=== PATIENT | female | born 1960 | race Caucasian/White ===

== ENCOUNTER 2019-08-06 07:42 | Outpatient (RCR) | payer MEDICAID, SELFPAY | END 2019-08-09 08:00 | disposition home or self-care (01) | LOC: ONCRAD 07:42 | PROVIDERS: Family Provider Nurse Practitioner Family; Visit Provider Internal Medicine Medical Oncology | DX: C34.11 Malignant neoplasm of upper lobe, right bronchus or lung (principal); C79.51 Secondary malignant neoplasm of bone; C77.1 Secondary and unspecified malignant neoplasm of intrathoracic lymph nodes; Z23 Encounter for immunization; J44.9 Chronic obstructive pulmonary disease, unspecified; E78.5 Hyperlipidemia, unspecified; F40.240 Claustrophobia | CPT/HCPCS: 90732; 96372; 99214; G0009; J3420 ==

== ENCOUNTER 2019-08-12 10:42 | Outpatient (RCR) | payer MEDICAID, SELFPAY | END 2019-08-31 00:01 | LOC: ONCRAD 10:42 | PROVIDERS: Family Provider Nurse Practitioner Family; Visit Provider Nurse Practitioner | DX: Z51.11 Encounter for antineoplastic chemotherapy (principal); Z51.12 Encounter for antineoplastic immunotherapy; C34.11 Malignant neoplasm of upper lobe, right bronchus or lung; C79.51 Secondary malignant neoplasm of bone; C77.1 Secondary and unspecified malignant neoplasm of intrathoracic lymph nodes; J44.9 Chronic obstructive pulmonary disease, unspecified; E78.5 Hyperlipidemia, unspecified; F40.240 Claustrophobia; F17.210 Nicotine dependence, cigarettes, uncomplicated; Z79.51 Long term (current) use of inhaled steroids | CPT/HCPCS: 80053; 84443; 85025; 96367; 96413; 96417; 99214; J1100; J1453; J2469; J3490; J7050 ×2; J9045; J9271; J9305 ×2 ==

== ENCOUNTER 2019-09-22 05:41 | Outpatient (RCR) | payer MEDICAID, SELFPAY ==
[2019-09-02] MEDS: sodium chloride 0.9% 250 ML 999 ML IV (12:43)
[2019-09-02 12:57] LABS: Potassium 3.1 mmol/L (3.5-5.1)
--- NOTE | 2019-09-05 22:07 | ONC FU_ITS ---
[facility] Patient Note Patient: Georgette Calvillo Unit #: [id number]: 1960 Dictated By: Robert CohenDate of Visit: Sep 02, 2019 Onc MED Follow-Up/Prog Note Chief Complaint: Metastatic large cell carcinoma. History of Present Illness: Ms Calvillo is a 58 year-old woman with metastatic nonsmall cell lung cancer, stage ALONSO (T1b, N3, M1b), with biopsy proven involvement in the right frontal calvarium. She had presented in May 2019 with an enlarging lump on the right side of her head. She was initially evaluated with head CT and subsequently with head MRI. The MRI, from 06/11/2019, showed a right frontal extra-axial dural based lesion with transcalvarial extension. The mass measures approximately 2.1 x 3.0 x 2.9 cm, and it was noted to extend into the right frontal scalp soft tissues. There were additional intracalvarial enhancing satellite lesions just posterior superior and anterior to it. The reported differential considerations included atypical meningioma, metastatic disease, or hemangiopericytoma. She was referred to Dr. Pedraza, and on 06/21/2019 she underwent craniotomy with resection/debulking of the right frontal skull and dural mass. Pathology showed metastatic large cell carcinoma with nonspecific immunohistochemical staining pattern. The tumor cells were positive for panCK, CK 7, Jason-Ep4, NURA, and CK high molecular weight. GCDFP15 was focally positive. They were negative for CK 20, TTF-1, p63, S100, Melan A, CD45, progesterone receptor, RCC, and Napsin. Prior to the initial head CT, she had undergone screening mammograms and chest CT scan in [place]. Those studes reportedly showed no evidence of malignancy. Dr Estrada had seen her initially on 07/07/2019. Her staging PET/CT on 07/10/2019 showed an FDG avid 1.3 cm perihilar nodule in the upper lobe of the right lung, SUV 8.2, consistent with primary bronchogenic carcinoma. Several FDG positive lymph nodes were noted in the mediastinum, consistent with metastatic disease, including a right paratracheal node measuring 2.3 x 1.5 cm with SUV 10.3 as well as other nodes in the AP window, left paratracheal, and subcarinal territories. There were no other sites of distant metastatic disease. Dr Estrada had also requested additional pathologic evaluation with a next generation sequencing study. It was positive for PD-L1 expression at 10%. It also showed presence of a KRAS mutation at exon 3. EGFR and BRAF mutations were not detected. The tumor was negative for the ALK and ROS1 rearrangements. Her other medical illnesses include COPD and hyperlipidemia. She also is known to have claustrophobia. She has a history of smoking 1 pack of cigarettes daily for 35 years, but she has now cut down to less than 1/2 pack/day. INTERIM HISTORY: She had initially been referred for palliative radiation. However, after reviewing the PET/CT findings with the cranial lesion having been resected, Dr. Davies had suggested that we instead proceed with her systemic therapy and reserve radiation for consolidative treatment. Sean recommended carboplatin/Alimta/Keytruda. Mrs. Calvillo is here today for follow-up. She due for her second cycle of carboplatin/Alimta/Keytruda today. She states overall she is feeling much better. She did have some fatigue with cycle 1 but states overall she is feeling much better after she recovered from her pneumothorax. She denies any fever or chills. She states she always has trouble eating but that is not new for her. She states her appetite is about the same prior to starting this chemotherapy. She has some chronic diarrhea/constipation but states that is no worse than normal. She denies any new shortness of breath orthopnea. She has had no fever or chills. She denies any concerns today. She denies any palpitations or leg cramps. She states she has not been drinking any more water than her normal and has not been urinating any more frequent than what she considers her normal either. Her ECOG is 2. Past Medical History: Chronic obstructive pulmonary disease Claustrophobia Hyperlipidemia Past Surgical History: Colonoscopy Left knee surgery x1 Right knee surgery x2 Pneumonia vaccine 23 in 2019 Tumor removal from head in 2019 Hysterectomy/bilateral salpingectomy-oophorectomy in 1992 Allergies: Paxil, Penicillins, and PROzac. Medications: Albuterol Sulfate 1 ((2.5 mg/3ml) 0.083%) Nebulization solution Inhalation b.i.d. Folic Acid 1 Tablet Oral daily ProAir HFA 1 Puff(s) (of 108 (90 base) mcg/act) Aerosol, solution Inhalation daily PRN Simvastatin 1 Tablet (of 20 mg) Oral daily Trelegy Ellipta 1 Puff(s) (of 100-62.5-25 mcg/inh) Aerosol Powder, Breath Activated Inhalation daily Family History: Ms. Calvillo's mother at age 84. Ms. Calvillo's father at age 90. Ms. Calvillo has 1 brother who is . Father at age 90 after several episodes of pneumonia. Mother age 84, cause unknown to the patient. A brother of the brain tumor at age 68. She has 5 other siblings, all in good health. A nephew had lung cancer. Social History: Ms. Calvillo is and she is a retired home health aide. She is a daily smoker who has smoked 0.5 packs/day for 0 years. She has no history of drinking. She has indicated exposure to the following products: cigarettes. Ms. Calvillo reports the following support systems: lives with spouse, significant other, family, or friends, lives in own house, supportive family/friends willing to assist with needs, and adequate transportation available for expected visits. Her diet consists of regular meals. She indicates her activity level as: light exercise. She has a history of smoking 1 pack of cigarettes daily for 35 years. Within the past 6 months she has cut down to 1/2 pack per day. She does not drink alcohol. She had alcohol use in the remote past, but never heavy. Review Of Symptoms: Constitutional Denies fevers, chills, night sweats, excessive fatigue or weight loss. Allergic/Immunologic No reactions. Eyes Denies significant visual changes. No diplopia. No amaurosis. ENMT Denies changes in hearing, sore throat, mouth sores, difficulty or changes in swallowing ability, and/or sinus drainage. Endocrine No diabetes, thyroid disease or hormone replacement. Denies hot flashes or night sweats. Hematologic/Lymphatic Denies easy bruising or bleeding. The patient denies any tender or palpable lymph nodes. Respiratory Denies dyspnea on exertion, chest pain, cough or hemoptysis. Denies orthopnea. Cardiovascular Denies anginal chest pain, palpitations or orthopnea. Gastrointestinal Denies nausea, vomiting, diarrhea, GI bleeding, or constipation. Denies change in bowel habits and/or stool color, no heartburn or early satiety. Genitourinary (F) No hematuria, hesitancy, incontinence, vaginal bleeding, discharge or other problems with urination. Musculoskeletal Denies joint pain, swelling or redness. No decreased range of motion. Integumentary Denies chronic rashes, inflammation, ulcerations or skin changes. Neurologic Denies headache, blurred vision, and no areas of focal weakness or numbness. Normal gait. No sensory problems. Psychiatric Denies insomnia, depression, aroldo or mood swings. Vital Signs: Performed on Sep 02, 2019 11:42 Height - 62.00 in Weight - 79.8 lbs (LOW) BSA - 1.29 sq.m BMI - 14.60 (LOW) Temperature - 98.1 F (LOW) Pulse - 115 /min (HIGH) Respiration - 22 /min BP - 87/46 mm(hg) (LOW) O2 Sat - 95 % (LOW) Pain - 3,1 - No physically strenuous activity, but ambulatory and able to carry out light or sedentary work (e.g. office work, light house work). (ECOG) Physical Examination: Constitutional Alert, oriented, no acute distress. Skin pink, warm and dry. Head Normocephalic; atraumatic. Eyes Conjunctivae and sclerae are clear and without icterus. Pupils are reactive and equal. ENMT No oral exudates, ulcers, masses, thrush or mucositis. Oropharynx clear. Tongue normal. Poor dentation noted. Neck Supple without masses or thyromegaly. No jugular venous distension. Hematologic/Lymphatic No petechiae or purpura. No tender or palpable lymph nodes in the cervical or supraclavicular areas. Respiratory Lungs are clear to auscultation without rhonchi or wheezing. Cardiovascular Regular rate and rhythm of heart without murmurs,clicks, gallops or rubs. Back/Spine Non-tender to palpation. Extremities No visible deformities, no cyanosis, clubbing or edema. Musculoskeletal No tenderness or swelling, normal range of motion without obvious weakness. Integumentary No rashes or lesions. Neurologic No sensory or motor deficits, normal cerebellar function, normal gait. Psychiatric Alert and oriented times three. Coherent speech. Verbalizes understanding of our discussions today. Laboratory:Test performed on Aug 31, 2019 13:57 Glucose 119 mg/dL BUN 10 mg/dL Creatinine 0.81 mg/dL Cr Clearance (Est) 45.10 mL/min Sodium 141 mmol/L Potassium 3.2 mmol/L Chloride 102 mmol/L CO2 22 mmol/L Calcium 9.1 mg/dL Protein, Total 7.4 g/dL Albumin 3.4 g/dL Bilirubin, Total 0.2 mg/dL Alkaline Phosphatase 151 IU/L AST (SGOT) 13 IU/L ALT (SGPT) 11 IU/L WBC 7.1 10^9/L RBC 3.60 10^12/L HGB 10.9 g/dL HCT 33.7 % MCV 93.6 fl MCH 30.3 pg MCHC 32.3 g/dL RDW 14.4 % Platelet Count 544 10^9/L MPV 8.7 fL Neutrophils (Gran) 3.67 10^9/L Lymphocytes 2.21 10^9/L Monocytes 1.09 10^9/L Eosinophils 0.05 10^9/L Basophils 0.03 10^9/L Manual Lymphocytes 31 % Manual Monocytes 15 % Manual Eosinophils 1 % Manual Basophils 0 % Test performed on Aug 12, 2019 10:50 TSH 2.18 uIU/mL Anion Gap 15.7 eGFR 73.9 mL/min Globulin 2.7 gm/dL Neutrophil % 68.0 % Lymphocyte % 22.4 % Monocyte % 8.2 % Eosinophil % 0.7 % Basophils % 0.4 % Impression: 1. Patient with metastatic large cell carcinoma in the form of a right frontoparietal extra-axial, dural based mass with transcalvarial extension. By PET/CT, she appears to have primary malignancy involving the upper lobe of the right lung with associated mediastinal lymph node involvement. As such, her disease is stage ALONSO (T1b, N3, M1b). 2. She underwent craniotomy with resecting/debulking of the mass on 06/21/2019. Her other medical illnesses include: 3. COPD. 4. Hyperlipidemia. 5. Claustrophobia. The PET/CT findings and pathology results were reviewed with the patient. We discussed the clinical implications. She has non-small cell lung cancer with mediastinal lymph node involvement and with a single site of metastatic involvement in the right frontal cranium. She has undergone surgical resection for the latter. As such, she is advised now to proceed with systemic therapy. With her PD-L1 expression at less than 50%, the recommended treatment will be chemotherapy with carboplatin/pemetrexed in combination with immunotherapy. She was given Pneumovax on 08/02/19 as she had previously been given a Prevnar 13 vaccination. She declines a flu shot. Plan: 1. Proceed with cycle 2 carbo/Alimta/Keytruda. 2. Labs from 08/31/2019 were reviewed in detail and discussed with Ms. calvillo and a copy was given to her. WBC 7.1, hemoglobin 11.9, platelets 544,000 ANC is 3600. Potassium was reported at 3.2 sodium was 141 BUN was 0.8 LFTs are normal. Follow-up potassium today revealed a potassium of 3.1 and magnesium was normal at 2.0. 3. Continue current antiemetics as they are working well for her. 4. Continue weekly interim counts via her PICC line at [facility] outpatient clinic. We will request that she have her labs drawn the day before her appointment as she lives almost 2 [place] away this would save unnecessary trip if she does not get treated. 5. We will plan to see her back in 3 weeks with CBC, CMP she will be due for cycle 3 carboplatin/Alimta/Keytruda at that time. She will be due for B12 at that visit as well. 6. Specific side effects of immunotherapy discussed included but not limited to: ??? pneumonitis: new or worsening cough; chest pain; and shortness of breath. ??? Colitis: diarrhea or more bowel movements than usual; blood in stools or dark, tarry, sticky stools; and severe stomach area (abdomen) pain or tenderness. ??? hepatitis: jaundice; severe nausea or vomiting; pain on the right side of the abdomen; drowsiness; dark urine; bleeding or bruise more easily than normal. ??? nephritis and kidney failure: including decrease in the amount of urine; hematuria; lower extremity edema; and loss of appetite. ??? thyroid and pituitary changes that may include: headaches that will not go away or unusual headaches; extreme tiredness, weight gain or weight loss; changes in mood or behavior, such as decreased sex drive, irritability, or forgetfulness; dizziness or fainting; hair loss; feeling cold; constipation; and voice gets deeper. ???rash; changes in eyesight; severe or persistent muscle or joint pains; and severe muscle weakness. 7. We will start her on potassium 20 mEq daily and recheck her potassium in 1 week. 8. Ms. Calvillo was instructed to contact us in interim should questions or problems arise. I am hesitant to go any higher dosing as she does already have significant issues with eating and occasional to frequent GI upset. Signed By: Robert Cohen-, AOCNP Levi Estrada MD <<Signature on File>>
[2019-09-22] MEDS: sodium chloride 0.9% 250 ML 999 ML IV (12:04)
--- NOTE | 2019-09-25 08:43 | ONC FU_ITS ---
Dr. Estrada Patient Follow-Up Note Patient: Georgette Calvillo Unit #: [id number]: 1960 Dicatated By: Levi Estrada M.D.Date of Visit:Sep 22, 2019 Onc Med Follow-up/Prog Note Chief Complaint: Metastatic large cell carcinoma. History of Present Illness: This is a 58 year-old woman with metastatic nonsmall cell lung cancer, stage ALONSO (T1b, N3, M1b), with biopsy proven metastatic involvement in the right frontal calvarium. She had presented in May 2019 with an enlarging lump on the right side of her head. She was initially evaluated with head CT and subsequently with head MRI. The MRI, from 06/11/2019, showed a right frontal extra-axial dural based lesion with transcalvarial extension. The mass measures approximately 2.1 x 3.0 x 2.9 cm, and it was noted to extend into the right frontal scalp soft tissues. There were additional intracalvarial enhancing satellite lesions just posterior superior and anterior to it. The reported differential considerations included atypical meningioma, metastatic disease, or hemangiopericytoma. She was referred to Dr. Pedraza, and on 06/21/2019 she underwent craniotomy with resection/debulking of the right frontal skull and dural mass. Pathology showed metastatic large cell carcinoma with nonspecific immunohistochemical staining pattern. The tumor cells were positive for panCK, CK 7, Jason-Ep4, NURA, and CK high molecular weight. GCDFP15 was focally positive. They were negative for CK 20, TTF-1, p63, S100, Melan A, CD45, progesterone receptor, RCC, and Napsin. Prior to the initial head CT, she had undergone screening mammograms and chest CT scan in [place]. Those studes reportedly showed no evidence of malignancy. I had seen her initially on 07/07/2019. Her staging PET/CT on 07/10/2019 showed an FDG avid 1.3 cm perihilar nodule in the upper lobe of the right lung, SUV 8.2, consistent with primary bronchogenic carcinoma. Several FDG positive lymph nodes were noted in the mediastinum, consistent with metastatic disease, including a right paratracheal node measuring 2.3 x 1.5 cm with SUV 10.3 as well as other nodes in the AP window, left paratracheal, and subcarinal territories. There were no other sites of distant metastatic disease. I had also requested additional pathologic evaluation with a next generation sequencing study. It was positive for PD-L1 expression at 10%. It also showed presence of a KRAS mutation at exon 3. EGFR and BRAF mutations were not detected. The tumor was negative for the ALK and ROS1 rearrangements. She had initially been referred for palliative radiation. However, after reviewing the PET/CT findings with the cranial lesion having been resected, Dr. Davies had suggested that we instead proceed with her systemic therapy and reserve radiation for consolidative treatment. As such, she then began a course of combination chemotherapy/immunotherapy with carboplatin/pemetrexed together with pembrolizumab. Her other medical illnesses include COPD and hyperlipidemia. She also is known to have claustrophobia. She has a history of smoking 1 pack of cigarettes daily for 35 years, but she has cut down to less than 1/2 pack/day. INTERIM HISTORY: She began cycle 1 of carboplatin/pemetrexed in combination with pembrolizumab on 08/12/2019. She was able to tolerate it with acceptable toxicity, and she continued with cycle 2 on 09/02/2019. She has seen for a follow-up visit. She continues to tolerate the chemotherapy reasonably well, though she does complain that she is very tired. She is still doing light work. ECOG score is 1. Her appetite has not been very good, she complains that smells make her sick. She is eating a little food and supplementing with Ensure. She has not had fever or night sweats. She has occasional hot flashes. She has had no mouth sores. She does not complain of shortness of breath. She has been coughing stuff up, mostly clear. She has had no chest pain or hemoptysis. She has nausea, no vomiting. Bowel and bladder function have been okay. She has no significant joint or bone pain. She has no focal neurologic symptoms. Medications: Albuterol Sulfate 1 ((2.5 mg/3ml) 0.083%) Nebulization solution Inhalation b.i.d., Folic Acid 1 Tablet Oral daily, ProAir HFA 1 Puff(s) (of 108 (90 base) mcg/act) Aerosol, solution Inhalation daily PRN, Simvastatin 1 Tablet (of 20 mg) Oral daily, Trelegy Ellipta 1 Puff(s) (of 100-62.5-25 mcg/inh) Aerosol Powder, Breath Activated Inhalation daily Allergies: Marinol, Paxil, Penicillins, and PROzac. Review of Systems: Constitutional - She is very tired, but she is still doing light work. Appetite is down. She complains that smells make her sick. Her weight is stable now. She has no fever or night sweats. ECOG score is 1, ENMT - She has some sinus pressure. No mouth sores. No sore throat or difficulty swallowing, Hematologic/Lymphatic - No abnormal bruising or bleeding, Respiratory - No shortness of breath. She has cough which is mostly productive of clear sputum. No pleuritic pain or hemoptysis, Cardiovascular - No angina pain. No palpitations, Gastrointestinal - She has some nausea, but no vomiting. No heartburn or acid reflux. No diarrhea or constipation. No blood in the stool or black stools, Genitourinary (F) - No dysuria or hematuria. No urinary frequency. No urgency or incontinence, Musculoskeletal - No significant joint or bone pain, Integumentary - No skin complications, Neurologic - No headache. She has occasional orthostatic lightheadedness. No numbness/paresthesias or other focal neurologic symptoms, Psychiatric - She has some anxiety/depression. No insomnia. Vital Signs: Performed on Sep 22, 2019 09:58 Height - 62.00 in Weight - 79.6 lbs (LOW) BSA - 1.29 sq.m BMI - 14.56 (LOW) Temperature - 97.0 F (LOW) Pulse - 119 /min (HIGH) Respiration - 18 /min BP - 113/52 mm(hg) O2 Sat - 97 % Pain - 0 Physical Examination: Constitutional - She appears somewhat weak generally and chronically ill, Eyes - Sclerae nonicteric. Conjunctivae clear, ENMT - There is a slight coating on the tongue. There are no other lesions noted in the oral cavity, Hematologic/Lymphatic - No cervical, clavicular, or axillary adenopathy, Respiratory - Lungs are clear with diminished air movement bilaterally, Cardiovascular - Heart rhythm is regular. There is no murmur, gallop, or rub noted, Abdomen - Soft. Liver and spleen are not enlarged. There is no abdominal mass or ascites noted and there is no inguinal adenopathy, Extremities - No edema, Neurologic - No focal neurologic deficits noted. Lab/Imaging: Test performed on Sep 22, 2019 10:17 Creatinine 0.71 mg/dL Cr Clearance (Est) 50.84 mL/min Test performed on Sep 20, 2019 11:45 Glucose 104 mg/dL BUN 14 mg/dL Sodium 140 mmol/L Potassium 4.1 mmol/L Chloride 102 mmol/L CO2 22 mmol/L Calcium 9.4 mg/dL Protein, Total 7.3 g/dL Albumin 3.8 g/dL Bilirubin, Total 0.2 mg/dL Alkaline Phosphatase 136 IU/L AST (SGOT) 23 IU/L ALT (SGPT) 15 IU/L WBC 3.4 10^9/L RBC 3.65 10^12/L HGB 11.2 g/dL HCT 34.7 % MCV 95.1 fl MCH 30.7 pg MCHC 32.3 g/dL RDW 16.7 % Platelet Count 290 10^9/L MPV 9.2 fL Neutrophils (Gran) 1.02 10^9/L Lymphocytes 1.59 10^9/L Monocytes 0.64 10^9/L Eosinophils 0.10 10^9/L Basophils 0.02 10^9/L Manual Lymphocytes 47 % Manual Monocytes 19 % Manual Eosinophils 3 % Manual Basophils 1 % Impression: 1. Patient with metastatic large cell carcinoma in the form of a right frontoparietal extra-axial, dural based mass with transcalvarial extension. By PET/CT, she appears to have primary malignancy involving the upper lobe of the right lung with associated mediastinal lymph node involvement. As such, her disease is stage ALONSO (T1b, N3, M1b). 2. She underwent craniotomy with resecting/debulking of the mass on 06/21/2019. Her tumor was noted to harbor a KRAS mutation at exon 3. EGFR and BRAF mutations were not detected, and the tumor was negative for ROS1 and ALK gene rearrangements. PD-L1 expression was positive at 10%. Her other medical illnesses include: 3. COPD. 4. Hyperlipidemia. 5. Claustrophobia. She began cycle 1 of carboplatin/pemetrexed chemotherapy in combination with pembrolizumab on 08/12/2019. She tolerated it with acceptable toxicity, and she continue with cycle 2 on 09/02/2019. At this point she is having some nausea/dysguesia with the chemotherapy, and she still has somewhat marginal performance status. However, thus far she has been able to tolerate treatment with acceptable toxicity. Plan: She will proceed with cycle 3 of carboplatin/pemetrexed and pembrolizumab. The dosages remain the same. I will try adding Marinol 5 mg together with Compazine 10 mg twice daily for the nausea/anorexia. I will plan to schedule a restaging PET/CT after 4 cycles of chemotherapy. She returns in 3 weeks. Signed By: Levi Estrada M.D. <<Signature on File>>
== END 2019-10-01 23:59 | disposition home or self-care (01) ==
LOC: ONCMED 05:41
PROVIDERS: Nurse Practitioner; Family Provider Nurse Practitioner Family; PCP Nurse Practitioner Family; Visit Provider Internal Medicine Medical Oncology
DX: Z51.12 Encounter for antineoplastic immunotherapy (principal); Z51.11 Encounter for antineoplastic chemotherapy; C34.11 Malignant neoplasm of upper lobe, right bronchus or lung; C79.51 Secondary malignant neoplasm of bone; R11.0 Nausea; R63.0 Anorexia; J44.9 Chronic obstructive pulmonary disease, unspecified; E78.5 Hyperlipidemia, unspecified; F40.240 Claustrophobia; F17.210 Nicotine dependence, cigarettes, uncomplicated; F41.8 Other specified anxiety disorders; Z79.899 Other long term (current) drug therapy
CPT/HCPCS: 83735; 84132; 96367; 96413; 96417; 99214; A4222; J1100; J1200; J1453; J2469; J3490; J7050; J9045; J9271; J9305

== ENCOUNTER 2019-09-22 19:11 | Emergency (ER) | payer MEDICAID, SELFPAY ==
[2019-09-22 19:23] VITALS: BP 108/58; PULSE 114; RESP 16; TEMP 36.8; O2SAT 94; BMI 14.6
--- NOTE | 2019-09-22 19:26 | ED_ITS ---
Entered by Georgia Hidalgo, acting as scribe for Eileen Marte MD, [facility] [place] Arrhythmia/Palpitations General: Chief Complaint: Weakness Stated Complaint: Racing Heart, Weakness Time Seen by Provider: 09/22/19 19:25 Source: patient Mode of arrival: EMS Limitations: no limitations History of Present Illness: HPI narrative: 59 yo Female presents to ED with complaint of weakness and racing heart. Pt states that she had chemotherapy treatment today. Pt states they prescribed her a new medication to help with nausea and appetite. Pt states about 45 minutes after taking the medication she started feeling like her heart was racing, dizziness, and weakness. Pt states that she has stage 2 lung cancer. The new medication that the patient took was marinol which she was told will help with nausea and appetite. complaint: heart racing Onset (ago): hour(s) Duration: constant Context: occurred during rest and change in medication Associated symptoms: Reports other (weakness); Deny nausea or vomiting Review of Systems General: Reports: 10 or more systems reviewed and unremarkable except in HPI and below Const: Denies: fever, chills or body aches Eyes: Denies: change in vision, blurry vision or blind spots ENMT: Denies: throat pain, enlarged tonsils, painful swallowing, hoarseness, mouth pain or swelling of lips/tongue Card: Reports: palpitations (heart racing); Denies: chest pain, irregular heart rhythm, edema or swelling of feet/ankles Resp: Denies: shortness of breath, productive cough or non-productive cough GI: Denies: abdominal pain, nausea or vomiting : Denies: flank pain, difficulty urinating, painful urination, urinary frequency, urinary urgency or urinary hesitancy Musc: Denies: neck pain, back pain, extremity pain, extremity swelling or joint pain Skin/Breast: Denies: rash, itching or redness Neuro: Reports: dizziness; Denies: headache, numbness in extremities or weakness in extremities Endo: Denies: excessive urination, excessive thirst or tired all the time PFSH ED PFSH: Statuses (acute, chronic, etc) shown below reflect problem list status as previously entered and may not be historically accurate Medical History (Updated 09/22/19 @ 22:38 by Eileen Marte MD, MSM) Lung cancer (Acute) Social History Smoking and tobacco status: current every day smoker Physical Exam Const: COMMON NORMALS: no apparent distress, average body habitus, oriented x3, no limitations, healthy appearing, alert and well nourished HENMT: COMMON NORMALS: normocephalic, head/scalp atraumatic and moist oral mucous membranes HEAD & SCALP: normocephalic and atraumatic Eye: COMMON NORMALS: PERRL, EOMs intact bilaterally, conjunctivae normal and no scleral icterus CONJUNCTIVA: Yes conjunctivae normal PUPIL: Yes PERRL Neck/C-Spine: COMMON NORMALS: full ROM, supple, no meningeal signs, no JVD and no carotid bruits Chest: COMMONS NORMALS: inspection of chest normal and palpation of chest normal Resp: COMMON NORMALS: normal respiratory effort, no retractions, no use of accessory muscles, clear to auscultation bilaterally and percussion normal AUSCULTATION: clear to auscultation bilaterally PERCUSSION: percussion normal Cardio: COMMON NORMALS: no JVD, regular rate, regular rhythm, S1 normal heart sound, S2 normal heart sound, no gallops, no clicks, no murmurs, no rub and peripheral pulses 2+ throughout RATE: regular rate RHYTHM: regular rhythm HEART SOUNDS: S1 normal and S2 normal PERIPHERAL PULSES: pulses 2+ throughout GI: COMMON NORMALS: normal to inspection, nondistended, normoactive bowel sounds, soft to palpation, non-tender, no hepatosplenomegaly, no masses and no bruits PALPATION: Yes soft and Yes no hepatosplenomegaly : COMMON NORMALS: Yes no CVA tenderness BLADDER/KIDNEY EXAM: Yes no CVA tenderness Back/Pelvis: COMMON NORMALS: no CVA tenderness Extremity: COMMON NORMALS: normal to inspection, full ROM, normal capillary refill, no calf tenderness and no pedal edema Neuro: COMMON NORMALS: oriented x3 SENSORIUM/ORIENTATION: Yes alert MENINGEAL SIGNS: Yes no meningeal signs Skin: COMMON NORMALS: no rashes or lesions noted, no wounds, skin turgor normal, no jaundice, no petechiae and no mottling GENERAL SKIN EXAM: no rashes or lesions noted and turgor normal Course ED course: 59-year-old female patient with lung cancer who received chemotherapy and immunotherapy today. She also started Marinol today for nausea and appetite stimulation. Shortly after taking the Marinol she had what I believe a side effect from the medication and she felt all tingly and weak. During her stay in the emergency department her symptoms resolved. On evaluation in the ED she was noted to be mildly neutropenic. An attempt was made to contact her oncologist several times and a voice message was left but we did not get a return call. I think it is safe to discharge this patient home. Vital Signs: Vital signs: Vital Signs Temperature 98.3 F 09/22/19 19:23 Pulse Rate 114 H 09/22/19 19:23 Respiratory Rate 16 09/22/19 19:23 Blood Pressure 108/58 09/22/19 19:23 Pulse Oximetry 94 09/22/19 19:23 MDM - Arrhythmia/Palpitations Medical Records: Attestation: I reviewed the patient's medical records. Lab Data: Attestation: I reviewed the patient's lab results. Labs: Lab Results 09/22/19 09/22/19 09/22/19 Range/Units 20:25 20:25 20:25 WBC 1.8 L (4.0-10.0) 10^3/ uL RBC 3.38 L (4.1-5.3) 10^6/u L Hgb 10.3 L (11.5-15.3) g/dL Hct 31.7 L (37.0-47.0) % MCV 93.8 (81-99) fL MCH 30.5 (28.0-34.0) pg MCHC 32.5 (30.0-36.0) g/dL RDW 16.7 H (12.1-15.1) % Plt Count 322 (130-400) 10^3/c mm MPV 8.9 (7.4-10.4) fL Neut % (Auto) 82.2 % Lymph % (Auto) 15.6 % Henderson % (Auto) 1.1 % Eos % (Auto) 0.0 % Baso % (Auto) 0.0 % Neut # (Auto) 1.5 L (1.8-7.7) 10^3/u L Lymph # (Auto) 0.3 L (0.8-4.8) 10^3/u L Henderson # (Auto) 0.0 L (0.2-0.9) 10^3/u L Eos # (Auto) 0.0 (0.0-0.8) 10^3/u L Baso # (Auto) 0.0 (0.0-0.1) 10^3/u L Nucleated RBC % (a uto) 0 % Nucleated RBCs # 0.0 /100WBC Sodium 135 L (136-145) mmol/L Potassium 4.3 (3.5-5.1) mmol/L Chloride 102 (98-107) mmol/L Carbon Dioxide 23 (22-29) mmol/L Anion Gap 14.3 (5-19) BUN 15 (6-20) mg/dL Creatinine 0.9 (0.5-0.9) mg/dL GFR Calculation 64.3 L (90-130) mL/min Glucose 195 H (74-109) mg/dL Lactate 1.0 (0.5-2.2) mmol/L Calcium 9.7 (8.6-10.0) mg/Dl Total Bilirubin 0.2 (0.15-1.2) mg/dL AST 21 (0-32) U/L ALT 17 (0-33) U/L Alkaline Phosphata se 135 H (35-105) IU/L Troponin T Baselin e (0-10) ng/mL Troponin T 120 Min enterprise (0-10) ng/mL Delta Troponin T (0-10) ABS# Total Protein 7.1 (6.6-8.7) g/dL Albumin 3.7 (3.5-5.2) g/dL Globulin 3.4 (1.3-4.6) g/dL 09/22/19 09/22/19 Range/Units 20:25 21:26 WBC (4.0-10.0) 10^3/ uL RBC (4.1-5.3) 10^6/u L Hgb (11.5-15.3) g/dL Hct (37.0-47.0) % MCV (81-99) fL MCH (28.0-34.0) pg MCHC (30.0-36.0) g/dL RDW (12.1-15.1) % Plt Count (130-400) 10^3/c mm MPV (7.4-10.4) fL Neut % (Auto) % Lymph % (Auto) % Henderson % (Auto) % Eos % (Auto) % Baso % (Auto) % Neut # (Auto) (1.8-7.7) 10^3/u L Lymph # (Auto) (0.8-4.8) 10^3/u L Henderson # (Auto) (0.2-0.9) 10^3/u L Eos # (Auto) (0.0-0.8) 10^3/u L Baso # (Auto) (0.0-0.1) 10^3/u L Nucleated RBC % (a uto) % Nucleated RBCs # /100WBC Sodium (136-145) mmol/L Potassium (3.5-5.1) mmol/L Chloride (98-107) mmol/L Carbon Dioxide (22-29) mmol/L Anion Gap (5-19) BUN (6-20) mg/dL Creatinine (0.5-0.9) mg/dL GFR Calculation (90-130) mL/min Glucose (74-109) mg/dL Lactate (0.5-2.2) mmol/L Calcium (8.6-10.0) mg/Dl Total Bilirubin (0.15-1.2) mg/dL AST (0-32) U/L ALT (0-33) U/L Alkaline Phosphata se (35-105) IU/L Troponin T Baselin e 10 (0-10) ng/mL Troponin T 120 Min enterprise 9.37 (0-10) ng/mL Delta Troponin T -0.63 L (0-10) ABS# Total Protein (6.6-8.7) g/dL Albumin (3.5-5.2) g/dL Globulin (1.3-4.6) g/dL Discharge Plan Discharge Patient Disposition: Home, Self-Care Clinical Impression: Medication side effect Lung cancer Qualifiers: Laterality: unspecified laterality Lung location: unspecified part of lung Qualified Code(s): C34.90 - Malignant neoplasm of unspecified part of unspecified bronchus or lung Condition: Stable Prescriptions: Continued albuterol sulfate 2.5 mg /3 mL (0.083 %) Solution For Nebulization 2.5 mg INHALATION QID PRN (Reason: Shortness Of Breath) RF: 0 folic acid 20 mg Capsule 20 mg PO DAILY RF: 0 simvastatin 20 mg Tablet 20 mg PO DAILY RF: 0 Discontinued dronabinol [Marinol] 5 mg Capsule 5 mg PO BID RF: 0 Discharge Orders: Discharge Order (Routine); Ordered 09/22/19 Ordered By: Eileen Marte Referrals: Ann Meyers, [facility] [Primary Care Provider] - 1-3 days Activity Restrictions/Additional Instructions: Return for any new or worsening symptoms. Follow-up with Dr. Estrada as scheduled. Follow-up with your primary care provider within 3 days. Coding Level of Care Code ED Special Education Professional for Chg Fwd Exam Problem Focused The documentation recorded by the Gwen mckeon Carmen, accurately reflects the service I personally performed and the decisions made by , Eileen Marte MD, [facility] [place] Sep 22, 2019 19:11
--- NOTE | 2019-09-22 19:39 | XR_ITS ---
WS: [id number] PROCEDURE: XR chest 2V* [id number] CLINICAL INFORMATION: chest pain COMPARISON: FINDINGS: Right PICC line with tip in the mid SVC. Heart: Normal cardiac silhouette. Aortic calcification. Lungs: Chronic emphysematous changes. No acute pulmonary infiltrates. Chronic granulomatous disease . Tiny left pleural effusion unchanged. Bones: Normal visualized bony structures. XR/XR chest 2V* [id number] IMPRESSION: 1. Right PICC line with tip in the mid SVC. 2. Stable small left pleural effusion. 3. No acute pulmonary infiltrates.
[2019-09-22 20:31] LABS: Hematocrit 31.7 % (37.0-47.0); Hemoglobin 10.3 g/dL (11.5-15.3); Lymphocytes # 0.3 10^3/uL (0.8-4.8); Lymphocytes % 15.6 %; Mean Corpuscular HGB Conc 32.5 g/dL (30.0-36.0); Mean Corpuscular Hemoglobin 30.5 pg (28.0-34.0); Mean Corpuscular Volume 93.8 fL (81-99); Mean Platelet Volume 8.9 fL (7.4-10.4); Monocytes % 1.1 %; Neutrophils # 1.5 10^3/uL (1.8-7.7); Neutrophils % 82.2 %; Nucleated Red Blood Cells % 0 %; Platelet Count 322 10^3/cmm (130-400); Red Blood Count 3.38 10^6/uL (4.1-5.3); Red Cell Distribution Width 16.7 % (12.1-15.1); White Blood Count 1.8 10^3/uL (4.0-10.0)
[2019-09-22 20:45] LABS: Alanine Aminotransferase 17 U/L (0-33); Albumin Level 3.7 g/dL (3.5-5.2); Alkaline Phosphatase 135 IU/L (35-105); Anion Gap 14.3 (5-19); Aspartate Amino Transferase 21 U/L (0-32); Blood Urea Nitrogen 15 mg/dL (6-20); Calcium 9.7 mg/Dl (8.6-10.0); Carbon Dioxide 23 mmol/L (22-29); Chloride 102 mmol/L (98-107); Globulin 3.4 g/dL (1.3-4.6); Glomerular Filtration Rate 64.3 mL/min (90-130); Glucose 195 mg/dL (74-109); Potassium 4.3 mmol/L (3.5-5.1); Sodium 135 mmol/L (136-145); Total Bilirubin 0.2 mg/dL (0.15-1.2); Total Protein 7.1 g/dL (6.6-8.7)
[2019-09-22 20:47] LABS: Troponin(5th) Baseline 10 ng/mL (0-10)
[2019-09-22 22:01] LABS: Troponin 5 2HR 9.37 ng/mL (0-10)
[2019-09-22 22:12] LABS: Troponin 5 2HR Delta -0.63 ABS# (0-10)
[2019-09-22 23:22] VITALS: BP 92/54; PULSE 74; RESP 12; TEMP 36.7; O2SAT 97
--- NOTE | 2019-09-23 | PC.NURSE ---
Patient reports racing heart, and weakness shortly after taking Marinol for the first time. Patient states all symptoms have resolved at this point.
[2019-09-23 01:00] VITALS: BP 89/57; PULSE 68; RESP 12; TEMP 36.7; O2SAT 100
[2019-09-23 02:39] LABS: Troponin 5 6HR 10.65 ng/L (0-10); Troponin 5 6HR Delta 0.65 ng/L (0-12)
[2019-09-23 07:35] VITALS: BP 73/41; PULSE 78; RESP 16; O2SAT 95
--- NOTE | 2019-09-23 08:30 | PC.NURSE ---
PT CALLED HER AND HE IS ON HIS WAY TO PICK HER UP.
[2019-09-23 08:43] VITALS: BP 80/52; PULSE 84; RESP 14; O2SAT 90
[2019-09-23 09:38] VITALS: BP 93/55; PULSE 91; RESP 18; O2SAT 98
== END 2019-09-23 10:50 | disposition home or self-care (01) ==
PROVIDERS: Emergency Provider Family Medicine; Family Provider Nurse Practitioner Family; PCP Nurse Practitioner Family
DX: T88.7XXA Unspecified adverse effect of drug or medicament, initial encounter (principal); T50.905A Adverse effect of unspecified drugs, medicaments and biological substances, initial encounter; C34.90 Malignant neoplasm of unspecified part of unspecified bronchus or lung; F17.210 Nicotine dependence, cigarettes, uncomplicated
CPT/HCPCS: 36415; 71046; 80053; 83605; 84484; 85025; 99282

== ENCOUNTER 2019-10-20 05:51 | Outpatient (RCR) | payer MEDICAID, SELFPAY ==
[2019-10-20] MEDS: sodium chloride 0.9% 250 ML 999 ML IV (11:55)
[2019-10-20] MEDS: cyanocobalamin 1,000 mcg/mL SDV 1000 MCG IM (12:45)
--- NOTE | 2019-10-20 16:38 | ONC FU_ITS ---
[facility] Patient Note Patient: Georgette Calvillo Unit #: [id number]: 1960 Dictated By: Robert CohenDate of Visit: Oct 20, 2019 Onc MED Follow-Up/Prog Note Chief Complaint: Metastatic large cell carcinoma. History of Present Illness: Ms aClvillo is a 58 year-old woman with metastatic nonsmall cell lung cancer, stage ALONSO (T1b, N3, M1b), with biopsy proven involvement in the right frontal calvarium. She had presented in May 2019 with an enlarging lump on the right side of her head. She was initially evaluated with head CT and subsequently with head MRI. The MRI, from 06/11/2019, showed a right frontal extra-axial dural based lesion with transcalvarial extension. The mass measures approximately 2.1 x 3.0 x 2.9 cm, and it was noted to extend into the right frontal scalp soft tissues. There were additional intracalvarial enhancing satellite lesions just posterior superior and anterior to it. The reported differential considerations included atypical meningioma, metastatic disease, or hemangiopericytoma. She was referred to Dr. Pedraza, and on 06/21/2019 she underwent craniotomy with resection/debulking of the right frontal skull and dural mass. Pathology showed metastatic large cell carcinoma with nonspecific immunohistochemical staining pattern. The tumor cells were positive for panCK, CK 7, Jason-Ep4, NURA, and CK high molecular weight. GCDFP15 was focally positive. They were negative for CK 20, TTF-1, p63, S100, Melan A, CD45, progesterone receptor, RCC, and Napsin. Prior to the initial head CT, she had undergone screening mammograms and chest CT scan in [place]. Those studes reportedly showed no evidence of malignancy. Dr Estrada had seen her initially on 07/07/2019. Her staging PET/CT on 07/10/2019 showed an FDG avid 1.3 cm perihilar nodule in the upper lobe of the right lung, SUV 8.2, consistent with primary bronchogenic carcinoma. Several FDG positive lymph nodes were noted in the mediastinum, consistent with metastatic disease, including a right paratracheal node measuring 2.3 x 1.5 cm with SUV 10.3 as well as other nodes in the AP window, left paratracheal, and subcarinal territories. There were no other sites of distant metastatic disease. Dr Estrada had also requested additional pathologic evaluation with a next generation sequencing study. It was positive for PD-L1 expression at 10%. It also showed presence of a KRAS mutation at exon 3. EGFR and BRAF mutations were not detected. The tumor was negative for the ALK and ROS1 rearrangements. Her other medical illnesses include COPD and hyperlipidemia. She also is known to have claustrophobia. She has a history of smoking 1 pack of cigarettes daily for 35 years, but she has now cut down to less than 1/2 pack/day. INTERIM HISTORY: She had initially been referred for palliative radiation. However, after reviewing the PET/CT findings with the cranial lesion having been resected, Dr. Davies had suggested that we instead proceed with her systemic therapy and reserve radiation for consolidative treatment. Sean recommended carboplatin/Alimta/Keytruda. She began her first treatment on 09/12/2018. Mrs. Calvillo is here today for follow-up. She due for her fourth cycle of carboplatin/Alimta/Keytruda today. She states she is feeling good overall. She denies any fever or chills. She denies any mouth sores. She states she is eating 2 meals a day and supplementing with Ensure/Boost products. Her weight is stable. She denies any neuropathy. She states her bowels and bladder functions are normal for her. She denies any concerns with her PICC line (other than frustration over lab draws and dressing changes). She states the Protonix is working well. She can lay down at night now without heartburn. She has some mild nausea after treatment but states her antiemetics at home work well for this. Her ECOG is 2. Past Medical History: Chronic obstructive pulmonary disease Claustrophobia Hyperlipidemia Past Surgical History: Colonoscopy Left knee surgery x1 Right knee surgery x2 Pneumonia vaccine 23 in 2019 Tumor removal from head in 2019 Hysterectomy/bilateral salpingectomy-oophorectomy in 1992 Allergies: Marinol, Paxil, Penicillins, and PROzac. Medications: Albuterol Sulfate 1 ((2.5 mg/3ml) 0.083%) Nebulization solution Inhalation b.i.d. Folic Acid 1 Tablet Oral daily ProAir HFA 1 Puff(s) (of 108 (90 base) mcg/act) Aerosol, solution Inhalation daily PRN Simvastatin 1 Tablet (of 20 mg) Oral daily Trelegy Ellipta 1 Puff(s) (of 100-62.5-25 mcg/inh) Aerosol Powder, Breath Activated Inhalation daily Family History: Ms. Calvillo's mother at age 84. Ms. Calvillo's father at age 90. Ms. Calvillo has 1 brother who is . Father at age 90 after several episodes of pneumonia. Mother age 84, cause unknown to the patient. A brother of the brain tumor at age 68. She has 5 other siblings, all in good health. A nephew had lung cancer. Social History: Ms. Calvillo is and she is a retired home health aide. She is a daily smoker who has smoked 0.5 packs/day for 0 years. She has no history of drinking. She has indicated exposure to the following products: cigarettes. Ms. Calvillo reports the following support systems: lives with spouse, significant other, family, or friends, lives in own house, supportive family/friends willing to assist with needs, and adequate transportation available for expected visits. Her diet consists of regular meals. She indicates her activity level as: light exercise. She has a history of smoking 1 pack of cigarettes daily for 35 years. Within the past 6 months she has cut down to 1/2 pack per day. She does not drink alcohol. She had alcohol use in the remote past, but never heavy. Review Of Symptoms: Constitutional Denies fevers, chills, night sweats, excessive fatigue or weight loss. Allergic/Immunologic No reactions. Eyes Denies significant visual changes. No diplopia. No amaurosis. ENMT Denies changes in hearing, sore throat, mouth sores, difficulty or changes in swallowing ability, and/or sinus drainage. Endocrine No diabetes, thyroid disease or hormone replacement. Denies hot flashes or night sweats. Hematologic/Lymphatic Denies easy bruising or bleeding. The patient denies any tender or palpable lymph nodes. Respiratory Denies dyspnea on exertion, chest pain, cough or hemoptysis. Denies orthopnea. Cardiovascular Denies anginal chest pain, palpitations or orthopnea. Gastrointestinal Denies nausea, vomiting, diarrhea, GI bleeding, or constipation. Denies change in bowel habits and/or stool color, no heartburn or early satiety. Genitourinary (F) No hematuria, hesitancy, incontinence, vaginal bleeding, discharge or other problems with urination. Musculoskeletal Denies joint pain, swelling or redness. No decreased range of motion. Integumentary Denies chronic rashes, inflammation, ulcerations or skin changes. Neurologic Denies headache, blurred vision, and no areas of focal weakness or numbness. Normal gait. No sensory problems. Psychiatric Denies insomnia, depression, aroldo or mood swings. Vital Signs: Performed on Oct 20, 2019 10:56 Height - 62.00 in Weight - 79.4 lbs (LOW) BSA - 1.29 sq.m BMI - 14.52 (LOW) Temperature - 97.3 F (LOW) Pulse - 113 /min (HIGH) Respiration - 16 /min BP - 108/55 mm(hg) O2 Sat - 96 % Pain - 0,1 - No physically strenuous activity, but ambulatory and able to carry out light or sedentary work (e.g. office work, light house work). (ECOG) Physical Examination: Constitutional Alert, oriented, no acute distress. Skin pink, warm and dry. Head Normocephalic; atraumatic. Eyes Conjunctivae and sclerae are clear and without icterus. Pupils are reactive and equal. ENMT No oral exudates, ulcers, masses, thrush or mucositis. Oropharynx clear. Tongue normal. Poor dentation noted. Neck Supple without masses or thyromegaly. No jugular venous distension. Hematologic/Lymphatic No petechiae or purpura. No tender or palpable lymph nodes in the cervical or supraclavicular areas. Respiratory Lungs are clear to auscultation without rhonchi or wheezing. Cardiovascular Regular rate and rhythm of heart without murmurs,clicks, gallops or rubs. Abdomen Non-tender, non-distended, no masses or ascites. Good bowel sounds noted in all quads. No guarding or rebound tenderness. No pulsatile masses. Back/Spine Non-tender to palpation. Extremities No visible deformities, no cyanosis, clubbing or edema. Right upper arm PICC site unremarkable. Musculoskeletal No tenderness or swelling, normal range of motion without obvious weakness. Integumentary No rashes or lesions. Neurologic No sensory or motor deficits, normal cerebellar function, normal gait. Psychiatric Alert and oriented times three. Coherent speech. Verbalizes understanding of our discussions today. Laboratory:Test performed on Oct 18, 2019 13:30 Glucose 91 mg/dL BUN 21 mg/dL Creatinine 0.77 mg/dL Cr Clearance (Est) 46.88 mL/min Sodium 141 mmol/L Potassium 3.8 mmol/L Chloride 106 mmol/L CO2 22 mmol/L Calcium 9.3 mg/dL Protein, Total 6.8 g/dL Albumin 3.9 g/dL Bilirubin, Total 0.2 mg/dL Alkaline Phosphatase 112 IU/L AST (SGOT) 19 IU/L ALT (SGPT) 11 IU/L WBC 5.1 10^9/L RBC 3.42 10^12/L HGB 11 g/dL HCT 34.4 % MCV 100.6 fl MCH 32.2 pg MCHC 32 g/dL RDW 20 % Platelet Count 428 10^9/L Neutrophils (Gran) 2.601 10^9/L Lymphocytes 1.632 10^9/L Monocytes 0.765 10^9/L Eosinophils 0 10^9/L Basophils 0.051 10^9/L Impression: 1. Patient with metastatic large cell carcinoma in the form of a right frontoparietal extra-axial, dural based mass with transcalvarial extension. By PET/CT, she appears to have primary malignancy involving the upper lobe of the right lung with associated mediastinal lymph node involvement. As such, her disease is stage ALONSO (T1b, N3, M1b). 2. She underwent craniotomy with resecting/debulking of the mass on 06/21/2019. Her other medical illnesses include: 3. COPD. 4. Hyperlipidemia. 5. Claustrophobia. The PET/CT findings and pathology results were reviewed with the patient. We discussed the clinical implications. She has non-small cell lung cancer with mediastinal lymph node involvement and with a single site of metastatic involvement in the right frontal cranium. She has undergone surgical resection for the latter. As such, she is advised now to proceed with systemic therapy. With her PD-L1 expression at less than 50%, the recommended treatment will be chemotherapy with carboplatin/pemetrexed in combination with immunotherapy. She was given Pneumovax on 08/02/19 as she had previously been given a Prevnar 13 vaccination. She declined a flu shot. Ms Calvillo began Carbo/Alimta and Keytruda on 08/12/2019. She has tolerated it well overall and has increase in her performance status. She has had chemoinduced neutropenia with her last 2 cycles. Plan: 1. Proceed with cycle 4 carbo/Alimta/Keytruda. Will request to add Neulasta Oncpro to treatment plan for chemo induced neutropenia. Her ANC on day 14 cycle 3 was 1000 and it is 2600 today. 2. Labs from 10/18/2019 were reviewed in detail and discussed with Ms. calvillo and a copy was given to her. WBC 5.1, hemoglobin 11.0, platelets 428,000 ANC was 2600. Potassium was reported at 3.8 sodium was 141 BUN was21 and creatinine was 0.8 LFTs are normal. 3. Continue current antiemetics as they are working well for her. 4. Continue weekly interim counts via her PICC line at [facility] outpatient clinic or her PCP's clinic. We will request that she have her labs drawn the day before her appointment as she lives almost 2 [place] away this would save unnecessary trip if she does not get treated. 5. We will plan to see her back in 3 weeks with CBC, CMP she will be due for cycle 5 carboplatin/Alimta/Keytruda at that time. She will have PET/CT restaging prior to that followup. 6. Specific side effects of immunotherapy discussed included but not limited to: ??? pneumonitis: new or worsening cough; chest pain; and shortness of breath. ??? Colitis: diarrhea or more bowel movements than usual; blood in stools or dark, tarry, sticky stools; and severe stomach area (abdomen) pain or tenderness. ??? hepatitis: jaundice; severe nausea or vomiting; pain on the right side of the abdomen; drowsiness; dark urine; bleeding or bruise more easily than normal. ??? nephritis and kidney failure: including decrease in the amount of urine; hematuria; lower extremity edema; and loss of appetite. ??? thyroid and pituitary changes that may include: headaches that will not go away or unusual headaches; extreme tiredness, weight gain or weight loss; changes in mood or behavior, such as decreased sex drive, irritability, or forgetfulness; dizziness or fainting; hair loss; feeling cold; constipation; and voice gets deeper. ???rash; changes in eyesight; severe or persistent muscle or joint pains; and severe muscle weakness. 7. Ms. Calvillo was instructed to contact us in interim should questions or problems arise. 8. B12 for Alimta: last given per our records on 08/06/2019. She will receive a dose today. She is due again in 9 weeks if she remains on the Alimta. 9. Side effects of Neulasta OncPro were discussed included but not limited to muscle skeletal pain, low-grade fever, injection site reaction. We discussed using Claritin 10 mg daily with the Neulasta if she develops bone pain. 10. Ms Calvillo was instructed to call us in the interim if questions or problems arise. Signed By: Robert Cohen-, [facility] Levi Estrada MD <<Signature on File>>
== END 2019-10-30 23:59 | disposition home or self-care (01) ==
LOC: ONCMED 05:51
PROVIDERS: Absent Provider Internal Medicine Medical Oncology; Family Provider Nurse Practitioner Family; PCP Nurse Practitioner Family; Visit Provider Nurse Practitioner
DX: Z51.12 Encounter for antineoplastic immunotherapy (principal); Z51.11 Encounter for antineoplastic chemotherapy; C34.11 Malignant neoplasm of upper lobe, right bronchus or lung; C79.51 Secondary malignant neoplasm of bone; C77.1 Secondary and unspecified malignant neoplasm of intrathoracic lymph nodes; D70.1 Agranulocytosis secondary to cancer chemotherapy; T45.1X5A Adverse effect of antineoplastic and immunosuppressive drugs, initial encounter; J44.9 Chronic obstructive pulmonary disease, unspecified; E78.5 Hyperlipidemia, unspecified; F40.240 Claustrophobia; F17.210 Nicotine dependence, cigarettes, uncomplicated; Z79.51 Long term (current) use of inhaled steroids; Z98.890 Other specified postprocedural states
CPT/HCPCS: 96367; 96372; 96413; 96417; 99214; J1100; J1200; J1453; J2469; J3420; J3490; J7050; J9045; J9271; J9305

== ENCOUNTER 2019-11-24 07:30 | Outpatient (RCR) | payer MEDICAID, SELFPAY ==
--- NOTE | 2019-11-14 09:35 | ONC FU_ITS ---
Dr. Estrada Patient Follow-Up Note Patient: Georgette Calvillo Unit #: [id number]: 1960 Dicatated By: Levi Estrada M.D.Date of Visit:Nov 10, 2019 Onc Med Follow-up/Prog Note Chief Complaint: Metastatic large cell carcinoma. History of Present Illness: This is a 59 year-old woman with metastatic nonsmall cell lung cancer, stage ALONSO (T1b, N3, M1b), with biopsy proven metastatic involvement in the right frontal calvarium. She had presented in May 2019 with an enlarging lump on the right side of her head. She was initially evaluated with head CT and subsequently with head MRI. The MRI, from 06/11/2019, showed a right frontal extra-axial dural based lesion with transcalvarial extension. The mass measures approximately 2.1 x 3.0 x 2.9 cm, and it was noted to extend into the right frontal scalp soft tissues. There were additional intracalvarial enhancing satellite lesions just posterior superior and anterior to it. The reported differential considerations included atypical meningioma, metastatic disease, or hemangiopericytoma. She was referred to Dr. Pedraza, and on 06/21/2019 she underwent craniotomy with resection/debulking of the right frontal skull and dural mass. Pathology showed metastatic large cell carcinoma with nonspecific immunohistochemical staining pattern. The tumor cells were positive for panCK, CK 7, Jason-Ep4, NURA, and CK high molecular weight. GCDFP15 was focally positive. They were negative for CK 20, TTF-1, p63, S100, Melan A, CD45, progesterone receptor, RCC, and Napsin. Prior to the initial head CT, she had undergone screening mammograms and chest CT scan in [place]. Those studes reportedly showed no evidence of malignancy. I had seen her initially on 07/07/2019. Her staging PET/CT on 07/10/2019 showed an FDG avid 1.3 cm perihilar nodule in the upper lobe of the right lung, SUV 8.2, consistent with primary bronchogenic carcinoma. Several FDG positive lymph nodes were noted in the mediastinum, consistent with metastatic disease, including a right paratracheal node measuring 2.3 x 1.5 cm with SUV 10.3 as well as other nodes in the AP window, left paratracheal, and subcarinal territories. There were no other sites of distant metastatic disease. I had also requested additional pathologic evaluation with a next generation sequencing study. It was positive for PD-L1 expression at 10%. It also showed presence of a KRAS mutation at exon 3. EGFR and BRAF mutations were not detected. The tumor was negative for the ALK and ROS1 rearrangements. She had initially been referred for palliative radiation. However, after reviewing the PET/CT findings with the cranial lesion having been resected, Dr. Davies had suggested that we instead proceed with her systemic therapy and reserve radiation for consolidative treatment. As such, she then began a course of combination chemotherapy/immunotherapy with carboplatin/pemetrexed together with pembrolizumab. Her other medical illnesses include COPD and hyperlipidemia. She also is known to have claustrophobia. She has a history of smoking 1 pack of cigarettes daily for 35 years, but she had cut down to less than 1/2 pack/day. INTERIM HISTORY: She began cycle 1 of carboplatin/pemetrexed in combination with pembrolizumab on 08/12/2019. She was able to tolerate it with acceptable toxicity, and she continued with cycle 2 on 09/02/2019, with cycle 3 on 09/22/2019 and with cycle 4 on 10/20/2019. Restaging PET/CT on 11/06/2019 showed development of a new right upper lobe pulmonary nodule measuring 1.2 cm, SUV 2.7, concerning for recurrence. There was otherwise evidence of significant treatment response with resolution of the right perihilar lesion and with mediastinal lymph nodes decreased to subcentimeter in size and FDG negative. She is seen for a follow-up visit. She has been feeling pretty good generally. She reports having nausea for 4 to 5 days after chemotherapy and decreased appetite for a week or so. Her energy is otherwise pretty good and her appetite is otherwise half decent. Her weight is stable. Her ECOG score is 1. She has not had fever. She does report having some hot flashes. She has significant musculoskeletal pain with the Neulasta injection, lasting a week to a week and a half. She otherwise is not having joint or bone pain. She has some shortness of breath. She does not complain of cough and she has not been having chest pain. Bowel and bladder function remain adequate. She does not complain of headache or dizziness, and she has no focal neurologic symptoms. Medications: Albuterol Sulfate 1 ((2.5 mg/3ml) 0.083%) Nebulization solution Inhalation b.i.d., Folic Acid 1 Tablet Oral daily, ProAir HFA 1 Puff(s) (of 108 (90 base) mcg/act) Aerosol, solution Inhalation daily PRN, Protonix 1 Tablet (of 40 mg) Tablet, enteric coated Oral daily, Simvastatin 1 Tablet (of 20 mg) Oral daily, Trelegy Ellipta 1 Puff(s) (of 100-62.5-25 mcg/inh) Aerosol Powder, Breath Activated Inhalation daily Allergies: Marinol, Paxil, Penicillins, and PROzac. Review of Systems: Constitutional - Her energy level is okay. She is able to do light work. Her appetite is down for a week after her chemotherapy, but otherwise half decent . Her weight is stable. No fever or chills. She has been having hot flashes. No night sweats. ECOG score is 1, ENMT - No sinus congestion/drainage. No mouth sores. No sore throat or difficulty swallowing, Hematologic/Lymphatic - No abnormal bruising or bleeding, Respiratory - She has some shortness of breath. No cough. No pleuritic pain or hemoptysis, Cardiovascular - No angina pain. No palpitations, Gastrointestinal - She nausea 4-5 days after treatment. No vomiting. No heartburn or acid reflux. No diarrhea or constipation. No blood in the stool or black stools, Genitourinary (F) - No dysuria or hematuria. No urinary frequency. No urgency or incontinence, Musculoskeletal - She reports having significant pain after last Neulasta injection lasting for a week to a week and a half, Integumentary - No skin complications, Neurologic - No headache or dizziness. No numbness/paresthesias or other focal neurologic symptoms, Psychiatric - No anxiety or depression. No insomnia. Vital Signs: Performed on Nov 10, 2019 09:53 Height - 62.00 in Weight - 80 lbs (HIGH) BSA - 1.29 sq.m BMI - 14.63 (LOW) Temperature - 97.6 F (LOW) Pulse - 125 /min (HIGH) Respiration - 17 /min BP - 94/50 mm(hg) O2 Sat - 95 % (LOW) Pain - 0 Physical Examination: Constitutional - She appears chronically ill, Eyes - Sclerae nonicteric. Conjunctivae clear, ENMT - Her lower teeth are in poor repair. There are no other lesions noted in the oral cavity, Hematologic/Lymphatic - No cervical, clavicular, or axillary adenopathy, Respiratory - Lungs are clear with diminished air movement bilaterally, Cardiovascular - Heart rhythm is regular. There is no murmur, gallop, or rub noted, Abdomen - Soft. Liver and spleen are not enlarged. There is no abdominal mass or ascites noted and there is no inguinal adenopathy, Extremities - No edema, Neurologic - No focal neurologic deficits noted. Lab/Imaging: Test performed on Nov 09, 2019 13:08 Magnesium 1.8 mg/dL TSH 2.02 uU/mL Glucose 83 mg/dL BUN 16 mg/dL Creatinine 0.81 mg/dL Cr Clearance (Est) 43.37 mL/min Sodium 141 mmol/L Potassium 3.8 mmol/L Chloride 105 mmol/L CO2 24 mmol/L Calcium 9.6 mg/dL Protein, Total 7.3 g/dL Albumin 4.0 g/dL Bilirubin, Total 0.2 mg/dL Alkaline Phosphatase 134 IU/L AST (SGOT) 16 IU/L ALT (SGPT) 11 IU/L WBC 8.4 10^9/L RBC 3.49 10^12/L HGB 12.0 g/dL HCT 35.5 % MCV 101.7 fl MCH 34.4 pg MCHC 33.8 g/dL RDW 18.8 % Platelet Count 306 10^9/L MPV 9.4 fL Neutrophils (Gran) 5.54 10^9/L Lymphocytes 1.91 10^9/L Monocytes 0.90 10^9/L Eosinophils 0.03 10^9/L Basophils 0.02 10^9/L Manual Lymphocytes 23 % Manual Monocytes 11 % Manual Eosinophils 0 % Manual Basophils 0 % Impression: 1. Patient with metastatic large cell carcinoma in the form of a right frontoparietal extra-axial, dural based mass with transcalvarial extension. By PET/CT, she appeared to have primary malignancy involving the upper lobe of the right lung with associated mediastinal lymph node involvement. As such, her disease was stage ALONSO (T1b, N3, M1b). 2. She underwent craniotomy with resecting/debulking of the mass on 06/21/2019. Her tumor was noted to harbor a KRAS mutation at exon 3. EGFR and BRAF mutations were not detected, and the tumor was negative for ROS1 and ALK gene rearrangements. PD-L1 expression was positive at 10%. Her other medical illnesses include: 3. COPD. 4. Hyperlipidemia. 5. Claustrophobia. She began cycle 1 of carboplatin/pemetrexed chemotherapy in combination with pembrolizumab on 08/12/2019. She tolerated it with acceptable toxicity, and she continue with cycle 2 on 09/02/2019, with cycle 3 on 09/22/2019, and with cycle 4 on 10/20/2019. She has been able to tolerate treatment with acceptable toxicity. She appears to have a significant response by restaging PET/CT on 11/06/2019. That study, though, did show a new 1.2 cm nodule in the right lung apex with a mild FDG uptake. The significance of that finding is uncertain in the setting of what otherwise appears to be an excellent response to the treatment. Plan: She has had a good response after 4 cycles of combined chemotherapy/immunotherapy. She will now continue systemic therapy with pembrolizumab 200 mg by IV infusion every 3 weeks. I will review the PET/CT findings with the radiation oncologist for consideration of consolidation radiation. She will tentatively be scheduled to return for treatment in 3 weeks and for a follow-up visit in 6 weeks. Signed By: Levi Estrada M.D. <<Signature on File>>
--- NOTE | 2019-11-24 17:39 | ONCRAD EPV_ITS ---
Radiation Oncology Established Patient Visit Patient: Sumeet MR#: [id number] : 1960> Age: 59> Sex: Female> Dictated by: Dr. Frank Gusman Date of Service: 11/24/2019 Referring Physician(s) : Susanna Brown M.D. Diagnosis: C34.11 - Malignant neoplasm of upper lobe, right bronchus or lung, Diagnosed 08/02/2019 (Active) Stage CYRUS, T1b, N3, M1b C79.51 - Secondary malignant neoplasm of bone, Diagnosed 07/07/2019 (Active) Radiotherapy to Date: Chief Complaint / History of Present Illness: Mrs. Calvillo is a 59-year-old lady who presented in the early fall 2018 with a lump on the right side of her head. An MRI showed a complex mass that appeared dural based with extension through the calvarium. There were also small satellite lesions described posterior, superior and anterior to it. Surgery was performed 06/21/2019 and metastatic large cell carcinoma was the diagnosis given. Further work-up with PET revealed a probable right upper lobe lung cancer, though it only measured 1.3 cm, and associated mediastinal lymphadenopathy. The postop bed of the scalp and skull was simulated for radiation. However after reviewing the PET findings, Dr. Davies recommended that Dr. Estrada proceed with systemic therapy, reserving radiation for salvage or consolidation. Systemic therapy was performed. A recent PET on 11/06/2019 shows an excellent response of the right upper lobe mass as well as the mediastinal lymphadenopathy. They are basically PET negative. However, an approximately 1 cm new right upper lobe pulmonary nodule has developed with an SUV of 2.7, concerning for malignancy. The scalp and skull remain free of gross recurrence. Dr. Estrada and I discussed Mrs. Calvillo's case. He asked that we evaluate her for palliative radiation to the scalp and skull as well as for consolidation radiation to the mediastinum and right hilum where the original pulmonary nodule was located. I reviewed the patient's PET and located the new nodule. I discussed her case with Dr. Estrada once again after that review. It appears that nodule can be included in standard treatment volume but that it may need a boost. Mrs. Son comes in for evaluation Current Medications: Albuterol Sulfate, folic Acid, folic Acid, keytruda, lORazepam, ondansetron HCl, potassium Chloride ER, proAir HFA, prochlorperazine Maleate, protonix, protonix, simvastatin, trelegy Ellipta. Allergies: Paxil, PROzac, Penicillins and Marinol. Current Complaints / Review of Systems: . Vital Signs: Physical Exam: Alert, oriented, no acute distress. She is very slender and appears chronically ill. No cervical or supraclavicular lymphadenopathy in the neck. Lungs clear to percussion. On auscultation breath sounds are diminished bilaterally. No rales, rhonchi, or wheezes. Heart rhythm regular. No murmur or gallop or rub. Abdomen no distention. No organomegaly, mass, or tenderness. Musculoskeletal normal gait. No bone tenderness Performance Status: KPS 80/100 Lab: None pending. Test performed on 08/12/2019 10:50 AM eGFR - 73.9 ml/min (low), Test performed on 11/09/2019 1:08 PM RBC - 3.49 10^12/l (low), MCV - 101.7 fl (high), MCH - 34.4 pg (high), RDW - 18.8 % (high) and Cr Clearance (Est) - 43.37 ml/min (low). Pathology: Primary, c34.11 - malignant neoplasm of upper lobe, right bronchus or lung, Diagnosed 08/02/2019 (active) stage cyrus, t1b, n3, m1b and Primary, c79.51 - secondary malignant neoplasm of bone, Diagnosed 07/07/2019 (active). Imaging: See HPI Impression: Complex case of non-small cell lung cancer. Case presented with what appeared to be an isolated metastasis to the calvarium and dura. Metastasis was resected and has not recurred grossly during systemic therapy. The only new lesion, metastasis versus new primary, is in the medial right upper lobe. This is an area for which consolidation radiation has been planned. This mass can easily be included in the treatment volume. Therefore, it does appear appropriate to proceed with consolidation radiation to the thorax, including this quite small new lesion. A boost may be appropriate to this new mass. I discussed the situation with Mrs. Calvillo. I discussed the rationale for treating both areas. I recommended a course of approximately 12 treatments to the scalp/skull. I recommended approximately 6 weeks of radiation to the thorax with a possible boost to the new mass in the medial right upper lobe. I reviewed hair loss and skin reaction as problems that will occur with treating the skull. I discussed that hair usually grows back but that we never promise that. In treating the thorax I discussed fatigue, loss of appetite, esophagitis, and pulmonary symptoms such as cough, hemoptysis, or shortness of breath. I discussed that it is very uncommon but there is the possibility of permanent damage to the heart, lung, or esophagus. I told her that sometimes the esophagus develops a stricture that requires multiple procedures to dilate it. Mrs. Guerra wishes to proceed with treatment. She is continuing immunotherapy. She is somewhat concerned about the cost of transportation because [place]. I discussed the overall plan with Dr. Estrada once again and he said that gas cards will be available for her. Disposition: Simulation will be scheduled in the next week or so. Signed by: 11/24/2019 5:38:01 PM <<Signature on File>> Time spent with patient: CPT Code: CPT Code:
== END 2019-11-30 23:59 | disposition home or self-care (01) ==
LOC: ONCMED 07:30
PROVIDERS: Absent Provider Internal Medicine Medical Oncology; Family Provider Nurse Practitioner Family; PCP Nurse Practitioner Family; Visit Provider Specialist
DX: Z51.12 Encounter for antineoplastic immunotherapy (principal); C34.11 Malignant neoplasm of upper lobe, right bronchus or lung; C79.51 Secondary malignant neoplasm of bone; C77.1 Secondary and unspecified malignant neoplasm of intrathoracic lymph nodes; Z45.2 Encounter for adjustment and management of vascular access device; J44.9 Chronic obstructive pulmonary disease, unspecified; E78.5 Hyperlipidemia, unspecified; F40.240 Claustrophobia; F17.210 Nicotine dependence, cigarettes, uncomplicated; Z79.51 Long term (current) use of inhaled steroids; Z79.899 Other long term (current) drug therapy
CPT/HCPCS: 96413; 99211; 99214; J7050; J9271

== ENCOUNTER 2019-12-22 06:43 | Outpatient (RCR) | payer MEDICAID, SELFPAY ==
--- NOTE | 2019-12-25 14:43 | ONC FU_ITS ---
Dr. Estrada Patient Follow-Up Note Patient: Georgette Calvillo Unit #: [id number]: 1960 Dicatated By: Levi Estrada M.D.Date of Visit:Dec 22, 2019 Onc Med Follow-up/Prog Note Chief Complaint: Metastatic large cell carcinoma. History of Present Illness: This is a 59 year-old woman with metastatic nonsmall cell lung cancer, stage ALONSO (T1b, N3, M1b), with biopsy proven metastatic involvement in the right frontal calvarium. She had presented in May 2019 with an enlarging lump on the right side of her head. She was initially evaluated with head CT and subsequently with head MRI. The MRI, from 06/11/2019, showed a right frontal extra-axial dural based lesion with transcalvarial extension. The mass measures approximately 2.1 x 3.0 x 2.9 cm, and it was noted to extend into the right frontal scalp soft tissues. There were additional intracalvarial enhancing satellite lesions just posterior superior and anterior to it. The reported differential considerations included atypical meningioma, metastatic disease, or hemangiopericytoma. She was referred to Dr. Pedraza, and on 06/21/2019 she underwent craniotomy with resection/debulking of the right frontal skull and dural mass. Pathology showed metastatic large cell carcinoma with nonspecific immunohistochemical staining pattern. The tumor cells were positive for panCK, CK 7, Jason-Ep4, NURA, and CK high molecular weight. GCDFP15 was focally positive. They were negative for CK 20, TTF-1, p63, S100, Melan A, CD45, progesterone receptor, RCC, and Napsin. Prior to the initial head CT, she had undergone screening mammograms and chest CT scan in [place]. Those studes reportedly showed no evidence of malignancy. I had seen her initially on 07/07/2019. Her staging PET/CT on 07/10/2019 showed an FDG avid 1.3 cm perihilar nodule in the upper lobe of the right lung, SUV 8.2, consistent with primary bronchogenic carcinoma. Several FDG positive lymph nodes were noted in the mediastinum, consistent with metastatic disease, including a right paratracheal node measuring 2.3 x 1.5 cm with SUV 10.3 as well as other nodes in the AP window, left paratracheal, and subcarinal territories. There were no other sites of distant metastatic disease. I had also requested additional pathologic evaluation with a next generation sequencing study. It was positive for PD-L1 expression at 10%. It also showed presence of a KRAS mutation at exon 3. EGFR and BRAF mutations were not detected. The tumor was negative for the ALK and ROS1 rearrangements. She had initially been referred for palliative radiation. However, after reviewing the PET/CT findings with the cranial lesion having been resected, Dr. Davies had suggested that we instead proceed with her systemic therapy and reserve radiation for consolidative treatment. As such, she then began a course of combination chemotherapy/immunotherapy with carboplatin/pemetrexed together with pembrolizumab. Her other medical illnesses include COPD and hyperlipidemia. She also is known to have claustrophobia. She has a history of smoking 1 pack of cigarettes daily for 35 years, but she had cut down to less than 1/2 pack/day. INTERIM HISTORY: She began cycle 1 of carboplatin/pemetrexed in combination with pembrolizumab on 08/12/2019. She was able to tolerate it with acceptable toxicity, and she continued with cycle 2 on 09/02/2019, with cycle 3 on 09/22/2019 and with cycle 4 on 10/20/2019. Restaging PET/CT on 11/06/2019 showed development of a new right upper lobe pulmonary nodule measuring 1.2 cm, SUV 2.7, concerning for recurrence. There was otherwise evidence of significant treatment response with resolution of the right perihilar lesion and with mediastinal lymph nodes decreased to subcentimeter in size and FDG negative. With evidence of response, she had then continued treatment with maintenance pembrolizumab beginning on 11/10/2019. With limited sites of involvement she also was offered to option to have consolidation radiation. She initially decilned due to concerns related to the coronavirus pandemic. She is seen for a follow-up visit. She has been feeling good generally. She still has limited activity tolerance, but she is trying to do a little more every day. Her ECOG score is 1. Appetite is variable. She has not been able to gain weight. She is supplementing, though, with 3 cans of Ensure daily. She does not have fever or night sweats. Her breathing has been pretty good, though she did have somewhat of a setback when her insurance denied coverage for Virax. She is now using 2 different inhalers instead. She has some cough, but no more than usual. She does not complain of chest pain. She currently has no GI/ complaints. She says her acid reflux is a lot better since she started Protonix. She has no significant joint or bone pain. She has no focal neurologic symptoms. Medications: Albuterol Sulfate 1 ((2.5 mg/3ml) 0.083%) Nebulization solution Inhalation b.i.d., Folic Acid 1 Tablet Oral daily, Loratadine 1 (10 mg) Tablet Oral daily, ProAir HFA 1 Puff(s) (of 108 (90 base) mcg/act) Aerosol, solution Inhalation daily PRN, Protonix 1 Tablet (of 40 mg) Tablet, enteric coated Oral daily, Simvastatin 1 Tablet (of 20 mg) Oral daily, Stiolto Respimat 1 Puff(s) (of 2.5-2.5 mcg/act) Aerosol, solution Inhalation b.i.d., Symbicort 2 Puff(s) (of 160-4.5 mcg/act) Aerosol Inhalation b.i.d. Allergies: Marinol, Paxil, Penicillins, and PROzac. Review of Systems: Constitutional - Her energy level is better. She has been able to do light housework. Her appetite is good and weight is stable. No fever, chills, hot flashes, or night sweats. ECOG score is 1, ENMT - She has sinus congestion/drainage. No mouth sores. No sore throat or difficulty swallowing, Hematologic/Lymphatic - No abnormal bruising or bleeding, Respiratory - No shortness of breath. She has a cough that produces thick clear sputum. No pleuritic pain or hemoptysis, Cardiovascular - No angina pain. No palpitations, Gastrointestinal - No nausea or vomiting. Her heartburn has improved with Protonix. No diarrhea or constipation. No blood in the stool or black stools, Genitourinary (F) - No dysuria or hematuria. No urinary frequency. No urgency or incontinence, Musculoskeletal - No joint or bone pain, Integumentary - No skin complications, Neurologic - No headache or dizziness. She occasionally has orthostatic lightheadedness. No numbness/paresthesias or other focal neurologic symptoms, Psychiatric - No anxiety or depression. No insomnia. Vital Signs: Performed on Dec 22, 2019 13:06 Height - 62.00 in Weight - 78.6 lbs (HIGH) BSA - 1.29 sq.m BMI - 14.38 (LOW) Temperature - 97.8 F (LOW) Pulse - 111 /min (HIGH) Respiration - 18 /min BP - 92/58 mm(hg) O2 Sat - 98 % Pain - 0 Physical Examination: Constitutional - She appears chronically ill, Eyes - Sclerae nonicteric. Conjunctivae clear, ENMT - No lesions noted in the oral cavity, Hematologic/Lymphatic - No cervical, clavicular, or axillary adenopathy, Respiratory - Lungs are clear with diminished air movement bilaterally, Cardiovascular - Heart rhythm is regular with a mild tachycardia. There is no murmur, gallop, or rub noted, Abdomen - Soft. Liver and spleen are not enlarged. There is no abdominal mass or ascites noted and there is no inguinal adenopathy, Extremities - No edema, Neurologic - No focal neurologic deficits noted. Lab/Imaging: Test performed on Dec 20, 2019 10:53 Magnesium 1.8 mg/dL T4, Free 1.65 ng/dL TSH 2.830 uU/mL Glucose 85 mg/dL BUN 13 mg/dL Creatinine 0.86 mg/dL Cr Clearance (Est) 40.13 mL/min Sodium 143.6 mmol/L Potassium 3.6 mmol/L Chloride 108 mmol/L CO2 22 mmol/L Calcium 9.8 mg/dL Protein, Total 7 g/dL Albumin 4 g/dL Globulin 3 g/dL A/G Ratio 1.3 Absolute Value Bilirubin, Total 0.45 mg/dL Alkaline Phosphatase 106 IU/L AST (SGOT) 29 IU/L ALT (SGPT) 20 IU/L WBC 5.3 10^9/L RBC 4.32 10^12/L HGB 14.8 g/dL HCT 43.2 % MCV 100 fl MCH 34.3 pg MCHC 34.3 g/dL RDW 13.1 % Platelet Count 223 10^9/L MPV 9.1 fL Neutrophils (Gran) 2.7 10^9/L Lymphocytes 2.1942 10^9/L Monocytes 0.4 10^9/L Manual Lymphocytes 41.4 % Manual Monocytes 8.4 % Impression: 1. Patient with metastatic large cell carcinoma in the form of a right frontoparietal extra-axial, dural based mass with transcalvarial extension. By PET/CT, she appeared to have primary malignancy involving the upper lobe of the right lung with associated mediastinal lymph node involvement. As such, her disease was stage ALONSO (T1b, N3, M1b). 2. She underwent craniotomy with resecting/debulking of the mass on 06/21/2019. Her tumor was noted to harbor a KRAS mutation at exon 3. EGFR and BRAF mutations were not detected, and the tumor was negative for ROS1 and ALK gene rearrangements. PD-L1 expression was positive at 10%. Her other medical illnesses include: 3. COPD. 4. Hyperlipidemia. 5. Claustrophobia. She began cycle 1 of carboplatin/pemetrexed chemotherapy in combination with pembrolizumab on 08/12/2019. She tolerated it with acceptable toxicity, and she continue with cycle 2 on 09/02/2019, with cycle 3 on 09/22/2019, and with cycle 4 on 10/20/2019. She was able to tolerate treatment with acceptable toxicity, and she appeared to have a significant response by restaging PET/CT on 11/06/2019. That study, though, did show a new 1.2 cm nodule in the right lung apex with a mild FDG uptake. The significance of that finding was uncertain in the setting of what otherwise appears to be an excellent response to the treatment. With those findings, her treatment was then transition to maintenance pembrolizumab, beginning on 11/10/2019. In addition, with limited sites of involvement, she was offered the option to have consolidation radiation. She initially declined due to concerns related to the coronavirus pandemic. She has now completed 2 cycles of maintenance pembrolizumab. She continues to tolerate treatment well. Her overall clinical status appears stable. Plan: She will proceed with cycle 3 of maintenance pembrolizumab 200 mg by IV infusion. She returns for treatment in 3 weeks and for a follow-up visit in 6 weeks. Signed By: Levi Estrada M.D. <<Signature on File>>
== END 2019-12-30 23:59 | disposition home or self-care (01) ==
LOC: ONCMED 06:43
PROVIDERS: Absent Provider Internal Medicine Medical Oncology; Family Provider Nurse Practitioner Family; PCP Nurse Practitioner Family; Visit Provider Internal Medicine Medical Oncology
DX: Z51.12 Encounter for antineoplastic immunotherapy (principal); C34.11 Malignant neoplasm of upper lobe, right bronchus or lung; C79.51 Secondary malignant neoplasm of bone; J44.9 Chronic obstructive pulmonary disease, unspecified; E78.5 Hyperlipidemia, unspecified; F40.240 Claustrophobia; E53.8 Deficiency of other specified B group vitamins; Z79.899 Other long term (current) drug therapy
CPT/HCPCS: 96413; 99214; J7050; J9271

== ENCOUNTER 2020-01-12 07:11 | Outpatient (RCR) | payer MEDICAID, SELFPAY ==
[2020-01-12] MEDS: sodium chloride 0.9% 250 ML 600 ML IV (15:20)
== END 2020-01-30 23:59 | disposition home or self-care (01) ==
LOC: ONCMED 07:11
PROVIDERS: PCP Nurse Practitioner Family; Visit Provider Internal Medicine Medical Oncology
DX: Z51.12 Encounter for antineoplastic immunotherapy (principal); C34.11 Malignant neoplasm of upper lobe, right bronchus or lung; C79.51 Secondary malignant neoplasm of bone; J44.9 Chronic obstructive pulmonary disease, unspecified; F40.240 Claustrophobia; E78.5 Hyperlipidemia, unspecified; Z79.899 Other long term (current) drug therapy
CPT/HCPCS: 96413; J7050; J9271

== ENCOUNTER 2020-02-23 06:51 | Outpatient (RCR) | payer MEDICARE, MEDICAID, SELFPAY ==
[2020-02-02] MEDS: cyanocobalamin 1,000 mcg/mL SDV 1000 MCG IM (15:30)
--- NOTE | 2020-02-03 09:27 | ONC FU_ITS ---
[facility] Patient Note Patient: Georgette Calvillo Unit #: [id number]: 1960 Dictated By: Robert CohenDate of Visit: Feb 02, 2020 Onc MED Follow-Up/Prog Note Chief Complaint: Metastatic large cell carcinoma. History of Present Illness: Ms Calvillo is a 59 year-old woman with metastatic nonsmall cell lung cancer, stage ALONSO (T1b, N3, M1b), with biopsy proven metastatic involvement in the right frontal calvarium. She had presented in May 2019 with an enlarging lump on the right side of her head. She was initially evaluated with head CT and subsequently with head MRI. The MRI, from 06/11/2019, showed a right frontal extra-axial dural based lesion with transcalvarial extension. The mass measures approximately 2.1 x 3.0 x 2.9 cm, and it was noted to extend into the right frontal scalp soft tissues. There were additional intracalvarial enhancing satellite lesions just posterior superior and anterior to it. The reported differential considerations included atypical meningioma, metastatic disease, or hemangiopericytoma. She was referred to Dr. Pedraza, and on 06/21/2019 she underwent craniotomy with resection/debulking of the right frontal skull and dural mass. Pathology showed metastatic large cell carcinoma with nonspecific immunohistochemical staining pattern. The tumor cells were positive for panCK, CK 7, Jason-Ep4, NURA, and CK high molecular weight. GCDFP15 was focally positive. They were negative for CK 20, TTF-1, p63, S100, Melan A, CD45, progesterone receptor, RCC, and Napsin. Prior to the initial head CT, she had undergone screening mammograms and chest CT scan in [place]. Those studes reportedly showed no evidence of malignancy. Dr Estrada had seen her initially on 07/07/2019. Her staging PET/CT on 07/10/2019 showed an FDG avid 1.3 cm perihilar nodule in the upper lobe of the right lung, SUV 8.2, consistent with primary bronchogenic carcinoma. Several FDG positive lymph nodes were noted in the mediastinum, consistent with metastatic disease, including a right paratracheal node measuring 2.3 x 1.5 cm with SUV 10.3 as well as other nodes in the AP window, left paratracheal, and subcarinal territories. There were no other sites of distant metastatic disease. I had also requested additional pathologic evaluation with a next generation sequencing study. It was positive for PD-L1 expression at 10%. It also showed presence of a KRAS mutation at exon 3. EGFR and BRAF mutations were not detected. The tumor was negative for the ALK and ROS1 rearrangements. She had initially been referred for palliative radiation. However, after reviewing the PET/CT findings with the cranial lesion having been resected, Dr. Davies had suggested that we instead proceed with her systemic therapy and reserve radiation for consolidative treatment. As such, she then began a course of combination chemotherapy/immunotherapy with carboplatin/pemetrexed together with pembrolizumab. Her other medical illnesses include COPD and hyperlipidemia. She also is known to have claustrophobia. She has a history of smoking 1 pack of cigarettes daily for 35 years, but she had cut down to less than 1/2 pack/day. INTERIM HISTORY: She began cycle 1 of carboplatin/pemetrexed in combination with pembrolizumab on 08/12/2019. She was able to tolerate it with acceptable toxicity, and she continued with cycle 2 on 09/02/2019, with cycle 3 on 09/22/2019 and with cycle 4 on 10/20/2019. Restaging PET/CT on 11/06/2019 showed development of a new right upper lobe pulmonary nodule measuring 1.2 cm, SUV 2.7, concerning for recurrence. There was otherwise evidence of significant treatment response with resolution of the right perihilar lesion and with mediastinal lymph nodes decreased to subcentimeter in size and FDG negative. With evidence of response, she had then continued treatment with maintenance pembrolizumab beginning on 11/10/2019. With limited sites of involvement she also was offered to option to have consolidation radiation. She initially decilned due to concerns related to the coronavirus pandemic. She is seen for a follow-up visit. She has been feeling good generally. However she states she has been more short of breath. She states that the recent change in her inhalers by her insurance company is making her breathing more difficult. She feels more short of breath. She states that she is wearing her CPAP at night and has been told to wear oxygen at night but is uncertain to how to coordinate the CPAP mask and oxygen. She states she is more short of breath today but does not have a order for continuous oxygen. She denies any fever or chills. She is had no nausea or vomiting. She states she is eating good. She states she is eating 3 meals a day and doing up to 3 cans of nutritional supplement drink. She however continues to lose weight. She denies any pain. She states her bowels are normal for her. She is had no nausea or vomiting. She states she is had no diarrhea her bowels are normal move every day or every other day. Her ECOG is 2. Past Medical History: Chronic obstructive pulmonary disease Claustrophobia Hyperlipidemia Past Surgical History: Colonoscopy Left knee surgery x1 Right knee surgery x2 Pneumonia vaccine 23 in 2019 Tumor removal from head in 2019 Hysterectomy/bilateral salpingectomy-oophorectomy in 1992 Allergies: Marinol, Paxil, Penicillins, and PROzac. Medications: Albuterol Sulfate 1 ((2.5 mg/3ml) 0.083%) Nebulization solution Inhalation b.i.d. Budesonide 1 Inhalation (of 0.5 mg/2mL) Suspension Inhalation b.i.d. Cyanocobalamin 1 Each (of 1000 mcg/mL) Injection q 4 weeks Folic Acid 1 Tablet Oral daily Loratadine 1 (10 mg) Tablet Oral daily ProAir HFA 1 Puff(s) (of 108 (90 base) mcg/act) Aerosol, solution Inhalation daily PRN Protonix 1 Tablet (of 40 mg) Tablet, enteric coated Oral daily Simvastatin 1 Tablet (of 20 mg) Oral daily Yupelri 1 Inhalation (of 175 mcg/3mL) Solution Inhalation daily Family History: Ms. Calvillo's mother at age 84. Ms. Calvillo's father at age 90. Ms. Calvillo has 1 brother who is . Father at age 90 after several episodes of pneumonia. Mother age 84, cause unknown to the patient. A brother of the brain tumor at age 68. She has 5 other siblings, all in good health. A nephew had lung cancer. Social History: Ms. Calvillo is and she is a retired home health aide. She is a daily smoker who has smoked 0.5 packs/day for 0 years. She has no history of drinking. She has indicated exposure to the following products: cigarettes. Ms. Calvillo reports the following support systems: lives with spouse, significant other, family, or friends, lives in own house, supportive family/friends willing to assist with needs, and adequate transportation available for expected visits. Her diet consists of regular meals. She indicates her activity level as: light exercise. She has a history of smoking 1 pack of cigarettes daily for 35 years. Within the past 6 months she has cut down to 1/2 pack per day. She does not drink alcohol. She had alcohol use in the remote past, but never heavy. Review Of Symptoms: Constitutional Denies fevers, chills, night sweats, excessive fatigue. Good appetite but continued weight loss. Allergic/Immunologic No reactions. Eyes Denies significant visual changes. No diplopia. No amaurosis. ENMT Denies changes in hearing, sore throat, mouth sores, difficulty or changes in swallowing ability, and/or sinus drainage. Endocrine No diabetes, thyroid disease or hormone replacement. Denies hot flashes or night sweats. Hematologic/Lymphatic Denies easy bruising or bleeding. The patient denies any tender or palpable lymph nodes. Respiratory Increased dyspnea on exertion, but denies chest pain, cough or hemoptysis. Denies orthopnea. Cardiovascular Denies anginal chest pain, palpitations or orthopnea. Gastrointestinal Denies nausea, vomiting, diarrhea, GI bleeding, or constipation. Denies change in bowel habits and/or stool color, no heartburn or early satiety. Genitourinary (F) No hematuria, hesitancy, incontinence, vaginal bleeding, discharge or other problems with urination. Musculoskeletal Denies joint pain, swelling or redness. No decreased range of motion. Integumentary Denies chronic rashes, inflammation, ulcerations or skin changes. Neurologic Denies headache, blurred vision, and no areas of focal weakness or numbness. No sensory problems. Psychiatric Denies insomnia, depression, aroldo or mood swings. Vital Signs: Performed on Feb 02, 2020 14:16 Height - 62.00 in Weight - 70.8 lbs (LOW) BSA - 1.23 sq.m BMI - 12.95 (LOW) Temperature - 98.1 F (LOW) Pulse - 89 /min Respiration - 17 /min BP - 84/50 mm(hg) (LOW) O2 Sat - 98 % Pain - 0,2 - Ambulatory/capable of all self-care, unable to perform any work activities. Up and about more than 50% of waking hours. (ECOG) Physical Examination: Constitutional Alert, oriented, no acute distress. Skin pink, warm and dry. Head Normocephalic; atraumatic. Eyes Conjunctivae and sclerae are clear and without icterus. Pupils are reactive and equal. ENMT No oral exudates, ulcers, masses, thrush or mucositis. Oropharynx clear. Tongue normal. Poor dentation noted. Neck Supple without masses or thyromegaly. No jugular venous distension. Hematologic/Lymphatic No petechiae or purpura. No tender or palpable lymph nodes in the cervical or supraclavicular areas. Respiratory Lungs are clear to auscultation without rhonchi or wheezing. Cardiovascular Regular rate and rhythm of heart without murmurs,clicks, gallops or rubs. Abdomen Non-tender, non-distended, no masses or ascites. Good bowel sounds noted in all quads. No guarding or rebound tenderness. No pulsatile masses. Back/Spine Non-tender to palpation. Extremities No visible deformities, no cyanosis, clubbing or edema. Musculoskeletal No tenderness or swelling, normal range of motion without obvious weakness. Integumentary No rashes or lesions. Neurologic No sensory or motor deficits, normal cerebellar function, normal gait. Psychiatric Alert and oriented times three. Coherent speech. Verbalizes understanding of our discussions today. Laboratory:Test performed on Feb 01, 2020 11:12 Magnesium 1.8 mg/dL T4, Free 1.43 ng/dL TSH 3.520 uU/mL Glucose 107 mg/dL BUN 18 mg/dL Creatinine 0.78 mg/dL Cr Clearance (Est) 39.8600 mL/min Sodium 140.6 mmol/L Potassium 3.67 mmol/L Chloride 106 mmol/L CO2 24 mmol/L Calcium 9.4 mg/dL Protein, Total 6.8 g/dL Albumin 3.6 g/dL Globulin 3.2 g/dL Bilirubin, Total 0.45 mg/dL Alkaline Phosphatase 217 IU/L AST (SGOT) 28 IU/L ALT (SGPT) 17 IU/L WBC 6.7 10^9/L RBC 4.56 10^12/L HGB 14.4 g/dL HCT 42.9 % MCV 94.1 fl MCH 31.6 pg MCHC 33.6 g/dL Platelet Count 438 10^9/L MPV 8.9 fL Neutrophils (Gran) 3.7 10^9/L Lymphocytes 2.6 10^9/L Monocytes 0.4 10^9/L Manual Lymphocytes 39.2 % Manual Monocytes 6.3 % Impression: 1. Patient with metastatic large cell carcinoma in the form of a right frontoparietal extra-axial, dural based mass with transcalvarial extension. By PET/CT, she appeared to have primary malignancy involving the upper lobe of the right lung with associated mediastinal lymph node involvement. As such, her disease was stage ALONSO (T1b, N3, M1b). 2. She underwent craniotomy with resecting/debulking of the mass on 06/21/2019. Her tumor was noted to harbor a KRAS mutation at exon 3. EGFR and BRAF mutations were not detected, and the tumor was negative for ROS1 and ALK gene rearrangements. PD-L1 expression was positive at 10%. Her other medical illnesses include: 3. COPD. 4. Hyperlipidemia. 5. Claustrophobia. She began cycle 1 of carboplatin/pemetrexed chemotherapy in combination with pembrolizumab on 08/12/2019. She tolerated it with acceptable toxicity, and she continue with cycle 2 on 09/02/2019, with cycle 3 on 09/22/2019, and with cycle 4 on 10/20/2019. She was able to tolerate treatment with acceptable toxicity, and she appeared to have a significant response by restaging PET/CT on 11/06/2019. That study, though, did show a new 1.2 cm nodule in the right lung apex with a mild FDG uptake. The significance of that finding was uncertain in the setting of what otherwise appears to be an excellent response to the treatment. With those findings, her treatment was then transition to maintenance pembrolizumab, beginning on 11/10/2019. In addition, with limited sites of involvement, she was offered the option to have consolidation radiation. She initially declined due to concerns related to the coronavirus pandemic. She has now completed 2 cycles of maintenance pembrolizumab. She continues to tolerate treatment well. Her overall clinical status appears stable. However, she is having continued weight loss and her current weight is 70.8 pounds. She is having increased shortness of breath. She will have restaging imaging as her last scan was October 2019. Plan: 1. Proceed with cycle 5 of maintenance pembrolizumab 200 mg by IV infusion. 2. We have sent an order to [facility] for continuous home oxygen between 1.5 and 2 L may titrate up to 4 L as needed. She had a exercise O2 sat of 75% on room air. Her resting O2 sat on room air was 92%. The exercise O2 sat was obtained after she walked a minimum of 3 feet. The length of need for the oxygen supplementation at home will be 99 months. She need a concentrator and portable tank. 3. We have asked for follow-up PET CT due to her continued weight loss. She is lost 8 pounds since her last visit- her weight currently is 70.8 pounds. 4. We will have her try dexamethasone 4 mg twice daily to see if this will help her gain weight . She states she is eating pretty good and from what she describes she is eating it sounds like her appetite is good but will try the dexamethasone with her to see if we can help her gain any weight. She has had adverse problems with prednisone in the past and did not want try it. 5. Labbs from 02/01/2020 were reviewed in detail and discussed with Ms Calvillo and a copy was given to her. WBC 6.7, hemoglobin 14.4, platelets 4 38,000 ANC is 3700. Creatinine 0.7 glucose 107 LFTs are normal her alk phos is 217 compared to 106 in December 2019. 6. We will plan to see Ms. Calvillo back after she has her PET/CT. She was instructed to contact us in interim should questions or problems arise. Signed By: Robert Cohen-LESLIE, AOCNGiovanny Estrada MD <<Signature on File>>
--- NOTE | 2020-02-23 19:24 | ONC FU_ITS ---
Dr. Estrada Patient Follow-Up Note Patient: Georgette Calvillo Unit #: [id number]: 1960 Dicatated By: Levi Estrada M.D.Date of Visit:Feb 23, 2020 Onc Med Follow-up/Prog Note Chief Complaint: Metastatic large cell carcinoma. History of Present Illness: This is a 59 year-old woman with metastatic nonsmall cell lung cancer, stage ALONSO (T1b, N3, M1b), with biopsy proven metastatic involvement in the right frontal calvarium. She had presented in May 2019 with an enlarging lump on the right side of her head. She was initially evaluated with head CT and subsequently with head MRI. The MRI, from 06/11/2019, showed a right frontal extra-axial dural based lesion with transcalvarial extension. The mass measures approximately 2.1 x 3.0 x 2.9 cm, and it was noted to extend into the right frontal scalp soft tissues. There were additional intracalvarial enhancing satellite lesions just posterior superior and anterior to it. The reported differential considerations included atypical meningioma, metastatic disease, or hemangiopericytoma. She was referred to Dr. Pedraza, and on 06/21/2019 she underwent craniotomy with resection/debulking of the right frontal skull and dural mass. Pathology showed metastatic large cell carcinoma with nonspecific immunohistochemical staining pattern. The tumor cells were positive for panCK, CK 7, Jason-Ep4, NURA, and CK high molecular weight. GCDFP15 was focally positive. They were negative for CK 20, TTF-1, p63, S100, Melan A, CD45, progesterone receptor, RCC, and Napsin. Prior to the initial head CT, she had undergone screening mammograms and chest CT scan in [place]. Those studes reportedly showed no evidence of malignancy. I had seen her initially on 07/07/2019. Her staging PET/CT on 07/10/2019 showed an FDG avid 1.3 cm perihilar nodule in the upper lobe of the right lung, SUV 8.2, consistent with primary bronchogenic carcinoma. Several FDG positive lymph nodes were noted in the mediastinum, consistent with metastatic disease, including a right paratracheal node measuring 2.3 x 1.5 cm with SUV 10.3 as well as other nodes in the AP window, left paratracheal, and subcarinal territories. There were no other sites of distant metastatic disease. I had also requested additional pathologic evaluation with a next generation sequencing study. It was positive for PD-L1 expression at 10%. It also showed presence of a KRAS mutation at exon 3. EGFR and BRAF mutations were not detected. The tumor was negative for the ALK and ROS1 rearrangements. She had initially been referred for palliative radiation. However, after reviewing the PET/CT findings with the cranial lesion having been resected, Dr. Davies had suggested that we instead proceed with her systemic therapy and reserve radiation for consolidative treatment. As such, she then began a course of combination chemotherapy/immunotherapy with carboplatin/pemetrexed together with pembrolizumab. Her other medical illnesses include COPD and hyperlipidemia. She also is known to have claustrophobia. She has a history of smoking 1 pack of cigarettes daily for 35 years, but she had cut down to less than 1/2 pack/day. INTERIM HISTORY: She began cycle 1 of carboplatin/pemetrexed in combination with pembrolizumab on 08/12/2019. She was able to tolerate it with acceptable toxicity, and she continued with cycle 2 on 09/02/2019, with cycle 3 on 09/22/2019 and with cycle 4 on 10/20/2019. Restaging PET/CT on 11/06/2019 showed development of a new right upper lobe pulmonary nodule measuring 1.2 cm, SUV 2.7, concerning for recurrence. There was otherwise evidence of significant treatment response with resolution of the right perihilar lesion and with mediastinal lymph nodes decreased to subcentimeter in size and FDG negative. With evidence of response, she had then continued treatment with maintenance pembrolizumab beginning on 11/10/2019. With limited sites of involvement she also was offered to option to have consolidation radiation. She initially decilned due to concerns related to the coronavirus pandemic. She then continued maintenance pembrolizumab at 3-week intervals. She seemed to tolerate it well, though she continued to lose weight, and she continued to have fairly marginal performance status. At her follow-up visit on 02/02/2020 her treatment was put on hold due to increased shortness of breath. She began empiric steroid therapy with dexamethasone. Her repeat PET/CT on 02/12/2020 showed FDG negative right apical pulmonary nodule measuring 0.8 x 0.4 cm. There was no evidence of active malignancy. It appeared to represent a complete metabolic response to treatment. She is seen for a follow-up visit. She has been feeling much better since she has been on the dexamethasone. She noted significant improvement in her breathing. She also had improvement in her appetite, and her weight increased by 6 pounds. She did have some trouble sleeping, and she opted to decrease the dosage to 4 mg once daily. Her energy now is getting better. Her ECOG score is 1. She does not have fever or night sweats. She was having significant sinus symptoms, but that improved on antibiotic. She has not had sore throat or difficulty swallowing. She still sometimes has cough. She does not complain of chest pain. She has been having acid reflux, that has improved with pantoprazole. She has no other GI or complaints. She has no significant joint or bone pain. She has no focal neurologic symptoms. Medications: Albuterol Sulfate 1 ((2.5 mg/3ml) 0.083%) Nebulization solution Inhalation b.i.d., Budesonide 1 Inhalation (of 0.5 mg/2mL) Suspension Inhalation b.i.d., Cyanocobalamin 1 Each (of 1000 mcg/mL) Injection q 4 weeks, Dexamethasone 1 Tablet (of 4 mg) Oral b.i.d., Folic Acid 1 Tablet Oral daily, Loratadine 1 (10 mg) Tablet Oral daily, ProAir HFA 1 Puff(s) (of 108 (90 base) mcg/act) Aerosol, solution Inhalation daily PRN, Protonix 1 Tablet (of 40 mg) Tablet, enteric coated Oral daily, Simvastatin 1 Tablet (of 20 mg) Oral daily, Yupelri 1 Inhalation (of 175 mcg/3mL) Solution Inhalation daily Allergies: Marinol, Paxil, Penicillins, and PROzac. Review of Systems: Constitutional - Her energy is improving and she is generally feeling good. She is able to do light house work. Her appetite is much improved and her weight is up about 6 pounds from last visit with taking the dexamethasone. No fever, night sweats, or hot flashes. ECOG score is 1, ENMT - She has some sinus congestion/drainage, but it has much improved after taking ciprofloxacin. No mouth sores. No sore throat or difficulty swallowing, Hematologic/Lymphatic - She bruises easily, Respiratory - She continues to have shortness of breath, but it has also improved with the dexamethasone. She is now wearing oxygen only as needed. No cough. No pleuritic pain or hemoptysis, Cardiovascular - No angina pain. No palpitations, Gastrointestinal - No nausea or vomiting. Her heartburn is improved with the pantoprazole. No diarrhea or constipation. No blood in the stool or black stools, Genitourinary (F) - No dysuria or hematuria. No urinary frequency. No urgency or incontinence, Musculoskeletal - No joint or bone pain, Integumentary - No skin complications, Neurologic - No headache or dizziness. No numbness or tingling. No other focal neurologic symptoms, Psychiatric - No anxiety or depression. No insomnia. Vital Signs: Performed on Feb 23, 2020 12:38 Height - 62.00 in Weight - 76.2 lbs (HIGH) BSA - 1.27 sq.m BMI - 13.94 (LOW) Temperature - 98.5 F Pulse - 104 /min (HIGH) Respiration - 16 /min BP - 119/70 mm(hg) O2 Sat - 98 % Pain - 0 Physical Examination: Constitutional - She appears somewhat frail, but not acutely ill, Eyes - Sclerae nonicteric. Conjunctivae clear, ENMT - No lesions noted in the oral cavity, Hematologic/Lymphatic - No cervical, clavicular, or axillary adenopathy, Respiratory - Lungs are clear with diminished air movement bilaterally, Cardiovascular - Heart rhythm is regular with a mild tachycardia. There is no murmur, gallop, or rub noted, Abdomen - Soft. Liver and spleen are not enlarged. There is no abdominal mass or ascites noted and there is no inguinal adenopathy, Extremities - No edema, Neurologic - No focal neurologic deficits noted. Lab/Imaging: Test performed on Feb 22, 2020 11:32 Glucose 74 mg/dL BUN 29 mg/dL Creatinine 0.63 mg/dL Cr Clearance (Est) 49.35 mL/min Sodium 139.6 mmol/L Potassium 4.51 mmol/L Chloride 105 mmol/L CO2 29 mmol/L Calcium 9.4 mg/dL Protein, Total 6.4 g/dL Albumin 3.5 g/dL Bilirubin, Total 0.7 mg/dL Alkaline Phosphatase 88 IU/L AST (SGOT) 22 IU/L ALT (SGPT) 17 IU/L WBC 9.2 10^9/L RBC 4.49 10^12/L HGB 14.3 g/dL HCT 43.3 % MCV 96.4 fl MCH 31.8 pg MCHC 33.0 g/dL Platelet Count 246 10^9/L MPV 8.7 fL Neutrophils (Gran) 5.8 10^9/L Lymphocytes 2.7 10^9/L Monocytes 0.7 10^9/L Manual Lymphocytes 29.8 % Manual Monocytes 7.4 % Impression: 1. Patient with metastatic large cell carcinoma in the form of a right frontoparietal extra-axial, dural based mass with transcalvarial extension. By PET/CT, she appeared to have primary malignancy involving the upper lobe of the right lung with associated mediastinal lymph node involvement. As such, her disease was stage ALONSO (T1b, N3, M1b). 2. She underwent craniotomy with resecting/debulking of the mass on 06/21/2019. Her tumor was noted to harbor a KRAS mutation at exon 3. EGFR and BRAF mutations were not detected, and the tumor was negative for ROS1 and ALK gene rearrangements. PD-L1 expression was positive at 10%. Her other medical illnesses include: 3. COPD. 4. Hyperlipidemia. 5. Claustrophobia. She began cycle 1 of carboplatin/pemetrexed chemotherapy in combination with pembrolizumab on 08/12/2019. She tolerated it with acceptable toxicity, and she continue with cycle 2 on 09/02/2019, with cycle 3 on 09/22/2019, and with cycle 4 on 10/20/2019. She was able to tolerate treatment with acceptable toxicity, and she appeared to have a significant response by restaging PET/CT on 11/06/2019. That study, though, did show a new 1.2 cm nodule in the right lung apex with a mild FDG uptake. The significance of that finding was uncertain in the setting of what otherwise appears to be an excellent response to the treatment. With those findings, her treatment was then transition to maintenance pembrolizumab, beginning on 11/10/2019. In addition, with limited sites of involvement, she was offered the option to have consolidation radiation. She initially declined due to concerns related to the coronavirus pandemic. She continued the maintenance pembrolizumab at 3-week intervals. As of her follow-up visit on 02/02/2020 her treatment was put on hold due to increased shortness of breath. She was started on empiric steroid therapy with dexamethasone. Her restaging PET/CT on 02/12/2020 showed residual right apical pulmonary nodule, FDG negative. There was no evidence of active malignancy on that study. She has been showing significant symptomatic improvement on the dexamethasone. Plan: With the possibility that she may have been having some treatment related pneumonitis, I am going to keep her pembrolizumab on hold. She will reduce dexamethasone to 2 mg daily. She will be scheduled for a follow-up visit in 1 month and I will likely restart her treatment at that time. Signed By: Levi Estrada M.D. <<Signature on File>>
== END 2020-02-29 23:59 | disposition home or self-care (01) ==
LOC: ONCMED 06:51
PROVIDERS: PCP Nurse Practitioner Family; Visit Provider Internal Medicine Medical Oncology
DX: Z51.12 Encounter for antineoplastic immunotherapy (principal); C34.11 Malignant neoplasm of upper lobe, right bronchus or lung; C79.51 Secondary malignant neoplasm of bone; J44.9 Chronic obstructive pulmonary disease, unspecified; E78.5 Hyperlipidemia, unspecified; F40.240 Claustrophobia; Z79.899 Other long term (current) drug therapy
CPT/HCPCS: 96372; 96413; 99214; J3420; J7050; J9271

== ENCOUNTER 2020-03-22 07:01 | Outpatient (RCR) | payer MEDICARE, MEDICAID, SELFPAY ==
--- NOTE | 2020-03-24 14:25 | ONC FU_ITS ---
[facility] Patient Note Patient: Georgette Calvillo Unit #: [id number]: 1960 Dictated By: Robert CohenDate of Visit: Mar 22, 2020 Onc MED Follow-Up/Prog Note Chief Complaint: Metastatic large cell carcinoma. History of Present Illness: Ms Calvillo is a 59 year-old woman with metastatic nonsmall cell lung cancer, stage ALONSO (T1b, N3, M1b), with biopsy proven metastatic involvement in the right frontal calvarium. She had presented in May 2019 with an enlarging lump on the right side of her head. She was initially evaluated with head CT and subsequently with head MRI. The MRI, from 06/11/2019, showed a right frontal extra-axial dural based lesion with transcalvarial extension. The mass measures approximately 2.1 x 3.0 x 2.9 cm, and it was noted to extend into the right frontal scalp soft tissues. There were additional intracalvarial enhancing satellite lesions just posterior superior and anterior to it. The reported differential considerations included atypical meningioma, metastatic disease, or hemangiopericytoma. She was referred to Dr. Pedraza, and on 06/21/2019 she underwent craniotomy with resection/debulking of the right frontal skull and dural mass. Pathology showed metastatic large cell carcinoma with nonspecific immunohistochemical staining pattern. The tumor cells were positive for panCK, CK 7, Jason-Ep4, NURA, and CK high molecular weight. GCDFP15 was focally positive. They were negative for CK 20, TTF-1, p63, S100, Melan A, CD45, progesterone receptor, RCC, and Napsin. Prior to the initial head CT, she had undergone screening mammograms and chest CT scan in [place]. Those studes reportedly showed no evidence of malignancy. Dr Estrada had seen her initially on 07/07/2019. Her staging PET/CT on 07/10/2019 showed an FDG avid 1.3 cm perihilar nodule in the upper lobe of the right lung, SUV 8.2, consistent with primary bronchogenic carcinoma. Several FDG positive lymph nodes were noted in the mediastinum, consistent with metastatic disease, including a right paratracheal node measuring 2.3 x 1.5 cm with SUV 10.3 as well as other nodes in the AP window, left paratracheal, and subcarinal territories. There were no other sites of distant metastatic disease. Dr Estrada had also requested additional pathologic evaluation with a next generation sequencing study. It was positive for PD-L1 expression at 10%. It also showed presence of a KRAS mutation at exon 3. EGFR and BRAF mutations were not detected. The tumor was negative for the ALK and ROS1 rearrangements. She had initially been referred for palliative radiation. However, after reviewing the PET/CT findings with the cranial lesion having been resected, Dr. Davies had suggested that we instead proceed with her systemic therapy and reserve radiation for consolidative treatment. As such, she then began a course of combination chemotherapy/immunotherapy with carboplatin/pemetrexed together with pembrolizumab. Her other medical illnesses include COPD and hyperlipidemia. She also is known to have claustrophobia. She has a history of smoking 1 pack of cigarettes daily for 35 years, but she had cut down to less than 1/2 pack/day. INTERIM HISTORY: She began cycle 1 of carboplatin/pemetrexed in combination with pembrolizumab on 08/12/2019. She was able to tolerate it with acceptable toxicity, and she continued with cycle 2 on 09/02/2019, with cycle 3 on 09/22/2019 and with cycle 4 on 10/20/2019. Restaging PET/CT on 11/06/2019 showed development of a new right upper lobe pulmonary nodule measuring 1.2 cm, SUV 2.7, concerning for recurrence. There was otherwise evidence of significant treatment response with resolution of the right perihilar lesion and with mediastinal lymph nodes decreased to subcentimeter in size and FDG negative. With evidence of response, she had then continued treatment with maintenance pembrolizumab beginning on 11/10/2019. With limited sites of involvement she also was offered to option to have consolidation radiation. She initially decilned due to concerns related to the coronavirus pandemic. She then continued maintenance pembrolizumab at 3-week intervals. She seemed to tolerate it well, though she continued to lose weight, and she continued to have fairly marginal performance status. At her follow-up visit on 02/02/2020 her treatment was put on hold due to increased shortness of breath. She began empiric steroid therapy with dexamethasone. Her repeat PET/CT on 02/12/2020 showed FDG negative right apical pulmonary nodule measuring 0.8 x 0.4 cm. There was no evidence of active malignancy. It appeared to represent a complete metabolic response to treatment. Ms. calvillo is here today for follow-up consideration of resuming the Keytruda. She states overall she is feeling much better. She has had bone pain/joint pain in her shoulders hips and back. She states that Tylenol has eased it in the past but is not working now. She thinks tramadol has helped her pain in the past and is willing to try this. I did give her a prescription for this #30 hydrocodone 5 325 mg tablets to try if that tramadol is not effective. She lives over an hour hour and a half away from our facility and that is just one way. She will let us know if she the hydrocodone is required for the pain and we can get her more appropriate prescription if needed. She is concerned that it may make her drowsy so initial instructions were 1/2 tablet and may titrate up to 2 tablets if needed for pain. The tramadol 50 mg every 8 hours as needed for pain. This will be called to [facility] in [place]. She states otherwise she is doing good. She is short of breath but states that is not unusual for her. She states it is worse with the heat and humidity that we have currently having. She states her breathing overall in the air conditioning is good. She denies any fever or chills. She is had no mouth sores or sore throat or diarrhea. She denies any diarrhea or abdominal pain. She states she is eating good and is actually gained weight. She denies any lower extremity edema. She denies any other concerns. Her ECOG is 1. Past Medical History: Chronic obstructive pulmonary disease Claustrophobia Hyperlipidemia Past Surgical History: Colonoscopy Left knee surgery x1 Right knee surgery x2 Pneumonia vaccine 23 in 2019 Tumor removal from head in 2018 Hysterectomy/bilateral salpingectomy-oophorectomy in 1992 Allergies: Marinol, Paxil, Penicillins, and PROzac. Medications: Albuterol Sulfate 1 ((2.5 mg/3ml) 0.083%) Nebulization solution Inhalation b.i.d. Budesonide 1 Inhalation (of 0.5 mg/2mL) Suspension Inhalation b.i.d. Cyanocobalamin 1 Each (of 1000 mcg/mL) Injection q 4 weeks Dexamethasone 1 Tablet (of 4 mg) Oral b.i.d. Folic Acid 1 Tablet Oral daily Loratadine 1 (10 mg) Tablet Oral daily ProAir HFA 1 Puff(s) (of 108 (90 base) mcg/act) Aerosol, solution Inhalation daily PRN Protonix 1 Tablet (of 40 mg) Tablet, enteric coated Oral daily Simvastatin 1 Tablet (of 20 mg) Oral daily Family History: Ms. Calvillo's mother at age 84. Ms. Calvillo's father at age 90. Ms. Calvillo has 1 brother who is . Father at age 90 after several episodes of pneumonia. Mother age 84, cause unknown to the patient. A brother of the brain tumor at age 68. She has 5 other siblings, all in good health. A nephew had lung cancer. Social History: Ms. Calvillo is and she is a retired home health aide. She is a daily smoker who has smoked 0.5 packs/day for 0 years. She has no history of drinking. She has indicated exposure to the following products: cigarettes. Ms. Calvillo reports the following support systems: lives with spouse, significant other, family, or friends, lives in own house, supportive family/friends willing to assist with needs, and adequate transportation available for expected visits. Her diet consists of regular meals. She indicates her activity level as: light exercise. She has a history of smoking 1 pack of cigarettes daily for 35 years. Within the past 6 months she has cut down to 1/2 pack per day. She does not drink alcohol. She had alcohol use in the remote past, but never heavy. Review Of Symptoms: Constitutional Denies fevers, chills, night sweats, excessive fatigue. Good appetite and has gained weight. Allergic/Immunologic No reactions. Eyes Denies significant visual changes. No diplopia. No amaurosis. ENMT Denies changes in hearing, sore throat, mouth sores, difficulty or changes in swallowing ability, and/or sinus drainage. Hematologic/Lymphatic Denies easy bruising or bleeding. The patient denies any tender or palpable lymph nodes. Respiratory Increased dyspnea on exertion-worse with humidity and heat, but denies chest pain, cough or hemoptysis. Denies orthopnea. Cardiovascular Denies anginal chest pain, palpitations or orthopnea. Gastrointestinal Denies nausea, vomiting, diarrhea, GI bleeding, or constipation. Denies change in bowel habits and/or stool color, no heartburn or early satiety. Genitourinary (F) No hematuria, hesitancy, incontinence, vaginal bleeding, discharge or other problems with urination. Musculoskeletal States she is having joint pain in her shoulders, hips and back. Tylenol not relieving pain. She thinks Tramadol has helped in the past. There is no swelling or redness. No decreased range of motion. Integumentary Denies chronic rashes, inflammation, ulcerations or skin changes. Neurologic Denies headache, blurred vision, and no areas of focal weakness or numbness. No sensory problems. Psychiatric Denies insomnia, depression, aroldo or mood swings. Vital Signs: Performed on Mar 22, 2020 13:17 Height - 62.00 in Weight - 82.8 lbs (HIGH) BSA - 1.31 sq.m BMI - 15.14 (LOW) Temperature - 98.0 F (LOW) Pulse - 114 /min (HIGH) Respiration - 19 /min BP - 101/56 mm(hg) O2 Sat - 96 % Pain - 7,2 - Ambulatory/capable of all self-care, unable to perform any work activities. Up and about more than 50% of waking hours. (ECOG) Physical Examination: Constitutional Alert, oriented, no acute distress. Skin pink, warm and dry. Head Normocephalic; atraumatic. Eyes Conjunctivae and sclerae are clear and without icterus. Pupils are reactive and equal. Neck Supple without masses or thyromegaly. No jugular venous distension. Hematologic/Lymphatic No petechiae or purpura. No tender or palpable lymph nodes in the cervical or supraclavicular areas. Respiratory Lungs are clear to auscultation without rhonchi or wheezing. Cardiovascular Regular rate and rhythm of heart without murmurs,clicks, gallops or rubs. Breasts Back/Spine Non-tender to palpation. Extremities No visible deformities, no cyanosis, clubbing or edema. Musculoskeletal No tenderness or swelling, normal range of motion without obvious weakness. Integumentary No rashes or lesions. Neurologic No sensory or motor deficits, normal cerebellar function, normal gait. Psychiatric Alert and oriented times three. Coherent speech. Verbalizes understanding of our discussions today. Laboratory:Test performed on Mar 21, 2020 08:38 Folate 16.90 ng/mL TSH 4.500 uU/mL Vitamin B12 291 pg/mL Cholesterol, Total 244 mg/dL Glucose 80 mg/dL Vitamin D (25-Hydroxy) 17.5 ng/mL BUN 21 mg/dL HDL Cholesterol 75 mg/dL Creatinine 0.91 mg/dL LDL Cholesterol 139 mg/dL Cr Clearance (Est) 39.95 mL/min VLDL Cholesterol 30 mg/dL Triglycerides 151.7 mg/dL Sodium 135.7 mmol/L Potassium 3.73 mmol/L Chloride 103 mmol/L CO2 28 mmol/L Calcium 10.2 mg/dL Protein, Total 6.5 g/dL Albumin 3.6 g/dL Bilirubin, Total 0.5 mg/dL Alkaline Phosphatase 100 IU/L AST (SGOT) 20 IU/L ALT (SGPT) 21 IU/L WBC 14.1 10^9/L RBC 4.54 10^12/L HGB 15.1 g/dL HCT 43.4 % MCV 95.6 fl MCH 33.3 pg MCHC 34.8 g/dL RDW 15.7 % Platelet Count 284 10^9/L MPV 9.0 fL Neutrophils (Gran) 9.2 10^9/L Lymphocytes 3.8 10^9/L Manual Lymphocytes 27.3 % Manual Monocytes 7.6 % Test performed on Feb 22, 2020 11:32 Monocytes 0.7 10^9/L Test performed on Feb 01, 2020 11:12 Magnesium 1.8 mg/dL T4, Free 1.43 ng/dL Globulin 3.2 g/dL Test performed on Dec 20, 2019 10:53 A/G Ratio 1.3 Absolute Value Test performed on Nov 09, 2019 13:08 Eosinophils 0.03 10^9/L Basophils 0.02 10^9/L Manual Eosinophils 0 % Manual Basophils 0 % Impression: 1. Patient with metastatic large cell carcinoma in the form of a right frontoparietal extra-axial, dural based mass with transcalvarial extension. By PET/CT, she appeared to have primary malignancy involving the upper lobe of the right lung with associated mediastinal lymph node involvement. As such, her disease was stage ALONSO (T1b, N3, M1b). 2. She underwent craniotomy with resecting/debulking of the mass on 06/21/2019. Her tumor was noted to harbor a KRAS mutation at exon 3. EGFR and BRAF mutations were not detected, and the tumor was negative for ROS1 and ALK gene rearrangements. PD-L1 expression was positive at 10%. Her other medical illnesses include: 3. COPD. 4. Hyperlipidemia. 5. Claustrophobia. She began cycle 1 of carboplatin/pemetrexed chemotherapy in combination with pembrolizumab on 08/12/2019. She tolerated it with acceptable toxicity, and she continue with cycle 2 on 09/02/2019, with cycle 3 on 09/22/2019, and with cycle 4 on 10/20/2019. She was able to tolerate treatment with acceptable toxicity, and she appeared to have a significant response by restaging PET/CT on 11/06/2019. That study, though, did show a new 1.2 cm nodule in the right lung apex with a mild FDG uptake. The significance of that finding was uncertain in the setting of what otherwise appears to be an excellent response to the treatment. With those findings, her treatment was then transition to maintenance pembrolizumab, beginning on 11/10/2019. In addition, with limited sites of involvement, she was offered the option to have consolidation radiation. She initially declined due to concerns related to the coronavirus pandemic. She continued the maintenance pembrolizumab at 3-week intervals. As of her follow-up visit on 02/02/2020 her treatment was put on hold due to increased shortness of breath. She was started on empiric steroid therapy with dexamethasone. Her restaging PET/CT on 02/12/2020 showed residual right apical pulmonary nodule, FDG negative. There was no evidence of active malignancy on that study. She has been showing significant symptomatic improvement on the dexamethasone. Ms Calvillo is feeling much better and will resume Keytruda today. Plan: 1. Resume pembrolizumab 200 mg every 2 weeks 2. Continue dexamethasone to 2 mg daily, but she can try to wean to 1 mg daily if her breathing allows 3. Tramadol 50mg every 8 hours prn pain. I did give her a prescription for #30 Hydrocodone 5/325 mg tablets in the event that the Tramadol does not help. She lives over an hour to [place] [address] 4. Labs from March 23, 2020 were reviewed in detail and discussed with Ms. Calvillo and a copy was given to her. WBC 9.2 hemoglobin 14.3 platelet count 46,000 creatinine 0.6 LFTs were normal. 5. We will plan to see her back in 3 weeks at which time she had a CBC CMP and TSH and Keytruda. 6. She was instructed to contact us in interim should questions or problems arise. 7. Her follow-up plans will include assessment of a CT of the head for follow-up of the initial calvarium lesion. There was no evidence of rrecurrent lesion shown on PET CT in January 2020. The original diagnosing scan was a CT scan. She then had craniectomy with replacement with mesh prosthesis device. With follow-up MRI and CT of the head did not report recurrent disease. She did not have a PET/CT prior to the craniectomy, vbut has had PET/CT scans after-none of which reported recurrent disease and did report visualization of the craniectomy site. We will discuss this with her at her next followup to see if she is comfortable with MRI imaging and possibly plan to repeat an MRI of the head. Signed By: Robert Cohen-, AOCNP Levi Estrada MD <<Signature on File>>
== END 2020-03-31 23:59 | disposition home or self-care (01) ==
LOC: ONCMED 07:01
PROVIDERS: PCP Nurse Practitioner Family; Visit Provider Nurse Practitioner
DX: Z51.12 Encounter for antineoplastic immunotherapy (principal); C34.11 Malignant neoplasm of upper lobe, right bronchus or lung; C79.51 Secondary malignant neoplasm of bone; C77.1 Secondary and unspecified malignant neoplasm of intrathoracic lymph nodes; J44.9 Chronic obstructive pulmonary disease, unspecified; E78.5 Hyperlipidemia, unspecified; F40.240 Claustrophobia; F17.210 Nicotine dependence, cigarettes, uncomplicated
CPT/HCPCS: 96413; 99214; J7050; J9271

== ENCOUNTER 2020-04-12 06:19 | Outpatient (RCR) | payer MEDICARE, MEDICAID, SELFPAY ==
--- NOTE | 2020-04-15 17:20 | ONC FU_ITS ---
[facility] Patient Note Patient: Georgette Calvillo Unit #: [id number]: 1960 Dictated By: Robert CohenDate of Visit: Apr 12, 2020 Onc MED Follow-Up/Prog Note Chief Complaint: Metastatic large cell carcinoma. History of Present Illness: Ms Calvillo is a 59 year-old woman with metastatic nonsmall cell lung cancer, stage ALONSO (T1b, N3, M1b), with biopsy proven metastatic involvement in the right frontal calvarium. She had presented in May 2019 with an enlarging lump on the right side of her head. She was initially evaluated with head CT and subsequently with head MRI. The MRI, from 06/11/2019, showed a right frontal extra-axial dural based lesion with transcalvarial extension. The mass measures approximately 2.1 x 3.0 x 2.9 cm, and it was noted to extend into the right frontal scalp soft tissues. There were additional intracalvarial enhancing satellite lesions just posterior superior and anterior to it. The reported differential considerations included atypical meningioma, metastatic disease, or hemangiopericytoma. She was referred to Dr. Pedraza, and on 06/21/2019 she underwent craniotomy with resection/debulking of the right frontal skull and dural mass. Pathology showed metastatic large cell carcinoma with nonspecific immunohistochemical staining pattern. The tumor cells were positive for panCK, CK 7, Jason-Ep4, NURA, and CK high molecular weight. GCDFP15 was focally positive. They were negative for CK 20, TTF-1, p63, S100, Melan A, CD45, progesterone receptor, RCC, and Napsin. Prior to the initial head CT, she had undergone screening mammograms and chest CT scan in [place]. Those studes reportedly showed no evidence of malignancy. Dr Estrada had seen her initially on 07/07/2019. Her staging PET/CT on 07/10/2019 showed an FDG avid 1.3 cm perihilar nodule in the upper lobe of the right lung, SUV 8.2, consistent with primary bronchogenic carcinoma. Several FDG positive lymph nodes were noted in the mediastinum, consistent with metastatic disease, including a right paratracheal node measuring 2.3 x 1.5 cm with SUV 10.3 as well as other nodes in the AP window, left paratracheal, and subcarinal territories. There were no other sites of distant metastatic disease. Dr Estrada had also requested additional pathologic evaluation with a next generation sequencing study. It was positive for PD-L1 expression at 10%. It also showed presence of a KRAS mutation at exon 3. EGFR and BRAF mutations were not detected. The tumor was negative for the ALK and ROS1 rearrangements. She had initially been referred for palliative radiation. However, after reviewing the PET/CT findings with the cranial lesion having been resected, Dr. Davies had suggested that we instead proceed with her systemic therapy and reserve radiation for consolidative treatment. As such, she then began a course of combination chemotherapy/immunotherapy with carboplatin/pemetrexed together with pembrolizumab. Her other medical illnesses include COPD and hyperlipidemia. She also is known to have claustrophobia. She has a history of smoking 1 pack of cigarettes daily for 35 years, but she had cut down to less than 1/2 pack/day. INTERIM HISTORY: She began cycle 1 of carboplatin/pemetrexed in combination with pembrolizumab on 08/12/2019. She was able to tolerate it with acceptable toxicity, and she continued with cycle 2 on 09/02/2019, with cycle 3 on 09/22/2019 and with cycle 4 on 10/20/2019. Restaging PET/CT on 11/06/2019 showed development of a new right upper lobe pulmonary nodule measuring 1.2 cm, SUV 2.7, concerning for recurrence. There was otherwise evidence of significant treatment response with resolution of the right perihilar lesion and with mediastinal lymph nodes decreased to subcentimeter in size and FDG negative. With evidence of response, she had then continued treatment with maintenance pembrolizumab beginning on 11/10/2019. With limited sites of involvement she also was offered to option to have consolidation radiation. She initially decilned due to concerns related to the coronavirus pandemic. She then continued maintenance pembrolizumab at 3-week intervals. She seemed to tolerate it well, though she continued to lose weight, and she continued to have fairly marginal performance status. At her follow-up visit on 02/02/2020 her treatment was put on hold due to increased shortness of breath. She began empiric steroid therapy with dexamethasone. Her repeat PET/CT on 02/12/2020 showed FDG negative right apical pulmonary nodule measuring 0.8 x 0.4 cm. There was no evidence of active malignancy. It appeared to represent a complete metabolic response to treatment. Ms. Calvillo is here today for follow-up consideration of the Keytruda. She resumed Keytruda on 03/22/2020 after a 6 week delay due to increased shortness of breath. She responded well to steroid therapy. She states over the last 2 weeks she has had new spells of her throat feeling tight and then it just travels down her chest wall. States that her heart jumps . And she feels like she cannot catch her breath. She states that she feels like her inside is shaking when this happens. She did have a heart rate of 150 on her Fitbit. She denies cough. She denies any fever. She states that these spells just come and go and she cannot find any particular trigger. She states they are happening 2-3 times a day now. She denies nausea or vomiting. She denies diarrhea or constipation. She states the tramadol tends to help her pain some but the hydrocodone works better and that it does relieve the pain and helps her sleep at night. She states that she is eating better for the most part. She denies any gastric reflux. Her ECOG is 1. Past Medical History: Chronic obstructive pulmonary disease Claustrophobia Hyperlipidemia Past Surgical History: Colonoscopy Left knee surgery x1 Right knee surgery x2 Pneumonia vaccine 23 in 2019 Tumor removal from head in 2019 Hysterectomy/bilateral salpingectomy-oophorectomy in 1992 Allergies: Marinol, Paxil, Penicillins, and PROzac. Medications: Albuterol Sulfate 1 ((2.5 mg/3ml) 0.083%) Nebulization solution Inhalation b.i.d. Budesonide 1 Inhalation (of 0.5 mg/2mL) Suspension Inhalation b.i.d. Cyanocobalamin 1 Each (of 1000 mcg/mL) Injection q 4 weeks Dexamethasone 1 Tablet (of 4 mg) Oral b.i.d. Folic Acid 1 Tablet Oral daily Loratadine 1 (10 mg) Tablet Oral daily ProAir HFA 1 Puff(s) (of 108 (90 base) mcg/act) Aerosol, solution Inhalation daily PRN Protonix 1 Tablet (of 40 mg) Tablet, enteric coated Oral daily Simvastatin 1 Tablet (of 20 mg) Oral daily Family History: Ms. Calvillo's mother at age 84. Ms. Calvillo's father at age 90. Ms. Calvillo has 1 brother who is . Father at age 90 after several episodes of pneumonia. Mother age 84, cause unknown to the patient. A brother of the brain tumor at age 68. She has 5 other siblings, all in good health. A nephew had lung cancer. Social History: Ms. Calvillo is and she is a retired home health aide. She is a daily smoker who has smoked 0.5 packs/day for 0 years. She has no history of drinking. She has indicated exposure to the following products: cigarettes. Ms. Calvillo reports the following support systems: lives with spouse, significant other, family, or friends, lives in own house, supportive family/friends willing to assist with needs, and adequate transportation available for expected visits. Her diet consists of regular meals. She indicates her activity level as: light exercise. She has a history of smoking 1 pack of cigarettes daily for 35 years. Within the past 6 months she has cut down to 1/2 pack per day. She does not drink alcohol. She had alcohol use in the remote past, but never heavy. Review Of Symptoms: Constitutional Denies fevers, chills, night sweats, excessive fatigue. Good appetite and has gained weight. Allergic/Immunologic No reactions. Eyes Denies significant visual changes. No diplopia. No amaurosis. ENMT Denies changes in hearing, sore throat, mouth sores, difficulty or changes in swallowing ability, and/or sinus drainage. Endocrine No diabetes, thyroid disease or hormone replacement. Denies hot flashes or night sweats. Hematologic/Lymphatic Denies easy bruising or bleeding. The patient denies any tender or palpable lymph nodes. Respiratory Increased dyspnea on exertion-worse with humidity and heat, but denies chest pain, cough or hemoptysis. Denies orthopnea. Shortness of breath with spell -see above. Cardiovascular denies angina but has chest tightness starting in her throat and travels down midline and has had jumping heartbeats . Gastrointestinal Denies nausea, vomiting, diarrhea, GI bleeding, or constipation. Denies change in bowel habits and/or stool color, no heartburn or early satiety. Genitourinary (F) No hematuria, hesitancy, incontinence, vaginal bleeding, discharge or other problems with urination. Musculoskeletal States she is still having joint pain in her shoulders, hips and back. Tramadol has helped but not relieving pain. Hydrocodone works well for pain relief. There is no swelling or redness. No decreased range of motion. Integumentary Denies chronic rashes, inflammation, ulcerations or skin changes. Neurologic Denies headache, blurred vision, and no areas of focal weakness or numbness. No sensory problems. Psychiatric Denies insomnia, depression, aroldo or mood swings. Vital Signs: Performed on Apr 12, 2020 13:56 Height - 62.00 in Weight - 85.4 lbs (HIGH) BSA - 1.33 sq.m BMI - 15.62 (LOW) Temperature - 97.7 F (LOW) Pulse - 111 /min (HIGH) Respiration - 18 /min BP - 131/67 mm(hg) O2 Sat - 96 % Pain - 0,1 - No physically strenuous activity, but ambulatory and able to carry out light or sedentary work (e.g. office work, light house work). (ECOG) Physical Examination: Constitutional Alert, oriented, no acute distress. Skin pink, warm and dry. Head Normocephalic; atraumatic. Eyes Conjunctivae and sclerae are clear and without icterus. Pupils are reactive and equal. Neck Supple without masses or thyromegaly. No jugular venous distension. Hematologic/Lymphatic No petechiae or purpura. No tender or palpable lymph nodes in the cervical or supraclavicular areas. Respiratory Lungs are clear to auscultation without rhonchi or wheezing. Cardiovascular Regular rate and rhythm of heart without murmurs,clicks, gallops or rubs. Breasts Back/Spine Non-tender to palpation. Extremities No visible deformities, no cyanosis, clubbing or edema. Musculoskeletal No tenderness or swelling, normal range of motion without obvious weakness. Integumentary No rashes or lesions. Neurologic No sensory or motor deficits, normal cerebellar function, normal gait. Psychiatric Alert and oriented times three. Coherent speech. Verbalizes understanding of our discussions today. Laboratory:Test performed on Apr 11, 2020 10:59 TSH 5.360 uU/mL Glucose 88 mg/dL BUN 22 mg/dL Creatinine 0.89 mg/dL Cr Clearance (Est) 42.1300 mL/min Sodium 139.8 mmol/L Potassium 3.79 mmol/L Chloride 106 mmol/L CO2 25 mmol/L Calcium 9.6 mg/dL Protein, Total 6.3 g/dL Albumin 3.8 g/dL Globulin 2.4 g/dL Bilirubin, Total 0.45 mg/dL Alkaline Phosphatase 90 IU/L AST (SGOT) 19 IU/L ALT (SGPT) 19 IU/L WBC 10.0 10^9/L RBC 4.56 10^12/L HGB 15.3 g/dL HCT 44.5 % MCV 97.6 fl MCH 33.6 pg MCHC 34.4 g/dL RDW 16.1 % Platelet Count 259 10^9/L MPV 8.5 fL Neutrophils (Gran) 5.5 10^9/L Lymphocytes 3.9 10^9/L Manual Lymphocytes 39.0 % Manual Monocytes 6.0 % Test performed on Mar 21, 2020 08:38 Folate 16.90 ng/mL Vitamin B12 291 pg/mL Cholesterol, Total 244 mg/dL Vitamin D (25-Hydroxy) 17.5 ng/mL HDL Cholesterol 75 mg/dL LDL Cholesterol 139 mg/dL VLDL Cholesterol 30 mg/dL Triglycerides 151.7 mg/dL Impression: 1. Patient with metastatic large cell carcinoma in the form of a right frontoparietal extra-axial, dural based mass with transcalvarial extension. By PET/CT, she appeared to have primary malignancy involving the upper lobe of the right lung with associated mediastinal lymph node involvement. As such, her disease was stage ALONSO (T1b, N3, M1b). 2. She underwent craniotomy with resecting/debulking of the mass on 06/21/2019. Her tumor was noted to harbor a KRAS mutation at exon 3. EGFR and BRAF mutations were not detected, and the tumor was negative for ROS1 and ALK gene rearrangements. PD-L1 expression was positive at 10%. Her other medical illnesses include: 3. COPD. 4. Hyperlipidemia. 5. Claustrophobia. She began cycle 1 of carboplatin/pemetrexed chemotherapy in combination with pembrolizumab on 08/12/2019. She tolerated it with acceptable toxicity, and she continue with cycle 2 on 09/02/2019, with cycle 3 on 09/22/2019, and with cycle 4 on 10/20/2019. She was able to tolerate treatment with acceptable toxicity, and she appeared to have a significant response by restaging PET/CT on 11/06/2019. That study, though, did show a new 1.2 cm nodule in the right lung apex with a mild FDG uptake. The significance of that finding was uncertain in the setting of what otherwise appears to be an excellent response to the treatment. With those findings, her treatment was then transition to maintenance pembrolizumab, beginning on 11/10/2019. In addition, with limited sites of involvement, she was offered the option to have consolidation radiation. She initially declined due to concerns related to the coronavirus pandemic. She continued the maintenance pembrolizumab at 3-week intervals. As of her follow-up visit on 02/02/2020 her treatment was put on hold due to increased shortness of breath. She was started on empiric steroid therapy with dexamethasone. Her restaging PET/CT on 02/12/2020 showed residual right apical pulmonary nodule, FDG negative. There was no evidence of active malignancy on that study. She has been showing significant symptomatic improvement on the dexamethasone. Ms Carrillo resumed Keytruda on 03/22/2020 and is here for consideration of her next treatment. Plan: 1. Stop pembrolizumab until further notice. 2. Continue dexamethasone to 2 mg daily, but she can try to wean to 1 mg daily if her breathing allows 3. Refill Hydrocodone 5/325 mg tablets 1 or 2 every 4-6 hours prn pain per Dr Estrada written script. 4. Labs from today were reviewed in detail and discussed with Ms. Calvillo and a copy was given to her. WBC 10.0 hemoglobin 15.3 platelet count 259,000 creatinine 0.9 LFTs were normal. 5. Referral for echocardiogram with shortness of breath and palpitations as diagnosis and referral to cardiology for chest tightness and palpitations/suspected tacycardia. She will need heart rate monitoring most likely. 6. We will plan to see her back in 4-6 weeks at which time she had a CBC CMP and TSH and followup CT of the chest and head for post immunotherapy monitoring. 7. She was instructed to contact us in interim should questions or problems arise. 8. Her follow-up plans will include assessment of a CT of the head for follow-up of the initial calvarium lesion. There was no evidence of rrecurrent lesion shown on PET CT in January 2020. The original diagnosing scan was a CT scan. She then had craniectomy with replacement with mesh prosthesis device. With follow-up MRI and CT of the head did not report recurrent disease. She did not have a PET/CT prior to the craniectomy, but has had PET/CT scans after-none of which reported recurrent disease and did report visualization of the craniectomy site. 9. Stop folic acid. Signed By: Orlando CohenNObdulia-LESLIE, AOCNP Levi Estrada MD <<Signature on File>>
== END 2020-05-01 23:59 | disposition home or self-care (01) ==
LOC: ONCMED 06:19
PROVIDERS: PCP Nurse Practitioner Family; Visit Provider Nurse Practitioner
DX: C71.8 Malignant neoplasm of overlapping sites of brain (principal); J44.9 Chronic obstructive pulmonary disease, unspecified; E78.5 Hyperlipidemia, unspecified; F40.240 Claustrophobia; Z92.21 Personal history of antineoplastic chemotherapy
CPT/HCPCS: 99214

== ENCOUNTER 2020-05-23 15:33 | Outpatient (CLI) | payer MEDICARE, MEDICAID, SELFPAY ==
--- NOTE | 2020-05-26 18:03 | ONC FU_ITS ---
Dr. Estrada Patient Follow-Up Note Patient: Georgette Calvillo Unit #: [id number]: 1960 Dicatated By: Levi Estrada M.D.Date of Visit:May 23, 2020 Onc Med Follow-up/Prog Note Chief Complaint: Metastatic large cell carcinoma. History of Present Illness: This is a 59 year-old woman with metastatic nonsmall cell lung cancer, stage ALONSO (T1b, N3, M1b), with biopsy proven metastatic involvement in the right frontal calvarium. She had presented in May 2019 with an enlarging lump on the right side of her head. She was initially evaluated with head CT and subsequently with head MRI. The MRI, from 06/11/2019, showed a right frontal extra-axial dural based lesion with transcalvarial extension. The mass measures approximately 2.1 x 3.0 x 2.9 cm, and it was noted to extend into the right frontal scalp soft tissues. There were additional intracalvarial enhancing satellite lesions just posterior superior and anterior to it. The reported differential considerations included atypical meningioma, metastatic disease, or hemangiopericytoma. She was referred to Dr. Pedraza, and on 06/21/2019 she underwent craniotomy with resection/debulking of the right frontal skull and dural mass. Pathology showed metastatic large cell carcinoma with nonspecific immunohistochemical staining pattern. The tumor cells were positive for panCK, CK 7, Jason-Ep4, NURA, and CK high molecular weight. GCDFP15 was focally positive. They were negative for CK 20, TTF-1, p63, S100, Melan A, CD45, progesterone receptor, RCC, and Napsin. Prior to the initial head CT, she had undergone screening mammograms and chest CT scan in [place]. Those studes reportedly showed no evidence of malignancy. I had seen her initially on 07/07/2019. Her staging PET/CT on 07/10/2019 showed an FDG avid 1.3 cm perihilar nodule in the upper lobe of the right lung, SUV 8.2, consistent with primary bronchogenic carcinoma. Several FDG positive lymph nodes were noted in the mediastinum, consistent with metastatic disease, including a right paratracheal node measuring 2.3 x 1.5 cm with SUV 10.3 as well as other nodes in the AP window, left paratracheal, and subcarinal territories. There were no other sites of distant metastatic disease. I had also requested additional pathologic evaluation with a next generation sequencing study. It was positive for PD-L1 expression at 10%. It also showed presence of a KRAS mutation at exon 3. EGFR and BRAF mutations were not detected. The tumor was negative for the ALK and ROS1 rearrangements. She had initially been referred for palliative radiation. However, after reviewing the PET/CT findings with the cranial lesion having been resected, Dr. Davies had suggested that we instead proceed with her systemic therapy and reserve radiation for consolidative treatment. As such, she then began a course of combination chemotherapy/immunotherapy with carboplatin/pemetrexed together with pembrolizumab. Her other medical illnesses include COPD and hyperlipidemia. She also is known to have claustrophobia. She has a history of smoking 1 pack of cigarettes daily for 35 years, but she had cut down to less than 1/2 pack/day. INTERIM HISTORY: She began cycle 1 of carboplatin/pemetrexed in combination with pembrolizumab on 08/12/2019. She was able to tolerate it with acceptable toxicity, and she continued with cycle 2 on 09/02/2019, with cycle 3 on 09/22/2019 and with cycle 4 on 10/20/2019. Restaging PET/CT on 11/06/2019 showed development of a new right upper lobe pulmonary nodule measuring 1.2 cm, SUV 2.7, concerning for recurrence. There was otherwise evidence of significant treatment response with resolution of the right perihilar lesion and with mediastinal lymph nodes decreased to subcentimeter in size and FDG negative. With evidence of response, she had then continued treatment with maintenance pembrolizumab beginning on 11/10/2019. With limited sites of involvement she also was offered to option to have consolidation radiation. She initially decilned due to concerns related to the coronavirus pandemic. She then continued maintenance pembrolizumab at 3-week intervals. She seemed to tolerate it well, though she continued to lose weight, and she continued to have fairly marginal performance status. At her follow-up visit on 02/02/2020 her treatment was put on hold due to increased shortness of breath. She began empiric steroid therapy with dexamethasone. Her repeat PET/CT on 02/12/2020 showed FDG negative right apical pulmonary nodule measuring 0.8 x 0.4 cm. There was no evidence of active malignancy. It appeared to represent a complete metabolic response to treatment. Her symptoms improved and she restarted pembrolizumab on 03/22/2020 but at her follow-up visit on 04/12/2020 it was again put on hold due to multiple complaints including shortness of breath, chest tightness, and palpitations. She continue dexamethasone at 2 mg daily. A repeat chest CT on 04/26/2020 showed spiculated lesion in the right lower lobe just inferior to the interlobar fissure measuring 1.3 x 0.7 cm. There was pulmonary emphysema with interstitial reticulation noted. As the CT was done at [place], and there were no prior studies available for comparison. Her head CT showed evidence of previous right frontal cranioplasty with no active lesion seen. She is seen for a follow-up visit. She has not been feeling good. Overall she has had a very bad month. Among other things, she has had a lot of emotional crap going on. She reports being irritable and love. She has been having panic attacks and she also has been having crying meltdowns. She is concerned about hair loss on her legs and under her arms. She is very nervous and she complains that her hands are shaking that she is having muscle cramping. She has developed ridges in her fingernails and she has dry skin. She complains that she has no energy. She makes herself get up and do anything. Her ECOG score, though, is 1. Her appetite has been okay. She has gained some weight. She does not have fever or night sweats. She does have some hot flashes, but not bad. She has shortness of breath, and she does require oxygen. She does not complain of cough. She has chest pain with her panic attacks. She has pressure which starts in her throat and moves down into her chest. She cannot breathe with those episodes, and she says her heart rate goes crazy. She has no GI or complaints. She has pain in her shoulders and hips, and she continues to have muscle cramps. She does not complain of headache or dizziness. She has no numbness or paresthesia, but she says her hands and feet are always cold. She is able to sleep better when she takes pain medication. Medications: Albuterol Sulfate 1 ((2.5 mg/3ml) 0.083%) Nebulization solution Inhalation b.i.d., Budesonide 1 Inhalation (of 0.5 mg/2mL) Suspension Inhalation b.i.d., Cyanocobalamin 1 Each (of 1000 mcg/mL) Injection q 4 weeks, Dexamethasone 1 Tablet (of 4 mg) Oral daily, Folic Acid 1 Tablet Oral daily, Loratadine 1 (10 mg) Tablet Oral daily, ProAir HFA 1 Puff(s) (of 108 (90 base) mcg/act) Aerosol, solution Inhalation daily PRN, Protonix 1 Tablet (of 40 mg) Tablet, enteric coated Oral daily, Simvastatin 1 Tablet (of 20 mg) Oral daily Allergies: Marinol, Paxil, Penicillins, and PROzac. Review of Systems: Constitutional - She has no energy. She is having to make herself get up and do anything, but she is able to do light work. She has pretty good appetite, and her weight is up a little. She has not had fever or night sweats. She has some hot flashes, but not bad. ECOG score is 1, ENMT - She has allergy related sinus symptoms. No mouth sores. No sore throat or difficulty swallowing, Hematologic/Lymphatic - No abnormal bruising or bleeding, Respiratory - She sometimes has shortness of breath. No cough. No pleuritic pain or hemoptysis, Cardiovascular - With her panic attacks she has pressure which starts in her throat and moves down into her chest, and with those episodes her heart rate gets fast and she cannot breathe. The frequency of the episodes varies from day-to-day, Gastrointestinal - No nausea or vomiting. No heartburn or acid reflux. No diarrhea or constipation. No blood in the stool or black stools, Genitourinary (F) - No dysuria or hematuria. No urinary frequency. No urgency or incontinence, Musculoskeletal - She has pain in her shoulders and hips. She is also having muscle cramps in her hands, mainly in the evening, Integumentary - She has significant changes in the finger and toenails, Neurologic - No headache or dizziness. No numbness or tingling, but her hands and feet feel cold, Psychiatric - She is having anxiety and depression. She has able to sleep better with her pain medication. Vital Signs: Blood pressure 96/58, pulse 116, respirations 24, temp 98.4 degrees, and oxygen saturation 98% on nasal cannula 2.5 L/min. Her weight is 94 pounds. Physical Examination: Constitutional - She does not appear acutely ill, Eyes - Sclerae nonicteric. Conjunctivae clear, ENMT - No lesions noted in the oral cavity, Hematologic/Lymphatic - No cervical, clavicular, or axillary adenopathy, Respiratory - Lungs are clear with diminished air movement bilaterally, Cardiovascular - Heart rhythm is regular with a mild tachycardia. There is no murmur, gallop, or rub noted, Abdomen - Soft. Liver and spleen are not enlarged. There is no abdominal mass or ascites noted and there is no inguinal adenopathy, Extremities - No edema. Her feet are cool to touch, but she has palpable dorsalis pedis pulses bilaterally, Integumentary - No skin eruption, Neurologic - No focal neurologic deficits noted. Lab/Imaging: CBC shows hemoglobin 14.9 g, white blood cell count 9300, and platelet count 275,000. Comprehensive metabolic profile is unremarkable. Impression: 1. Patient with metastatic large cell carcinoma in the form of a right frontoparietal extra-axial, dural based mass with transcalvarial extension. By PET/CT, she appeared to have primary malignancy involving the upper lobe of the right lung with associated mediastinal lymph node involvement. As such, her disease was stage ALONSO (T1b, N3, M1b). 2. She underwent craniotomy with resecting/debulking of the mass on 06/21/2019. Her tumor was noted to harbor a KRAS mutation at exon 3. EGFR and BRAF mutations were not detected, and the tumor was negative for ROS1 and ALK gene rearrangements. PD-L1 expression was positive at 10%. Her other medical illnesses include: 3. COPD. 4. Hyperlipidemia. 5. Claustrophobia. She began cycle 1 of carboplatin/pemetrexed chemotherapy in combination with pembrolizumab on 08/12/2019. She tolerated it with acceptable toxicity, and she continue with cycle 2 on 09/02/2019, with cycle 3 on 09/22/2019, and with cycle 4 on 10/20/2019. She was able to tolerate treatment with acceptable toxicity, and she appeared to have a significant response by restaging PET/CT on 11/06/2019. That study, though, did show a new 1.2 cm nodule in the right lung apex with a mild FDG uptake. The significance of that finding was uncertain in the setting of what otherwise appears to be an excellent response to the treatment. With those findings, her treatment was then transition to maintenance pembrolizumab, beginning on 11/10/2019. In addition, with limited sites of involvement, she was offered the option to have consolidation radiation. She initially declined due to concerns related to the coronavirus pandemic. She continued the maintenance pembrolizumab at 3-week intervals. As of her follow-up visit on 02/02/2020 her treatment was put on hold due to increased shortness of breath. She was started on empiric steroid therapy with dexamethasone. Her restaging PET/CT on 02/12/2020 showed residual right apical pulmonary nodule, FDG negative. There was no evidence of active malignancy on that study. She had significant symptomatic improvement on the dexamethasone. As of 03/22/2020 she restarted pembrolizumab, but it was subsequently discontinued due to recurrence of shortness of breath, chest tightness, and palpitations. A repeat chest CT on 04/26/2020 reported a 1.3 x 0.7 cm spiculated lesion in the right lower lobe just inferior to the interlobar fissure. Prior studies were not available for comparison. Thus far her treatment has remained on hold. She presents now with numerous complaints. In addition to extreme fatigue and continued shortness of breath, she has had episodes of panic attacks with pressure/tightness in her chest and palpitations. She is having significant issues with anxiety/depression. She also has hair and nail changes following her previous chemotherapy. Plan: She will decrease dexamethasone to 1 mg daily. She will begin treatment with peroxide teen 10 mg daily, and she will continue lorazepam as needed for anxiety. I will request the CT disc from [place] so that we can compare to prior studies done here. I will put in a request to recertify her oxygen, as her oxygen saturation on room air decreased to 87% with heart rate 136 after ambulation. At rest with 2 L of oxygen per minute her oxygen saturations was 98% with heart rate 104 and on 2 L/min after ambulation her oxygen saturation was maintained at 97% with heart rate 122. I will tentatively plan a follow-up visit in 1 month. Signed By: Levi Estrada M.D. <<Signature on File>>
== END 2020-05-23 15:34 | disposition home or self-care (01) ==
LOC: ONCMED 15:34
PROVIDERS: PCP Nurse Practitioner Family; Visit Provider Internal Medicine Medical Oncology
DX: C34.11 Malignant neoplasm of upper lobe, right bronchus or lung (principal); C79.51 Secondary malignant neoplasm of bone; J44.9 Chronic obstructive pulmonary disease, unspecified; E78.5 Hyperlipidemia, unspecified; F40.240 Claustrophobia; Z79.52 Long term (current) use of systemic steroids; Z92.21 Personal history of antineoplastic chemotherapy
CPT/HCPCS: 99214

== ENCOUNTER 2020-06-20 15:53 | Outpatient (CLI) | payer MEDICARE, MEDICAID, SELFPAY ==
--- NOTE | 2020-06-26 09:54 | ONC FU_ITS ---
Dr. Estrada Patient Follow-Up Note Patient: Georgette Calvillo Unit #: [id number]: 1960 Dicatated By: Levi sEtrada M.D.Date of Visit:Jun 20, 2020 Onc Med Follow-up/Prog Note Chief Complaint: Metastatic large cell carcinoma. History of Present Illness: This is a 59 year-old woman with metastatic nonsmall cell lung cancer, stage ALONSO (T1b, N3, M1b), with biopsy proven metastatic involvement in the right frontal calvarium. She had presented in May 2019 with an enlarging lump on the right side of her head. She was initially evaluated with head CT and subsequently with head MRI. The MRI, from 06/11/2019, showed a right frontal extra-axial dural based lesion with transcalvarial extension. The mass measures approximately 2.1 x 3.0 x 2.9 cm, and it was noted to extend into the right frontal scalp soft tissues. There were additional intracalvarial enhancing satellite lesions just posterior superior and anterior to it. The reported differential considerations included atypical meningioma, metastatic disease, or hemangiopericytoma. She was referred to Dr. Pedraza, and on 06/21/2019 she underwent craniotomy with resection/debulking of the right frontal skull and dural mass. Pathology showed metastatic large cell carcinoma with nonspecific immunohistochemical staining pattern. The tumor cells were positive for panCK, CK 7, Jason-Ep4, NURA, and CK high molecular weight. GCDFP15 was focally positive. They were negative for CK 20, TTF-1, p63, S100, Melan A, CD45, progesterone receptor, RCC, and Napsin. Prior to the initial head CT, she had undergone screening mammograms and chest CT scan in [place]. Those studes reportedly showed no evidence of malignancy. I had seen her initially on 07/07/2019. Her staging PET/CT on 07/10/2019 showed an FDG avid 1.3 cm perihilar nodule in the upper lobe of the right lung, SUV 8.2, consistent with primary bronchogenic carcinoma. Several FDG positive lymph nodes were noted in the mediastinum, consistent with metastatic disease, including a right paratracheal node measuring 2.3 x 1.5 cm with SUV 10.3 as well as other nodes in the AP window, left paratracheal, and subcarinal territories. There were no other sites of distant metastatic disease. I had also requested additional pathologic evaluation with a next generation sequencing study. It was positive for PD-L1 expression at 10%. It also showed presence of a KRAS mutation at exon 3. EGFR and BRAF mutations were not detected. The tumor was negative for the ALK and ROS1 rearrangements. She had initially been referred for palliative radiation. However, after reviewing the PET/CT findings with the cranial lesion having been resected, Dr. Davies had suggested that we instead proceed with her systemic therapy and reserve radiation for consolidative treatment. As such, she then began a course of combination chemotherapy/immunotherapy with carboplatin/pemetrexed together with pembrolizumab. Her other medical illnesses include COPD and hyperlipidemia. She also is known to have claustrophobia. She has a history of smoking 1 pack of cigarettes daily for 35 years, but she had cut down to less than 1/2 pack/day. INTERIM HISTORY: She began cycle 1 of carboplatin/pemetrexed in combination with pembrolizumab on 08/12/2019. She was able to tolerate it with acceptable toxicity, and she continued with cycle 2 on 09/02/2019, with cycle 3 on 09/22/2019 and with cycle 4 on 10/20/2019. Restaging PET/CT on 11/06/2019 showed development of a new right upper lobe pulmonary nodule measuring 1.2 cm, SUV 2.7, concerning for recurrence. There was otherwise evidence of significant treatment response with resolution of the right perihilar lesion and with mediastinal lymph nodes decreased to subcentimeter in size and FDG negative. With evidence of response, she had then continued treatment with maintenance pembrolizumab beginning on 11/10/2019. With limited sites of involvement she also was offered to option to have consolidation radiation. She initially decilned due to concerns related to the coronavirus pandemic. She then continued maintenance pembrolizumab at 3-week intervals. She seemed to tolerate it well, though she continued to lose weight, and she continued to have fairly marginal performance status. At her follow-up visit on 02/02/2020 her treatment was put on hold due to increased shortness of breath. She began empiric steroid therapy with dexamethasone. Her repeat PET/CT on 02/12/2020 showed FDG negative right apical pulmonary nodule measuring 0.8 x 0.4 cm. There was no evidence of active malignancy. It appeared to represent a complete metabolic response to treatment. Her symptoms improved and she restarted pembrolizumab on 03/22/2020 but at her follow-up visit on 04/12/2020 it was again put on hold due to multiple complaints including shortness of breath, chest tightness, and palpitations. She continued dexamethasone at 2 mg daily. A repeat chest CT on 04/26/2020 showed spiculated lesion in the right lower lobe just inferior to the interlobar fissure measuring 1.3 x 0.7 cm. There was pulmonary emphysema with interstitial reticulation noted. As the CT was done at [facility], and there were no prior studies available for comparison. Her head CT showed evidence of previous right frontal cranioplasty with no active lesion seen. At her follow-up visit in May 2020 there did not appear to be any clinical evidence of disease progression, and at that point she was having significant anxiety/depression. At that point she was started on paroxetine and lorazepam, I also reduced her steroid dosage and transitioned it from dexamethasone to prednisone. She is seen for a follow-up visit. She unfortunately did not tolerate the paroxetine very well, but she has had benefit with lorazepam in managing her anxiety. Overall, she has been feeling better with the exception that over the past several days her breathing has worsened due to the weather changes. She has limited activity, but she had been doing light work until her breathing got worse. She has good appetite. She has not had fever or night sweats. She has occasional hot flashes. She has cough productive of milky phlegm, but that is not new. She does not complain of chest pain. She has no GI or complaints. She has had joint pain, mainly in the shoulders and hips, and recently her left shoulder has been bothering her more. She does not complain of headache. She has lightheadedness if she gets up too fast. She has no focal neurologic symptoms. Medications: Albuterol Sulfate 1 ((2.5 mg/3ml) 0.083%) Nebulization solution Inhalation b.i.d., Budesonide 1 Inhalation (of 0.5 mg/2mL) Suspension Inhalation b.i.d., Cyanocobalamin 1 Each (of 1000 mcg/mL) Injection q 4 weeks, Dexamethasone 1 Tablet (of 4 mg) Oral daily, Folic Acid 1 Tablet Oral daily, Loratadine 1 (10 mg) Tablet Oral daily, PARoxetine HCl 1 Tablet (of 20 mg) Oral daily, ProAir HFA 1 Puff(s) (of 108 (90 base) mcg/act) Aerosol, solution Inhalation daily PRN, Protonix 1 Tablet (of 40 mg) Tablet, enteric coated Oral daily, Simvastatin 1 Tablet (of 20 mg) Oral daily Allergies: Marinol, Paxil, Penicillins, and PROzac. Review of Systems: Constitutional - She has generally been feeling pretty good, though she has had to decrease her activity the last few days because of her respiratory status. Her appetite is good and her weight is up 3 pounds from last visit. No fever, night sweats, or hot flashes. ECOG score is 1, ENMT - She has sinus congestion/drainage. No mouth sores. No sore throat or difficulty swallowing, Hematologic/Lymphatic - No abnormal bruising or bleeding, Respiratory - Her shortness of breath has worsened over the last couple days with the weather changes. She has a cough that produces thick white phlegm. No pleuritic pain or hemoptysis, Cardiovascular - No angina pain. No palpitations, Gastrointestinal - No nausea or vomiting. No heartburn or acid reflux. No diarrhea or constipation. No blood in the stool or black stools, Genitourinary (F) - No dysuria or hematuria. No urinary frequency. No urgency or incontinence, Musculoskeletal - She has pain in her left shoulder today. She also has pain in her hips. Her pain is adequately managed with tramadol, Integumentary - No skin complications, Neurologic - No headache. She has lightheadedness if she gets up too fast. No numbness or tingling. No other focal neurologic symptoms, Psychiatric - She has anxiety and depression. No insomnia. Vital Signs: Performed on Jun 20, 2020 13:03 Height - 62.00 in Weight - 91 lbs (HIGH) BSA - 1.37 sq.m BMI - 16.64 (LOW) Temperature - 97.9 F (LOW) Pulse - 126 /min (HIGH) Respiration - 26 /min BP - 108/72 mm(hg) O2 Sat - 96 % Pain - 2 Physical Examination: Constitutional - She does not appear acutely ill, Eyes - Sclerae nonicteric. Conjunctivae clear, ENMT - No lesions noted in the oral cavity, Hematologic/Lymphatic - No cervical, clavicular, or axillary adenopathy, Respiratory - Lungs are clear with diminished air movement bilaterally, Cardiovascular - Heart rhythm is regular. There is a mild tachycardia. There is no murmur, gallop, or rub noted, Abdomen - Soft. Liver and spleen are not enlarged. There is no abdominal mass or ascites noted and there is no inguinal adenopathy, Extremities - No edema, Integumentary - No skin eruption, Neurologic - No focal neurologic deficits noted. Lab/Imaging: Results are still pending. Impression: 1. Patient with metastatic large cell carcinoma in the form of a right frontoparietal extra-axial, dural based mass with transcalvarial extension. By PET/CT, she appeared to have primary malignancy involving the upper lobe of the right lung with associated mediastinal lymph node involvement. As such, her disease was stage ALONSO (T1b, N3, M1b). 2. She underwent craniotomy with resecting/debulking of the mass on 06/21/2019. Her tumor was noted to harbor a KRAS mutation at exon 3. EGFR and BRAF mutations were not detected, and the tumor was negative for ROS1 and ALK gene rearrangements. PD-L1 expression was positive at 10%. Her other medical illnesses include: 3. COPD. 4. Hyperlipidemia. 5. Claustrophobia. She began cycle 1 of carboplatin/pemetrexed chemotherapy in combination with pembrolizumab on 08/12/2019. She tolerated it with acceptable toxicity, and she continue with cycle 2 on 09/02/2019, with cycle 3 on 09/22/2019, and with cycle 4 on 10/20/2019. She was able to tolerate treatment with acceptable toxicity, and she appeared to have a significant response by restaging PET/CT on 11/06/2019. That study, though, did show a new 1.2 cm nodule in the right lung apex with a mild FDG uptake. The significance of that finding was uncertain in the setting of what otherwise appears to be an excellent response to the treatment. With those findings, her treatment was then transition to maintenance pembrolizumab, beginning on 11/10/2019. In addition, with limited sites of involvement, she was offered the option to have consolidation radiation. She initially declined due to concerns related to the coronavirus pandemic. She continued the maintenance pembrolizumab at 3-week intervals. As of her follow-up visit on 02/02/2020 her treatment was put on hold due to increased shortness of breath. She was started on empiric steroid therapy with dexamethasone. Her restaging PET/CT on 02/12/2020 showed residual right apical pulmonary nodule, FDG negative. There was no evidence of active malignancy on that study. She had significant symptomatic improvement on the dexamethasone. As of 03/22/2020 she restarted pembrolizumab, but it was subsequently discontinued due to recurrence of shortness of breath, chest tightness, and palpitations. A repeat chest CT on 04/26/2020 reported a 1.3 x 0.7 cm spiculated lesion in the right lower lobe just inferior to the interlobar fissure. Prior studies were not available for comparison. Her treatment has remained on hold. She continues to have somewhat marginal performance status, and she has ongoing issues with her COPD and with her anxiety/depression. Thus far there has been no obvious progression of the lung cancer. Plan: She remains on observation/symptomatic management for the lung cancer. For now she will continue prednisone 10 mg daily, but with her next refill the dosage will be reduced to 5 mg. She will begin citalopram 10 mg daily and she will continue lorazepam as needed for anxiety. I will see her again in 1 month. In the meantime, I also will arrange for her to see one of the pulmonologists for management of her COPD. Signed By: Levi Estrada M.D. <<Signature on File>>
== END 2020-06-20 15:54 | disposition home or self-care (01) ==
LOC: ONCMED 15:54
PROVIDERS: PCP Nurse Practitioner Family; Visit Provider Internal Medicine Medical Oncology
DX: Z08 Encounter for follow-up examination after completed treatment for malignant neoplasm (principal); Z85.118 Personal history of other malignant neoplasm of bronchus and lung; Z85.830 Personal history of malignant neoplasm of bone; J44.9 Chronic obstructive pulmonary disease, unspecified; E78.5 Hyperlipidemia, unspecified; F40.240 Claustrophobia; F41.9 Anxiety disorder, unspecified; Z79.52 Long term (current) use of systemic steroids; Z79.899 Other long term (current) drug therapy
CPT/HCPCS: 99214

== ENCOUNTER 2020-07-18 12:01 | Outpatient (CLI) | payer MEDICARE, MEDICAID, SELFPAY ==
--- NOTE | 2020-07-18 14:48 | ONC FU_ITS ---
Dr. Estrada Patient Follow-Up Note Patient: Georgette Calvillo Unit #: [id number]: 1960 Dicatated By: Levi Estrada M.D.Date of Visit:Jul 18, 2020 Onc Med Follow-up/Prog Note Chief Complaint: Metastatic large cell carcinoma. History of Present Illness: This is a 59 year-old woman with metastatic nonsmall cell lung cancer, stage ALONSO (T1b, N3, M1b), with biopsy proven metastatic involvement in the right frontal calvarium. She had presented in May 2019 with an enlarging lump on the right side of her head. She was initially evaluated with head CT and subsequently with head MRI. The MRI, from 06/11/2019, showed a right frontal extra-axial dural based lesion with transcalvarial extension. The mass measures approximately 2.1 x 3.0 x 2.9 cm, and it was noted to extend into the right frontal scalp soft tissues. There were additional intracalvarial enhancing satellite lesions just posterior superior and anterior to it. The reported differential considerations included atypical meningioma, metastatic disease, or hemangiopericytoma. She was referred to Dr. Pedraza, and on 06/21/2019 she underwent craniotomy with resection/debulking of the right frontal skull and dural mass. Pathology showed metastatic large cell carcinoma with nonspecific immunohistochemical staining pattern. The tumor cells were positive for panCK, CK 7, Jason-Ep4, NURA, and CK high molecular weight. GCDFP15 was focally positive. They were negative for CK 20, TTF-1, p63, S100, Melan A, CD45, progesterone receptor, RCC, and Napsin. Prior to the initial head CT, she had undergone screening mammograms and chest CT scan in [place]. Those studes reportedly showed no evidence of malignancy. I had seen her initially on 07/07/2019. Her staging PET/CT on 07/10/2019 showed an FDG avid 1.3 cm perihilar nodule in the upper lobe of the right lung, SUV 8.2, consistent with primary bronchogenic carcinoma. Several FDG positive lymph nodes were noted in the mediastinum, consistent with metastatic disease, including a right paratracheal node measuring 2.3 x 1.5 cm with SUV 10.3 as well as other nodes in the AP window, left paratracheal, and subcarinal territories. There were no other sites of distant metastatic disease. I had also requested additional pathologic evaluation with a next generation sequencing study. It was positive for PD-L1 expression at 10%. It also showed presence of a KRAS mutation at exon 3. EGFR and BRAF mutations were not detected. The tumor was negative for the ALK and ROS1 rearrangements. She had initially been referred for palliative radiation. However, after reviewing the PET/CT findings with the cranial lesion having been resected, Dr. Davies had suggested that we instead proceed with her systemic therapy and reserve radiation for consolidative treatment. As such, she then began a course of combination chemotherapy/immunotherapy with carboplatin/pemetrexed together with pembrolizumab. Her other medical illnesses include COPD and hyperlipidemia. She also is known to have claustrophobia. She has a history of smoking 1 pack of cigarettes daily for 35 years, but she had cut down to less than 1/2 pack/day. INTERIM HISTORY: She began cycle 1 of carboplatin/pemetrexed in combination with pembrolizumab on 08/12/2019. She was able to tolerate it with acceptable toxicity, and she continued with cycle 2 on 09/02/2019, with cycle 3 on 09/22/2019 and with cycle 4 on 10/20/2019. Restaging PET/CT on 11/06/2019 showed development of a new right upper lobe pulmonary nodule measuring 1.2 cm, SUV 2.7, concerning for recurrence. There was otherwise evidence of significant treatment response with resolution of the right perihilar lesion and with mediastinal lymph nodes decreased to subcentimeter in size and FDG negative. With evidence of response, she had then continued treatment with maintenance pembrolizumab beginning on 11/10/2019. With limited sites of involvement she also was offered to option to have consolidation radiation. She initially decilned due to concerns related to the coronavirus pandemic. She then continued maintenance pembrolizumab at 3-week intervals. She seemed to tolerate it well, though she continued to lose weight, and she continued to have fairly marginal performance status. At her follow-up visit on 02/02/2020 her treatment was put on hold due to increased shortness of breath. She began empiric steroid therapy with dexamethasone. Her repeat PET/CT on 02/12/2020 showed FDG negative right apical pulmonary nodule measuring 0.8 x 0.4 cm. There was no evidence of active malignancy. It appeared to represent a complete metabolic response to treatment. Her symptoms improved and she restarted pembrolizumab on 03/22/2020 but at her follow-up visit on 04/12/2020 it was again put on hold due to multiple complaints including shortness of breath, chest tightness, and palpitations. She continued dexamethasone at 2 mg daily. A repeat chest CT on 04/26/2020 showed spiculated lesion in the right lower lobe just inferior to the interlobar fissure measuring 1.3 x 0.7 cm. There was pulmonary emphysema with interstitial reticulation noted. As the CT was done at [place], and there were no prior studies available for comparison. Her head CT showed evidence of previous right frontal cranioplasty with no active lesion seen. At her follow-up visit in May 2020 there did not appear to be any clinical evidence of disease progression, and at that point she was having significant anxiety/depression. At that point she was started on paroxetine and lorazepam, I also reduced her steroid dosage and transitioned it from dexamethasone to prednisone. At her follow-up visit in June she was feeling a little better, though still having some anxiety. She continued prednisone but with the dosage reduced to 5 mg daily and I also switched her from paroxetine to citalopram. She is seen for a follow-up visit. Overall she has been feeling somewhat better, though she does complain that she is tired. She is able to do housework. ECOG score is 1. Her appetite has been good. Her weight is back down a couple pounds. She had fever last month in the range of 99 to 100 degrees, that did resolve after antibiotic therapy. Recently she has been getting symptoms of sinus infection with cough productive of green sputum. Most days her breathing has been okay on oxygen, though she has been more short of breath the last few days. She does not complain of chest pain. She has no GI or complaints. She has pain in her shoulders, hips, and knees. It is adequately managed with her medication. She does not complain of headache. She sometimes gets dizzy after breathing treatment. She has no focal neurologic symptoms. Her anxiety is controlled much better now with the citalopram and the lower dose steroid. Medications: Albuterol Sulfate 1 ((2.5 mg/3ml) 0.083%) Nebulization solution Inhalation b.i.d., Budesonide 1 Inhalation (of 0.5 mg/2mL) Suspension Inhalation b.i.d., CeleXA 1 (10 mg) Tablet Oral every am, Cyanocobalamin 1 Each (of 1000 mcg/mL) Injection q 4 weeks, Folic Acid 1 Tablet Oral daily, HYDROcodone-Acetaminophen 1 - 2 Tablet (of 5-325 mg) Oral q 4 hours PRN, Loratadine 1 (10 mg) Tablet Oral daily, LORazepam 0.5 - 1 Tablet (of 0.5 mg) Oral daily PRN, predniSONE 1 (5 mg) Tablet Oral daily, ProAir HFA 1 Puff(s) (of 108 (90 base) mcg/act) Aerosol, solution Inhalation daily PRN, Protonix 1 Tablet (of 40 mg) Tablet, enteric coated Oral daily, Simvastatin 1 Tablet (of 20 mg) Oral daily, traMADol HCl 1 (50 mg) Tablet Oral t.i.d. PRN Allergies: Marinol, Paxil, Penicillins, and PROzac. Review of Systems: Constitutional - She has been feeling tired. She is doing light work. Appetite is good and weight is stable. She had a slight fever last month. No night sweats or hot flashes. ECOG score is 1, ENMT - She recently has had symptoms of sinus infection. No mouth sores. No sore throat or difficulty swallowing, Hematologic/Lymphatic - She has some bruising, Respiratory - She has shortness of breath, but her breathing has mostly been OK on oxygen. She has cough productive of green sputum. No pleuritic pain or hemoptysis, Cardiovascular - No angina pain. No palpitations, Gastrointestinal - No nausea or vomiting. No heartburn or acid reflux. No diarrhea or constipation. No blood in the stool or black stools, Genitourinary (F) - No dysuria or hematuria. No urinary frequency. No urgency or incontinence, Musculoskeletal - She has pain in her shoulders, hips, and knees, Integumentary - No skin rash, Neurologic - No headache. She sometimes has dizziness after a breathing treatment. No numbness or tingling. No other focal neurologic symptoms, Psychiatric - Her anxiety/depression is better. No insomnia. Vital Signs: Performed on Jul 18, 2020 12:02 Height - 62.00 in Weight - 88 lbs (LOW) BSA - 1.35 sq.m BMI - 16.10 (LOW) Temperature - 97.4 F (LOW) Pulse - 124 /min (HIGH) Respiration - 22 /min BP - 104/70 mm(hg) O2 Sat - 94 % (LOW) Pain - 0 Physical Examination: Constitutional - She appears somewhat weak generally, but not acutely ill, Eyes - Sclerae nonicteric. Conjunctivae clear, ENMT - Her lower teeth are in poor repair. There are no other lesions noted in the oral cavity, Hematologic/Lymphatic - No cervical, clavicular, or axillary adenopathy, Respiratory - Lungs are clear with diminished air movement bilaterally, Cardiovascular - Heart rhythm is irregular and there is a mild tachycardia. There is no murmur, gallop, or rub noted, Abdomen - Soft. Liver and spleen are not enlarged. There is no abdominal mass or ascites noted and there is no inguinal adenopathy, Extremities - No edema. 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 Lab/Imaging: CBC shows hemoglobin 14.8 g, white blood cell count 11,300, and platelet count 327,000. Comprehensive metabolic profile is unremarkable. Impression: 1. Patient with metastatic large cell carcinoma in the form of a right frontoparietal extra-axial, dural based mass with transcalvarial extension. By PET/CT, she appeared to have primary malignancy involving the upper lobe of the right lung with associated mediastinal lymph node involvement. As such, her disease was stage ALONSO (T1b, N3, M1b). 2. She underwent craniotomy with resecting/debulking of the mass on 06/21/2019. Her tumor was noted to harbor a KRAS mutation at exon 3. EGFR and BRAF mutations were not detected, and the tumor was negative for ROS1 and ALK gene rearrangements. PD-L1 expression was positive at 10%. Her other medical illnesses include: 3. COPD. 4. Hyperlipidemia. 5. Claustrophobia. She began cycle 1 of carboplatin/pemetrexed chemotherapy in combination with pembrolizumab on 08/12/2019. She tolerated it with acceptable toxicity, and she continue with cycle 2 on 09/02/2019, with cycle 3 on 09/22/2019, and with cycle 4 on 10/20/2019. She was able to tolerate treatment with acceptable toxicity, and she appeared to have a significant response by restaging PET/CT on 11/06/2019. That study, though, did show a new 1.2 cm nodule in the right lung apex with a mild FDG uptake. The significance of that finding was uncertain in the setting of what otherwise appears to be an excellent response to the treatment. With those findings, her treatment was then transition to maintenance pembrolizumab, beginning on 11/10/2019. In addition, with limited sites of involvement, she was offered the option to have consolidation radiation. She initially declined due to concerns related to the coronavirus pandemic. She continued the maintenance pembrolizumab at 3-week intervals. As of her follow-up visit on 02/02/2020 her treatment was put on hold due to increased shortness of breath. She was started on empiric steroid therapy with dexamethasone. Her restaging PET/CT on 02/12/2020 showed residual right apical pulmonary nodule, FDG negative. There was no evidence of active malignancy on that study. She had significant symptomatic improvement on the dexamethasone. As of 03/22/2020 she restarted pembrolizumab, but it was subsequently discontinued due to recurrence of shortness of breath, chest tightness, and palpitations. A repeat chest CT on 04/26/2020 reported a 1.3 x 0.7 cm spiculated lesion in the right lower lobe just inferior to the interlobar fissure. Prior studies were not available for comparison. During followup her treatment has remained on hold. She has been showing some improvement in her symptoms, though she continues to have somewhat marginal performance status and recently she has had recurrence of productive cough and sinusitis symptoms. Plan: She remains on observation/symptomatic management for the lung cancer. She will be given empiric antibiotic coverage with Levaquin 500 mg daily for 7 days. She will continue prednisone 5 mg daily and she will continue citalopram 10 mg daily. We are still arranging for referral to physician non invasive cardiologist. She declines a flu shot. She will be scheduled for a follow-up visit in 1 month. She will have restaging chest CT in 2 weeks. Signed By: Levi Estrada M.D. <<Signature on File>>
== END 2020-07-18 12:02 | disposition home or self-care (01) ==
LOC: ONCMED 12:01
PROVIDERS: PCP Nurse Practitioner Family; Visit Provider Internal Medicine Medical Oncology
DX: C34.11 Malignant neoplasm of upper lobe, right bronchus or lung (principal); C79.51 Secondary malignant neoplasm of bone; C77.1 Secondary and unspecified malignant neoplasm of intrathoracic lymph nodes; J44.9 Chronic obstructive pulmonary disease, unspecified; E78.5 Hyperlipidemia, unspecified; F40.240 Claustrophobia; Z79.52 Long term (current) use of systemic steroids; Z79.2 Long term (current) use of antibiotics
CPT/HCPCS: 99214

== ENCOUNTER 2020-08-15 15:14 | Outpatient (CLI) | payer MEDICARE, MEDICAID, SELFPAY ==
--- NOTE | 2020-08-16 07:31 | ONC FU_ITS ---
Dr. Estrada Patient Follow-Up Note Patient: Georgette Calvillo Unit #: [id number]: 1960 Dicatated By: Levi Estrada M.D.Date of Visit:Aug 15, 2020 Onc Med Follow-up/Prog Note Chief Complaint: Metastatic large cell carcinoma. History of Present Illness: This is a 59 year-old woman with metastatic nonsmall cell lung cancer, stage ALONSO (T1b, N3, M1b), with biopsy proven metastatic involvement in the right frontal calvarium. She had presented in May 2019 with an enlarging lump on the right side of her head. She was initially evaluated with head CT and subsequently with head MRI. The MRI, from 06/11/2019, showed a right frontal extra-axial dural based lesion with transcalvarial extension. The mass measures approximately 2.1 x 3.0 x 2.9 cm, and it was noted to extend into the right frontal scalp soft tissues. There were additional intracalvarial enhancing satellite lesions just posterior superior and anterior to it. The reported differential considerations included atypical meningioma, metastatic disease, or hemangiopericytoma. She was referred to Dr. Pedraza, and on 06/21/2019 she underwent craniotomy with resection/debulking of the right frontal skull and dural mass. Pathology showed metastatic large cell carcinoma with nonspecific immunohistochemical staining pattern. The tumor cells were positive for panCK, CK 7, Jason-Ep4, NURA, and CK high molecular weight. GCDFP15 was focally positive. They were negative for CK 20, TTF-1, p63, S100, Melan A, CD45, progesterone receptor, RCC, and Napsin. Prior to the initial head CT, she had undergone screening mammograms and chest CT scan in [place]. Those studes reportedly showed no evidence of malignancy. I had seen her initially on 07/07/2019. Her staging PET/CT on 07/10/2019 showed an FDG avid 1.3 cm perihilar nodule in the upper lobe of the right lung, SUV 8.2, consistent with primary bronchogenic carcinoma. Several FDG positive lymph nodes were noted in the mediastinum, consistent with metastatic disease, including a right paratracheal node measuring 2.3 x 1.5 cm with SUV 10.3 as well as other nodes in the AP window, left paratracheal, and subcarinal territories. There were no other sites of distant metastatic disease. I had also requested additional pathologic evaluation with a next generation sequencing study. It was positive for PD-L1 expression at 10%. It also showed presence of a KRAS mutation at exon 3. EGFR and BRAF mutations were not detected. The tumor was negative for the ALK and ROS1 rearrangements. She had initially been referred for palliative radiation. However, after reviewing the PET/CT findings with the cranial lesion having been resected, Dr. Davies had suggested that we instead proceed with her systemic therapy and reserve radiation for consolidative treatment. As such, she then began a course of combination chemotherapy/immunotherapy with carboplatin/pemetrexed together with pembrolizumab. Her other medical illnesses include COPD and hyperlipidemia. She also is known to have claustrophobia. She has a history of smoking 1 pack of cigarettes daily for 35 years, but she had cut down to less than 1/2 pack/day. INTERIM HISTORY: She began cycle 1 of carboplatin/pemetrexed in combination with pembrolizumab on 08/12/2019. She was able to tolerate it with acceptable toxicity, and she continued with cycle 2 on 09/02/2019, with cycle 3 on 09/22/2019 and with cycle 4 on 10/20/2019. Restaging PET/CT on 11/06/2019 showed development of a new right upper lobe pulmonary nodule measuring 1.2 cm, SUV 2.7, concerning for recurrence. There was otherwise evidence of significant treatment response with resolution of the right perihilar lesion and with mediastinal lymph nodes decreased to subcentimeter in size and FDG negative. With evidence of response, she had then continued treatment with maintenance pembrolizumab beginning on 11/10/2019. With limited sites of involvement she also was offered to option to have consolidation radiation. She initially decilned due to concerns related to the coronavirus pandemic. She then continued maintenance pembrolizumab at 3-week intervals. She seemed to tolerate it well, though she continued to lose weight, and she continued to have fairly marginal performance status. At her follow-up visit on 02/02/2020 her treatment was put on hold due to increased shortness of breath. She began empiric steroid therapy with dexamethasone. Her repeat PET/CT on 02/12/2020 showed FDG negative right apical pulmonary nodule measuring 0.8 x 0.4 cm. There was no evidence of active malignancy. It appeared to represent a complete metabolic response to treatment. Her symptoms improved and she restarted pembrolizumab on 03/22/2020 but at her follow-up visit on 04/12/2020 it was again put on hold due to multiple complaints including shortness of breath, chest tightness, and palpitations. She continued dexamethasone at 2 mg daily. A repeat chest CT on 04/26/2020 showed spiculated lesion in the right lower lobe just inferior to the interlobar fissure measuring 1.3 x 0.7 cm. There was pulmonary emphysema with interstitial reticulation noted. As the CT was done at [facility], and there were no prior studies available for comparison. Her head CT showed evidence of previous right frontal cranioplasty with no active lesion seen. At her follow-up visit in May 2020 there did not appear to be any clinical evidence of disease progression, and at that point she was having significant anxiety/depression. At that point she was started on paroxetine and lorazepam, I also reduced her steroid dosage and transitioned it from dexamethasone to prednisone. At her follow-up visit in June she was feeling a little better, though still having some anxiety. She continued prednisone but with the dosage reduced to 5 mg daily and I also switched her from paroxetine to citalopram. At her follow-up visit on 07/18/2020 she was feeling a little better. I opted to keep her treatment on hold. Restaging chest CT on 08/11/2020 showed spiculated lesion in the right midlung zone measuring 11 x 7 mm, without significant change. There was underlying severe pulmonary emphysema. She is seen for a follow-up visit. Her main complaint is that she has been having more depression. However, from the standpoint of her physical condition she has been feeling a little better. Her energy is a little better and she has been able to do more activity. ECOG score is 1. Her appetite is about the same. She eats 2 or 3 meals a day. Her weight is back down 3 pounds. She does not have fever or night sweats. Her breathing is okay on oxygen. She has no more cough than usual. However, she has had recurrence of green sinus drainage. It improved only temporarily with antibiotic therapy. She has no GI or complaints. She has joint pain, mainly in her shoulders and hips. It is adequately managed. Medications: Albuterol Sulfate 1 ((2.5 mg/3ml) 0.083%) Nebulization solution Inhalation b.i.d., Budesonide 1 Inhalation (of 0.5 mg/2mL) Suspension Inhalation b.i.d., CeleXA 1 (10 mg) Tablet Oral every am, Cyanocobalamin 1 Each (of 1000 mcg/mL) Injection q 4 weeks, Folic Acid 1 Tablet Oral daily, HYDROcodone-Acetaminophen 1 - 2 Tablet (of 5-325 mg) Oral q 4 hours PRN, Loratadine 1 (10 mg) Tablet Oral daily, LORazepam 0.5 - 1 Tablet (of 0.5 mg) Oral daily PRN, predniSONE 1 (5 mg) Tablet Oral daily, ProAir HFA 1 Puff(s) (of 108 (90 base) mcg/act) Aerosol, solution Inhalation daily PRN, Protonix 1 Tablet (of 40 mg) Tablet, enteric coated Oral daily, Simvastatin 1 Tablet (of 20 mg) Oral daily, traMADol HCl 1 (50 mg) Tablet Oral t.i.d. PRN Allergies: Marinol, Paxil, Penicillins, and PROzac. Review of Systems: Constitutional - Her energy is a little better. She is doing light work. Her appetite is the same. She eats 2 or 3 meals a day. Her weight is back down 3 pounds. She does not have fever or night sweats. ECOG score is 1, ENMT - She is again having green-colored sinus drainage. No mouth sores. No sore throat or difficulty swallowing, Hematologic/Lymphatic - No abnormal bruising or bleeding, Respiratory - She has shortness of breath. She is on continuous oxygen. She has cough, but no more than usual. No pleuritic pain or hemoptysis, Cardiovascular - No angina pain. No palpitations, Gastrointestinal - No nausea or vomiting. Her acid reflux is adequately managed with Protonix. No diarrhea or constipation. No blood in the stool or black stools, Genitourinary (F) - No dysuria or hematuria. No urinary frequency. No urgency or incontinence, Musculoskeletal - She has pain in her shoulders and hips. It is adequately managed with medication, Integumentary - No skin rash, Neurologic - No headache or dizziness. No numbness or tingling. No other focal neurologic symptoms, Psychiatric - She has been having more depression. No insomnia. Vital Signs: Performed on Aug 15, 2020 15:20 Height - 62.00 in Weight - 88 lbs BSA - 1.35 sq.m BMI - 16.10 (LOW) Temperature - 97.3 F (LOW) Pulse - 110 /min (HIGH) Respiration - 20 /min BP - 98/60 mm(hg) O2 Sat - 96 % Pain - 3 Physical Examination: Constitutional - She appears somewhat frail generally, Eyes - Sclerae nonicteric. Conjunctivae clear, ENMT - No lesions noted in the oral cavity, Hematologic/Lymphatic - No cervical, clavicular, or axillary adenopathy, Respiratory - Lungs are clear with diminished air movement bilaterally, Cardiovascular - Heart rhythm is regular with a mild tachycardia. There is no murmur, gallop, or rub noted, Abdomen - Soft. Liver and spleen are not enlarged. There is no abdominal mass or ascites noted and there is no inguinal adenopathy, Extremities - No edema, Neurologic - No focal neurologic deficits noted. Impression: 1. Patient with metastatic large cell carcinoma in the form of a right frontoparietal extra-axial, dural based mass with transcalvarial extension. By PET/CT, she appeared to have primary malignancy involving the upper lobe of the right lung with associated mediastinal lymph node involvement. As such, her disease was stage ALONSO (T1b, N3, M1b). 2. She underwent craniotomy with resecting/debulking of the mass on 06/21/2019. Her tumor was noted to harbor a KRAS mutation at exon 3. EGFR and BRAF mutations were not detected, and the tumor was negative for ROS1 and ALK gene rearrangements. PD-L1 expression was positive at 10%. Her other medical illnesses include: 3. COPD. 4. Hyperlipidemia. 5. Claustrophobia. She began cycle 1 of carboplatin/pemetrexed chemotherapy in combination with pembrolizumab on 08/12/2019. She tolerated it with acceptable toxicity, and she continue with cycle 2 on 09/02/2019, with cycle 3 on 09/22/2019, and with cycle 4 on 10/20/2019. She was able to tolerate treatment with acceptable toxicity, and she appeared to have a significant response by restaging PET/CT on 11/06/2019. That study, though, did show a new 1.2 cm nodule in the right lung apex with a mild FDG uptake. The significance of that finding was uncertain in the setting of what otherwise appears to be an excellent response to the treatment. With those findings, her treatment was then transition to maintenance pembrolizumab, beginning on 11/10/2019. In addition, with limited sites of involvement, she was offered the option to have consolidation radiation. She initially declined due to concerns related to the coronavirus pandemic. She continued the maintenance pembrolizumab at 3-week intervals. As of her follow-up visit on 02/02/2020 her treatment was put on hold due to increased shortness of breath. She was started on empiric steroid therapy with dexamethasone. Her restaging PET/CT on 02/12/2020 showed residual right apical pulmonary nodule, FDG negative. There was no evidence of active malignancy on that study. She had significant symptomatic improvement on the dexamethasone. As of 03/22/2020 she restarted pembrolizumab, but it was subsequently discontinued due to recurrence of shortness of breath, chest tightness, and palpitations. A repeat chest CT on 04/26/2020 reported a 1.3 x 0.7 cm spiculated lesion in the right lower lobe just inferior to the interlobar fissure. Prior studies were not available for comparison. She has since then continued observation/expectant management for the lung cancer. She has had ongoing problems associated with her underlying COPD and with depression. However, thus far there has been no evidence of recurrence/progression of the lung cancer. Plan: She remains on observation/symptomatic management for the lung cancer. She will continue prednisone at 5 mg daily. She says her breathing has been better when she was on Trelegy, and I will see if I can get that approved for her. I also will arrange for referral to a allopathic doctor. She will be given further antibiotic therapy with Ceftin 500 mg twice daily for 14 days. She will be scheduled for a follow-up visit in 3 months, and she will have restaging CT scans of the chest and head prior to that visit. In the meantime, she will increase citalopram to 20 mg daily. She is to let us know if that is not helping with her depression. Signed By: Levi Estrada M.D. <<Signature on File>>
== END 2020-08-15 15:15 | disposition home or self-care (01) ==
LOC: ONCMED 15:15
PROVIDERS: PCP Nurse Practitioner Family; Visit Provider Internal Medicine Medical Oncology
DX: C34.11 Malignant neoplasm of upper lobe, right bronchus or lung (principal); C79.51 Secondary malignant neoplasm of bone; J44.9 Chronic obstructive pulmonary disease, unspecified; E78.5 Hyperlipidemia, unspecified; F32.9 Major depressive disorder, single episode, unspecified; F40.240 Claustrophobia; Z79.52 Long term (current) use of systemic steroids; Z79.2 Long term (current) use of antibiotics; Z79.899 Other long term (current) drug therapy; Z92.21 Personal history of antineoplastic chemotherapy; Z92.3 Personal history of irradiation
CPT/HCPCS: 99214

== ENCOUNTER 2020-11-14 15:30 | Outpatient (CLI) | payer MEDICARE, MEDICAID, SELFPAY ==
--- NOTE | 2020-11-15 09:03 | ONC FU_ITS ---
Dr. Estrada Patient Follow-Up Note Patient: Georgette Calvillo Unit #: [id number]: 1960 Dicatated By: Levi Estrada M.D.Date of Visit:Nov 14, 2020 Onc Med Follow-up/Prog Note Chief Complaint: Metastatic large cell carcinoma. History of Present Illness: This is a 60 year-old woman with metastatic nonsmall cell lung cancer, stage ALONSO (T1b, N3, M1b), with biopsy proven metastatic involvement in the right frontal calvarium. She had presented in May 2019 with an enlarging lump on the right side of her head. She was initially evaluated with head CT and subsequently with head MRI. The MRI, from 06/11/2019, showed a right frontal extra-axial dural based lesion with transcalvarial extension. The mass measures approximately 2.1 x 3.0 x 2.9 cm, and it was noted to extend into the right frontal scalp soft tissues. There were additional intracalvarial enhancing satellite lesions just posterior superior and anterior to it. The reported differential considerations included atypical meningioma, metastatic disease, or hemangiopericytoma. She was referred to Dr. Pedraza, and on 06/21/2019 she underwent craniotomy with resection/debulking of the right frontal skull and dural mass. Pathology showed metastatic large cell carcinoma with nonspecific immunohistochemical staining pattern. The tumor cells were positive for panCK, CK 7, Jason-Ep4, NURA, and CK high molecular weight. GCDFP15 was focally positive. They were negative for CK 20, TTF-1, p63, S100, Melan A, CD45, progesterone receptor, RCC, and Napsin. Prior to the initial head CT, she had undergone screening mammograms and chest CT scan in [place]. Those studes reportedly showed no evidence of malignancy. I had seen her initially on 07/07/2019. Her staging PET/CT on 07/10/2019 showed an FDG avid 1.3 cm perihilar nodule in the upper lobe of the right lung, SUV 8.2, consistent with primary bronchogenic carcinoma. Several FDG positive lymph nodes were noted in the mediastinum, consistent with metastatic disease, including a right paratracheal node measuring 2.3 x 1.5 cm with SUV 10.3 as well as other nodes in the AP window, left paratracheal, and subcarinal territories. There were no other sites of distant metastatic disease. I had also requested additional pathologic evaluation with a next generation sequencing study. It was positive for PD-L1 expression at 10%. It also showed presence of a KRAS mutation at exon 3. EGFR and BRAF mutations were not detected. The tumor was negative for the ALK and ROS1 rearrangements. She had initially been referred for palliative radiation. However, after reviewing the PET/CT findings with the cranial lesion having been resected, Dr. Davies had suggested that we instead proceed with her systemic therapy and reserve radiation for consolidative treatment. As such, she then began a course of combination chemotherapy/immunotherapy with carboplatin/pemetrexed together with pembrolizumab. She began cycle 1 of carboplatin/pemetrexed in combination with pembrolizumab on 08/12/2019. She was able to tolerate it with acceptable toxicity, and she continued with cycle 2 on 09/02/2019, with cycle 3 on 09/22/2019 and with cycle 4 on 10/20/2019. Restaging PET/CT on 11/06/2019 showed development of a new right upper lobe pulmonary nodule measuring 1.2 cm, SUV 2.7, concerning for recurrence. There was otherwise evidence of significant treatment response with resolution of the right perihilar lesion and with mediastinal lymph nodes decreased to subcentimeter in size and FDG negative. With evidence of response, she had then continued treatment with maintenance pembrolizumab beginning on 11/10/2019. With limited sites of involvement she also was offered to option to have consolidation radiation. She initially decilned due to concerns related to the coronavirus pandemic. She then continued maintenance pembrolizumab at 3-week intervals. She seemed to tolerate it well, though she continued to lose weight, and she continued to have fairly marginal performance status. At her follow-up visit on 02/02/2020 her treatment was put on hold due to increased shortness of breath. She began empiric steroid therapy with dexamethasone. Her repeat PET/CT on 02/12/2020 showed FDG negative right apical pulmonary nodule measuring 0.8 x 0.4 cm. There was no evidence of active malignancy. It appeared to represent a complete metabolic response to treatment. Her symptoms improved and she restarted pembrolizumab on 03/22/2020 but at her follow-up visit on 04/12/2020 it was again put on hold due to multiple complaints including shortness of breath, chest tightness, and palpitations. She continued dexamethasone at 2 mg daily. A repeat chest CT on 04/26/2020 showed spiculated lesion in the right lower lobe just inferior to the interlobar fissure measuring 1.3 x 0.7 cm. There was pulmonary emphysema with interstitial reticulation noted. As the CT was done at [place], and there were no prior studies available for comparison. Her head CT showed evidence of previous right frontal cranioplasty with no active lesion seen. At her follow-up visit in May 2020 there did not appear to be any clinical evidence of disease progression, and at that point she was having significant anxiety/depression. At that point she was started on paroxetine and lorazepam, I also reduced her steroid dosage and transitioned it from dexamethasone to prednisone. At her follow-up visit in June she was feeling a little better, though still having some anxiety. She continued prednisone but with the dosage reduced to 5 mg daily and I also switched her from paroxetine to citalopram. At her follow-up visit on 07/18/2020 she was feeling a little better. I opted to keep her treatment on hold. Restaging chest CT on 08/11/2020 showed spiculated lesion in the right midlung zone measuring 11 x 7 mm, without significant change. There was underlying severe pulmonary emphysema. Her other medical illnesses include COPD and hyperlipidemia. She also is known to have claustrophobia, and she has anxiety and depression. She has a history of smoking 1 pack of cigarettes daily for 35 years, but she had cut down to less than 1/2 pack/day. INTERIM HISTORY: Her repeat chest CT on 11/07/2020 showed a small irregular lesion within the right lower lobe contacting and slightly retracting the right interlobar pleural fissure. It appeared stable compared to the prior study from August 2020. There were no new lesions identified. Her head CT showed changes of right frontal cranioplasty with no evidence of locally recurrent disease and no evidence of active enhancing brain parenchymal lesions. Compared to the prior study of April 2020 there was no evidence of recurrent or new disease. She is seen for a follow-up visit. She has been feeling a little better generally. She is now using oxygen only as needed. She says her depression is better now and she has not been having anxiety attacks. Her smoking is up a little, despite the nicotine patches, and she is not wanting to try Chantix. She still has limited activity tolerance, but her energy is slowly been getting better. Her ECOG score is 1. She has good appetite. She has still not gained weight, but it is at least stable. She does not have fever or night sweats. She has occasional hot flashes. She has some shortness of breath and she does have some cough, but no more than usual. She does not complain of chest pain. Her acid reflux is adequately managed with Protonix. She has no other GI or complaints. She has pain in her shoulders and hips and she also has some pain in her knees. It is managed with tramadol during the daytime and hydrocodone/APAP at night. She does not complain of headache or dizziness, and she has no focal neurologic symptoms. Medications: Albuterol Sulfate 1 ((2.5 mg/3ml) 0.083%) Nebulization solution Inhalation b.i.d., Budesonide 1 Inhalation (of 0.5 mg/2mL) Suspension Inhalation b.i.d., CeleXA 1 (10 mg) Tablet Oral every am, Cyanocobalamin 1 Each (of 1000 mcg/mL) Injection q 4 weeks, Folic Acid 1 Tablet Oral daily, HYDROcodone-Acetaminophen 1 - 2 Tablet (of 5-325 mg) Oral q 4 hours PRN, Loratadine 1 (10 mg) Tablet Oral daily, LORazepam 0.5 - 1 Tablet (of 0.5 mg) Oral daily PRN, predniSONE 1 (5 mg) Tablet Oral daily, ProAir HFA 1 Puff(s) (of 108 (90 base) mcg/act) Aerosol, solution Inhalation daily PRN, Protonix 1 Tablet (of 40 mg) Tablet, enteric coated Oral daily, Simvastatin 1 Tablet (of 20 mg) Oral daily, traMADol HCl 1 (50 mg) Tablet Oral t.i.d. PRN Allergies: Marinol, Paxil, Penicillins, and PROzac. Vital Signs: Performed on Nov 14, 2020 15:12 Height - 62.00 in Weight - 89 lbs (HIGH) BSA - 1.35 sq.m BMI - 16.28 (LOW) Temperature - 96.8 F (LOW) Pulse - 100 /min Respiration - 20 /min BP - 90/45 mm(hg) O2 Sat - 94 % (LOW) Pain - 0 Physical Examination: Constitutional - She appears generally frail, but not acutely ill, Head - The craniotomy defect appears well-healed, Eyes - Sclerae nonicteric. Conjunctivae clear, ENMT - Her teeth are in very poor repair. There are no lesions noted in the oral cavity, Hematologic/Lymphatic - No cervical, clavicular, or axillary adenopathy, Respiratory - Lungs are clear with diminished air movement bilaterally, Cardiovascular - Heart rhythm is regular with a mild tachycardia. There is no murmur, gallop, or rub noted, Abdomen - Soft. Liver and spleen are not enlarged. There is no abdominal mass or ascites noted and there is no inguinal adenopathy, Extremities - No edema, Neurologic - No focal neurologic deficits noted. Lab/Imaging: Lab/Imaging: Test performed on Nov 14, 2020 13:55 Glucose 94 mg/dL BUN 14 mg/dL Creatinine 1.05 mg/dL Cr Clearance (Est) 36.77 mL/min Sodium 138 mmol/L Potassium 4.1 mmol/L Chloride 100 mmol/L CO2 23 mmol/L Calcium 9.6 mg/dL Protein, Total 7.0 g/dL Albumin 3.8 g/dL Bilirubin, Total 0.3 mg/dL Alkaline Phosphatase 138 IU/L AST (SGOT) 14 IU/L ALT (SGPT) 5 IU/L WBC 9.2 10^9/L RBC 4.73 10^12/L HGB 14.8 g/dL HCT 45.0 % MCV 95.1 fl MCH 31.3 pg MCHC 32.9 g/dL RDW 13.7 % Platelet Count 341 10^9/L MPV 8.7 fL Neutrophils (Gran) 7.54 10^9/L Lymphocytes 1.24 10^9/L Monocytes 0.34 10^9/L Eosinophils 0.01 10^9/L Basophils 0.03 10^9/L Manual Lymphocytes 14 % Manual Monocytes 4 % Manual Eosinophils 0 % Manual Basophils 0 % Problem List: 1. Metastatic large cell carcinoma in the form of a right frontoparietal extra-axial, dural based mass with transcalvarial extension. By PET/CT, she appeared to have primary malignancy involving the upper lobe of the right lung with associated mediastinal lymph node involvement. As such, her disease was stage ALONSO (T1b, N3, M1b). 2. She underwent craniotomy with resecting/debulking of the mass on 06/21/2019. Her tumor was noted to harbor a KRAS mutation at exon 3. EGFR and BRAF mutations were not detected, and the tumor was negative for ROS1 and ALK gene rearrangements. PD-L1 expression was positive at 10%. 3. COPD. 4. Hyperlipidemia. 5. Anxiety and depression. 6. Nicotine dependence. Problems Addressed with this Encounter and Plan: 1. Patient with metastatic large cell carcinoma in the form of a right frontoparietal extra-axial, dural based mass with transcalvarial extension. By PET/CT, she appeared to have primary malignancy involving the upper lobe of the right lung with associated mediastinal lymph node involvement. As such, her disease was stage ALONSO (T1b, N3, M1b). She underwent craniotomy with resecting/debulking of the mass on 06/21/2019. Her tumor was noted to harbor a KRAS mutation at exon 3. EGFR and BRAF mutations were not detected, and the tumor was negative for ROS1 and ALK gene rearrangements. PD-L1 expression was positive at 10%. From 08/12/2019 thru 10/20/2019 she completed 4 cycles of treatment with carboplatin/pemetrexed chemotherapy in combination with pembrolizumab. She was able to tolerate treatment with acceptable toxicity, and she appeared to have a significant response by restaging PET/CT on 11/06/2019. With those findings, her treatment was then transition to maintenance pembrolizumab, beginning on 11/10/2019. In addition, with limited sites of involvement, she was offered the option to have consolidation radiation, which she declined. As of her follow-up visit on 02/02/2020 her treatment was put on hold due to increased shortness of breath. She was started on empiric steroid therapy with dexamethasone. Her restaging PET/CT on 02/12/2020 showed residual right apical pulmonary nodule, FDG negative. There was no evidence of active malignancy on that study. She had significant symptomatic improvement on the dexamethasone. As of 03/22/2020 she restarted pembrolizumab, but it was subsequently discontinued due to recurrence of shortness of breath, chest tightness, and palpitations. She was then followed expectantly. During follow-up she has had ongoing problems with shortness of breath, though her breathing and her overall performance status have continued to gradually improve on low-dose prednisone. Her current CT scans show small residual right lower lobe pulmonary nodule with no evidence of disease progression and her head CT also shows no evidence of residual or recurrent neoplasm. As such, she remains on observation/expectant management. She will continue the prednisone at 5 mg daily. I will see her again in 3 months. 2. She has significant anxiety and depression, but it is currently managed adequately with medication. 3. She has nicotine dependence. She has not been able to stop smoking with nicotine patches. She feels that her anxiety/depression is adequately managed so that she can try Chantix. It will be prescribed at the usual starting dose. Signed By: Levi Estrada M.D. <<Signature on File>>
== END 2020-11-14 15:31 | disposition home or self-care (01) ==
LOC: ONCMED 11-15 06:37
PROVIDERS: PCP Nurse Practitioner Family; Visit Provider Internal Medicine Medical Oncology
DX: C34.11 Malignant neoplasm of upper lobe, right bronchus or lung (principal); C79.51 Secondary malignant neoplasm of bone; J44.9 Chronic obstructive pulmonary disease, unspecified; E78.5 Hyperlipidemia, unspecified; F41.9 Anxiety disorder, unspecified; F32.9 Major depressive disorder, single episode, unspecified; F17.210 Nicotine dependence, cigarettes, uncomplicated; Z79.899 Other long term (current) drug therapy
CPT/HCPCS: 99214

== ENCOUNTER 2021-02-13 15:00 | Outpatient (CLI) | payer MEDICARE, MEDICAID, SELFPAY ==
--- NOTE | 2021-02-16 07:09 | ONC FU_ITS ---
Dr. Estrada Patient Follow-Up Note Patient: Georgette Calvillo Unit #: [id number]: 1960 Dicatated By: Levi Estrada M.D.Date of Visit:Feb 13, 2021 Onc Med Follow-up/Prog Note Chief Complaint: Metastatic large cell carcinoma. History of Present Illness: This is a 60 year-old woman with metastatic nonsmall cell lung cancer, stage ALONSO (T1b, N3, M1b), with biopsy proven metastatic involvement in the right frontal calvarium. She had presented in May 2019 with an enlarging lump on the right side of her head. She was initially evaluated with head CT and subsequently with head MRI. The MRI, from 06/11/2019, showed a right frontal extra-axial dural based lesion with transcalvarial extension. The mass measures approximately 2.1 x 3.0 x 2.9 cm, and it was noted to extend into the right frontal scalp soft tissues. There were additional intracalvarial enhancing satellite lesions just posterior superior and anterior to it. The reported differential considerations included atypical meningioma, metastatic disease, or hemangiopericytoma. She was referred to Dr. Pedraza, and on 06/21/2019 she underwent craniotomy with resection/debulking of the right frontal skull and dural mass. Pathology showed metastatic large cell carcinoma with nonspecific immunohistochemical staining pattern. The tumor cells were positive for panCK, CK 7, Jason-Ep4, NURA, and CK high molecular weight. GCDFP15 was focally positive. They were negative for CK 20, TTF-1, p63, S100, Melan A, CD45, progesterone receptor, RCC, and Napsin. Prior to the initial head CT, she had undergone screening mammograms and chest CT scan in [place]. Those studes reportedly showed no evidence of malignancy. I had seen her initially on 07/07/2019. Her staging PET/CT on 07/10/2019 showed an FDG avid 1.3 cm perihilar nodule in the upper lobe of the right lung, SUV 8.2, consistent with primary bronchogenic carcinoma. Several FDG positive lymph nodes were noted in the mediastinum, consistent with metastatic disease, including a right paratracheal node measuring 2.3 x 1.5 cm with SUV 10.3 as well as other nodes in the AP window, left paratracheal, and subcarinal territories. There were no other sites of distant metastatic disease. I had also requested additional pathologic evaluation with a next generation sequencing study. It was positive for PD-L1 expression at 10%. It also showed presence of a KRAS mutation at exon 3. EGFR and BRAF mutations were not detected. The tumor was negative for the ALK and ROS1 rearrangements. She had initially been referred for palliative radiation. However, after reviewing the PET/CT findings with the cranial lesion having been resected, Dr. Davies had suggested that we instead proceed with her systemic therapy and reserve radiation for consolidative treatment. As such, she then began a course of combination chemotherapy/immunotherapy with carboplatin/pemetrexed together with pembrolizumab. She began cycle 1 of carboplatin/pemetrexed in combination with pembrolizumab on 08/12/2019. She was able to tolerate it with acceptable toxicity, and she continued with cycle 2 on 09/02/2019, with cycle 3 on 09/22/2019 and with cycle 4 on 10/20/2019. Restaging PET/CT on 11/06/2019 showed development of a new right upper lobe pulmonary nodule measuring 1.2 cm, SUV 2.7, concerning for recurrence. There was otherwise evidence of significant treatment response with resolution of the right perihilar lesion and with mediastinal lymph nodes decreased to subcentimeter in size and FDG negative. With evidence of response, she had then continued treatment with maintenance pembrolizumab beginning on 11/10/2019. With limited sites of involvement she also was offered to option to have consolidation radiation. She initially decilned due to concerns related to the coronavirus pandemic. She then continued maintenance pembrolizumab at 3-week intervals. She seemed to tolerate it well, though she continued to lose weight, and she continued to have fairly marginal performance status. At her follow-up visit on 02/02/2020 her treatment was put on hold due to increased shortness of breath. She began empiric steroid therapy with dexamethasone. Her repeat PET/CT on 02/12/2020 showed FDG negative right apical pulmonary nodule measuring 0.8 x 0.4 cm. There was no evidence of active malignancy. It appeared to represent a complete metabolic response to treatment. Her symptoms improved and she restarted pembrolizumab on 03/22/2020 but at her follow-up visit on 04/12/2020 it was again put on hold due to multiple complaints including shortness of breath, chest tightness, and palpitations. She continued dexamethasone at 2 mg daily. A repeat chest CT on 04/26/2020 showed spiculated lesion in the right lower lobe just inferior to the interlobar fissure measuring 1.3 x 0.7 cm. There was pulmonary emphysema with interstitial reticulation noted. As the CT was done at [facility], and there were no prior studies available for comparison. Her head CT showed evidence of previous right frontal cranioplasty with no active lesion seen. At her follow-up visit in May 2020 there did not appear to be any clinical evidence of disease progression, and at that point she was having significant anxiety/depression. At that point she was started on paroxetine and lorazepam, I also reduced her steroid dosage and transitioned it from dexamethasone to prednisone. At her follow-up visit in June she was feeling a little better, though still having some anxiety. She continued prednisone but with the dosage reduced to 5 mg daily and I also switched her from paroxetine to citalopram. At her follow-up visit on 07/18/2020 she was feeling a little better. I opted to keep her treatment on hold. Restaging chest CT on 08/11/2020 showed spiculated lesion in the right midlung zone measuring 11 x 7 mm, without significant change. There was underlying severe pulmonary emphysema. Her other medical illnesses include COPD and hyperlipidemia. She also is known to have claustrophobia, and she has anxiety and depression. She has a history of smoking 1 pack of cigarettes daily for 35 years, but she had cut down to less than 1/2 pack/day. INTERIM HISTORY: Her repeat chest CT on 11/07/2020 showed a small irregular lesion within the right lower lobe contacting and slightly retracting the right interlobar pleural fissure. It appeared stable compared to the prior study from August 2020. There were no new lesions identified. Her head CT showed changes of right frontal cranioplasty with no evidence of locally recurrent disease and no evidence of active enhancing brain parenchymal lesions. Compared to the prior study of April 2020 there was no evidence of recurrent or new disease. She continued expectant management. She is seen for a follow-up visit. She has been feeling better generally. She has had some improvement in her energy/activity tolerance. She has been breathing better and more active. ECOG score is 1. Her appetite has been good, but she still cannot gain weight. She does not have fever or night sweats. She always has sinus drainage. She has cough, but no more than usual. She is sometimes short of breath with activity. She is using oxygen again just as needed. She does not complain of chest pain. She has no GI or complaints. She has pain in her shoulders, hips, and left knee. She sometimes has pain in her mid to low back. She also complains that her legs are jumpy at night. She does not complain of headache or dizziness, and she has no focal neurologic symptoms. Medications: Albuterol Sulfate 1 ((2.5 mg/3ml) 0.083%) Nebulization solution Inhalation b.i.d., Budesonide 1 Inhalation (of 0.5 mg/2mL) Suspension Inhalation b.i.d., CeleXA 1 (10 mg) Tablet Oral every am, Cyanocobalamin 1 Each (of 1000 mcg/mL) Injection q 4 weeks, Folic Acid 1 Tablet Oral daily, HYDROcodone-Acetaminophen 1 - 2 Tablet (of 5-325 mg) Oral q 4 hours PRN, Loratadine 1 (10 mg) Tablet Oral daily, LORazepam 0.5 - 1 Tablet (of 0.5 mg) Oral daily PRN, predniSONE 1 (5 mg) Tablet Oral daily, ProAir HFA 1 Puff(s) (of 108 (90 base) mcg/act) Aerosol, solution Inhalation daily PRN, Protonix 1 Tablet (of 40 mg) Tablet, enteric coated Oral daily, Simvastatin 1 Tablet (of 20 mg) Oral daily, traMADol HCl 1 (50 mg) Tablet Oral t.i.d. PRN Allergies: Marinol, Paxil, Penicillins, and PROzac. Vital Signs: Her weight is 82 pounds. Blood pressure 82/44, pulse 107, respirations 20, temp 97.0 degrees, and oxygen saturation 95%. Physical Examination: Constitutional - She appears generally frail, Eyes - Sclerae nonicteric. Conjunctivae clear, ENMT - Her teeth are in very poor repair. There are no lesions noted in the oral cavity, Hematologic/Lymphatic - No cervical, clavicular, or axillary adenopathy, Respiratory - Lungs sound clear with diminished air movement bilaterally, Cardiovascular - Heart rhythm is regular with a mild tachycardia. There is no murmur, gallop, or rub noted, Abdomen - Soft. Liver and spleen are not enlarged. There is no abdominal mass or ascites noted and there is no inguinal adenopathy, Extremities - No edema. There are scattered purpuric lesions, Neurologic - No focal neurologic deficits noted. Lab/Imaging: Test performed on Feb 13, 2021 14:07 Glucose 108 mg/dL BUN 15 mg/dL Creatinine 0.86 mg/dL Cr Clearance (Est) 44.89 mL/min Sodium 138 mmol/L Potassium 3.8 mmol/L Chloride 104 mmol/L CO2 25 mmol/L Calcium 9.5 mg/dL Protein, Total 6.7 g/dL Albumin 4.0 g/dL Bilirubin, Total 0.3 mg/dL Alkaline Phosphatase 93 IU/L AST (SGOT) 18 IU/L ALT (SGPT) 9 IU/L WBC 9.0 10^9/L RBC 4.71 10^12/L HGB 15.3 g/dL HCT 45.4 % MCV 96.4 fl MCH 32.5 pg MCHC 33.7 g/dL RDW 13.3 % Platelet Count 280 10^9/L MPV 9.3 fL Neutrophils (Gran) 7.45 10^9/L Lymphocytes 1.10 10^9/L Monocytes 0.40 10^9/L Eosinophils 0.00 10^9/L Basophils 0.03 10^9/L Manual Lymphocytes 12 % Manual Monocytes 4 % Manual Eosinophils 0 % Manual Basophils 0 % Problem List: 1. Metastatic large cell carcinoma in the form of a right frontoparietal extra-axial, dural based mass with transcalvarial extension. By PET/CT, she appeared to have primary malignancy involving the upper lobe of the right lung with associated mediastinal lymph node involvement. As such, her disease was stage ALONSO (T1b, N3, M1b). 2. She underwent craniotomy with resecting/debulking of the mass on 06/21/2019. Her tumor was noted to harbor a KRAS mutation at exon 3. EGFR and BRAF mutations were not detected, and the tumor was negative for ROS1 and ALK gene rearrangements. PD-L1 expression was positive at 10%. 3. COPD. 4. Hyperlipidemia. 5. Anxiety and depression. 6. Nicotine dependence. Problems Addressed with this Encounter and Plan: 1. Patient with metastatic large cell carcinoma in the form of a right frontoparietal extra-axial, dural based mass with transcalvarial extension. By PET/CT, she appeared to have primary malignancy involving the upper lobe of the right lung with associated mediastinal lymph node involvement. As such, her disease was stage ALONSO (T1b, N3, M1b). She underwent craniotomy with resecting/debulking of the mass on 06/21/2019. Her tumor was noted to harbor a KRAS mutation at exon 3. EGFR and BRAF mutations were not detected, and the tumor was negative for ROS1 and ALK gene rearrangements. PD-L1 expression was positive at 10%. From 08/12/2019 thru 10/20/2019 she completed 4 cycles of treatment with carboplatin/pemetrexed chemotherapy in combination with pembrolizumab. She was able to tolerate treatment with acceptable toxicity, and she appeared to have a significant response by restaging PET/CT on 11/06/2019. With those findings, her treatment was then transition to maintenance pembrolizumab, beginning on 11/10/2019. In addition, with limited sites of involvement, she was offered the option to have consolidation radiation, which she declined. As of her follow-up visit on 02/02/2020 her treatment was put on hold due to increased shortness of breath. She was started on empiric steroid therapy with dexamethasone. Her restaging PET/CT on 02/12/2020 showed residual right apical pulmonary nodule, FDG negative. There was no evidence of active malignancy on that study. She had significant symptomatic improvement on the dexamethasone. As of 03/22/2020 she restarted pembrolizumab, but it was subsequently discontinued due to recurrence of shortness of breath, chest tightness, and palpitations. She was then followed expectantly. During follow-up she had ongoing problems with shortness of breath, though her breathing and her overall performance status had continued to gradually improve on low-dose prednisone. Her repeat chest CT on 11/07/2020 showed small residual right lower lobe pulmonary nodule with no evidence of disease progression and her head CT also shows no evidence of residual or recurrent neoplasm. With those findings she continued expectant management. She has since then had some further improvement in her shortness of breath and in her performance status, though she still has been unable to gain weight. She will continue the prednisone at 5 mg daily. I will see her again in 3 months. She will have repeat CT scans prior to the visit. 2. She has anxiety and depression. It is managed adequately with medication. Signed By: Levi Estrada M.D. <<Signature on File>>
== END 2021-02-13 15:01 | disposition home or self-care (01) ==
PROVIDERS: PCP Nurse Practitioner Family; Visit Provider Internal Medicine Medical Oncology
DX: C34.11 Malignant neoplasm of upper lobe, right bronchus or lung (principal); C79.51 Secondary malignant neoplasm of bone; C79.31 Secondary malignant neoplasm of brain; C77.8 Secondary and unspecified malignant neoplasm of lymph nodes of multiple regions; J44.9 Chronic obstructive pulmonary disease, unspecified; E78.5 Hyperlipidemia, unspecified; F41.9 Anxiety disorder, unspecified; F32.9 Major depressive disorder, single episode, unspecified; F17.210 Nicotine dependence, cigarettes, uncomplicated; Z79.52 Long term (current) use of systemic steroids; Z79.899 Other long term (current) drug therapy; Z92.21 Personal history of antineoplastic chemotherapy
CPT/HCPCS: 99214

== ENCOUNTER 2021-05-24 12:13 | Outpatient (CLI) | payer MEDICARE, MEDICAID, SELFPAY ==
--- NOTE | 2021-05-24 12:33 | CT_ITS ---
WS: [id number] CT CHEST WITH INTRAVENOUS CONTRAST HISTORY: LUNG CANCER TECHNIQUE: Contiguous 5 mm axial imaging performed on the thorax. Coronal and sagittal reformats are submitted. All CT scans at [facility] use at least one of these dose optimization techniques: automated exposure control; mA and/or kV adjustment per patient size (includes targeted exams where dose is matched to clinical indication); or iterative reconstruction. CONTRAST: Omnipaque 300; 75 mL IV. DLP: 596.97 mGycm COMPARISON: 08/11/2020, 04/26/2020 Lungs and central airway: Marked hyperinflation from emphysema. There are a few scattered benign gran ulomata. Again noted is a mild spiculated nodule in the RIGHT lower lobe that abuts the RIGHT major f issure. This is unchanged since the prior examination. Mild diffuse reticulations from chronic diseas e. Pleura: Normal. No pleural effusion. Heart and pericardium: Normal size heart with no pericardial effusion. Mediastinum and mohan: No mediastinum or hilar adenopathy. Vessels: Mild atherosclerosis aorta. No aneurysm. Pulmonary artery size is minimally prominent. Chest wall and lower neck: No soft tissue masses. Upper abdomen: Negative. Osseous structures: Mild diffuse osteopenia. CT/CT chest w con* [id number] IMPRESSION: 1. Chronic emphysema. 2. Stable spiculated nodule in the RIGHT lower lobe abutting the major fissure . No change since 04/26/2020. Likely represents an area of scarring and fibrosis . 3. No mediastinal or hilar adenopathy.
--- NOTE | 2021-05-24 12:33 | CT_ITS ---
WS: [id number] CT HEAD WITH AND WITHOUT CONTRAST HISTORY: LUNG CANCER TECHNIQUE: Noncontrast 2.5 mm axial images obtained from the vertex to the skull base. Additional eleno ging performed at 2.5 mm axial images status post IV contrast. Bone and soft tissue windows are revie wed. All CT scans at [facility] use at least one of these dose optimization techniques: autom ated exposure control; mA and/or kV adjustment per patient size (includes targeted exams where dose i s matched to clinical indication); or iterative reconstruction. CONTRAST: Omnipaque 300; 75 mL IV. DLP: 925.91 mGycm COMPARISON: 06/21/2019 and 04/26/2020 No acute intracranial hemorrhage, edema or midline shift. Mild volume loss in the frontal lobes bilaterally is unchanged. No mass effect upon the frontal lobes . No midline shift. No enhancing masses or vascular malformations. Dural venous sinuses are normally enhancing. Visualized che[place] of [place] is unremarkable. Paranasal sinuses as visualized: Clear. Mastoid air cells: Clear. Calvarium and scalp: There is a very large craniectomy defect involving the RIGHT frontal bone. There is an overlying mesh grafting. These findings are stable since 2019. CT/CT head wo/w con [id number] IMPRESSION: 1. Stable large RIGHT frontal craniectomy site with overlying mesh. 2. No acute intracranial hemorrhage or enhancing mass.
[2021-05-24 12:55] LABS: Basophils % 0.4 %; Eosinophils % 0.2 %; Hemoglobin 14.4 g/dL (11.5-15.3); Lymphocytes # 1.5 10^3/uL (0.8-4.8); Mean Corpuscular HGB Conc 32.7 g/dL (30.0-36.0); Mean Corpuscular Volume 100.7 fl (81-99); Mean Platelet Volume 9.3 fL (7.4-10.4); Monocytes # 0.6 10^3/uL (0.2-0.9); Monocytes % 5.6 %; Neutrophils # 7.92 10^3/uL (1.8-7.7); Neutrophils % 78.5 %; Nucleated Red Blood Cells % 0 %; Platelet Count 302 10^3/cmm (130-400); Red Blood Count 4.37 10^6/uL (4.1-5.3); Red Cell Distribution Width 13.6 % (12.1-15.1); White Blood Count 10.1 10^3/uL (4.0-10.0)
[2021-05-24] MEDS: iohexol 300 mg/mL 100 mL Btl IV (13:19)
[2021-05-24 13:39] LABS: Alanine Aminotransferase 19 U/L (0-33); Alkaline Phosphatase 74 IU/L (35-105); Anion Gap 15.9 (5-19); Aspartate Amino Transferase 23 U/L (0-32); Blood Urea Nitrogen 16 mg/dL (6-20); Calcium 9.2 mg/dL (8.5-10.5); Carbon Dioxide 24 mmol/L (22-29); Chloride 102 mmol/L (98-107); Globulin 2.7 g/dL (1.3-4.6); Glomerular Filtration Rate 64.1 mL/min (90-130); Glucose 79 mg/dL (65-115); Osmolality Calculated 286 mOsm/kg (285-295); Potassium 3.9 mmol/L (3.5-5.1); Sodium 138 mmol/L (136-145); Total Bilirubin 0.2 mg/dL (0.15-1.2); Total Protein 6.7 g/dL (6.6-8.7)
== END 2021-05-24 12:14 | disposition home or self-care (01) ==
LOC: ONCMED 12:15
PROVIDERS: PCP Nurse Practitioner Family; Visit Provider Internal Medicine Medical Oncology
DX: C34.11 Malignant neoplasm of upper lobe, right bronchus or lung (principal); C79.51 Secondary malignant neoplasm of bone; J43.9 Emphysema, unspecified; J84.10 Pulmonary fibrosis, unspecified
CPT/HCPCS: 36415; 70470; 71260; 80053; 85025; Q9967

== ENCOUNTER 2021-05-30 06:48 | Outpatient (CLI) | payer MEDICARE, MEDICAID, SELFPAY ==
[2021-05-30] MEDS: pneumococcal (23 valent) SDV 0.5 mL IM (10:15)
--- NOTE | 2021-05-30 11:00 | ONC FU_ITS ---
Dr. Estrada Patient Follow-Up Note Patient: Georgette Calvillo Unit #: [id number]: 1960 Dicatated By: Levi Estrada M.D.Date of Visit:May 30, 2021 Onc Med Follow-up/Prog Note Chief Complaint: Metastatic large cell carcinoma. History of Present Illness: This is a 60 year-old woman with metastatic nonsmall cell lung cancer, stage ALONSO (T1b, N3, M1b), with biopsy proven metastatic involvement in the right frontal calvarium. She had presented in May 2019 with an enlarging lump on the right side of her head. She was initially evaluated with head CT and subsequently with head MRI. The MRI, from 06/11/2019, showed a right frontal extra-axial dural based lesion with transcalvarial extension. The mass measures approximately 2.1 x 3.0 x 2.9 cm, and it was noted to extend into the right frontal scalp soft tissues. There were additional intracalvarial enhancing satellite lesions just posterior superior and anterior to it. The reported differential considerations included atypical meningioma, metastatic disease, or hemangiopericytoma. She was referred to Dr. Pedraza, and on 06/21/2019 she underwent craniotomy with resection/debulking of the right frontal skull and dural mass. Pathology showed metastatic large cell carcinoma with nonspecific immunohistochemical staining pattern. The tumor cells were positive for panCK, CK 7, Jason-Ep4, NURA, and CK high molecular weight. GCDFP15 was focally positive. They were negative for CK 20, TTF-1, p63, S100, Melan A, CD45, progesterone receptor, RCC, and Napsin. Prior to the initial head CT, she had undergone screening mammograms and chest CT scan in [place]. Those studes reportedly showed no evidence of malignancy. I had seen her initially on 07/07/2019. Her staging PET/CT on 07/10/2019 showed an FDG avid 1.3 cm perihilar nodule in the upper lobe of the right lung, SUV 8.2, consistent with primary bronchogenic carcinoma. Several FDG positive lymph nodes were noted in the mediastinum, consistent with metastatic disease, including a right paratracheal node measuring 2.3 x 1.5 cm with SUV 10.3 as well as other nodes in the AP window, left paratracheal, and subcarinal territories. There were no other sites of distant metastatic disease. I had also requested additional pathologic evaluation with a next generation sequencing study. It was positive for PD-L1 expression at 10%. It also showed presence of a KRAS mutation at exon 3. EGFR and BRAF mutations were not detected. The tumor was negative for the ALK and ROS1 rearrangements. She had initially been referred for palliative radiation. However, after reviewing the PET/CT findings with the cranial lesion having been resected, Dr. Davies had suggested that we instead proceed with her systemic therapy and reserve radiation for consolidative treatment. As such, she then began a course of combination chemotherapy/immunotherapy with carboplatin/pemetrexed together with pembrolizumab. She began cycle 1 of carboplatin/pemetrexed in combination with pembrolizumab on 08/12/2019. She was able to tolerate it with acceptable toxicity, and she continued with cycle 2 on 09/02/2019, with cycle 3 on 09/22/2019 and with cycle 4 on 10/20/2019. Restaging PET/CT on 11/06/2019 showed development of a new right upper lobe pulmonary nodule measuring 1.2 cm, SUV 2.7, concerning for recurrence. There was otherwise evidence of significant treatment response with resolution of the right perihilar lesion and with mediastinal lymph nodes decreased to subcentimeter in size and FDG negative. With evidence of response, she had then continued treatment with maintenance pembrolizumab beginning on 11/10/2019. With limited sites of involvement she also was offered to option to have consolidation radiation. She initially decilned due to concerns related to the coronavirus pandemic. She then continued maintenance pembrolizumab at 3-week intervals. She seemed to tolerate it well, though she continued to lose weight, and she continued to have fairly marginal performance status. At her follow-up visit on 02/02/2020 her treatment was put on hold due to increased shortness of breath. She began empiric steroid therapy with dexamethasone. Her repeat PET/CT on 02/12/2020 showed FDG negative right apical pulmonary nodule measuring 0.8 x 0.4 cm. There was no evidence of active malignancy. It appeared to represent a complete metabolic response to treatment. Her symptoms improved and she restarted pembrolizumab on 03/22/2020 but at her follow-up visit on 04/12/2020 it was again put on hold due to multiple complaints including shortness of breath, chest tightness, and palpitations. She continued dexamethasone at 2 mg daily. A repeat chest CT on 04/26/2020 showed spiculated lesion in the right lower lobe just inferior to the interlobar fissure measuring 1.3 x 0.7 cm. There was pulmonary emphysema with interstitial reticulation noted. As the CT was done at [place], and there were no prior studies available for comparison. Her head CT showed evidence of previous right frontal cranioplasty with no active lesion seen. At her follow-up visit in May 2020 there did not appear to be any clinical evidence of disease progression, and at that point she was having significant anxiety/depression. At that point she was started on paroxetine and lorazepam, I also reduced her steroid dosage and transitioned it from dexamethasone to prednisone. At her follow-up visit in June she was feeling a little better, though still having some anxiety. She continued prednisone but with the dosage reduced to 5 mg daily and I also switched her from paroxetine to citalopram. At her follow-up visit on 07/18/2020 she was feeling a little better. I opted to keep her treatment on hold. Restaging chest CT on 08/11/2020 showed spiculated lesion in the right midlung zone measuring 11 x 7 mm, without significant change. There was underlying severe pulmonary emphysema. Her other medical illnesses include COPD and hyperlipidemia. She also is known to have claustrophobia, and she has anxiety and depression. She has a history of smoking 1 pack of cigarettes daily for 35 years, but she had cut down to less than 1/2 pack/day. INTERIM HISTORY: Her repeat chest CT on 11/07/2020 showed a small irregular lesion within the right lower lobe contacting and slightly retracting the right interlobar pleural fissure. It appeared stable compared to the prior study from August 2020. There were no new lesions identified. Her head CT showed changes of right frontal cranioplasty with no evidence of locally recurrent disease and no evidence of active enhancing brain parenchymal lesions. Compared to the prior study of April 2020 there was no evidence of recurrent or new disease. She continued expectant management. Restaging chest CT on 05/24/2021 showed a small spiculated nodule in the lower lobe of the right lung abutting the right major fissure. It appeared unchanged from the previous studies. There was evidence for marked hyperinflation from emphysema. There was no mediastinal/hilar adenopathy or other evidence of metastatic disease. Her head CT showed no change in the large right frontal craniotomy site with overlying mesh. There is no evidence of enhancing mass. She is seen for a follow-up visit. She continues to complain that her energy is not good, but she is doing housework and her regular activities. ECOG score is 1. Her appetite is not great. She continues to lose weight. She is down 14 pounds compared to June 2020. She does not have fever or night sweats. She has sinus drainage all the time. She says that 3 days ago she woke up with no voice, and it still has not come back yet. She has not had sore throat or difficulty swallowing. She sometimes has cough. She is on continuous oxygen, and she does have some shortness of breath with activity. She does not complain of chest pain. She has no GI or complaints. She has joint pain, mainly in her shoulders and hips. She also has pain in her left knee. She does not complain of headache or dizziness, and she has no focal neurologic symptoms. Medications: Albuterol Sulfate 1 ((2.5 mg/3ml) 0.083%) Nebulization solution Inhalation b.i.d., Budesonide 1 Inhalation (of 0.5 mg/2mL) Suspension Inhalation b.i.d., CeleXA 1 (10 mg) Tablet Oral every am, Cyanocobalamin 1 Each (of 1000 mcg/mL) Injection q 4 weeks, Folic Acid 1 Tablet Oral daily, HYDROcodone-Acetaminophen 1 - 2 Tablet (of 5-325 mg) Oral q 4 hours PRN, Loratadine 1 (10 mg) Tablet Oral daily, LORazepam 0.5 - 1 Tablet (of 0.5 mg) Oral daily PRN, predniSONE 1 (5 mg) Tablet Oral daily, ProAir HFA 1 Puff(s) (of 108 (90 base) mcg/act) Aerosol, solution Inhalation daily PRN, Protonix 1 Tablet (of 40 mg) Tablet, enteric coated Oral daily, Simvastatin 1 Tablet (of 20 mg) Oral daily, traMADol HCl 1 (50 mg) Tablet Oral t.i.d. PRN Allergies: Marinol, Paxil, Penicillins, and PROzac. Vital Signs: Performed on May 30, 2021 10:26 Height - 62.00 in Weight - 76.8 lbs (LOW) BSA - 1.27 sq.m BMI - 14.05 (LOW) Temperature - 98.2 F (LOW) Pulse - 106 /min (HIGH) Respiration - 18 /min BP - 102/67 mm(hg) O2 Sat - 99 % Pain - 0 Fatigue - 5 Physical Examination: Constitutional - She appears chronically ill and frail, Eyes - Sclerae nonicteric. Conjunctivae clear, ENMT - No lesions noted in the oral cavity, Hematologic/Lymphatic - No cervical, clavicular, or axillary adenopathy, Respiratory - Lungs sound clear with diminished air movement bilaterally, Cardiovascular - Heart rhythm is regular. There is no murmur, gallop, or rub noted, Abdomen - Soft. Liver and spleen are not enlarged. There is no abdominal mass or ascites noted and there is no inguinal adenopathy, Extremities - No edema. There are scattered purpuric lesions, Neurologic - No focal neurologic deficits noted. Lab/Imaging: Test performed on May 24, 2021 12:32 Sodium 138 mmol/L Potassium 3.9 mmol/L Chloride 102 mmol/L CO2 24 mmol/L Anion Gap 15.9 BUN 16 mg/dL Creatinine 0.9 mg/dL Cr Clearance (Est) 39.7100 mL/min eGFR 64.1 mL/min Glucose 79 mg/dL Osmolality - Calculated 286 mOsm/kg Calcium 9.2 mg/dL Protein, Total 6.7 g/dL Albumin 4.0 g/dL Globulin 2.7 g/dL Bilirubin, Total 0.2 mg/dL ALT (SGPT) 19 U/L AST (SGOT) 23 U/L Alkaline Phosphatase 74 IU/L WBC 10.1 10 3/uL RBC 4.37 10 6/uL HGB 14.4 g/dL HCT 44.0 % MCV 100.7 fl MCH 33.0 pg MCHC 32.7 g/dL RDW 13.6 % Platelet Count 302 10 3/cmm MPV 9.3 fL Neutrophils 7.92 10 3/uL Lymphocytes 1.5 10 3/uL Monocytes 0.6 10 3/uL Eosinophils 0.0 10 3/uL Basophils 0.0 10 3/uL Neutrophil % 78.5 % Lymphocyte % 15.0 % Monocyte % 5.6 % Eosinophil % 0.2 % Basophils % 0.4 % NRBC % 0 % Problem List: 1. Metastatic large cell carcinoma in the form of a right frontoparietal extra-axial, dural based mass with transcalvarial extension. By PET/CT, she appeared to have primary malignancy involving the upper lobe of the right lung with associated mediastinal lymph node involvement. As such, her disease was stage ALONSO (T1b, N3, M1b). 2. She underwent craniotomy with resecting/debulking of the mass on 06/21/2019. Her tumor was noted to harbor a KRAS mutation at exon 3. EGFR and BRAF mutations were not detected, and the tumor was negative for ROS1 and ALK gene rearrangements. PD-L1 expression was positive at 10%. 3. COPD. 4. Hyperlipidemia. 5. Anxiety and depression. 6. Nicotine dependence. Problems Addressed with this Encounter and Plan: 1. Patient with metastatic large cell carcinoma in the form of a right frontoparietal extra-axial, dural based mass with transcalvarial extension. By PET/CT, she appeared to have primary malignancy involving the upper lobe of the right lung with associated mediastinal lymph node involvement. As such, her disease was stage ALONSO (T1b, N3, M1b). She underwent craniotomy with resecting/debulking of the mass on 06/21/2019. Her tumor was noted to harbor a KRAS mutation at exon 3. EGFR and BRAF mutations were not detected, and the tumor was negative for ROS1 and ALK gene rearrangements. PD-L1 expression was positive at 10%. From 08/12/2019 thru 10/20/2019 she completed 4 cycles of treatment with carboplatin/pemetrexed chemotherapy in combination with pembrolizumab. She was able to tolerate treatment with acceptable toxicity, and she appeared to have a significant response by restaging PET/CT on 11/06/2019. With those findings, her treatment was then transition to maintenance pembrolizumab, beginning on 11/10/2019. In addition, with limited sites of involvement, she was offered the option to have consolidation radiation, which she declined. As of her follow-up visit on 02/02/2020 her treatment was put on hold due to increased shortness of breath. She was started on empiric steroid therapy with dexamethasone. Her restaging PET/CT on 02/12/2020 showed residual right apical pulmonary nodule, FDG negative. There was no evidence of active malignancy on that study. She had significant symptomatic improvement on the dexamethasone. As of 03/22/2020 she restarted pembrolizumab, but it was subsequently discontinued due to recurrence of shortness of breath, chest tightness, and palpitations. She was then followed expectantly. During follow-up she had ongoing problems with shortness of breath, though her breathing and her overall performance status had continued to gradually improve on low-dose prednisone. Her repeat chest CT on 11/07/2020 showed small residual right lower lobe pulmonary nodule with no evidence of disease progression and her head CT also shows no evidence of residual or recurrent neoplasm. With those findings she continued expectant management. Her restaging CT scans of the chest and head on 05/24/2021 showed stable findings with no evidence of disease progression. She continues, though, to have fairly marginal performance status and she has had continued weight loss, which is of significant concern. In the absence of any objective evidence of disease progression, she continues expectant management for the lung cancer. I will have her try Megace suspension for the anorexia/weight loss, initially at 5 mL daily. I also will try changing her allergy medication to cetirizine 10 mg in the morning and montelukast 10 mg at bedtime. I will see her again in 3 months. In the meantime, she will be given a Pneumovax today, as she had been given a Prevnar vaccination last year. 2. She has anxiety and depression. It has been managed adequately with citalopram/lorazepam. Signed By: Levi Estrada M.D. <<Signature on File>>
== END 2021-05-30 06:49 | disposition home or self-care (01) ==
LOC: ONCMED 06:48
PROVIDERS: PCP Nurse Practitioner Family; Visit Provider Internal Medicine Medical Oncology
DX: C34.11 Malignant neoplasm of upper lobe, right bronchus or lung (principal); R63.4 Abnormal weight loss; J44.9 Chronic obstructive pulmonary disease, unspecified; E78.5 Hyperlipidemia, unspecified; F41.8 Other specified anxiety disorders; F17.210 Nicotine dependence, cigarettes, uncomplicated; Z79.899 Other long term (current) drug therapy; Z79.891 Long term (current) use of opiate analgesic
CPT/HCPCS: 90471; 90732; 99214

== ENCOUNTER 2021-08-29 13:49 | Outpatient (CLI) | payer MEDICARE, MEDICAID, SELFPAY | END 2021-08-29 13:50 | disposition home or self-care (01) | LOC: WOUND 13:53 | PROVIDERS: PCP Nurse Practitioner Family; Visit Provider Nurse Practitioner Family | DX: L98.499 Non-pressure chronic ulcer of skin of other sites with unspecified severity (principal); F17.210 Nicotine dependence, cigarettes, uncomplicated; J44.9 Chronic obstructive pulmonary disease, unspecified | CPT/HCPCS: 87070; 87077; 87186; G0463 ==

== ENCOUNTER 2021-09-03 11:25 | Outpatient (CLI) | payer MEDICARE, MEDICAID, SELFPAY ==
[2021-09-03 12:30] LABS: Basophils % 0.3 %; Eosinophils % 0.1 %; Hematocrit 43.2 % (37.0-47.0); Hemoglobin 14.1 g/dL (11.5-15.3); Lymphocytes # 1.1 10^3/uL (0.8-4.8); Lymphocytes % 7.9 %; Mean Corpuscular HGB Conc 32.6 g/dL (30.0-36.0); Mean Corpuscular Hemoglobin 33.1 pg (28.0-34.0); Mean Corpuscular Volume 101.4 fl (81-99); Mean Platelet Volume 8.6 fL (7.4-10.4); Monocytes # 0.6 10^3/uL (0.2-0.9); Monocytes % 4.4 %; Neutrophils # 11.77 10^3/uL (1.8-7.7); Neutrophils % 86.9 %; Nucleated Red Blood Cells % 0 %; Platelet Count 462 10^3/cmm (130-400); Red Blood Count 4.26 10^6/uL (4.1-5.3); Red Cell Distribution Width 13.4 % (12.1-15.1); White Blood Count 13.5 10^3/uL (4.0-10.0)
[2021-09-03 12:44] LABS: Alanine Aminotransferase < 5 U/L (0-33); Albumin Level 3.7 g/dL (3.5-5.2); Alkaline Phosphatase 108 IU/L (35-105); Aspartate Amino Transferase 12 U/L (0-32); Blood Urea Nitrogen 12 mg/dL (6-20); Carbon Dioxide 21 mmol/L (22-29); Chloride 100 mmol/L (98-107); Globulin 3.4 g/dL (1.3-4.6); Glomerular Filtration Rate 85.6 mL/min (90-130); Glucose 108 mg/dL (65-115); Osmolality Calculated 280 mOsm/kg (285-295); Sodium 135 mmol/L (136-145); Total Bilirubin 0.4 mg/dL (0.15-1.2); Total Protein 7.1 g/dL (6.6-8.7)
== END 2021-09-03 11:26 | disposition home or self-care (01) ==
LOC: ONCMED 11:28
PROVIDERS: Visit Provider Nurse Practitioner Family
DX: Z08 Encounter for follow-up examination after completed treatment for malignant neoplasm (principal); Z85.118 Personal history of other malignant neoplasm of bronchus and lung; J44.9 Chronic obstructive pulmonary disease, unspecified; E78.5 Hyperlipidemia, unspecified; F41.9 Anxiety disorder, unspecified; F32.9 Major depressive disorder, single episode, unspecified; F17.210 Nicotine dependence, cigarettes, uncomplicated; Z79.899 Other long term (current) drug therapy; Z92.21 Personal history of antineoplastic chemotherapy
CPT/HCPCS: 36415; 80053; 85025; 99214

== ENCOUNTER 2021-09-14 13:24 | Outpatient (CLI) | payer MEDICARE, MEDICAID, SELFPAY | END 2021-09-14 13:25 | disposition home or self-care (01) | LOC: WOUND 13:25 | PROVIDERS: Visit Provider Surgery | DX: S01.00XA Unspecified open wound of scalp, initial encounter (principal); X58.XXXA Exposure to other specified factors, initial encounter; F17.210 Nicotine dependence, cigarettes, uncomplicated; J44.9 Chronic obstructive pulmonary disease, unspecified | CPT/HCPCS: 99212 ==

== ENCOUNTER 2021-10-18 11:16 | Outpatient (CLI) | payer MEDICARE, MEDICAID, SELFPAY ==
[2021-10-18 12:15] LABS: Basophils % 0.3 %; Eosinophils % 0.1 %; Hematocrit 41.1 % (37.0-47.0); Lymphocytes # 0.8 10^3/uL (0.8-4.8); Lymphocytes % 4.9 %; Mean Corpuscular HGB Conc 31.6 g/dL (30.0-36.0); Mean Corpuscular Hemoglobin 30.8 pg (28.0-34.0); Mean Corpuscular Volume 97.4 fl (81-99); Mean Platelet Volume 8.3 fL (7.4-10.4); Monocytes # 0.6 10^3/uL (0.2-0.9); Monocytes % 4.1 %; Neutrophils % 90.1 %; Nucleated Red Blood Cells % 0 %; Platelet Count 510 10^3/cmm (130-400); Red Blood Count 4.22 10^6/uL (4.1-5.3); Red Cell Distribution Width 12.7 % (12.1-15.1); White Blood Count 15.5 10^3/uL (4.0-10.0)
[2021-10-18 12:30] LABS: Erythrocyte Sedimentation Rate 51 mm/hr (0-15)
[2021-10-18 12:34] LABS: Alanine Aminotransferase 6 U/L (0-33); Albumin Level 3.6 g/dL (3.5-5.2); Alkaline Phosphatase 99 IU/L (35-105); Anion Gap 14.3 (5-19); Aspartate Amino Transferase 10 U/L (0-32); Blood Urea Nitrogen 11 mg/dL (8-23); C Reactive Protein 46.5 mg/L (0.0-4.9); Calcium 9.3 mg/dL (8.5-10.5); Carbon Dioxide 23 mmol/L (22-29); Chloride 100 mmol/L (98-107); Globulin 3.6 g/dL (1.3-4.6); Glomerular Filtration Rate 85.4 mL/min (90-130); Glucose 108 mg/dL (65-115); Osmolality Calculated 276 mOsm/kg (285-295); Potassium 4.3 mmol/L (3.5-5.1); Sodium 133 mmol/L (136-145); Total Bilirubin 0.2 mg/dL (0.15-1.2); Total Protein 7.2 g/dL (6.6-8.7)
--- NOTE | 2021-10-21 11:58 | ONC FU_ITS ---
Dr. Estrada Patient Follow-Up Note Patient: Georgette Calvillo Unit #: [id number]: 1960 Dicatated By: Levi Estrada M.D.Date of Visit:Oct 18, 2021 Onc Med Follow-up/Prog Note Chief Complaint: Metastatic large cell carcinoma. History of Present Illness: This is a 60 year-old woman with metastatic nonsmall cell lung cancer, stage ALONSO (T1b, N3, M1b), with biopsy proven metastatic involvement in the right frontal calvarium. She had presented in May 2019 with an enlarging lump on the right side of her head. She was initially evaluated with head CT and subsequently with head MRI. The MRI, from 06/11/2019, showed a right frontal extra-axial dural based lesion with transcalvarial extension. The mass measures approximately 2.1 x 3.0 x 2.9 cm, and it was noted to extend into the right frontal scalp soft tissues. There were additional intracalvarial enhancing satellite lesions just posterior superior and anterior to it. The reported differential considerations included atypical meningioma, metastatic disease, or hemangiopericytoma. She was referred to Dr. Pedraza, and on 06/21/2019 she underwent craniotomy with resection/debulking of the right frontal skull and dural mass. Pathology showed metastatic large cell carcinoma with nonspecific immunohistochemical staining pattern. The tumor cells were positive for panCK, CK 7, Jason-Ep4, NURA, and CK high molecular weight. GCDFP15 was focally positive. They were negative for CK 20, TTF-1, p63, S100, Melan A, CD45, progesterone receptor, RCC, and Napsin. Prior to the initial head CT, she had undergone screening mammograms and chest CT scan in [place]. Those studes reportedly showed no evidence of malignancy. I had seen her initially on 07/07/2019. Her staging PET/CT on 07/10/2019 showed an FDG avid 1.3 cm perihilar nodule in the upper lobe of the right lung, SUV 8.2, consistent with primary bronchogenic carcinoma. Several FDG positive lymph nodes were noted in the mediastinum, consistent with metastatic disease, including a right paratracheal node measuring 2.3 x 1.5 cm with SUV 10.3 as well as other nodes in the AP window, left paratracheal, and subcarinal territories. There were no other sites of distant metastatic disease. I had also requested additional pathologic evaluation with a next generation sequencing study. It was positive for PD-L1 expression at 10%. It also showed presence of a KRAS mutation at exon 3. EGFR and BRAF mutations were not detected. The tumor was negative for the ALK and ROS1 rearrangements. She had initially been referred for palliative radiation. However, after reviewing the PET/CT findings with the cranial lesion having been resected, Dr. Davies had suggested that we instead proceed with her systemic therapy and reserve radiation for consolidative treatment. As such, she then began a course of combination chemotherapy/immunotherapy with carboplatin/pemetrexed together with pembrolizumab. She began cycle 1 of carboplatin/pemetrexed in combination with pembrolizumab on 08/12/2019. She was able to tolerate it with acceptable toxicity, and she continued with cycle 2 on 09/02/2019, with cycle 3 on 09/22/2019 and with cycle 4 on 10/20/2019. Restaging PET/CT on 11/06/2019 showed development of a new right upper lobe pulmonary nodule measuring 1.2 cm, SUV 2.7, concerning for recurrence. There was otherwise evidence of significant treatment response with resolution of the right perihilar lesion and with mediastinal lymph nodes decreased to subcentimeter in size and FDG negative. With evidence of response, she had then continued treatment with maintenance pembrolizumab beginning on 11/10/2019. With limited sites of involvement she also was offered to option to have consolidation radiation. She initially decilned due to concerns related to the coronavirus pandemic. She then continued maintenance pembrolizumab at 3-week intervals. She seemed to tolerate it well, though she continued to lose weight, and she continued to have fairly marginal performance status. At her follow-up visit on 02/02/2020 her treatment was put on hold due to increased shortness of breath. She began empiric steroid therapy with dexamethasone. Her repeat PET/CT on 02/12/2020 showed FDG negative right apical pulmonary nodule measuring 0.8 x 0.4 cm. There was no evidence of active malignancy. It appeared to represent a complete metabolic response to treatment. Her symptoms improved and she restarted pembrolizumab on 03/22/2020 but at her follow-up visit on 04/12/2020 it was again put on hold due to multiple complaints including shortness of breath, chest tightness, and palpitations. She continued dexamethasone at 2 mg daily. A repeat chest CT on 04/26/2020 showed spiculated lesion in the right lower lobe just inferior to the interlobar fissure measuring 1.3 x 0.7 cm. There was pulmonary emphysema with interstitial reticulation noted. As the CT was done at [place], and there were no prior studies available for comparison. Her head CT showed evidence of previous right frontal cranioplasty with no active lesion seen. At her follow-up visit in May 2020 there did not appear to be any clinical evidence of disease progression, and at that point she was having significant anxiety/depression. At that point she was started on paroxetine and lorazepam, I also reduced her steroid dosage and transitioned it from dexamethasone to prednisone. At her follow-up visit in June she was feeling a little better, though still having some anxiety. She continued prednisone but with the dosage reduced to 5 mg daily and I also switched her from paroxetine to citalopram. At her follow-up visit on 07/18/2020 she was feeling a little better. I opted to keep her treatment on hold. Restaging chest CT on 08/11/2020 showed spiculated lesion in the right midlung zone measuring 11 x 7 mm, without significant change. There was underlying severe pulmonary emphysema. Her repeat chest CT on 11/07/2020 showed a small irregular lesion within the right lower lobe contacting and slightly retracting the right interlobar pleural fissure. It appeared stable compared to the prior study from August 2020. There were no new lesions identified. Her head CT showed changes of right frontal cranioplasty with no evidence of locally recurrent disease and no evidence of active enhancing brain parenchymal lesions. Compared to the prior study of April 2020 there was no evidence of recurrent or new disease. She continued expectant management. Her other medical illnesses include COPD and hyperlipidemia. She also is known to have claustrophobia, and she has anxiety and depression. She has a history of smoking 1 pack of cigarettes daily for 35 years, but she had cut down to less than 1/2 pack/day. INTERIM HISTORY: Restaging chest CT on 05/24/2021 showed a small spiculated nodule in the lower lobe of the right lung abutting the right major fissure. It appeared unchanged from the previous studies. There was evidence for marked hyperinflation from emphysema. There was no mediastinal/hilar adenopathy or other evidence of metastatic disease. Her head CT showed no change in the large right frontal craniotomy site with overlying mesh. There is no evidence of enhancing mass. In August she had called reporting that she had developed an infection at the site of her craniotomy, and that it was not improving on antibiotic therapy. We then made arrangements for referral to wound care. She was seen there on August 29, 2021. Her wound culture grew Pseudomonas aeruginosa which was fairly broadly sensitive. She then continued on antibiotic coverage with ciprofloxacin. During subsequent follow-up, the infection at the craniotomy site persisted, and she then developed multiple additional sites of drainage in her scalp. As the underlying problem appeared to be infection of the hardware at the craniotomy site, referral to neurosurgeon was recommended. In the meantime, a restaging PET/CT on October 12, 2021 showed findings consistent with craniotomy/cranioplasty infection with associated pneumoencephaly and cerebrospinal fluid infection as well as additional abscess of the left medial gluteus rachel muscle. There was no strong evidence for recurrent tumor or progression. She is seen for a follow-up visit. She says her energy is not too bad. She is able to do housework. Her ECOG score is 1. Her appetite has been okay. She says she has been eating but she has continued to lose weight. She is not having fever or night sweats. She has now been on antibiotic coverage with ciprofloxacin for 6 weeks. She has had some sinus drainage, but she has not had sore mouth or throat, and she does not complain of cough. Her breathing is pretty good most days. She is just using oxygen as needed. She does not complain of chest pain. She has no GI or complaints. She is having pain in her right frontal/parietal area all the time, and she also has some fairly generalized joint pain. She does not complain of dizziness or lightheadedness, and she has no focal neurologic symptoms. Medications: Albuterol Sulfate 1 ((2.5 mg/3ml) 0.083%) Nebulization solution Inhalation b.i.d., Budesonide 1 Inhalation (of 0.5 mg/2mL) Suspension Inhalation b.i.d., CeleXA 1 (10 mg) Tablet Oral every am, Cyanocobalamin 1 Each (of 1000 mcg/mL) Injection q 4 weeks, Folic Acid 1 Tablet Oral daily, HYDROcodone-Acetaminophen 1 - 2 Tablet (of 5-325 mg) Oral four times a day PRN, Loratadine 1 (10 mg) Tablet Oral daily, LORazepam 0.5 - 1 Tablet (of 0.5 mg) Oral daily PRN, predniSONE 1 (5 mg) Tablet Oral daily, ProAir HFA 1 Puff(s) (of 108 (90 base) mcg/act) Aerosol, solution Inhalation daily PRN, Protonix 1 Tablet (of 40 mg) Tablet, enteric coated Oral daily, Simvastatin 1 Tablet (of 20 mg) Oral daily, Sulfamethoxazole-Trimethoprim 1 Tablet (of 800-160 mg) Oral b.i.d., traMADol HCl 1 (50 mg) Tablet Oral t.i.d. PRN Allergies: Marinol, Paxil, Penicillins, and PROzac. Vital Signs: Performed on Oct 18, 2021 11:52 Height - 62.00 in Weight - 73.0 lbs (HIGH) BSA - 1.25 sq.m BMI - 13.35 (LOW) Temperature - 98.4 F Pulse - 134 /min (HIGH) Respiration - 20 /min BP - 100/64 mm(hg) O2 Sat - 93 % (LOW) Pain - 6 Fatigue - 5 Physical Examination: Constitutional - She appears somewhat frail generally, Head - There is an open wound in the right frontal scalp at the site of her previous craniotomy. There is an additional open wound in the occipital area on the right side as well as several other smaller scalp lesions, Eyes - Sclerae nonicteric. Conjunctivae clear, ENMT - No lesions noted in the oral cavity, Hematologic/Lymphatic - No cervical, clavicular, or axillary adenopathy, Respiratory - Lungs sound clear with diminished air movement bilaterally, Cardiovascular - Heart rhythm is regular with a mild tachycardia. There is no murmur, gallop, or rub noted, Abdomen - Soft. Liver and spleen are not enlarged. There is no abdominal mass or ascites noted and there is no inguinal adenopathy, Extremities - No edema, Integumentary - There is an area of erythema in the inferior left gluteal area which may correspond to the abnormal area of uptake reported on the PET/CT. There is no open ulceration or obvious abscess, Neurologic - No focal neurologic deficits noted. Lab/Imaging: Test performed on Oct 18, 2021 12:05 Sodium 133 mmol/L Potassium 4.3 mmol/L Chloride 100 mmol/L CO2 23 mmol/L Anion Gap 14.3 BUN 11 mg/dL Creatinine 0.7 mg/dL Cr Clearance (Est) 44.6800 mL/min eGFR 85.4 mL/min Glucose 108 mg/dL Osmolality - Calculated 276 mOsm/kg Calcium 9.3 mg/dL Protein, Total 7.2 g/dL Albumin 3.6 g/dL Globulin 3.6 g/dL Bilirubin, Total 0.2 mg/dL ALT (SGPT) 6 U/L AST (SGOT) 10 U/L Alkaline Phosphatase 99 IU/L ESR (Sed Rate) 51 mm/hr WBC 15.5 10 3/uL RBC 4.22 10 6/uL HGB 13.0 g/dL HCT 41.1 % MCV 97.4 fl MCH 30.8 pg MCHC 31.6 g/dL RDW 12.7 % Platelet Count 510 10 3/cmm MPV 8.3 fL Neutrophils 14.00 10 3/uL Lymphocytes 0.8 10 3/uL Monocytes 0.6 10 3/uL Eosinophils 0.0 10 3/uL Basophils 0.0 10 3/uL Neutrophil % 90.1 % Lymphocyte % 4.9 % Monocyte % 4.1 % Eosinophil % 0.1 % Basophils % 0.3 % NRBC % 0 % Problem List: 1. Metastatic large cell carcinoma in the form of a right frontoparietal extra-axial, dural based mass with transcalvarial extension. By PET/CT, she appeared to have primary malignancy involving the upper lobe of the right lung with associated mediastinal lymph node involvement. As such, her disease was stage ALONSO (T1b, N3, M1b). 2. She underwent craniotomy with resecting/debulking of the mass on 06/21/2019. Her tumor was noted to harbor a KRAS mutation at exon 3. EGFR and BRAF mutations were not detected, and the tumor was negative for ROS1 and ALK gene rearrangements. PD-L1 expression was positive at 10%. 3. COPD. 4. Hyperlipidemia. 5. Anxiety and depression. 6. Nicotine dependence. Problems Addressed with this Encounter and Plan: Patient with metastatic large cell carcinoma in the form of a right frontoparietal extra-axial, dural based mass with transcalvarial extension. By PET/CT, she appeared to have primary malignancy involving the upper lobe of the right lung with associated mediastinal lymph node involvement. As such, her disease was stage ALONSO (T1b, N3, M1b). She underwent craniotomy with resecting/debulking of the mass on 06/21/2019. Her tumor was noted to harbor a KRAS mutation at exon 3. EGFR and BRAF mutations were not detected, and the tumor was negative for ROS1 and ALK gene rearrangements. PD-L1 expression was positive at 10%. From 08/12/2019 thru 10/20/2019 she completed 4 cycles of treatment with carboplatin/pemetrexed chemotherapy in combination with pembrolizumab. She was able to tolerate treatment with acceptable toxicity, and she appeared to have a significant response by restaging PET/CT on 11/06/2019. With those findings, her treatment was then transition to maintenance pembrolizumab, beginning on 11/10/2019. In addition, with limited sites of involvement, she was offered the option to have consolidation radiation, which she declined. As of her follow-up visit on 02/02/2020 her treatment was put on hold due to increased shortness of breath. She was started on empiric steroid therapy with dexamethasone. Her restaging PET/CT on 02/12/2020 showed residual right apical pulmonary nodule, FDG negative. There was no evidence of active malignancy on that study. She had significant symptomatic improvement on the dexamethasone. As of 03/22/2020 she restarted pembrolizumab, but it was subsequently discontinued due to recurrence of shortness of breath, chest tightness, and palpitations. She was then followed expectantly. During follow-up she had ongoing problems with shortness of breath, though her breathing and her overall performance status had continued to gradually improve on low-dose prednisone. Her repeat chest CT on 11/07/2020 showed small residual right lower lobe pulmonary nodule with no evidence of disease progression and her head CT also shows no evidence of residual or recurrent neoplasm. With those findings she continued expectant management. Her restaging CT scans of the chest and head on 05/24/2021 showed stable findings with no evidence of disease progression. She continued to have fairly marginal performance status and she also had continued weight loss. However, in the absence of any objective evidence of disease progression, she continued expectant management for the lung cancer. During subsequent follow-up she developed evidence of infection at the right frontal craniotomy site which persisted despite antibiotic therapy. She was then seen at wound care clinic, and culture grew Pseudomonas aeruginosa which was broadly sensitive. Despite treatment with ciprofloxacin, the infection persisted and she also developed multiple additional sites of drainage in her scalp. As the infection did appear to involve the underlying hardware, she was recommended to have follow-up with her neurosurgeon. That referral has been an ongoing process, and it has been further complicated by the fact that her original surgeon is no longer practicing in [place]. In the meantime, her restaging PET/CT on October 12, 2021 showed findings consistent with craniotomy/cranioplasty infection with associated pneumoencephaly and cerebrospinal fluid infection as well as additional site of abscess in the left medial gluteus rachel muscle. Given those findings, we continue to aggressively pursue her referral to neurosurgery. I will also now confer with Dr. Parson regarding recommendations for further antibiotic therapy. Signed By: Levi Estrada M.D. <<Signature on File>>
== END 2021-10-18 11:17 | disposition home or self-care (01) ==
PROVIDERS: Visit Provider Internal Medicine Medical Oncology
DX: C34.11 Malignant neoplasm of upper lobe, right bronchus or lung (principal); C79.31 Secondary malignant neoplasm of brain; C77.2 Secondary and unspecified malignant neoplasm of intra-abdominal lymph nodes; J44.9 Chronic obstructive pulmonary disease, unspecified; E78.5 Hyperlipidemia, unspecified; F41.9 Anxiety disorder, unspecified; F32.9 Major depressive disorder, single episode, unspecified; F17.210 Nicotine dependence, cigarettes, uncomplicated; Z79.2 Long term (current) use of antibiotics; Z79.899 Other long term (current) drug therapy
CPT/HCPCS: 36415; 80053; 85025; 85651; 86140; 99215

== ENCOUNTER 2021-10-22 11:42 | Outpatient (CLI) | payer MEDICARE, MEDICAID, SELFPAY | END 2021-10-22 11:43 | disposition home or self-care (01) | PROVIDERS: Visit Provider Internal Medicine Medical Oncology | DX: C34.11 Malignant neoplasm of upper lobe, right bronchus or lung (principal); C79.51 Secondary malignant neoplasm of bone; Z79.899 Other long term (current) drug therapy | CPT/HCPCS: 87070; 99211 ==

== ENCOUNTER 2021-11-14 16:24 | Outpatient (CLI) | payer MEDICARE, MEDICAID, SELFPAY ==
--- NOTE | 2021-11-14 16:37 | MR_ITS ---
WS: [id number] MRI HEAD WITH CONTRAST TECHNIQUE: Sagittal T1, T2 axial, T2 axial FLAIR, axial susceptibility weighted imaging, axial diffus ion weighted images, and coronal T2 images were obtained. Pre and post-T1 axial and post T1 coronal i mages. ADC and FSPGR images. CLINICAL INFORMATION: MALIGNANT NEOPLASM OF UPPER LOBE, RIGHT BRONCHUS OR LUNG COMPARISON: MRI October 12, 2018 FINDINGS: No evidence of restricted diffusion to suggest acute ischemia. Ventricular system and basal cisterns are patent. Interval postoperative changes RIGHT frontal parietal craniotomy with resection of the pr eviously described transcalvarial enhancing mass. Resection of previously described small satellite c alvarial lesions. No evidence of enhancing residual or recurrent disease. Expected postoperative goldberg ges along the craniotomy. No evidence of increasing edema or mass effect. No hydrocephalus. Mild parenchymal volume loss. Normal posterior fossa. Normal vascular flow voids at the skull base. N o extra-axial fluid collections. No hemosiderin on the susceptibility weighted images. Normal optic c hiasm and pituitary infundibulum. MR/MR head wo/w con [id number] IMPRESSION: 1. Interval postoperative changes RIGHT frontal parietal craniotomy with resec tion of the transcalvarial enhancing lesion. 2. Expected postoperative changes underlying the craniotomy. No evidence of re currence or residual enhancing disease. 3. No evidence of increasing edema or mass effect. 4. Mild parenchymal volume loss. 5. No restricted diffusion to suggest acute ischemia. 6. No other acute findings.
== END 2021-11-14 16:25 | disposition home or self-care (01) ==
PROVIDERS: PCP Nurse Practitioner Family; Visit Provider Internal Medicine Medical Oncology
DX: C34.11 Malignant neoplasm of upper lobe, right bronchus or lung (principal)
CPT/HCPCS: 70553; A9577

== ENCOUNTER 2021-11-22 10:58 | Outpatient (CLI) | payer MEDICARE, MEDICAID, SELFPAY ==
--- NOTE | 2021-11-22 11:07 | CT_ITS ---
WS: [id number] CT HEAD TECHNIQUE: Noncontrast CT of the head obtained from the skullbase to the vertex. CLINICAL INFORMATION: REJECTION OF TITANIUM PLATE/LUNG CANCER COMPARISON: MRI November 14, 2021 CT May 24, 2021 DLP: 980.[address] scans at [facility] use at least one of these dose optimization techniques: automated e xposure control; mA and/or kV adjustment per patient size (includes targeted exams where dose is matc hed to clinical indication); or iterative reconstruction. FINDINGS: Prior postoperative changes RIGHT frontal prior craniotomy with resection of the transcalvarial enhan cing lesion. Associated soft tissue scalp edema. Pneumocephalus deep and superficial to the craniotom y mesh with associated scalp edema. This is new since the prior CT May 24, 2021. Small amount o f extra-axial fluid deep to the craniotomy. No significant mass effect or midline shift. In the absen ce of recent surgery, this would be compatible with given history of plate rejection. Diffuse scalp e sarah extending over the frontoparietal scalp worse involving the parietal scalp near the vertex with associated subcutaneous air. No drainable fluid collections. No hydrocephalus. Intracranial contents are otherwise unremarkable and unchanged since the recent MRI . Paranasal sinuses and mastoid air cells are well aerated. CT/CT head wo con* [id number] IMPRESSION: 1. Prior postoperative changes RIGHT frontal parietal craniotomy with cranioto my mesh. Diffuse associated scalp edema with pneumocephalus superficial and alex p to the craniotomy compatible with plate rejection per history. 2. Small amount of low-attenuation extra-axial fluid deep to the craniotomy. N o significant mass effect or midline shift. 3. Diffuse scalp edema extending over the frontoparietal scalp worse involving the parietal scalp near the vertex with associated subcutaneous air. No draina ble fluid collections. 4. No hydrocephalus. 5. No apparent hardware or mesh dehiscence. 6. Intracranial contents are otherwise unchanged since recent MRI.
== END 2021-11-22 10:59 | disposition home or self-care (01) ==
PROVIDERS: PCP Nurse Practitioner Family; Visit Provider Internal Medicine Medical Oncology
DX: T85.79XA Infection and inflammatory reaction due to other internal prosthetic devices, implants and grafts, initial encounter (principal); C34.11 Malignant neoplasm of upper lobe, right bronchus or lung; Z98.890 Other specified postprocedural states; R60.0 Localized edema
CPT/HCPCS: 70450

== ENCOUNTER 2022-02-07 12:54 | Oncology outpatient (recurring) (ONCR) | payer MEDICARE, MEDICAID, SELFPAY | END 2022-02-07 23:59 | disposition home or self-care (01) | PROVIDERS: PCP Nurse Practitioner Family; Visit Provider Internal Medicine Medical Oncology | DX: C34.11 Malignant neoplasm of upper lobe, right bronchus or lung (principal); C79.51 Secondary malignant neoplasm of bone; F17.210 Nicotine dependence, cigarettes, uncomplicated; J44.9 Chronic obstructive pulmonary disease, unspecified; G04.90 Encephalitis and encephalomyelitis, unspecified; G93.89 Other specified disorders of brain; Z79.2 Long term (current) use of antibiotics; Z79.899 Other long term (current) drug therapy | CPT/HCPCS: 99214 ==

== ENCOUNTER 2022-06-14 09:45 | Oncology outpatient (recurring) (ONCR) | payer MEDICARE, MEDICAID, SELFPAY ==
[2022-06-14 10:31] LABS: Basophils % 0.3 %; Eosinophils # 0.1 10^3/uL (0.0-0.8); Eosinophils % 0.6 %; Hematocrit 43.5 % (37.0-47.0); Hemoglobin 14.4 g/dL (11.5-15.3); Lymphocytes % 16.6 %; Mean Corpuscular HGB Conc 33.1 g/dL (30.0-36.0); Mean Corpuscular Hemoglobin 33.4 pg (28.0-34.0); Mean Corpuscular Volume 100.9 fl (81-99); Mean Platelet Volume 9.2 fL (7.4-10.4); Monocytes # 0.7 10^3/uL (0.2-0.9); Monocytes % 5.8 %; Neutrophils # 9.23 10^3/uL (1.8-7.7); Neutrophils % 75.5 %; Nucleated Red Blood Cells % 0 %; Platelet Count 255 10^3/cmm (130-400); Red Blood Count 4.31 10^6/uL (4.1-5.3); Red Cell Distribution Width 13.7 % (12.1-15.1); White Blood Count 12.2 10^3/uL (4.0-10.0)
[2022-06-14 10:36] LABS: Erythrocyte Sedimentation Rate 2 mm/hr (0-15)
[2022-06-14 10:51] LABS: Alanine Aminotransferase 17 U/L (0-33); Albumin Level 3.9 g/dL (3.5-5.2); Alkaline Phosphatase 177 U/L (35-105); Aspartate Amino Transferase 23 U/L (0-32); Blood Urea Nitrogen 25 mg/dL (8-23); Calcium 9.1 mg/dL (8.5-10.5); Carbon Dioxide 27 mmol/L (22-29); Chloride 99 mmol/L (98-107); Globulin 2.7 g/dL (1.3-4.6); Glomerular Filtration Rate 63.9 mL/min (90-130); Glucose 82 mg/dL (65-115); Osmolality Calculated 279 mOsm/kg (285-295); Sodium 133 mmol/L (136-145); Total Bilirubin 0.2 mg/dL (0.15-1.2); Total Protein 6.6 g/dL (6.6-8.7)
[2022-06-14 10:53] LABS: Anion Gap 11.2 (5-19); Potassium 4.2 mmol/L (3.5-5.1)
== END 2022-07-01 23:59 | disposition home or self-care (01) ==
PROVIDERS: PCP Nurse Practitioner Family; Visit Provider Internal Medicine Medical Oncology
DX: Z08 Encounter for follow-up examination after completed treatment for malignant neoplasm; Z85.830 Personal history of malignant neoplasm of bone; Z85.118 Personal history of other malignant neoplasm of bronchus and lung; Z92.21 Personal history of antineoplastic chemotherapy; F17.200 Nicotine dependence, unspecified, uncomplicated; Z79.52 Long term (current) use of systemic steroids; Z79.2 Long term (current) use of antibiotics
CPT/HCPCS: 36415; 80053; 85025; 85651; 86140; 99214

== ENCOUNTER 2022-10-31 06:00 | Oncology outpatient (recurring) (ONCR) | payer MEDICARE, MEDICAID, SELFPAY ==
[2022-10-31 14:04] LABS: Basophils % 0.3 %; Eosinophils % 0.1 %; Hematocrit 45.8 % (37.0-47.0); Hemoglobin 15.1 g/dL (11.5-15.3); Lymphocytes # 1.6 10^3/uL (0.8-4.8); Lymphocytes % 15.8 %; Mean Corpuscular Hemoglobin 34.1 pg (28.0-34.0); Mean Corpuscular Volume 103.4 fl (81-99); Mean Platelet Volume 8.7 fL (7.4-10.4); Monocytes # 0.7 10^3/uL (0.2-0.9); Monocytes % 6.3 %; Neutrophils # 7.86 10^3/uL (1.8-7.7); Neutrophils % 76.5 %; Nucleated Red Blood Cells % 0 %; Platelet Count 307 10^3/cmm (130-400); Red Blood Count 4.43 10^6/uL (4.1-5.3); White Blood Count 10.3 10^3/uL (4.0-10.0)
[2022-10-31 14:17] LABS: Alanine Aminotransferase 8 U/L (0-33); Albumin Level 3.8 g/dL (3.5-5.2); Alkaline Phosphatase 134 U/L (35-105); Anion Gap 15.1 (5-19); Aspartate Amino Transferase 12 U/L (0-32); Blood Urea Nitrogen 26 mg/dL (8-23); Calcium 9.2 mg/dL (8.5-10.5); Carbon Dioxide 26 mmol/L (22-29); Chloride 103 mmol/L (98-107); Globulin 3.3 g/dL (1.3-4.6); Glomerular Filtration Rate 85.1 mL/min (90-130); Glucose 92 mg/dL (65-115); Osmolality Calculated 294 mOsm/kg (285-295); Potassium 4.1 mmol/L (3.5-5.1); Sodium 140 mmol/L (136-145); Total Bilirubin 0.3 mg/dL (0.15-1.2); Total Protein 7.1 g/dL (6.6-8.7)
[2022-10-31 14:24] LABS: Erythrocyte Sedimentation Rate 17 mm/hr (0-15)
== END 2022-11-29 23:59 | disposition home or self-care (01) ==
LOC: ONCMED 11-03 22:16
PROVIDERS: Nurse Practitioner Family; Visit Provider Internal Medicine Medical Oncology
DX: C34.11 Malignant neoplasm of upper lobe, right bronchus or lung; C79.31 Secondary malignant neoplasm of brain; R63.4 Abnormal weight loss; Z68.1 Body mass index [BMI] 19.9 or less, adult; F17.210 Nicotine dependence, cigarettes, uncomplicated; C77.1 Secondary and unspecified malignant neoplasm of intrathoracic lymph nodes; Z90.89 Acquired absence of other organs; Z79.899 Other long term (current) drug therapy; Z92.21 Personal history of antineoplastic chemotherapy
CPT/HCPCS: 80053; 85025; 85651; 86140; 99213; 99214

== ENCOUNTER 2023-03-10 13:58 | Oncology outpatient (recurring) (ONCR) | payer MEDICARE, MEDICAID, SELFPAY | END 2023-03-31 23:59 | disposition home or self-care (01) | PROVIDERS: Visit Provider Internal Medicine Medical Oncology | DX: Z53.9 Procedure and treatment not carried out, unspecified reason (principal) ==

== ENCOUNTER → 2023-03-10 13:58 | Outpatient (BNVA) | payer MEDICARE, MEDICAID, SELFPAY | PROVIDERS: Visit Provider Nurse Practitioner | DX: Z53.9 Procedure and treatment not carried out, unspecified reason (principal) | CPT/HCPCS: 99214 ==

== ENCOUNTER 2023-05-12 10:32 | Inpatient (IN) | payer MEDICARE, MEDICAID, SELFPAY ==
[2023-05-12] VITALS (53 sets, daily range): BP systolic 71–109; BP diastolic 40–63; PULSE 79–110; RESP 17–39; TEMP 36.6; O2SAT 90–100; BMI 15.9
--- NOTE | 2023-05-12 10:40 | XR_ITS ---
WS: [id number] Exam: XR chest 1V portable [id number] Date/Time of Exam: 05/12/2023 10:43 AM Reason For Exam: dyspnea/cough Comparison 09/22/2019. Small bibasal pleural effusions are noted. The lungs are hyperinflated. No consolidating infiltrates or pneumothorax. Normal cardiomediastinal silhouette. Bony structures are intact. IMPRESSION: 1. Small bibasal pleural effusions. 2. Marked pulmonary hyperinflation most likely indicating obstructive lung disease. 3. A left-sided PICC line ends in the lower one third of the SVC.
--- NOTE | 2023-05-12 10:48 | ECG_ITS ---
[facility] Test Date: 2023-05-12 Pat Name: Georgette Calvillo Department: Room: Gender: Female Cyberathlete: : 1960 Requested By: Jose Raul Diaz Order Number: [id number] Chivo MD: Angel Garcia M.D. Measurements Intervals [place] Rate: 89 P: 77 [place]: 119 QRS: 128 QRSD: 72 T: 0 QT: 305 QTc: 371 Interpretive Statements SINUS RHYTHM WITH SHORT [place] INTERVAL RIGHT AXIS DEVIATION [QRS AXIS > 100] LOW QRS VOLTAGE [QRS DEFLECTION < 0.5/1.0 mV IN LIMB/CHEST LEADS] No previous ECG available for comparison Electronically Signed On 05-12-2023 16:03:24 CDT by Angel Garcia M.D. [email or web address]
[2023-05-12 11:04] LABS: Basophils % 0.2 %; Hematocrit 29.4 % (36-47); Lymphocytes # 0.6 10^3/uL (0.8-4.8); Lymphocytes % 8.6 %; Mean Corpuscular HGB Conc 31.3 g/dL (30-55); Mean Corpuscular Hemoglobin 32.3 pg (27-33); Mean Corpuscular Volume 103.2 fl (85-98); Mean Platelet Volume 9.4 fL (7.4-10.4); Monocytes # 0.8 10^3/uL (0.2-0.9); Monocytes % 12.9 %; Neutrophils # 4.99 10^3/uL (1.8-7.7); Neutrophils % 77.7 %; Nucleated Red Blood Cells % 0 %; Platelet Count 282 10^3/cmm (157-399); Red Blood Count 2.85 10^6/uL (3.85-5.65); Red Cell Distribution Width 17.4 % (12.1-15.1); White Blood Count 6.42 10^3/uL (3.29-11.43)
[2023-05-12 11:25] LABS: Ketone (Acetest) Serum Negative (Negative)
[2023-05-12 11:27] LABS: Alanine Aminotransferase 43 U/L (0-33); Albumin Level 2.4 g/dL (3.5-5.2); Alkaline Phosphatase 102 U/L (35-105); Anion Gap 13.5 (5-19); Aspartate Amino Transferase 40 U/L (0-32); Blood Urea Nitrogen 23 mg/dL (8-23); Calcium 7.7 mg/dL (8.5-10.5); Carbon Dioxide 30 mmol/L (22-29); Chloride 102 mmol/L (98-107); Globulin 2.3 g/dL (1.3-4.6); Glomerular Filtration Rate 85.1 mL/min (90-130); Glucose 106 mg/dL (65-115); Osmolality Calculated 298 mOsm/kg (285-295); Potassium 3.5 mmol/L (3.5-5.1); Sodium 142 mmol/L (136-145); Total Bilirubin 0.3 mg/dL (0.15-1.2); Total Protein 4.7 g/dL (6.6-8.7)
[2023-05-12 11:28] LABS: Lactic Sepsis W/Reflex 1.2 mmol/L (0.5-2.2)
[2023-05-12 11:32] LABS: Creatine Phosphokinase 555 U/L (26-192)
--- NOTE | 2023-05-12 11:41 | W.ED.WEAKNES ---
HPI - Weakness General: Chief complaint: Weakness Stated complaint: WEAKNESS Time Seen by Provider: 05/12/23 10:33 Source: patient Mode of arrival: EMS History of Present Illness: 62-year-old female with metastatic non-small cell lung cancer stage IV with metastatic involvement of the right frontal calvarium. She underwent surgery for this. She had a debulking procedure back in 2019. She recently had an infection in that area and is currently getting IV antibiotics via PICC line. Comes in today home health nurse said that that she has been altered from her usual baseline. No fever she is arousable and responds to verbal stimuli. She denies any specific pain anywhere at this time. Review of Systems General: Reports: ROS unobtainable due to mental status PFSH ED PFSH: Medical History Anxiety and depression COPD (chronic obstructive pulmonary disease) Hyperlipidemia Non-small cell lung cancer Surgical History History of hysterectomy with bilateral oophorectomy History of left knee surgery x 2 History of right knee surgery History of surgery of head (12/15/21) right scalp excision with removal of the mass and with reconstruction with left anterolateral thigh free flap, split thickness skin graft, neck dissection, and posterior scalp advancement flaps Family History Denies family history of CAD (coronary artery disease) Social History Smoking and tobacco status: current every day smoker (0.5 ppd. Smoked x 30 years) Physical Exam Const: COMMON NORMALS: no acute distress GENERAL APPEARANCE: cooperative and comfortable HENMT: OTHER: Large portion calvarium absent looks partially and cephalic. Resp: COMMON NORMALS: normal respiratory effort, No retractions, No use of accessory muscles and clear to auscultation bilaterally AUSCULTATION: clear to auscultation bilaterally Cardio: COMMON NORMALS: regular rate, regular rhythm and No murmurs present (Cardio) RATE: regular rate RHYTHM: regular rhythm GI: COMMON NORMALS: Soft to palpation and No hepatosplenomegaly present AUSCULTATION: Yes normoactive bowel sounds PALPATION: Yes Soft to palpation, No Tenderness to palpation present (GI), No Guarding due to palpation present (GI) and Yes No hepatosplenomegaly present Extremity: COMMON NORMALS: normal to inspection, capillary refill normal, no clubbing, cyanosis or edema, no calf tenderness and no pedal edema Skin: COMMON NORMALS: no rashes or lesions noted GENERAL SKIN EXAM: no rashes or lesions noted Course Vital Signs: Vital signs: Vital Signs Temperature 97.6 F 05/13/23 08:45 Pulse Rate 87 05/13/23 16:25 Respiratory Rate 18 05/13/23 16:25 Blood Pressure 106/75 05/13/23 14:30 Pulse Oximetry 99 05/13/23 16:25 Oxygen Delivery Me thod Nasal Cannula 05/13/23 08:45 Oxygen Flow Rate 2 05/13/23 08:45 MDM - Weakness Medical Decision Making Was able to get a hold of Tabatha who is a family friend who is been functioning as a caregiver her phone numbers . Patient has a history of small cell lung CA she had a tumor from metastasis that was resected about 4 years ago she is found to have a abscess and they were not able to replace the calvarium that the monitoring for a time 2 weeks ago she was back at [facility] she was to have a plate put into place when they opened up the site they found evidence of chronic osteomyelitis the surgery was abandoned and the wound was closed. Infectious disease was consulted and she was started on a regimen for osteomyelitis unfortunately at that time per the infectious disease team that I talked to today she did not have cultures done. Her current regimen is cefepime 1 g every 12 hours metronidazole 500 mg p.o. 3 times daily daptomycin 8 mg/kg ideal body weight every 24 hours and micafungin 100 mg every 24 hours. I did talk to Kimmy who is an GRAVITY PROSPECTING OBSERVER HELPER with the infectious disease team at [facility] who has been seeing this patient regular her desk phone numbers [phone], her cell phone is [phone]. She confirmed the history and related that she had patient been discharged home to have the above medication regiment for something in the range of 8 to 12 weeks before they would consider another attempt at closing the calvarium. The caregiver Tabatha states that she still works and is gone 16 hours a day is unable to provide the antibiotics and for the last 3 days since getting out of the hospital the patient has not had any of the antibiotic regimen. Infectious disease is recommending that she be admitted for placement and long-term antibiotic therapy. They will be available to answer questions and assist in the care of this patient if needed. Medical Records I reviewed the patient's medical records. Lab Data I reviewed the patient's lab results. 05/13/23 04:40 05/13/23 04:40 Laboratory Results WBC 6.42 10^3/uL (3.29-11.43) 05/12/23 10:45 RBC 2.85 10^6/uL (3.85-5.65) L 05/12/23 10:45 Hgb 9.20 g/dL (11.27-16.99) L 05/12/23 10:45 Hct 29.4 % (36-47) L 05/12/23 10:45 MCV 103.2 fl (85-98) H 05/12/23 10:45 MCH 32.3 pg (27-33) 05/12/23 10:45 MCHC 31.3 g/dL (30-55) 05/12/23 10:45 RDW 17.4 % (12.1-15.1) H 05/12/23 10:45 Plt Count 282 10^3/cmm (157-399) 05/12/23 10:45 MPV 9.4 fL (7.4-10.4) 05/12/23 10:45 Neut % (Auto) 77.7 % 05/12/23 10:45 Lymph % (Auto) 8.6 % 05/12/23 10:45 [place] % (Auto) 12.9 % 05/12/23 10:45 Eos % (Auto) 0.0 % 05/12/23 10:45 Baso % (Auto) 0.2 % 05/12/23 10:45 Neut # (Auto) 4.99 10^3/uL (1.8-7.7) 05/12/23 10:45 Lymph # (Auto) 0.6 10^3/uL (0.8-4.8) L 05/12/23 10:45 [place] # (Auto) 0.8 10^3/uL (0.2-0.9) 05/12/23 10:45 Eos # (Auto) 0.0 10^3/uL (0.0-0.8) 05/12/23 10:45 Baso # (Auto) 0.0 10^3/uL (0.0-0.1) 05/12/23 10:45 Nucleated RBC % (auto) 0 % 05/12/23 10:45 Nucleated RBCs # 0.0 /100WBC 05/12/23 10:45 ESR 19 mm/hr (0-15) H 05/12/23 10:45 Sodium 142 mmol/L (136-145) 05/12/23 10:45 Potassium 3.5 mmol/L (3.5-5.1) 05/12/23 10:45 Chloride 102 mmol/L (98-107) 05/12/23 10:45 Carbon Dioxide 30 mmol/L (22-29) H 05/12/23 10:45 Anion Gap 13.5 (5-19) 05/12/23 10:45 BUN 23 mg/dL (8-23) 05/12/23 10:45 Creatinine 0.7 mg/dL (0.5-0.9) 05/12/23 10:45 GFR Calculation 85.1 mL/min (90-130) L 05/12/23 10:45 Glucose 106 mg/dL (65-115) 05/12/23 10:45 Calculated Osmolality 298 mOsm/kg (285-295) H 05/12/23 10:45 Lactic Acid 1.2 mmol/L (0.5-2.2) 05/12/23 10:45 Calcium 7.7 mg/dL (8.5-10.5) L 05/12/23 10:45 Total Bilirubin 0.3 mg/dL (0.15-1.2) 05/12/23 10:45 AST 40 U/L (0-32) H 05/12/23 10:45 ALT 43 U/L (0-33) H 05/12/23 10:45 Alkaline Phosphatase 102 U/L (35-105) 05/12/23 10:45 Creatine Kinase 555 U/L (26-192) H* 05/12/23 10:45 C-Reactive Protein 129.1 mg/L (0.0-4.9) H 05/12/23 10:45 Total Protein 4.7 g/dL (6.6-8.7) L 05/12/23 10:45 Albumin 2.4 g/dL (3.5-5.2) L 05/12/23 10:45 Globulin 2.3 g/dL (1.3-4.6) 05/12/23 10:45 Vitamin B12 719 pg/mL (232-1245) 05/12/23 10:45 Folate < 20.0 ng/mL (4.8-37.3) 05/12/23 10:45 Random Cortisol 5.48 ug/dL (2.47-19.5) 05/12/23 10:45 Urine Color Dark yellow (Yellow) 05/12/23 11:40 Urine Appearance Clear (CLEAR) 05/12/23 11:40 Urine pH 5 (5-7) 05/12/23 11:40 Ur Specific [place] 1.015 (1.005-1.030) 05/12/23 11:40 Urine Protein 1+ (Negative) H 05/12/23 11:40 Urine Glucose (UA) Norm (Normal) 05/12/23 11:40 Urine Ketones 1+ (Negative) H 05/12/23 11:40 Urine Blood 3+ (Negative) H 05/12/23 11:40 Urine Nitrate Positive (Negative) H 05/12/23 11:40 Urine Bilirubin 1+ (Negative) H 05/12/23 11:40 Urine Urobilinogen Norm mg/dL (Negative) 05/12/23 11:40 Ur Leukocyte Esterase Trace (Negative) H 05/12/23 11:40 Urine RBC 0-4 /hpf (0-2) H 05/12/23 11:40 Urine WBC Rare /hpf (0-5) 05/12/23 11:40 Ur Squamous Epith Cells None /hpf (0-5) 05/12/23 11:40 Ur Transition Epith Cell Rare /hpf 05/12/23 11:40 Amorphous Sediment Not Reportable 05/12/23 11:40 Urine Bacteria 1+ /hpf (NONE) H 05/12/23 11:40 Serum Ketones Negative (Negative) 05/12/23 10:45 Discharge Plan Discharge Patient Disposition: Admitted As Inpatient Admit Provider: Bruno Parikh Clinical Impression: Chronic osteomyelitis of skull, Secondary malignant neoplasm of bone, Malignant neoplasm of upper lobe, right bronchus or lung, COPD (chronic obstructive pulmonary disease) Condition: Stable Coding Level of Care Code ED Wage Hand for Nithya Lewis
[2023-05-12 12:04] LABS: Glucose Urine UA Norm (Normal); Protein Urine 1+ (Negative); Specific Gravity, Urine 1.015 (1.005-1.030); Urine Appearance Clear (CLEAR); Urine Color Dark Yellow (Yellow); pH Urine 5 (5-7)
[2023-05-12 12:05] LABS: Blood Urine 3+ (Negative); Ketones Urine 1+ (Negative)
[2023-05-12 12:06] LABS: Add Urine Culture? Yes; Add Urine Microscopic? YES; Bacteria Urine 1+ /hpf; Bilirubin Urine 1+ (Negative); Leukocyte Esterase Urine Trace (Negative); Nitrate Urine Positive (Negative); RBC Urine 0-4 /hpf (0-2); Transitional Epi Cells Urine RARE /hpf; Urobilinogen Urine Norm (Negative); WBC Urine RARE /hpf (0-5)
--- NOTE | 2023-05-12 13:18 | PC.PHAR ---
pt unable to verify all medications-called pts manufacturing machine operator sylvie [phone] states the pt takes care of her own medications until today-sylvie found a med list from [facility] and read what was on it-called [facility] they filled eliquis 5mg bid 05/09/23 ext doesnt show when filled but [facility] states the pt got the eliquis with the lasix and metronidazole-notes are made in the pharmacy comments
--- NOTE | 2023-05-12 13:45 | CT_ITS ---
WS: [id number] CT HEAD WITH AND WITHOUT CONTRAST HISTORY: Infection postcraniotomy TECHNIQUE: Noncontrast 2.5 mm axial images obtained from the vertex to the skull base. Additional eleno ging performed at 2.5 mm axial images status post IV contrast. Bone and soft tissue windows are revie wed. All CT scans at [facility] use at least one of these dose optimization techniques: autom ated exposure control; mA and/or kV adjustment per patient size (includes targeted exams where dose i s matched to clinical indication); or iterative reconstruction. CONTRAST: Omnipaque 350; 100 mL IV. DLP: 1937.34 mGy.cm COMPARISON: 11/22/2021 No acute intracranial hemorrhage, edema or midline shift. Patient is status post large area of cranie ctomy centered over the RIGHT frontal and parietal lobes. No identifiable mass or abnormal enhancemen t is noted by CT. There is mild enhancement along the dural surface of the craniectomy site. There is no fluid collecti on. The dural enhancement may be normal postsurgical findings. No mass effect or midline shift. Dural venous sinuses are normally enhancing. Visualized [place] is unremarkable. Paranasal sinuses as visualized: Clear. Mastoid air cells: Clear. Calvarium and scalp: Large RIGHT frontoparietal craniectomy site. The overlying mesh that was present on the prior study has been removed. Surgical changes since 11/22/2021. There is mild loss of the normal cortex involving the posterior frontal craniectomy site. This may be an area of osteomyelitis. Additional similar findings involving loss of the normal cortex involving the inferior residual RIGHT frontal bone. IMPRESSION: 1. No acute intracranial hemorrhage or edema. 2. Status post large craniectomy involving the RIGHT frontal parietal calvarium. There is mild enhanc ement of the overlying dura which can be a normal postoperative finding. There is no focal area of ab normal enhancement or fluid collection or hemorrhage. 3. Loss of the normal cortex involving the adjacent resection sites of the calvarium. Suspicious for osteomyelitis involving the residual frontal bone. This may be acute or treated osteomyelitis. Notified Jose Raul Glover DO at 05/12/2023 2:51 PM.
[2023-05-12] MEDS: iohexol 350 mg/mL 500 mL Btl (per mL) IV (14:33)
[2023-05-12] MEDS: sodium chloride 0.9% 1,000 ML 999 ML IV (15:34)
[2023-05-12 16:25] LABS: Erythrocyte Sedimentation Rate 19 mm/hr (0-15)
[2023-05-12 16:27] LABS: C Reactive Protein 129.1 mg/L (0.0-4.9)
[2023-05-12 17:18] LABS: Cortisol Random 5.48 ug/dL (2.47-19.5)
--- NOTE | 2023-05-12 19:06 | P.HP_ITS ---
Providers/Chief Complaint Admitting Physician: Bruno Parikh Chief Complaint: WEAKNESS History of Present Illness Georgette Calvillo is a 62 year old female Medications/Allergies Home Medications Medication Instructions Recorded Confirmed Last Taken Type prednisone 5 mg tablet 5 mg PO BID #180 tabs 03/10/23 05/12/23 Unknown Rx lorazepam 1 mg tablet 2 mg PO BID PRN nausea and 03/11/23 05/12/23 Unknown Rx vomiting #120 tabs montelukast 10 mg tablet 10 mg PO DAILY #90 tabs 03/12/23 05/12/23 Unknown Rx fluticasone fur. 100 mcg-umeclid 1 inh inhalation DAILY #60 ea 03/19/23 05/12/23 Unknown Rx 62.5 mcg-vilant 25 mcg inhalat.powder (Trelegy Ellipta) citalopram 20 mg tablet 20 mg PO DAILY #90 tabs 03/24/23 05/12/23 Unknown Rx hydrocodone 5 mg-acetaminophen 325 1 tab PO QID PRN pain 30 days #120 03/24/23 05/12/23 Unknown Rx mg tablet tabs acetaminophen 500 mg tablet 500 - 1,000 mg PO Q6H PRN Pain 05/12/23 05/12/23 Unk nown History albuterol sulfate 90 mcg/actuation 2 puff inhalation Q6H PRN Wheezing 05/12/23 05/12/23 Unknown History aerosol inhaler apixaban 5 mg tablet (Eliquis) 5 mg PO BID 05/12/23 05/12/23 Unknown History cefepime 2 gram solution for See Rx Instructions .Route .COMPLEX 05/12/2305/02 Unknown History injection cetirizine 10 mg tablet (Zyrtec) 10 mg PO QAM 05/12/23 05/12/23 Unknown History daptomycin 500 mg intravenous See Rx Instructions .Route .COMPLEX 05/12/2305/02 Unknown History solution furosemide 20 mg tablet 20 mg PO DAILY 05/12/23 05/12/23 Unknown History metronidazole 500 mg tablet 500 mg PO TID 05/12/23 05/12/23 Unknown History micafungin 100 mg intravenous See Rx Instructions .Route .COMPLEX 05/12/23 05/12/23 Unknown History solution Allergies Allergy/AdvReac Type Severity Reaction Status Date / Time dronabinol [From Marinol] Allergy ALGY-Difficulty Verified 03/10/23 14:29 Breathing paroxetine [From Paxil] Allergy ADR-Vomitin Verified 05/12/23 10:45 g Penicillins Allergy ALGY-Anaphy Verified 03/10/23 14:29 laxis PFSH Acute PFSH: Medical History Anxiety and depression COPD (chronic obstructive pulmonary disease) Hyperlipidemia Non-small cell lung cancer Surgical History History of hysterectomy with bilateral oophorectomy History of left knee surgery x 2 History of right knee surgery History of surgery of head (12/15/21) right scalp excision with removal of the mass and with reconstruction with left anterolateral thigh free flap, split thickness skin graft, neck dissection, and posterior scalp advancement flaps Family History Denies family history of CAD (coronary artery disease) Social History Smoking and tobacco status: current every day smoker (0.5 ppd. Smoked x 30 years) Vitals/I&O/Wt Last Vital Signs Temp 97.8 F 05/12/23 10:36 Pulse 84 05/12/23 18:15 Resp 27 H 05/12/23 18:15 BP 86/45 05/12/23 18:15 Pulse Ox 96 05/12/23 18:15 O2 Del Method Nasal Cannula 05/12/23 13:00 O2 Flow Rate 3 05/12/23 13:00 05/12/23 05/12/23 05/12/23 06:59 14:59 22:59 Intake Total 1000 / 1000 Balance 1000 / 1000 Weight last 48 hrs Weight 39.463 kg Physical Exam Narrative: Wakes up to voice. Generally weak. Const: GENERAL APPEARANCE: cooperative, lethargic and frail appearing ORIENTATION/CONSCIOUSNESS: Yes awake HENMT: COMMON NORMALS: oropharynx normal OTHER: Prior craniotomy, craniectomy, absent superior-inferior portion of the cranium Neck/C-Spine: COMMON NORMALS: no JVD Resp: COMMON NORMALS: normal respiratory effort and clear to auscultation bilaterally AUSCULTATION: clear to auscultation bilaterally Cardio: COMMON NORMALS: no JVD, regular rhythm, S1 normal heart sound present, S2 normal heart sound present and No murmurs present (Cardio) RHYTHM: regular rhythm HEART SOUNDS: S1 normal heart sound present and S2 normal heart sound present GI: COMMON NORMALS: Normal to inspection, nondistended, normoactive bowel sounds present, Soft to palpation and non-tender PALPATION: Yes Soft to palpation Extremity: COMMON NORMALS: no joint enlargement GENERAL: Yes edema (3+ BL foot edema) Neuro: COMMON NORMALS: moves all extremities Skin: GENERAL SKIN EXAM: ecchymosis OTHER: Thin, fragile skin, bruises, mild erythema right forearm. Some erythematous patches on the upper chest/over clavicles. Ulceration of left lower neck with eschar at base. Data 05/12/23 10:45 05/12/23 10:45 Micro: Microbiology 05/12/23 11:15 Blood Culture - Preliminary Blood SPECIMEN COLLECTED 05/12/23 11:25 Blood Culture - Preliminary Blood SPECIMEN COLLECTED A&P Assessment and plan (1) AMS (altered mental status): Acute encephalopathy, suspect secondary to hypotension, labs and treatment of intracranial infection, possibly mild UTI. Treat underlying conditions. Reorient. Monitor mental status. (2) Shock: Noted in shock, MAP down as low as 59, seems combination some hypovolemic component as well as adrenal insufficiency. Requested random cortisol, result reviewed, 5.48. Chronically on prednisone prior to that. We will give hydrocortisone for now. Did receive volume challenge in ER. For now admission to ICU. Monitor blood pressure. Otherwise afebrile, no leukocytosis. Respiratory rate 25. Lower chance of septic shock. Blood culture was collected. Lactic acid reviewed. She otherwise denies chest pain or pressure. EKG reviewed by myself, on interpretation no sign of acute AL. Discussed with ER physician. ER documentation reviewed. Maintain MAP over 65. Add pressors if needed. (3) Chronic osteomyelitis of skull: Osteomyelitis and suspected possible component of intracranial soft tissue infection, although no abscess noted on review of repeat CT. His findings were discussed with ID at [facility]. Resume antibiotic as planned previously. He is noted to have CK 555. Follow-up CK. Will dose daptomycin as per weight. Risk of rhabdomyolysis with daptomycin. Case management consultation as it seems she has not received her antibiotics at home since discharge from the hospital. Will need consideration of post discharge planning options to be able to continue to biotics. PICC line in place. As reported by ER physician for discussion with ID plan would be to treat osteomyelitis subsequently with consideration of replacement of cranial plate. (4) Abnormal urinalysis: Noted abnormal UA, nitrate positive, possible UTI. Possibly contributing to encephalopathy. Trace leukocyte esterase. 1+ bacteria. Cefepime as above. Follow-up urine culture. (5) Rhabdomyolysis: Received fluid challenge in ER. Hold diuretic. Follow-up CK. Her weight is quite low. Discussed with pharmacy. We will dose as per her actual weight with concern for overdose with ideal body weight. Plan Anemia: Hemoglobin noted 9.2. Hold Eliquis for now. Check Hemoccult. Noted macrocytic. Check folic acid, B12. For now only heparin low-dose for VT prophylaxis. SCD. Recheck blood counts. Pantoprazole stress ulcer prophylaxis. History of NSCLC. Continue follow-up with oncology. COPD: Not in exacerbation HLD Anxiety and depression Goals of care: States that her son has power of assistant district attorney for her, his name is Kriss El of [facility]. She would not want attempted cardiopulmonary resuscitation in case of cardiopulmonary arrest. Attestations Medical Necessity Statement*: Admission of over 2 midnights anticipated for assessment management of acute enc ephalopathy, intracranial infection with osteomyelitis, possible UTI. Critical Care Time: 20 min Diagnoses AMS (altered mental status) R41.82 Shock R57.9 Chronic osteomyelitis of skull M86.68 Abnormal urinalysis R82.90 Rhabdomyolysis M62.82
[2023-05-12] MEDS: pantoprazole 40 mg SDV IVP (20:58)
[2023-05-12] MEDS: hydrocortisone 100 mg/2 mL SDV IVP (20:58)
[2023-05-12] MEDS: heparin 5,000 unit/mL INJ 1 mL 5000 UNIT SUBCUT (20:58)
[2023-05-12] MEDS: sodium chloride 0.9% 1,000 ML 100 ML IV (21:17)
[2023-05-12] MEDS: metroNIDAZOLE IV 500 MG/100 ML PREMIX 100 MG IV (21:18)
[2023-05-12] MEDS: cefepime 1,000 MG in sodium chloride 0.9% (plus) 50 ML 100 MG IV (21:18)
[2023-05-12] MEDS: micafungin 100 MG in sodium chloride 0.9% (plus) 100 ML IV (22:47)
[2023-05-12] MEDS: sodium chloride 0.9% 250 ML IV (23:12)
[2023-05-13] VITALS (161 sets, daily range): BP systolic 71–148; BP diastolic 50–85; PULSE 70–117; RESP 10–41; TEMP 36.4; O2SAT 88–100
[2023-05-13 00:22] LABS: Vitamin B12 719 pg/mL (232-1245)
[2023-05-13 00:25] LABS: Folate Level < 20.0 ng/mL (4.8-37.3)
[2023-05-13] MEDS: hydrocortisone 100 mg/2 mL SDV IVP ×3 (01:45→16:24)
[2023-05-13] MEDS: metroNIDAZOLE IV 500 MG/100 ML PREMIX 100 MG IV ×3 (03:03→19:41)
[2023-05-13 05:15] LABS: Hematocrit 27.4 % (36-47); Lymphocytes # 0.2 10^3/uL (0.8-4.8); Lymphocytes % 3.5 %; Mean Corpuscular HGB Conc 30.7 g/dL (30-55); Mean Corpuscular Hemoglobin 32.4 pg (27-33); Mean Corpuscular Volume 105.8 fl (85-98); Mean Platelet Volume 9.4 fL (7.4-10.4); Monocytes # 0.2 10^3/uL (0.2-0.9); Monocytes % 3.9 %; Neutrophils # 4.19 10^3/uL (1.8-7.7); Neutrophils % 91.9 %; Nucleated Red Blood Cells % 0 %; Platelet Count 248 10^3/cmm (157-399); Red Blood Count 2.59 10^6/uL (3.85-5.65); Red Cell Distribution Width 17.8 % (12.1-15.1); White Blood Count 4.56 10^3/uL (3.29-11.43)
[2023-05-13 05:42] LABS: Alanine Aminotransferase 36 U/L (0-33); Albumin Level 2.1 g/dL (3.5-5.2); Alkaline Phosphatase 95 U/L (35-105); Anion Gap 10.6 (5-19); Aspartate Amino Transferase 37 U/L (0-32); Blood Urea Nitrogen 18 mg/dL (8-23); Calcium 7.3 mg/dL (8.5-10.5); Carbon Dioxide 28 mmol/L (22-29); Chloride 107 mmol/L (98-107); Globulin 2.3 g/dL (1.3-4.6); Glomerular Filtration Rate 101.6 mL/min (90-130); Glucose 116 mg/dL (65-115); Osmolality Calculated 297 mOsm/kg (285-295); Potassium 3.6 mmol/L (3.5-5.1); Sodium 142 mmol/L (136-145); Total Bilirubin 0.3 mg/dL (0.15-1.2); Total Protein 4.4 g/dL (6.6-8.7)
[2023-05-13 06:06] LABS: Creatine Phosphokinase 464 U/L (26-192)
[2023-05-13] MEDS: cefepime 1,000 MG in sodium chloride 0.9% (plus) 50 ML 100 MG IV ×2 (06:35→19:41)
[2023-05-13] MEDS: heparin 5,000 unit/mL INJ 1 mL 5000 UNIT SUBCUT (08:20)
[2023-05-13] MEDS: montelukast sodium 10 mg Tablet PO (08:20)
[2023-05-13] MEDS: sodium chloride 0.9% 1,000 ML 100 ML IV ×2 (08:23→18:09)
[2023-05-13] MEDS: acetaminophen 325 mg Tablet 650 MG PO (11:45)
--- NOTE | 2023-05-13 16:34 | P.PN_ITS ---
Subjective Subjective: She is more alert today, however, states overall does not feel well. Cannot point to a specific symptom. Just general malaise. Denies headache. Vitals/I&O/Wt Last Vital Signs Temp 97.6 F 05/13/23 08:45 Pulse 87 05/13/23 16:25 Resp 18 05/13/23 16:25 BP 106/75 05/13/23 14:30 Pulse Ox 99 05/13/23 16:25 O2 Del Method Nasal Cannula 05/13/23 08:45 O2 Flow Rate 2 05/13/23 08:45 05/13/23 05/13/23 05/13/23 06:59 14:59 22:59 Intake Total 630 / 1870 1150 / 1150 Balance 630 / 1870 1150 / 1150 Weight last 48 hrs Weight 39.463 kg Physical Exam Narrative: Awake. Generally weak. Const: GENERAL APPEARANCE: cooperative, lethargic and frail appearing ORIENTATION/CONSCIOUSNESS: Yes awake and Yes lethargic HENMT: COMMON NORMALS: oropharynx normal OTHER: Prior craniotomy, craniectomy, absent superior-inferior portion of the cranium. Neck/C-Spine: COMMON NORMALS: no JVD Resp: COMMON NORMALS: normal respiratory effort and clear to auscultation bilaterally AUSCULTATION: clear to auscultation bilaterally Cardio: COMMON NORMALS: no JVD, regular rhythm, S1 normal heart sound present, S2 normal heart sound present and No murmurs present (Cardio) RHYTHM: regular rhythm HEART SOUNDS: S1 normal heart sound present and S2 normal heart sound present GI: COMMON NORMALS: Normal to inspection, nondistended, normoactive bowel sounds present, Soft to palpation and non-tender PALPATION: Yes Soft to palpation Extremity: COMMON NORMALS: no joint enlargement GENERAL: Yes edema (3+ BL foot edema) Neuro: COMMON NORMALS: moves all extremities SENSORIUM/ORIENTATION: Yes lethargic Skin: GENERAL SKIN EXAM: ecchymosis OTHER: Thin, fragile skin, bruises, mild erythema right forearm. Some erythematous patches on the upper chest/over clavicles. Ulceration of left lower neck with eschar at base. Data 05/13/23 04:40 05/13/23 04:40 Micro: Microbiology 05/12/23 11:15 Blood Culture - Preliminary Blood NEGATIVE TO DATE 05/12/23 11:25 Blood Culture - Preliminary Blood NEGATIVE TO DATE 05/12/23 11:40 Urine Culture - Preliminary Urine,Clean Catch A&P Assessment and plan (1) AMS (altered mental status): Improving. More alert. Afebrile. Continue antibiotics. Reassess mental status. Continue to reorient. Hypotension with improvement. Discussed with her concern for adrenal insufficiency. Hydrocortisone. With some improvement in blood pressure we will try to taper off steroid. Acute encephalopathy, suspect secondary to hypotension, labs and treatment of intracranial infection, possibly mild UTI. Treat underlying conditions. Reorient. Monitor mental status. (2) Shock: Shock resolved. Blood pressure is soft but with improvement. Taper off hydrocortisone as discussed. We will come down to 50 mg every 6 hours for now. Continue IV normal saline for now. Monitor volume status. Monitor blood pressures. Continue care on medical surgical floor with telemetry. CBC reviewed, no leukocytosis. Some lymphopenia 0.2. Urine culture reviewed, noted no growth. Blood culture reviewed, so far negative today. Denies chest pain or pressure. EKG reviewed by myself, on interpretation no sign of acute HI. Maintain MAP over 65. (3) Chronic osteomyelitis of skull: Resumed on cefepime, daptomycin, Flagyl, micafungin. Transaminitis reported after prior antifungal, n on review of liver parameters noted improving. Reviewed CK as well, improving. Requested repeat chemistries, CK. At risk of rhabdomyolysis with daptomycin. Monitor CK. Osteomyelitis and suspected possible component of intracranial soft tissue infection, although no abscess noted on review of repeat CT. His findings were discussed with ID at [facility]. Resume antibiotic as planned previously. Discussed with case management. Will be working on post finding as well. Discussed with her. Has not received her antibiotics at home since discharge from the hospital. Will need consideration of post discharge planning options to be able to continue to biotics. PICC line in place. As reported by ER physician for discussion with ID plan would be to treat osteomyelitis subsequently with consideration of replacement of cranial plate. (4) Abnormal urinalysis: Culture reviewed. Cefepime as above. Follow-up urine culture. (5) Rhabdomyolysis: CT reviewed. Follow-up requested. On some IV fluid rehydration. Diuretic held for now. Monitor volume status. Received fluid challenge in ER. Hold diuretic. Follow-up CK. Her weight is quite low. Discussed with pharmacy. We will dose as per her actual weight with concern for overdose with ideal body weight. Plan Anemia: Reviewed CBC, some worsening of blood count, hemoglobin down to 8.4. Platelets reviewed. WBC reviewed. Possibly some delusional component with gentle rehydration. Occult blood stool was requested, reviewed, uncollected. No rapid drop in hemoglobin. We will cautiously resume Eliquis for now. Check Hemoccult. Noted macrocytic. Check folic acid, B12. For now only heparin low-dose for VT prophylaxis. SCD. Recheck blood counts. Pantoprazole stress ulcer prophylaxis. History of NSCLC. Continue follow-up with oncology. COPD: Not in exacerbation HLD Anxiety and depression Goals of care: States that her son has power of tax attorney for her, his name is Kriss El of [employer] [place]. She would not want attempted cardiopulmonary resuscitation in case of cardiopulmonary arrest. Attestations Medical Necessity Statement*: Continue admission for assessment and management of adrenal insufficiency, possible UTI, acute encephalopathy, cranial osteomyelitis, antimicrobial treatment, at risk of complications. Post discharge planning and arrangements. Diagnoses AMS (altered mental status) R41.82 Shock R57.9 Chronic osteomyelitis of skull M86.68 Abnormal urinalysis R82.90 Rhabdomyolysis M62.82
[2023-05-13] MEDS: apixaban 5 mg Tablet PO (18:08)
[2023-05-13] MEDS: pantoprazole 40 mg SDV IVP (19:41)
[2023-05-13] MEDS: micafungin 100 MG in sodium chloride 0.9% (plus) 100 ML IV (22:03)
[2023-05-13] MEDS: hydrocortisone 100 mg/2 mL SDV 50 MG IVP (22:59)
[2023-05-14] VITALS (7 sets, daily range): BP systolic 102–121; BP diastolic 62–78; PULSE 80–104; RESP 12–20; TEMP 36.4–36.8; O2SAT 93–99
--- NOTE | 2023-05-14 01:00 | PC.NURSE ---
Patient transferred to floor via bed from ICU. Patient oriented to room, call light, and lights. Denies any needs at this time.
[2023-05-14] MEDS: metroNIDAZOLE IV 500 MG/100 ML PREMIX 100 MG IV ×3 (03:45→23:30)
[2023-05-14] MEDS: hydrocortisone 100 mg/2 mL SDV 50 MG IVP (05:04)
[2023-05-14 05:36] LABS: Hematocrit 28.2 % (36-47); Lymphocytes # 0.3 10^3/uL (0.8-4.8); Lymphocytes % 4.9 %; Mean Corpuscular HGB Conc 30.5 g/dL (30-55); Mean Corpuscular Hemoglobin 32.2 pg (27-33); Mean Corpuscular Volume 105.6 fl (85-98); Mean Platelet Volume 9.8 fL (7.4-10.4); Monocytes # 0.4 10^3/uL (0.2-0.9); Monocytes % 6.9 %; Neutrophils # 5.25 10^3/uL (1.8-7.7); Neutrophils % 87.9 %; Nucleated Red Blood Cells % 0 %; Platelet Count 294 10^3/cmm (157-399); Red Blood Count 2.67 10^6/uL (3.85-5.65); White Blood Count 5.97 10^3/uL (3.29-11.43)
[2023-05-14 05:54] LABS: Alanine Aminotransferase 32 U/L (0-33); Albumin Level 2.3 g/dL (3.5-5.2); Alkaline Phosphatase 91 U/L (35-105); Aspartate Amino Transferase 41 U/L (0-32); Blood Urea Nitrogen 20 mg/dL (8-23); Calcium 7.4 mg/dL (8.5-10.5); Carbon Dioxide 26 mmol/L (22-29); Chloride 110 mmol/L (98-107); Globulin 2.3 g/dL (1.3-4.6); Glomerular Filtration Rate 125.4 mL/min (90-130); Glucose 115 mg/dL (65-115); Osmolality Calculated 302 mOsm/kg (285-295); Sodium 144 mmol/L (136-145); Total Bilirubin 0.3 mg/dL (0.15-1.2); Total Protein 4.6 g/dL (6.6-8.7)
[2023-05-14 05:55] LABS: Anion Gap 11.8 (5-19); Potassium 3.8 mmol/L (3.5-5.1)
[2023-05-14 05:58] LABS: Creatine Phosphokinase 635 U/L (26-192)
--- NOTE | 2023-05-14 09:12 | PC.NURSE ---
This nurse changed the dressings on patients left arm and right upper leg with vaseline gauze and kerlix. Pt tolerated well.
--- NOTE | 2023-05-14 11:15 | PM.PN ---
Subjective Subjective: He reports subjectively she is feeling slightly better. No headache. No nausea or vomiting. No chest or abdominal discomfort. No urinary or other new symptoms. Vitals/I&O/Wt Last Vital Signs Temp 97.7 F 05/14/23 07:36 Pulse 104 H 05/14/23 07:36 Resp 20 H 05/14/23 07:36 BP 121/78 05/14/23 07:36 Pulse Ox 94 05/14/23 07:36 O2 Del Method Nasal Cannula 05/14/23 07:36 O2 Flow Rate 3 05/14/23 01:02 05/13/23 05/14/23 05/14/23 22:59 06:59 14:59 Intake Total 1416.667 / 2566.667 1300 / 3866.667 240 / 240 Balance 1416.667 / 2566.667 1300 / 3866.667 240 / 240 Physical Exam Narrative: Generally weak. Const: GENERAL APPEARANCE: cooperative, lethargic and frail appearing ORIENTATION/CONSCIOUSNESS: Yes awake and Yes lethargic HENMT: COMMON NORMALS: oropharynx normal OTHER: Prior craniotomy, craniectomy, absent superior-inferior portion of the cranium. Neck/C-Spine: COMMON NORMALS: no JVD Resp: COMMON NORMALS: normal respiratory effort and clear to auscultation bilaterally AUSCULTATION: clear to auscultation bilaterally Cardio: COMMON NORMALS: no JVD, regular rhythm, S1 normal heart sound present, S2 normal heart sound present and No murmurs present (Cardio) RHYTHM: regular rhythm HEART SOUNDS: S1 normal heart sound present and S2 normal heart sound present GI: COMMON NORMALS: Normal to inspection, nondistended, normoactive bowel sounds present, Soft to palpation and non-tender PALPATION: Yes Soft to palpation Extremity: COMMON NORMALS: no joint enlargement GENERAL: Yes edema (3+ BL foot edema) Neuro: COMMON NORMALS: moves all extremities SENSORIUM/ORIENTATION: Yes lethargic Skin: GENERAL SKIN EXAM: ecchymosis OTHER: Thin, fragile skin, bruises, mild erythema right forearm. Some erythematous patches on the upper chest/over clavicles. Ulceration of left lower neck with eschar at base. Data 05/14/23 05:05 05/14/23 05:05 Micro: Microbiology 05/12/23 11:40 Urine Culture - Final Urine,Clean Catch 05/12/23 11:15 Blood Culture - Preliminary Blood NEGATIVE TO DATE 05/12/23 11:25 Blood Culture - Preliminary Blood NEGATIVE TO DATE A&P Assessment and plan (1) AMS (altered mental status): Improving. Afebrile. Continue antibiotics. Reassess mental status. Continue to reorient. Hypotension with improvement. Discussed with her concern for adrenal insufficiency. Hydrocortisone. With improvement in blood pressure taper down further on hydrocortisone. Reviewed results of urine culture, no growth on day 2. Acute encephalopathy, suspect secondary to hypotension, labs and treatment of intracranial infection, possibly mild UTI. Treat underlying conditions. Reorient. Monitor mental status. (2) Chronic osteomyelitis of skull: She is subjectively feeling better. Denies any muscle ache. Noted CK elevation 635 today. Reaching out to infectious disease team at [place] to discuss daptomycin. Left message. Continues with cefepime, daptomycin, Flagyl, micafungin. Transaminitis reported after prior antifungal, n on review of liver parameters noted improving. Requested repeat chemistries, CK. At risk of rhabdomyolysis with daptomycin. Monitor CK. Discussed with case management. Continue arrangements for her to be able to receive all antimicrobials after discharge as well. Reaching out to select. Osteomyelitis and suspected possible component of intracranial soft tissue infection, although no abscess noted on review of repeat CT. His findings were discussed with ID at [facility]. Has not received her antibiotics at home since discharge from the hospital. Will need consideration of post discharge planning options to be able to continue to biotics. PICC line in place. As reported by ER physician for discussion with ID plan would be to treat osteomyelitis subsequently with consideration of replacement of cranial plate. (3) Shock: Soft blood pressure continue to improve. We will cut down hydrocortisone further, decrease to 25 mg every 8 hours. Shock resolved. Blood pressure is soft but with improvement. Taper off hydrocortisone as discussed. We will come down to 50 mg every 6 hours for now. Continue IV normal saline for now. Monitor volume status. Monitor blood pressures. Continue care on medical surgical floor with telemetry. CBC reviewed, no leukocytosis. Some lymphopenia 0.2. Urine culture reviewed, noted no growth. Blood culture reviewed, so far negative today. Denies chest pain or pressure. EKG reviewed by myself, on interpretation no sign of acute AL. Maintain MAP over 65. (4) Abnormal urinalysis: Culture reviewed. Cefepime as above. Follow-up urine culture. (5) Rhabdomyolysis: CT reviewed. Follow-up requested. On some IV fluid rehydration. Diuretic held for now. Monitor volume status. Received fluid challenge in ER. Hold diuretic. Follow-up CK. Plan Anemia: Reviewed CBC, so far blood counts remaining steady. Follow-up CBC. Has been resumed on Eliquis. Monitor blood counts with anemia. Reviewed CBC, some worsening of blood count, hemoglobin down to 8.4. Platelets reviewed. WBC reviewed. Possibly some delusional component with gentle rehydration. Occult blood stool was requested, reviewed, uncollected. No rapid drop in hemoglobin. We will cautiously resume Eliquis for now. Check Hemoccult. Noted macrocytic. Check folic acid, B12. For now only heparin low-dose for VT prophylaxis. SCD. Recheck blood counts. Pantoprazole stress ulcer prophylaxis. History of NSCLC. Continue follow-up with oncology. COPD: Not in exacerbation HLD Anxiety and depression Goals of care: Stated that her son has power of family law attorney for her, his name is Kriss El of [employer] [place]. She would not want attempted cardiopulmonary resuscitation in case of cardiopulmonary arrest. Attestations Medical Necessity Statement*: Continue admission for assessment management of AMS, tapering down steroids with adrenal insufficiency, treatment of soft tissue/osteomyelitis of the skull. Diagnoses AMS (altered mental status) R41.82 Chronic osteomyelitis of skull M86.68 Shock R57.9 Abnormal urinalysis R82.90 Rhabdomyolysis M62.82
--- NOTE | 2023-05-14 12:50 | USCV_ITS ---
Georgette Calvillo Age: 62 Gender: F : 1960 Exam Date: 05/14/2023 15:45 Ordering Phys: Bruno Parikh MD Technologist: [place] [facility] [place]: pt with picc line, swelling PROCEDURES: Venous duplex imaging was performed in only the left upper extremity. The following venous structures were evaluated: internal jugular vein, subclavian vein, axillary vein, and brachial veins. FINDINGS: The veins of the left upper extremity are readily compressible with normal venous flow dynamics including spontaneous flow, respiratory phasic variation and augmentation. PICC line noted. CONCLUSIONS No left upper extremity DVT. Dr. Yodit Marino DO (Electronically Signed) Final Date: 14 May 2023 16:17 S
[2023-05-14] MEDS: alteplase 1 mg/mL SDV 2 mL 2 MG INTRACATH (15:00)
[2023-05-14] MEDS: sodium chloride 0.9% 1,000 ML 100 ML IV (16:03)
[2023-05-14] MEDS: hydrocortisone 100 mg/2 mL SDV 25 MG IVP ×2 (16:07→23:27)
[2023-05-14] MEDS: cefepime 1,000 MG in sodium chloride 0.9% (plus) 50 ML 100 MG IV (18:02)
[2023-05-14] MEDS: pantoprazole 40 mg SDV IVP (20:50)
[2023-05-14] MEDS: micafungin 100 MG in sodium chloride 0.9% (plus) 100 ML IV (20:50)
[2023-05-15] VITALS (12 sets, daily range): BP systolic 103–137; BP diastolic 62–81; PULSE 70–104; RESP 15–22; TEMP 36.4–37.2; O2SAT 93–99
--- NOTE | 2023-05-15 00:06 | PC.NURSE ---
Transfer from ICU on 05/14 at 0100. This nurse assisted with moving the patient from an ICU bed to the floor bed, multiple bruising noted to BUE with a small skin tear to the right lateral elbow. DTI to medical sacral area and DOROTHY Ortiz pointed out a pressure area to the right heel (not visualized by this nurse), edema to bilat arms and bilat legs. Pt answering questions appropriately at this time. Oriented to the room and placed call light within reach. ALONSO currently running.
[2023-05-15] MEDS: sodium chloride 0.9% 1,000 ML 100 ML IV (02:28)
[2023-05-15 05:29] LABS: Hematocrit 26.1 % (36-47); Lymphocytes # 0.4 10^3/uL (0.8-4.8); Lymphocytes % 7.3 %; Mean Corpuscular HGB Conc 30.3 g/dL (30-55); Mean Corpuscular Hemoglobin 32.6 pg (27-33); Mean Corpuscular Volume 107.9 fl (85-98); Mean Platelet Volume 9.7 fL (7.4-10.4); Monocytes # 0.5 10^3/uL (0.2-0.9); Monocytes % 9.3 %; Neutrophils # 4.64 10^3/uL (1.8-7.7); Nucleated Red Blood Cells % 0 %; Platelet Count 289 10^3/cmm (157-399); Red Blood Count 2.42 10^6/uL (3.85-5.65); Red Cell Distribution Width 18.4 % (12.1-15.1); White Blood Count 5.59 10^3/uL (3.29-11.43)
[2023-05-15 05:50] LABS: Alanine Aminotransferase 23 U/L (0-33); Albumin Level 2.1 g/dL (3.5-5.2); Alkaline Phosphatase 72 U/L (35-105); Anion Gap 10.3 (5-19); Aspartate Amino Transferase 26 U/L (0-32); Blood Urea Nitrogen 19 mg/dL (8-23); Calcium 7.5 mg/dL (8.5-10.5); Carbon Dioxide 26 mmol/L (22-29); Chloride 114 mmol/L (98-107); Globulin 1.9 g/dL (1.3-4.6); Glomerular Filtration Rate 162.3 mL/min (90-130); Glucose 114 mg/dL (65-115); Osmolality Calculated 307 mOsm/kg (285-295); Potassium 3.3 mmol/L (3.5-5.1); Sodium 147 mmol/L (136-145); Total Bilirubin 0.2 mg/dL (0.15-1.2)
[2023-05-15 05:54] LABS: Creatine Phosphokinase 322 U/L (26-192)
[2023-05-15] MEDS: hydrocortisone 100 mg/2 mL SDV 25 MG IVP ×2 (07:44→18:45)
[2023-05-15] MEDS: cefepime 1,000 MG in sodium chloride 0.9% (plus) 50 ML 100 MG IV ×2 (07:45→18:45)
[2023-05-15] MEDS: metroNIDAZOLE IV 500 MG/100 ML PREMIX 100 MG IV ×3 (08:48→23:45)
--- NOTE | 2023-05-15 11:36 | XR_ITS ---
WS: [id number] Exam: XR chest 1V portable [id number] Date/Time of Exam: 05/15/2023 11:36 AM Reason For Exam: hypoxia Comparison 05/12/2023. Marked pulmonary hyperinflation. Bibasal pleural effusion noted. Effusion on the RIGHT shows slight i ncrease since the last study. Heart size is normal. The mediastinum is normal in contour. A left-side d PICC line ends in the lower one third of the SVC. IMPRESSION: 1. Bibasal pleural effusions with some increase on the RIGHT. 2. Marked pulmonary hyperinflation. No other changes since the last exam.
--- NOTE | 2023-05-15 12:15 | PM.PN ---
Vitals/I&O/Wt Last Vital Signs Temp 98.0 F 05/15/23 11:46 Pulse 94 05/15/23 11:46 Resp 17 05/15/23 11:46 BP 127/79 05/15/23 11:46 Pulse Ox 97 05/15/23 11:46 O2 Del Method Nasal Cannula 05/15/23 07:59 O2 Flow Rate 2.5 05/15/23 08:00 05/14/23 05/15/23 05/15/23 22:59 06:59 14:59 Intake Total 250 / 490 1100 / 1590 150 / 150 Balance 250 / 490 1100 / 1590 150 / 150 Physical Exam Narrative: Generally weak. Const: GENERAL APPEARANCE: cooperative and frail appearing ORIENTATION/CONSCIOUSNESS: Yes awake OTHER: Somnolent, wakes up to voice. HENMT: COMMON NORMALS: oropharynx normal OTHER: Prior craniotomy, craniectomy, absent superior-inferior portion of the cranium. Neck/C-Spine: COMMON NORMALS: no JVD Resp: COMMON NORMALS: normal respiratory effort and clear to auscultation bilaterally AUSCULTATION: clear to auscultation bilaterally Cardio: COMMON NORMALS: no JVD, regular rhythm, S1 normal heart sound present, S2 normal heart sound present and No murmurs present (Cardio) RHYTHM: regular rhythm HEART SOUNDS: S1 normal heart sound present and S2 normal heart sound present GI: COMMON NORMALS: Normal to inspection, nondistended, normoactive bowel sounds present, Soft to palpation and non-tender PALPATION: Yes Soft to palpation Extremity: COMMON NORMALS: no joint enlargement GENERAL: Yes edema (3+ BL foot edema) Neuro: COMMON NORMALS: moves all extremities Skin: GENERAL SKIN EXAM: ecchymosis OTHER: Thin, fragile skin, bruises, mild erythema right forearm. Some erythematous patches on the upper chest/over clavicles. Ulceration of left lower neck with eschar at base. Data 05/15/23 05:00 05/15/23 05:00 Micro: Microbiology 05/12/23 11:40 Urine Culture - Final Urine,Clean Catch A&P Assessment and plan (1) AMS (altered mental status): Discussed with her son. Still lethargic, but today noted requiring more oxygen, noted also some aspiration. Suspect aspiration pneumonitis. Chest x-ray requested. Will make n.p.o. sips and chips only at this time. Speech therapy assessment. DC IV fluid in case developing fluid overload. Blood counts reviewed. Afebrile. Continue antibiotics. Reassess mental status. Continue to reorient. Hypotension with improvement. Discussed with her concern for adrenal insufficiency. Taper down hydrocortisone. At risk of steroid encephalopathy, myopathy. We will decrease to 25 mg twice daily. Monitor blood pressures. At risk of adrenal crisis. Reviewed results of urine culture -final culture no growth. Acute encephalopathy, suspect secondary to hypotension, labs and treatment of intracranial infection. Treat underlying conditions. Reorient. Monitor mental status. (2) Chronic osteomyelitis of skull: Reviewed renal function, electrolytes. Reviewed CK. CK decreasing. Per discussion with disease at [place] earlier today hold daptomycin for now. We will follow-up CK. With resolution of rhabdo consideration of trial of resumption of daptomycin, originally started for lactobacillus with history of MDRO. She is subjectively feeling better. Denies any muscle ache. Continues with cefepime, Flagyl, micafungin. Liver parameters reviewed, transaminitis resolving. Reported after prior antifungal, n on review of liver parameters noted improving. Discussed with case management in rounds. Consideration of selective or other option for continued antibiotic infusions. Continue arrangements for her to be able to receive all antimicrobials after discharge as well. Osteomyelitis and suspected possible component of intracranial soft tissue infection, although no abscess noted on review of repeat CT. His findings were discussed with ID at [facility]. Per discussion with infectious disease as appointment in clinic on 05/30 where they would like to reassess her condition, consider duration of antibiotic. Has not received her antibiotics at home since discharge from the hospital. Will need consideration of post discharge planning options to be able to continue to antibiotics. PICC line in place. As reported by ER physician for discussion with ID plan would be to treat osteomyelitis subsequently with consideration of replacement of cranial plate. (3) Shock: Intermittently soft blood pressure but overall blood pressures are better. Continue to taper down hydrocortisone, will decrease to 25 mg twice daily for now. Switch to prednisone if will be able to consistently tolerate oral intake. IV fluid has been on hold will DC. Shock resolved. Blood pressure is soft but with improvement. Taper off hydrocortisone as discussed. CBC reviewed, no leukocytosis. Urine culture reviewed, noted no growth on final culture. Blood culture reviewed, so far negative today. Denies chest pain or pressure. EKG reviewed by myself, on interpretation no sign of acute LA. Maintain MAP over 65. (4) Abnormal urinalysis: Culture reviewed. No growth. Possibly did not correct organism, but lower suspicion for UTI overall. (5) Rhabdomyolysis: CK reviewed today, noted decreasing. Follow-up requested. IV fluid was held. DC. Continue to hold diuretic for now. Monitor volume status. Plan Anemia: Reviewed CBC, hemoglobin down to 7.9, likely dilutional effect. Fluids have been held, will discontinue. Follow-up CBC. Has been resumed on Eliquis. Monitor blood counts with anemia. Occult blood stool was requested, reviewed, uncollected. No rapid drop in hemoglobin. Noted macrocytic. Reviewed B12, folic acid. Pantoprazole stress ulcer prophylaxis. History of NSCLC. Continue follow-up with oncology. COPD: Not in exacerbation HLD Anxiety and depression Goals of care: Stated that her son has power of civil rights attorney for her, his name is Kriss El of [employer]. She would want attempted cardiopulmonary resuscitation in case of cardiopulmonary arrest. Discussed with her son. Attestations Medical Necessity Statement*: Continue admission for assessment management of acute encephalopathy, cranial infection, postdischarge planning and arrangements. Diagnoses AMS (altered mental status) R41.82 Chronic osteomyelitis of skull M86.68 Shock R57.9 Abnormal urinalysis R82.90 Rhabdomyolysis M62.82
[2023-05-15] MEDS: ipratropium-albuterol 3 mL Neb INHALATION ×2 (13:54→20:05)
[2023-05-15] MEDS: apixaban 5 mg Tablet PO (18:45)
[2023-05-15] MEDS: pantoprazole 40 mg SDV IVP (20:05)
[2023-05-15] MEDS: micafungin 100 MG in sodium chloride 0.9% (plus) 100 ML IV (20:05)
[2023-05-16] VITALS (15 sets, daily range): BP systolic 112–134; BP diastolic 60–78; PULSE 78–96; RESP 13–19; TEMP 36.4–36.8; O2SAT 91–97
[2023-05-16] MEDS: ipratropium-albuterol 3 mL Neb INHALATION ×4 (02:27→19:22)
[2023-05-16] MEDS: acetaminophen 325 mg Tablet 650 MG PO (05:07)
[2023-05-16] MEDS: FUROsemide 10 mg/mL SDV 4mL 40 MG IVP (05:28)
[2023-05-16 05:38] LABS: Hematocrit 31.9 % (36-47); Lymphocytes # 0.6 10^3/uL (0.8-4.8); Lymphocytes % 9.1 %; Mean Corpuscular HGB Conc 30.1 g/dL (30-55); Mean Corpuscular Hemoglobin 32.1 pg (27-33); Mean Corpuscular Volume 106.7 fl (85-98); Mean Platelet Volume 9.4 fL (7.4-10.4); Monocytes # 0.9 10^3/uL (0.2-0.9); Neutrophils # 5.04 10^3/uL (1.8-7.7); Neutrophils % 76.4 %; Nucleated Red Blood Cells % 0 %; Platelet Count 339 10^3/cmm (157-399); Red Blood Count 2.99 10^6/uL (3.85-5.65); Red Cell Distribution Width 18.2 % (12.1-15.1); White Blood Count 6.59 10^3/uL (3.29-11.43)
[2023-05-16 06:01] LABS: Anion Gap 10.9 (5-19); Blood Urea Nitrogen 19 mg/dL (8-23); Calcium 8.1 mg/dL (8.5-10.5); Carbon Dioxide 27 mmol/L (22-29); Chloride 110 mmol/L (98-107); Glomerular Filtration Rate 162.3 mL/min (90-130); Glucose 103 mg/dL (65-115); Osmolality Calculated 301 mOsm/kg (285-295); Potassium 3.9 mmol/L (3.5-5.1); Sodium 144 mmol/L (136-145)
[2023-05-16 06:02] LABS: Magnesium 1.6 mg/dL (1.7-2.3); Phosphorus 2.4 mg/dL (2.5-4.5)
[2023-05-16 06:05] LABS: ABG PCO2 38.4 mmHg (35-45); ABG PH Result 7.46 (7.35-7.45); Alveolar-Arterial Oxygen Gradi 13.7 mmHg (5-10); Arterial Blood Gas Hematocrit 31.8 % (37-47); Base Excess ABG 3.2 mmol/L (-2.0-2.0); Blood Gas Sample Site Brachial, right; Blood Gas Sample Type Arterial; Carboxyhemoglobin 1.7 %THgb (0.4-20.1); HCO3 ABG 27.2 mmol/L (22-26); HGB O2 Sat 94.6 % (95-100); Ionized Calcium Level - ABG 1.2 mmol/L (1.1-1.4); Methemoglobin 0.6 % (0.4-1.5); Oxygen Device NC; Oxygen Saturation ABG 96.8; Potassium Level - ABG 3.1 mmol/L (3.5-5.0); Total Hemoglobin 10.4 g/dL (12-16)
[2023-05-16 06:05] LABS: Thyroid Stimulating Hormone 3.15 uIU/mL (0.27-4.20)
[2023-05-16] MEDS: cefepime 1,000 MG in sodium chloride 0.9% (plus) 50 ML 100 MG IV ×2 (08:02→19:27)
[2023-05-16] MEDS: metroNIDAZOLE IV 500 MG/100 ML PREMIX 100 MG IV ×3 (08:04→23:01)
[2023-05-16] MEDS: HYDROcodone-acetaminophen 5-325 mg Tablet 1 TAB PO ×3 (09:33→20:15)
[2023-05-16] MEDS: montelukast sodium 10 mg Tablet PO (09:33)
[2023-05-16] MEDS: apixaban 5 mg Tablet PO ×2 (09:34→17:43)
[2023-05-16] MEDS: hydrocortisone 100 mg/2 mL SDV 25 MG IVP (09:35)
[2023-05-16] MEDS: magnesium sulfate premix 2 GM/50 ML PIGGYBACK IV (09:36)
--- NOTE | 2023-05-16 13:53 | PM.PN ---
Subjective Subjective: She is more alert today. Reports she is somewhat aching all over. Requesting for something for pain. Discussed with her her son has been trying to get in touch with her, her phone is right beside her, she might try to call him. Denies allergy symptoms. Discussed with her concern regarding some dysphagia, speech therapy recommendation for dysphagia diet. Aspiration precautions Vitals/I&O/Wt Last Vital Signs Temp 97.6 F 05/16/23 12:21 Pulse 92 05/16/23 13:29 Resp 16 05/16/23 13:20 BP 125/78 05/16/23 12:21 Pulse Ox 97 05/16/23 13:20 O2 Del Method Nasal Cannula 05/16/23 13:20 O2 Flow Rate 2 05/16/23 13:20 05/15/23 05/16/23 05/16/23 22:59 06:59 14:59 Intake Total 250 / 1400 200 / 1600 200 / 200 Balance 250 / 1400 200 / 1600 200 / 200 Physical Exam Narrative: Generally weak. Const: COMMON NORMALS: alert GENERAL APPEARANCE: cooperative ORIENTATION/CONSCIOUSNESS: Yes awake HENMT: COMMON NORMALS: oropharynx normal OTHER: Prior craniotomy, craniectomy, absent superior-inferior portion of the cranium. Neck/C-Spine: COMMON NORMALS: no JVD Resp: COMMON NORMALS: normal respiratory effort and clear to auscultation bilaterally AUSCULTATION: clear to auscultation bilaterally Cardio: COMMON NORMALS: no JVD, regular rhythm, S1 normal heart sound present, S2 normal heart sound present and No murmurs present (Cardio) RHYTHM: regular rhythm HEART SOUNDS: S1 normal heart sound present and S2 normal heart sound present GI: COMMON NORMALS: Normal to inspection, nondistended, normoactive bowel sounds present, Soft to palpation and non-tender PALPATION: Yes Soft to palpation Extremity: COMMON NORMALS: no joint enlargement GENERAL: Yes edema (3+ BL foot edema) Neuro: COMMON NORMALS: moves all extremities SENSORIUM/ORIENTATION: Yes alert Skin: GENERAL SKIN EXAM: ecchymosis OTHER: Thin, fragile skin, bruises, mild erythema right forearm. Some erythematous patches on the upper chest/over clavicles. Ulceration of left lower neck with eschar at base. Data 05/16/23 04:59 05/16/23 04:59 A&P Assessment and plan (1) AMS (altered mental status): Today she is alert, having some diffuse body ache. We will recheck CK. Monitor mental status, reorient. Risk of encephalopathy with cefepime. Additionally restarted on home hydrocodone for diffuse body ache since Tylenol did not help, again monitor for mental status changes. At risk of encephalopathy. Reviewed magnesium, noted hypomagnesemia. Requested replacement. Recheck magnesium. Discussed with her son. Still lethargic, but today noted requiring more oxygen, noted also some aspiration. Suspect aspiration pneumonitis. Chest x-ray requested. Will make n.p.o. sips and chips only at this time. Speech therapy assessment. DC IV fluid in case developing fluid overload. Blood counts reviewed. Afebrile. Continue antibiotics. Reassess mental status. Continue to reorient. Hypotension with improvement. Discussed with her concern for adrenal insufficiency. Taper down hydrocortisone. At risk of steroid encephalopathy, myopathy. We will decrease to 25 mg twice daily. Monitor blood pressures. At risk of adrenal crisis. Reviewed results of urine culture -final culture no growth. Acute encephalopathy, suspect secondary to hypotension, labs and treatment of intracranial infection. Treat underlying conditions. Reorient. Monitor mental status. (2) Chronic osteomyelitis of skull: She will be needing at least 3 antimicrobials with cefepime, Flagyl, micafungin, and possibly fourth daptomycin in case we can resume this if rhabdomyolysis resolves, this is beyond the scope/ability to handle at a [facility] or at home. Case management is working on arrangements to allow for her to complete the antimicrobial therapy at LT[facility] facility. Discussed with case management. She is reporting some diffuse body ache today. We will recheck CK. We will follow-up CK. With resolution of rhabdo consideration of trial of resumption of daptomycin, originally started for lactobacillus with history of MDRO. Otherwise chemistry reviewed, monitor chemistry renal function given multiple antimicrobials. Reviewed CBC, normal WBC. Continues with cefepime, Flagyl, micafungin. Liver parameters reviewed, transaminitis resolving. Reported after prior antifungal, n on review of liver parameters noted improving. Osteomyelitis and suspected possible component of intracranial soft tissue infection, although no abscess noted on review of repeat CT. His findings were discussed with ID at [facility]. Per discussion with infectious disease as appointment in clinic on 05/30 where they would like to reassess her condition, consider duration of antibiotic. PICC line in place. ID plan would be to treat osteomyelitis subsequently with consideration of replacement of cranial plate. (3) Shock: Assessed by speech. Dysphagia diet. Shock resolved. We will switch from hydrocortisone back to prednisone 5 mg twice daily. Intermittently soft blood pressure but overall blood pressures are better. Continue to taper down hydrocortisone, will decrease to 25 mg twice daily for now. Switch to prednisone if will be able to consistently tolerate oral intake. Shock resolved. Blood pressure is soft but with improvement. Taper off hydrocortisone as discussed. CBC reviewed, no leukocytosis. Urine culture reviewed, noted no growth on final culture. Blood culture reviewed, so far negative today. Denies chest pain or pressure. EKG reviewed by myself, on interpretation no sign of acute MA. Maintain MAP over 65. (4) Abnormal urinalysis: Culture reviewed. No growth. Possibly did not correct organism, but lower suspicion for UTI overall. (5) Rhabdomyolysis: CK reviewed today, noted decreasing. Follow-up requested. Continue to hold diuretic for now. Monitor volume status. Plan Anemia: Reviewed CBC, hemoglobin down to 7.9, likely dilutional effect. Fluids have been held, will discontinue. Follow-up CBC. Has been resumed on Eliquis. Monitor blood counts with anemia. Occult blood stool was requested, reviewed, uncollected. No rapid drop in hemoglobin. Noted macrocytic. Reviewed B12, folic acid. Pantoprazole stress ulcer prophylaxis. History of NSCLC. Continue follow-up with oncology. COPD: Not in exacerbation HLD Anxiety and depression Goals of care: Stated that her son has power of insurance defense attorney for her, his name is Kriss El of [facility]. She would want attempted cardiopulmonary resuscitation in case of cardiopulmonary arrest. Discussed with her son. Attestations Medical Necessity Statement*: Continue admission for assessment management of acute encephalopathy, cranial infection, postdischarge planning and arrangements. and High MDM includes amount and/or complexity of data reviewed/ordered [ resulted lab(s)/test(s), ordered lab(s)/test(s) and other healthcare professional discussion] and described risk of complication, morbidity or mortality of management as documented Diagnoses AMS (altered mental status) R41.82 Chronic osteomyelitis of skull M86.68 Shock R57.9 Abnormal urinalysis R82.90 Rhabdomyolysis M62.82
[2023-05-16 14:30] LABS: Creatine Phosphokinase 193 U/L (26-192)
[2023-05-16] MEDS: predniSONE 5 mg Tablet PO (17:43)
[2023-05-16] MEDS: pantoprazole 40 mg SDV IVP (19:27)
[2023-05-16] MEDS: micafungin 100 MG in sodium chloride 0.9% (plus) 100 ML IV (20:14)
[2023-05-17] VITALS (14 sets, daily range): BP systolic 105–146; BP diastolic 66–78; PULSE 70–105; RESP 14–18; TEMP 36.6–37.2; O2SAT 90–99
[2023-05-17] MEDS: ipratropium-albuterol 3 mL Neb INHALATION (01:16)
[2023-05-17] MEDS: HYDROcodone-acetaminophen 5-325 mg Tablet 1 TAB PO ×4 (02:18→21:21)
--- NOTE | 2023-05-17 04:54 | PC.NURSE ---
Patient has tears running down her cheeks. Nurse asked patient what was wrong. Patient states I'm in pain. Patient has been getting [place] q6hr PRN for pain, but has continually throughout the night rated her pain 9/10. Dr. Brown notified and Dilaudid x1 ordered.
[2023-05-17] MEDS: HYDROmorphone 1 mg/mL INJ 1 mL IVP (05:06)
[2023-05-17 05:14] LABS: Eosinophils % 0.2 %; Hematocrit 30.5 % (36-47); Lymphocytes # 0.5 10^3/uL (0.8-4.8); Lymphocytes % 11.4 %; Mean Corpuscular HGB Conc 31.1 g/dL (30-55); Mean Corpuscular Hemoglobin 32.6 pg (27-33); Mean Corpuscular Volume 104.8 fl (85-98); Mean Platelet Volume 9.4 fL (7.4-10.4); Monocytes # 0.6 10^3/uL (0.2-0.9); Monocytes % 12.9 %; Neutrophils # 3.42 10^3/uL (1.8-7.7); Neutrophils % 74.6 %; Nucleated Red Blood Cells % 0 %; Platelet Count 357 10^3/cmm (157-399); Red Blood Count 2.91 10^6/uL (3.85-5.65); Red Cell Distribution Width 17.8 % (12.1-15.1); White Blood Count 4.58 10^3/uL (3.29-11.43)
[2023-05-17 05:41] LABS: Anion Gap 7.9 (5-19); Blood Urea Nitrogen 17 mg/dL (8-23); Calcium 7.7 mg/dL (8.5-10.5); Carbon Dioxide 31 mmol/L (22-29); Chloride 105 mmol/L (98-107); Glomerular Filtration Rate 162.3 mL/min (90-130); Glucose 96 mg/dL (65-115); Magnesium 1.9 mg/dL (1.7-2.3); Osmolality Calculated 293 mOsm/kg (285-295); Sodium 141 mmol/L (136-145)
[2023-05-17 05:42] LABS: Creatine Phosphokinase 150 U/L (26-192)
[2023-05-17 05:44] LABS: Potassium 2.9 mmol/L (3.5-5.1)
[2023-05-17] MEDS: potassium chloride oral liq 20 mEq/15 mL UDC 40 MEQ PO (06:03)
[2023-05-17] MEDS: trolamine salicylate 10% 141 gm Cream 1 APPLIC TOPICAL (07:11)
[2023-05-17] MEDS: metroNIDAZOLE IV 500 MG/100 ML PREMIX 100 MG IV ×3 (07:11→22:27)
[2023-05-17] MEDS: cefepime 1,000 MG in sodium chloride 0.9% (plus) 50 ML 100 MG IV ×2 (08:15→20:30)
[2023-05-17] MEDS: montelukast sodium 10 mg Tablet PO (08:16)
[2023-05-17] MEDS: apixaban 5 mg Tablet PO ×2 (08:17→17:20)
[2023-05-17] MEDS: predniSONE 5 mg Tablet PO ×2 (08:17→17:20)
--- NOTE | 2023-05-17 15:46 | PM.PN ---
Subjective Subjective: Still some diffuse body ache. No other new pain or discomfort. She is more alert today. Vitals/I&O/Wt Last Vital Signs Temp 97.8 F 05/17/23 11:05 Pulse 87 05/17/23 13:22 Resp 16 05/17/23 13:22 BP 114/74 05/17/23 11:05 Pulse Ox 99 05/17/23 13:22 O2 Del Method Nasal Cannula 05/17/23 13:22 O2 Flow Rate 3 05/17/23 13:22 05/17/23 05/17/23 05/17/23 06:59 14:59 22:59 Intake Total 100 / 670 322 / 322 Balance 100 / 670 322 / 322 Physical Exam Narrative: Generally weak. Const: COMMON NORMALS: alert GENERAL APPEARANCE: cooperative and frail appearing ORIENTATION/CONSCIOUSNESS: Yes awake HENMT: COMMON NORMALS: oropharynx normal OTHER: Prior craniotomy, craniectomy, absent superior-inferior portion of the cranium. Neck/C-Spine: COMMON NORMALS: no JVD Resp: COMMON NORMALS: normal respiratory effort and clear to auscultation bilaterally AUSCULTATION: clear to auscultation bilaterally Cardio: COMMON NORMALS: no JVD, regular rhythm, S1 normal heart sound present, S2 normal heart sound present and No murmurs present (Cardio) RHYTHM: regular rhythm HEART SOUNDS: S1 normal heart sound present and S2 normal heart sound present GI: COMMON NORMALS: Normal to inspection, nondistended, normoactive bowel sounds present, Soft to palpation and non-tender PALPATION: Yes Soft to palpation Extremity: COMMON NORMALS: no joint enlargement GENERAL: Yes edema (3+ BL foot edema) Neuro: COMMON NORMALS: moves all extremities SENSORIUM/ORIENTATION: Yes alert Skin: GENERAL SKIN EXAM: ecchymosis OTHER: Thin, fragile skin, bruises, mild erythema right forearm. Some erythematous patches on the upper chest/over clavicles. Ulceration of left lower neck with eschar at base. Data 05/17/23 04:34 05/17/23 04:34 Micro: Microbiology 05/12/23 11:15 Blood Culture - Final Blood NO GROWTH AFTER 5 DAYS 05/12/23 11:25 Blood Culture - Final Blood NO GROWTH AFTER 5 DAYS A&P Assessment and plan (1) AMS (altered mental status): So far has resolved. Did restart her hydrocodone due to some diffuse body ache unrelieved by Tylenol, monitor mental status. Continue treatment of calvarial infection. At risk of encephalopathy with cefepime. Reviewed recheck magnesium, still on the lower side 1.9, requested additional replacement. Reviewed CK, now appears normalized. Recheck in the morning. Reviewed blood counts, noted cytosis. Afebrile. Still requiring some oxygenation, concern for possible aspiration pneumonitis/pneumonia. Continue cefepime. Hypotension improved. Suspected component of adrenal insufficiency. As blood pressures have been better, has been weaning down on hydrocortisone, switch back to prednisone 5 mg twice daily. Monitor vitals, at risk of adrenal crisis. Reviewed results of urine culture -final culture no growth. Acute encephalopathy, suspect secondary to hypotension, labs and treatment of intracranial infection. Treat underlying conditions. Reorient. Monitor mental status. (2) Chronic osteomyelitis of skull: Continues to require polymicrobial therapy with history of resistant organism, continue antimicrobial infusions with cefepime, Flagyl. DAPT has been on hold. Recheck CK. Monitor symptoms. Continue micafungin. Discussed with case management - continue to work on her being able to complete her IV antibiotics after discharge.. With resolution of rhabdo consideration of trial of resumption of daptomycin, originally started for lactobacillus with history of MDRO. Continues with cefepime, Flagyl, micafungin. Liver parameters reviewed, transaminitis resolving. Reported after prior antifungal, n on review of liver parameters noted improving. Osteomyelitis and suspected possible component of intracranial soft tissue infection, although no abscess noted on review of repeat CT. His findings were discussed with ID at [facility]. Per discussion with infectious disease as appointment in clinic on 05/30 where they would like to reassess her condition, consider duration of antibiotic. PICC line in place. ID plan would be to treat osteomyelitis subsequently with consideration of replacement of cranial plate. (3) Shock: Assessed by speech. Dysphagia diet. Shock resolved. We will switch from hydrocortisone back to prednisone 5 mg twice daily. Shock resolved. Blood pressure improved. Wean down on hydrocortisone. Switched to prednisone 5 mg twice daily. CBC reviewed, no leukocytosis. Afebrile. Urine culture reviewed, noted no growth on final culture. Blood culture reviewed, so far negative today. Denies chest pain or pressure. EKG reviewed by myself, on interpretation no sign of acute VT. Maintain MAP over 65. (4) Abnormal urinalysis: Culture reviewed. No growth. Possibly did not correct organism, but lower suspicion for UTI overall. (5) Rhabdomyolysis: CK reviewed today, noted decreasing. Follow-up requested. Continue to hold diuretic for now. Monitor volume status. Plan Anemia: hemoglobin reviewed, please. Hemoglobin improved to 9.5. Platelets WNL. Follow-up CBC. Continue Eliquis. Monitor blood counts with anemia. Occult blood stool was requested, reviewed, uncollected. No rapid drop in hemoglobin. Noted macrocytic. Reviewed B12, folic acid. Pantoprazole stress ulcer prophylaxis. History of NSCLC. Continue follow-up with oncology. COPD: Not in exacerbation HLD Anxiety and depression Goals of care: Stated that her son has power of trial attorney for her, his name is Kriss El of [place]. She would want attempted cardiopulmonary resuscitation in case of cardiopulmonary arrest. Attestations Medical Necessity Statement*: Continue admission for assessment management of acute encephalopathy, cranial infection, postdischarge planning and arrangements. Coding Level of Care Code Acute Code for Chg Fwd Diagnoses AMS (altered mental status) R41.82 Chronic osteomyelitis of skull M86.68 Shock R57.9 Abnormal urinalysis R82.90 Rhabdomyolysis M62.82
[2023-05-17] MEDS: pantoprazole 40 mg SDV IVP (20:30)
[2023-05-17] MEDS: micafungin 100 MG in sodium chloride 0.9% (plus) 100 ML IV (21:22)
[2023-05-18] VITALS (9 sets, daily range): BP systolic 109–121; BP diastolic 67–74; PULSE 73–90; RESP 16–19; TEMP 36.4–36.9; O2SAT 92–98
--- NOTE | 2023-05-18 00:01 | PC.NURSE ---
Patient refusing SCDs stating those hurt my legs.
[2023-05-18] MEDS: HYDROcodone-acetaminophen 5-325 mg Tablet 1 TAB PO ×3 (03:55→16:14)
[2023-05-18 04:10] LABS: Eosinophils % 0.2 %; Hematocrit 28.3 % (36-47); Lymphocytes # 0.8 10^3/uL (0.8-4.8); Mean Corpuscular HGB Conc 30.4 g/dL (30-55); Mean Corpuscular Hemoglobin 32.1 pg (27-33); Mean Corpuscular Volume 105.6 fl (85-98); Mean Platelet Volume 9.5 fL (7.4-10.4); Monocytes # 0.6 10^3/uL (0.2-0.9); Monocytes % 14.1 %; Neutrophils # 3.02 10^3/uL (1.8-7.7); Neutrophils % 67.6 %; Nucleated Red Blood Cells % 0 %; Platelet Count 344 10^3/cmm (157-399); Red Blood Count 2.68 10^6/uL (3.85-5.65); Red Cell Distribution Width 17.9 % (12.1-15.1); White Blood Count 4.47 10^3/uL (3.29-11.43)
[2023-05-18 04:33] LABS: Anion Gap 9.1 (5-19); Blood Urea Nitrogen 14 mg/dL (8-23); Calcium 7.5 mg/dL (8.5-10.5); Carbon Dioxide 32 mmol/L (22-29); Chloride 103 mmol/L (98-107); Glomerular Filtration Rate 162.3 mL/min (90-130); Glucose 76 mg/dL (65-115); Osmolality Calculated 291 mOsm/kg (285-295); Potassium 3.1 mmol/L (3.5-5.1); Sodium 141 mmol/L (136-145)
[2023-05-18 04:34] LABS: Creatine Phosphokinase 102 U/L (26-192)
[2023-05-18] MEDS: cefepime 1,000 MG in sodium chloride 0.9% (plus) 50 ML 100 MG IV ×2 (08:36→21:51)
[2023-05-18] MEDS: ondansetron 2 mg/ML SDV 2 mL 4 MG IVP (08:38)
[2023-05-18] MEDS: predniSONE 5 mg Tablet PO ×2 (08:39→17:56)
[2023-05-18] MEDS: apixaban 5 mg Tablet PO ×2 (08:39→17:56)
[2023-05-18] MEDS: montelukast sodium 10 mg Tablet PO (08:39)
[2023-05-18] MEDS: metroNIDAZOLE IV 500 MG/100 ML PREMIX 100 MG IV ×2 (09:11→16:49)
[2023-05-18] MEDS: potassium chloride ER 20 mEq Tablet 40 MEQ PO (09:11)
--- NOTE | 2023-05-18 12:44 | P.PN_ITS ---
Subjective Subjective: She is feeling better today, not as achy. Was visited yesterday by her son. Vitals/I&O/Wt Last Vital Signs Temp 98 F 05/18/23 11:15 Pulse 78 05/18/23 11:15 Resp 16 05/18/23 11:15 BP 113/71 05/18/23 11:15 Pulse Ox 95 05/18/23 11:15 O2 Del Method Nasal Cannula 05/18/23 11:15 O2 Flow Rate 3 05/18/23 08:00 05/17/23 05/18/23 05/18/23 22:59 06:59 14:59 Intake Total 370 / 692 100 / 792 120 / 120 Balance 370 / 692 100 / 792 120 / 120 Physical Exam Const: COMMON NORMALS: alert GENERAL APPEARANCE: cooperative and frail appearing ORIENTATION/CONSCIOUSNESS: Yes awake OTHER: Today she is alert, in better spirits. HENMT: COMMON NORMALS: oropharynx normal OTHER: Prior craniotomy, craniectomy, absent superior-inferior portion of the cranium. Neck/C-Spine: COMMON NORMALS: no JVD Resp: COMMON NORMALS: normal respiratory effort and clear to auscultation bilaterally AUSCULTATION: clear to auscultation bilaterally Cardio: COMMON NORMALS: no JVD, regular rhythm, S1 normal heart sound present, S2 normal heart sound present and No murmurs present (Cardio) RHYTHM: regular rhythm HEART SOUNDS: S1 normal heart sound present and S2 normal heart sound present GI: COMMON NORMALS: Normal to inspection, nondistended, normoactive bowel so unds present, Soft to palpation and non-tender PALPATION: Yes Soft to pal pation Extremity: COMMON NORMALS: no joint enlargement GENERAL: Yes edema (3+ BL foot edema) Neuro: COMMON NORMALS: moves all extremities SENSORIUM/ORIENTATION: Yes alert Skin: GENERAL SKIN EXAM: ecchymosis OTHER: Thin, fragile skin, bruises, mild erythema right forearm. Some erythematous patches on the upper chest/over clavicles. Ulceration of left lower neck with eschar at base. Data 05/18/23 03:08 05/18/23 03:08 Micro: Microbiology 05/12/23 11:15 Blood Culture - Final Blood NO GROWTH AFTER 5 DAYS 05/12/23 11:25 Blood Culture - Final Blood NO GROWTH AFTER 5 DAYS A&P Assessment and plan (1) Chronic osteomyelitis of skull: Reviewed CK with her, normalized. No muscle ache. Discussed with her consideration of trial of resuming daptomycin monitoring CK as per discussion with infectious disease at [facility]. She is agreeable to trial. Resuming. Requested follow-up CK. Monitor for rhabdomyolysis. Reviewed CBC, no leukocytosis. Afebrile. Reviewed CM documentation. Working on [employer] swing bed. Continues to require polymicrobial therapy with history of resistant organism, continue antimicrobial infusions with cefepime, Flagyl. DAPT has been on hold. Recheck CK. Monitor symptoms. Continue micafungin. Discussed with case management - continue to work on her being able to complete her IV antibiotics after discharge.. With resolution of rhabdo consideration of trial of resumption of daptomycin, originally started for lactobacillus with history of MDRO. Continues with cefepime, Flagyl, micafungin. Liver parameters reviewed, transaminitis resolving. Reported after prior antifungal, n on review of liver parameters noted improving. Osteomyelitis and suspected possible component of intracranial soft tissue infection, although no abscess noted on review of repeat CT. His findings were discussed with ID at [facility]. Per discussion with infectious disease as appointment in clinic on 05/30 where they would like to reassess her condition, consider duration of antibiotic. PICC line in place. ID plan would be to treat osteomyelitis subsequently with consideration of replacement of cranial plate. (2) AMS (altered mental status): So far has resolved. Did restart her hydrocodone due to some diffuse body ache unrelieved by Tylenol, monitor mental status. Continue treatment of calvarial infection. At risk of encephalopathy with cefepime. Still requiring some oxygenation, concern for possible aspiration pne umonitis/pneumonia. Continue cefepime. Hypotension improved. Suspected component of adrenal insufficiency. As blood pressures have been better, has been weaning down on hydrocortisone, switch back to prednisone 5 mg twice daily. Monitor vitals, at risk of adrenal crisis. Reviewed results of urine culture -final culture no growth. Acute encephalopathy, suspect secondary to hypotension, labs and treatment of intracranial infection. Treat underlying conditions. Reorient. Monitor mental status. (3) Shock: Assessed by speech. Dysphagia diet. Shock resolved. We will switch from hydrocortisone back to prednisone 5 mg twice daily. Shock resolved. Blood pressure improved. Wean down on hydrocortisone. Switched to prednisone 5 mg twice daily. CBC reviewed, no leukocytosis. Afebrile. Urine culture reviewed, noted no growth on final culture. Blood culture reviewed, so far negative today. Denies chest pain or pressure. EKG reviewed by myself, on interpretation no sign of acute OK. Maintain MAP over 65. (4) Abnormal urinalysis: Culture reviewed. No growth. Possibly did not correct organism, but lower suspicion for UTI overall. (5) Rhabdomyolysis: CK reviewed - WNL. Follow-up requested. Continue to hold diuretic for now. Monitor volume status. (6) Hypokalemia: Given replacement. Follow-up potassium and magnesium level requested. Plan Anemia: hemoglobin reviewed, please. Hemoglobin improved to 9.5. Platelets WNL. Follow-up CBC. Continue Eliquis. Monitor blood counts with anemia. Occult blood stool was requested, reviewed, uncollected. No rapid drop in hemoglobin. Noted macrocytic. Reviewed B12, folic acid. Pantoprazole stress ulcer prophylaxis. History of NSCLC. Continue follow-up with oncology. COPD: Not in exacerbation HLD Anxiety and depression Goals of care: Stated that her son has power of telephone interviewer for her, his name is Kriss El of [employer] [place]. She would want attempted cardiopulmonary resuscitation in case of cardiopulmonary arrest. Attestations Medical Necessity Statement*: Continue admission for assessment management of cranial infection, postdischarge planning and arrangements. and High MDM includes described risk of complication, morbidity or mortality of management as documented Diagnoses Chronic osteomyelitis of skull M86.68 AMS (altered mental status) R41.82 Shock R57.9 Abnormal urinalysis R82.90 Rhabdomyolysis M62.82 Hypokalemia E87.6
[2023-05-18] MEDS: pantoprazole 40 mg SDV IVP (21:21)
[2023-05-18] MEDS: micafungin 100 MG in sodium chloride 0.9% (plus) 100 ML IV (22:00)
[2023-05-19] VITALS (9 sets, daily range): BP systolic 106–118; BP diastolic 67–80; PULSE 71–97; RESP 12–18; TEMP 36.6–37.1; O2SAT 96–100
[2023-05-19] MEDS: metroNIDAZOLE IV 500 MG/100 ML PREMIX 100 MG IV ×4 (00:38→23:22)
[2023-05-19] MEDS: HYDROcodone-acetaminophen 5-325 mg Tablet 1 TAB PO ×3 (00:38→14:51)
[2023-05-19 05:14] LABS: Eosinophils % 0.6 %; Hematocrit 29.8 % (36-47); Lymphocytes # 0.9 10^3/uL (0.8-4.8); Mean Corpuscular HGB Conc 31.2 g/dL (30-55); Mean Corpuscular Hemoglobin 32.2 pg (27-33); Mean Corpuscular Volume 103.1 fl (85-98); Mean Platelet Volume 9.4 fL (7.4-10.4); Monocytes # 0.6 10^3/uL (0.2-0.9); Monocytes % 13.3 %; Neutrophils # 3.15 10^3/uL (1.8-7.7); Neutrophils % 66.5 %; Nucleated Red Blood Cells % 0 %; Platelet Count 380 10^3/cmm (157-399); Red Blood Count 2.89 10^6/uL (3.85-5.65); Red Cell Distribution Width 17.5 % (12.1-15.1); White Blood Count 4.74 10^3/uL (3.29-11.43)
[2023-05-19 05:33] LABS: Anion Gap 7.7 (5-19); Blood Urea Nitrogen 10 mg/dL (8-23); Calcium 7.5 mg/dL (8.5-10.5); Carbon Dioxide 32 mmol/L (22-29); Chloride 96 mmol/L (98-107); Glomerular Filtration Rate 226.2 mL/min (90-130); Glucose 76 mg/dL (65-115); Osmolality Calculated 272 mOsm/kg (285-295); Potassium 3.7 mmol/L (3.5-5.1); Sodium 132 mmol/L (136-145)
[2023-05-19 05:35] LABS: Creatine Phosphokinase 93 U/L (26-192)
[2023-05-19 05:47] LABS: Magnesium 1.7 mg/dL (1.7-2.3)
[2023-05-19] MEDS: cefepime 1,000 MG in sodium chloride 0.9% (plus) 50 ML 100 MG IV ×2 (08:11→20:10)
[2023-05-19] MEDS: apixaban 5 mg Tablet PO ×2 (09:46→17:04)
[2023-05-19] MEDS: montelukast sodium 10 mg Tablet PO (09:46)
[2023-05-19] MEDS: predniSONE 5 mg Tablet PO ×2 (09:46→17:04)
[2023-05-19 11:19] LABS: Procalcitonin 0.25 ng/mL (0-0.5)
--- NOTE | 2023-05-19 12:30 | PC.SOCIAL ---
IMM Update pg 2 of IMM updated and reviewed w/ patient. Copy provided and Copy in chart dated, and initialed.
--- NOTE | 2023-05-19 15:34 | P.PN_ITS ---
Subjective Subjective: Hospital course, labs appreciated. Today morning seen laying comfortably in bed, patient is fairly caretake, having episodes of nausea during conversation. Denies any new complaints. Denies any abdominal pain. States able to eat but not well. Denies any myalgias Blood work appreciated for a stable CBC, CMP showing mild hyponatremia and hypokalemia with creatinine of 0.3 Vitals/I&O/Wt Last Vital Signs Temp 98 F 05/19/23 15:31 Pulse 77 05/19/23 15:31 Resp 18 05/19/23 15:31 BP 106/69 05/19/23 15:31 Pulse Ox 99 05/19/23 15:31 O2 Del Method Nasal Cannula 05/19/23 15:31 O2 Flow Rate 3 05/19/23 13:35 05/19/23 05/19/23 05/19/23 06:59 14:59 22:59 Intake Total 300 / 1200 270 / 270 Balance 300 / 1200 270 / 270 Physical Exam Narrative: Chronically sick appearing, cachectic, anorexic Const: COMMON NORMALS: patient oriented x3 and alert; negative for well nourished GENERAL APPEARANCE: cooperative, lethargic and frail appearing NUTRITIONAL APPEARANCE: cachectic, thin and underweight ORIENTATION/CONSCIOUSNESS: Yes awake and Yes lethargic OTHER: Today she is alert, in better spirits. HENMT: COMMON NORMALS: oropharynx normal OTHER: Prior craniotomy, craniectomy, absent superior-inferior portion of the cranium. Neck/C-Spine: COMMON NORMALS: no JVD Resp: COMMON NORMALS: normal respiratory effort and clear to auscultation sariah aterally AUSCULTATION: clear to auscultation bilaterally Cardio: COMMON NORMALS: no JVD, regular rhythm, S1 normal heart sound present, S2 normal heart sound present and No murmurs present (Cardio) RHYTHM: regular rhythm HEART SOUNDS: S1 normal heart sound present and S2 normal heart sound present GI: COMMON NORMALS: Normal to inspection, nondistended, normoactive bowel sounds present, Soft to palpation and non-tender PALPATION: Yes Soft to palpation Extremity: COMMON NORMALS: no joint enlargement GENERAL: Yes edema (3+ BL foot edema) Neuro: COMMON NORMALS: patient oriented x3 and moves all extremities SENSORIUM/ORIENTATION: Yes alert and Yes lethargic Skin: GENERAL SKIN EXAM: ecchymosis OTHER: Thin, fragile skin, bruises, mild erythema right forearm. Some erythematous patches on the upper chest/over clavicles. Ulceration of left lower neck with eschar at base. Data 05/19/23 04:46 05/19/23 04:46 A&P Assessment and plan (1) Chronic osteomyelitis of skull: Chronic. Being followed up at [facility]. Last admitted at the hospital in April 2023. Discharged on daptomycin, cefepime, Flagyl IV along with micafungin. Will review and request documents from [facility] along with cultural history. Possible history of MDRO lactobacillus. Daptomycin initially on hold earlier this admission with concerns for rhabdomyolysis. Restarted on 05/12. We will consult ID for further recommendations. Patient is agreeable. Blood cultures so far negative. For now continue with above regimen. Follow-up CPK, CMP. PICC line in place. Plan for now to continue medications. Follow-up 6 weeks. (2) Severe protein-energy malnutrition: Chronic most likely in setting of cancer cachexia along with chronic osteomyelitis. Severely deconditioned. We will consult dietitian for calorie count. Patient might benefit with TPN. For now add protein shakes to each meal. PT evaluation. Out of bed to chair. Advance diet as per speech evaluation. (3) Physical deconditioning: (4) Rhabdomyolysis: Hold diuretics. Most likely in setting of daptomycin. Continue to monitor CPK daily for now. (5) Goals of care, counseling/discussion: (6) AMS (altered mental status): So far has resolved. Most likely in setting of dehydration along with rhabdomyolysis on admission. Continue with home dose of [place]. Seizure precaution. (7) Shock: Resolved. Insetting of sepsis and possible adrenal insufficiency as patient is chronically on prednisone. Goal blood pressure less than 140/90 mmHg with mean over 65. Continue with home dose of prednisone 5 mg twice daily for now. (8) Hypokalemia: Replaced. Monitor daily with magnesium Plan Anemia: Target hemoglobin over 7. Renal disease. Check iron panel, vitamin B12 and folate levels. Start on oral iron supplementation every other day. Chronic anticoagulation: Not sure of the reason. Regular rhythm. Continue with Eliquis 5 mg twice daily for now. No active signs of bleeding. History of NSCLC. Continue follow-up with oncology. COPD: Not in exacerbation HLD Anxiety and depression Goals of care: Discussed in detail with the patient. She states her son is the ARNALDO. Name is [place]. He lives out of town in [place]. She would be okay wi th attempt of CPR and mechanical ventilation if needed. Full code. Discharge plan: Plan to discharge to SNF versus swing bed given need of IV antibiotics going forward for at least 6 weeks given concerns for osteomyelitis of cranium. Patient is not a candidate for select anymore as he did not qualify for more than 3 midnights at ICU. Level 7 dysphagia diet Protonix for PUD prophylaxis Eliquis will suffice as DVT prophylaxis. Attestations Medical Necessity Statement*: Requires further hospitalization for management of acute on chronic osteomyelitis of skull, severe protein energy malnutrition with physical deconditioning while safe discharge planning and outpatient antibiotics are arranged Diagnoses Chronic osteomyelitis of skull M86.68 Severe protein-energy malnutrition E43 Physical deconditioning R53.81 Rhabdomyolysis M62.82 Goals of care, counseling/discussion Z71.89 AMS (altered mental status) R41.82 Shock R57.9 Hypokalemia E87.6
[2023-05-19] MEDS: pantoprazole 40 mg SDV IVP (20:10)
[2023-05-19] MEDS: micafungin 100 MG in sodium chloride 0.9% (plus) 100 ML IV (21:20)
[2023-05-20] VITALS (8 sets, daily range): BP systolic 92–150; BP diastolic 54–82; PULSE 66–110; RESP 12–20; TEMP 36.4–36.9; O2SAT 92–99
[2023-05-20 05:11] LABS: Eosinophils # 0.1 10^3/uL (0.0-0.8); Eosinophils % 1.1 %; Hematocrit 29.9 % (36-47); Lymphocytes # 0.9 10^3/uL (0.8-4.8); Lymphocytes % 17.3 %; Mean Corpuscular HGB Conc 31.8 g/dL (30-55); Mean Corpuscular Hemoglobin 32.5 pg (27-33); Mean Corpuscular Volume 102.4 fl (85-98); Mean Platelet Volume 9.3 fL (7.4-10.4); Monocytes # 0.8 10^3/uL (0.2-0.9); Monocytes % 14.5 %; Neutrophils # 3.56 10^3/uL (1.8-7.7); Nucleated Red Blood Cells % 0 %; Platelet Count 390 10^3/cmm (157-399); Red Blood Count 2.92 10^6/uL (3.85-5.65); Red Cell Distribution Width 17.4 % (12.1-15.1); White Blood Count 5.39 10^3/uL (3.29-11.43)
[2023-05-20 05:29] LABS: Chol HDL Ratio 5.13 mg/dL (0.0-4.40); Cholesterol 159 mg/dL (0-200); Creatine Phosphokinase 73 U/L (26-192); HDL Cholesterol 31 mg/dL (60-100); LDL Cholesterol Calculated 97 mg/dL (50-129); Magnesium 1.6 mg/dL (1.7-2.3); Phosphorus 2.9 mg/dL (2.5-4.5); Triglycerides 157 mg/dL (0-150); VLDL Cholestrol Calculation 31 mg/dL (0-30)
[2023-05-20 05:37] LABS: Estmated Average Glucose 85; Hemoglobin A1C 4.6 % (4.0-6.0)
[2023-05-20 05:48] LABS: Folate Level < 20.0 ng/mL (4.8-37.3)
[2023-05-20] MEDS: apixaban 5 mg Tablet PO ×2 (08:19→17:42)
[2023-05-20] MEDS: montelukast sodium 10 mg Tablet PO (08:19)
[2023-05-20] MEDS: cefepime 1,000 MG in sodium chloride 0.9% (plus) 50 ML 100 MG IV ×2 (08:19→20:19)
[2023-05-20] MEDS: predniSONE 5 mg Tablet PO ×2 (08:19→17:42)
[2023-05-20] MEDS: metroNIDAZOLE IV 500 MG/100 ML PREMIX 100 MG IV ×2 (08:20→17:04)
--- NOTE | 2023-05-20 10:04 | PC.NUTR ---
Consult for TPN received. Recommend beginning TPN @ 12 mls/hr and increase 10 mls Q8H as tolerated until goal rate of 42 mls/hr is reached; plus recommend consideration of 20 grams/100 mls fat emulsion and MV 10 mls/hr and standard electrolytes - per MD discretion. Details in RD note.
[2023-05-20 10:36] LABS: Alanine Aminotransferase 13 U/L (0-33); Alkaline Phosphatase 73 U/L (35-105); Anion Gap 12.3 (5-19); Aspartate Amino Transferase 18 U/L (0-32); Blood Urea Nitrogen 7 mg/dL (8-23); Calcium 7.6 mg/dL (8.5-10.5); Carbon Dioxide 30 mmol/L (22-29); Chloride 94 mmol/L (98-107); Globulin 2.1 g/dL (1.3-4.6); Glomerular Filtration Rate 226.2 mL/min (90-130); Glucose 56 mg/dL (65-115); Osmolality Calculated 272 mOsm/kg (285-295); Potassium 3.3 mmol/L (3.5-5.1); Sodium 133 mmol/L (136-145); Total Bilirubin 0.5 mg/dL (0.15-1.2); Total Protein 4.1 g/dL (6.6-8.7)
[2023-05-20] MEDS: magnesium sulfate premix 1 GM/100 ML PIGGYBACK IV (11:11)
--- NOTE | 2023-05-20 14:40 | XRR_ITS ---
PROCEDURE INFORMATION: Exam: XR Chest Exam date and time: 05/20/2023 4:38 PM Age: 62 years old Clinical indication: Device placement; Patient HX: Old picc on lt. New picc on RT. ; Additional info: Post picc insertion, lanny placing on med-surg. Will call when ready. TECHNIQUE: Imaging protocol: Radiologic exam of the chest. Views: 1 view. COMPARISON: 1. CR XR chest 1V portable [id number] 05/15/2023 12:13 PM 2. CR XR chest 1V portable [id number] 05/12/2023 10:[address] chest w con* [id number] 05/24/2021 1:11 PM FINDINGS: Tubes, catheters and devices: Interval right upper extremity PICC terminates in the lower SVC at the superior cavoatrial junction. Stable left upper extremity PICC terminates at the SVC. Lungs: Left lung calcified granulomata. Increasing medial left lower lobe consolidation and volume loss. Pleural spaces: Increased left pleural effusion. Stable right pleural effusion. No pneumothorax. Heart/Mediastinum: Unremarkable. No cardiomegaly. Vasculature: Aortic arch atherosclerotic calcification. Bones/joints: Unremarkable. XR/XR chest 1V portable [id number] IMPRESSION: 1. Appropriately positioned right upper extremity PICC. Stable left upper extremity PICC. 2. Increased left pleural effusion. Stable right pleural effusion. 3. Increased medial left lower lobe consolidation suspected to represent atelectasis, possibly lobar collapse. Pneumonia thought less likely given associated volume loss.
--- NOTE | 2023-05-20 14:55 | PM.PN ---
Subjective Subjective: No acute events overnight. Patient has remained hemodynamically stable and afebrile. Seen with caregiver at bedside. Patient states she is feeling a lot better. Denies any nausea today. As per dietitian patient did not eat more than 20% of her meals yesterday. Blood work appreciated for a stable CBC with a hemoglobin of 9.5, CMP showing mild hypokalemia with potassium down to 3.3 Vitals/I&O/Wt Last Vital Signs Temp 97.5 F L 05/20/23 11:54 Pulse 105 H 05/20/23 14:00 Resp 18 05/20/23 14:00 BP 150/82 05/20/23 11:54 Pulse Ox 95 05/20/23 14:00 O2 Del Method Nasal Cannula 05/20/23 14:00 O2 Flow Rate 3 05/20/23 14:00 05/19/23 05/20/23 05/20/23 22:59 06:59 14:59 Intake Total 250 / 520 200 / 720 610 / 610 Balance 250 / 520 200 / 720 610 / 610 Physical Exam Narrative: Chronically sick appearing, cachectic, anorexic Const: COMMON NORMALS: patient oriented x3 and alert; negative for well nourished GENERAL APPEARANCE: cooperative, lethargic and frail appearing NUTRITIONAL APPEARANCE: cachectic, thin and underweight ORIENTATION/CONSCIOUSNESS: Yes awake and Yes lethargic OTHER: Today she is alert, in better spirits. HENMT: COMMON NORMALS: oropharynx normal OTHER: Prior craniotomy, craniectomy, absent superior-inferior portion of the cranium. Neck/C-Spine: COMMON NORMALS: no JVD Resp: COMMON NORMALS: normal respiratory effort and clear to auscultation bilaterally AUSCULTATION: clear to auscultation bilaterally Cardio: COMMON NORMALS: no JVD, regular rhythm, S1 normal heart sound present, S2 normal heart sound present and No murmurs present (Cardio) RHYTHM: regular rhythm HEART SOUNDS: S1 normal heart sound present and S2 normal heart sound present GI: COMMON NORMALS: Normal to inspection, nondistended, normoactive bowel sounds present, Soft to palpation and non-tender PALPATION: Yes Soft to palpation Extremity: COMMON NORMALS: no joint enlargement GENERAL: Yes edema (3+ BL foot edema) Neuro: COMMON NORMALS: patient oriented x3 and moves all extremities SENSORIUM/ORIENTATION: Yes alert and Yes lethargic Skin: GENERAL SKIN EXAM: ecchymosis OTHER: Thin, fragile skin, bruises, mild erythema right forearm. Some erythematous patches on the upper chest/over clavicles. Ulceration of left lower neck with eschar at base. Data 05/20/23 04:35 05/20/23 04:35 A&P Assessment and plan (1) Chronic osteomyelitis of skull: Chronic. Being followed up at [facility]. Last admitted at the hospital in April 2023. Discharged on daptomycin, cefepime, Flagyl IV along with micafungin. Still awaiting documents from outside hospital. Will review and request documents from [facility] along with cultural history. Possible history of MDRO lactobacillus. Daptomycin initially on hold earlier this admission with concerns for rhabdomyolysis. Restarted on 05/12. CT gastropleural stable. Appreciate ID recommendations. Blood cultures so far negative. For now continue with above regimen. PICC line in place. Plan for now to continue medications. Follow-up 6 weeks. (2) Severe protein-energy malnutrition: Chronic most likely in setting of cancer cachexia along with chronic osteomyelitis. Severely deconditioned. Appreciate dietary recommendations. We will go ahead and start on TPN. Confirmed with pharmacy and nursing in charge that TPN can be given through same PICC line but with a dedicated lumen. Once TPN started patient will be at a risk of refeeding syndrome. We will continue to monitor electrolytes including phosphorus and magnesium daily. We will continue to encourage patient to increase oral intake along with protein shakes with each meal Encourage patient to be out of bed to chair with PT Continue with dysphagia level 7 diet. Advance as per speech evaluation. (3) Physical deconditioning: (4) Rhabdomyolysis: Hold diuretics. Most likely in setting of daptomycin. Continue to monitor CPK daily for now. (5) Goals of care, counseling/discussion: (6) AMS (altered mental status): So far has resolved. Most likely in setting of dehydration along with rhabdomyolysis on admission. Continue with home dose of [place]. Seizure precaution. (7) Shock: Resolved. Insetting of sepsis and possible adrenal insufficiency as patient is chronically on prednisone. Goal blood pressure less than 140/90 mmHg with mean over 65. Continue with home dose of prednisone 5 mg twice daily for now. (8) Hypokalemia: Replaced. Monitor daily with magnesium Plan Anemia: Target hemoglobin over 7. Renal disease. Appreciate iron panel, vitamin B12 and folate levels. Start on oral iron supplementation every other day. Chronic anticoagulation: Not sure of the reason. Regular rhythm. Continue with Eliquis 5 mg twice daily for now. No active signs of bleeding. History of NSCLC. Continue follow-up with oncology. COPD: Not in exacerbation HLD Anxiety and depression Goals of care: Discussed in detail with the patient. She states her son is the ARNALDO. Name is [place]. He lives out of town in [place]. She would be okay with attempt of CPR and mechanical ventilation if needed. Full code. Discharge plan: Plan to discharge to SNF versus swing bed given need of IV antibiotics going forward for at least 6 weeks given concerns for osteomyelitis of cranium. Patient is not a candidate for select anymore as he did not qualify for more than 3 midnights at ICU. Level 7 dysphagia diet Protonix for PUD prophylaxis Eliquis will suffice as DVT prophylaxis. Attestations Medical Necessity Statement*: Requires further hospitalization for management of osteomyelitis of the cranium, severe protein energy malnutrition and physical deconditioning while safe discharge planning and outpatient antibiotics are sought Diagnoses Chronic osteomyelitis of skull M86.68 Severe protein-energy malnutrition E43 Physical deconditioning R53.81 Rhabdomyolysis M62.82 Goals of care, counseling/discussion Z71.89 AMS (altered mental status) R41.82 Shock R57.9 Hypokalemia E87.6
[2023-05-20 15:38] LABS: Reticulocyte % 6.4 % (0.5-2.0)
[2023-05-20 16:00] LABS: Iron 38 ug/dL (37-145); Percent Saturation 44.7 % (20-50); Total Iron Binding Capacity 85 mcg/dl; Unsaturated Iron Binding 47 ug/dL (112-347)
--- NOTE | 2023-05-20 16:20 | PC.NURSE ---
Triple lumen PICC placed to right brachial vein. Referred to PICC nurse for PICC placement due to needing TPN and multiple antibiotics. Pt currently has single lumen PICC in left arm placed at a different facility. Risks and benefits discussed with patient and informed consent obtained. Right arm assessed with right brachial vein noted at 2.7 mm. Very small veins noted. Basilic vein noted to be 1.8 mm. Using sterile technique and MST, able to gain access to right brachial vein, but unable to advance guide wire. Successful upon third attempt. Advanced 5 [place] triple lumen cath without difficulty. Mid-arm circumference measured 10 cm from right AC 20 cm. Trimmed cath length 37 cm with 3 cm external length noted. Line secured with stat-lock. Insertion site covered with Biopatch and TSM. CXR appears to be in distal third SVC, awaiting report from radiologist. Report given to bedside nurse, Elizabeth.
[2023-05-20] MEDS: pantoprazole 40 mg SDV IVP (20:19)
[2023-05-20] MEDS: micafungin 100 MG in sodium chloride 0.9% (plus) 100 ML IV (21:27)
[2023-05-21] VITALS (8 sets, daily range): BP systolic 89–110; BP diastolic 60–76; PULSE 73–94; RESP 14–19; TEMP 36.4–36.7; O2SAT 90–98
[2023-05-21] MEDS: metroNIDAZOLE IV 500 MG/100 ML PREMIX 100 MG IV ×4 (00:02→23:48)
[2023-05-21 05:25] LABS: Basophils % 0.2 %; Eosinophils % 0.5 %; Hematocrit 29.9 % (36-47); Lymphocytes # 0.9 10^3/uL (0.8-4.8); Lymphocytes % 16.2 %; Mean Corpuscular HGB Conc 32.8 g/dL (30-55); Mean Corpuscular Hemoglobin 33.4 pg (27-33); Mean Platelet Volume 8.9 fL (7.4-10.4); Monocytes # 0.9 10^3/uL (0.2-0.9); Monocytes % 15.4 %; Neutrophils # 3.87 10^3/uL (1.8-7.7); Neutrophils % 66.8 %; Nucleated Red Blood Cells % 0 %; Platelet Count 362 10^3/cmm (157-399); Red Blood Count 2.93 10^6/uL (3.85-5.65); Red Cell Distribution Width 17.6 % (12.1-15.1); White Blood Count 5.79 10^3/uL (3.29-11.43)
[2023-05-21 05:49] LABS: Alanine Aminotransferase 12 U/L (0-33); Albumin Level 2.1 g/dL (3.5-5.2); Alkaline Phosphatase 81 U/L (35-105); Anion Gap 9.3 (5-19); Aspartate Amino Transferase 17 U/L (0-32); Blood Urea Nitrogen 9 mg/dL (8-23); Calcium 7.6 mg/dL (8.5-10.5); Carbon Dioxide 30 mmol/L (22-29); Chloride 94 mmol/L (98-107); Globulin 2.4 g/dL (1.3-4.6); Glomerular Filtration Rate 226.2 mL/min (90-130); Glucose 86 mg/dL (65-115); Osmolality Calculated 268 mOsm/kg (285-295); Potassium 3.3 mmol/L (3.5-5.1); Sodium 130 mmol/L (136-145); Total Bilirubin 0.4 mg/dL (0.15-1.2); Total Protein 4.5 g/dL (6.6-8.7)
[2023-05-21 05:56] LABS: Creatine Phosphokinase 62 U/L (26-192); Magnesium 1.7 mg/dL (1.7-2.3); Phosphorus 2.6 mg/dL (2.5-4.5)
--- NOTE | 2023-05-21 07:25 | PM.CONSULT ---
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 Most recent PET scans do not show any FDG avid lesions. In 2018 she had presented with an enlarging lump on the right side of the head. 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 In June 2019 she underwent craniotomy with resection debulking of the frontal skull and dural mass. Per patient there was a titanium mesh placed at that time. In August 2021, she accidentally scratched her head which resulted in an open lesion at the place of her graft. It appears she received treatment with ciprofloxacin from primary care provider and was referred to wound care. Per review of wound care notes she was noted to have the entirety of her mesh implant exposed with copious amounts of dried exudate. She was recommended to see neurosurgery immediately. Eventually she got into see neurosurgery at [facility] in November 2021 she underwent Right cranial wound exploration, incision and drainage, mesh removal and complex wound closure with scalp rotational free flap which was derived from the gluteus minimus muscle on her leg. I do not have final culture results or any infectious disease notes available for direct review however per limited data available to me at this time it appears a GMS stains were positive for fungal elements at that time. She also had evidence of epidural infection and there was growth of Pseudomonas and some of these cultures. Uncertain how she was treated at this time or if she remained on any suppression thereafter. Notes have been requested but awaited. 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 She was now planned for cranioplasty at [facility] in April 2023 however after being taken to the OR this procedure was eventually deferred as there was evidence of active infection. No cultures appear to have been sent at this time. She has been on an empiric course of cefepime, daptomycin, metronidazole and micafungin per infectious disease at [facility]. She was discharged from [facility] with plans to complete IV antibiotic treatment for 8 weeks and then undergo cranioplasty in June of this year. Per patient once she returned home she does not think she had was set up with IV antibiotics. States that she came home on a Friday. Home health nurse came in to check in on her on Friday and noted her to be confused and was referred to the ER. Patient appears to have significant memory gaps in her timeline. For instance initially she told me she did not undergo any procedures in November 2021 but thereafter gave me specific details of her procedure in November including removal of her mesh. She states that she does not remember the trip back from [place] to go home. Also states that no IV antibiotics were set up, however it appears to me she is referring to the home health visit which happened 2 days after she returned home and is referring to this delay. She is quite fixated on repeating that she received ciprofloxacin in 2020 for her skull infection. She answers all orientation questions appropriately and does recall a lot of events from 2021 and 20[address] head performed here on May 12 showed no acute intracranial hemorrhage or edema.. Enhancement of the overlying dura was noted however no focal area of abnormal enhancement, these were thought to be. Findings. There was loss of normal cortex involving the adjacent resection sites of the calvarium suspicious for osteomyelitis involving the frontal bone. She has been afebrile since admission. No leukocytosis. Review of Systems General: Reports: 10 or more systems reviewed and unremarkable except in HPI and below Const: Denies: fever(s), chills or body aches Eyes: Denies: change in vision, blurry vision or photophobia ENMT: Reports: hoarseness; Denies: throat pain, enlarged tonsils, odynophagia or nasal congestion Card: Denies: chest pain, palpitations, irregular heart rhythm, edema, swelling of feet/ankles, lightheadedness, pre-syncope, dyspnea on exertion or orthopnea Resp: Denies: dyspnea, productive cough, non-productive cough, wheezing, stridor, pain on inspiration, change in phlegm color, hemoptysis or chest congestion GI: Denies: abdominal pain, nausea, vomiting, hematemesis, coffee ground emesis, dysphagia, heartburn, diarrhea, constipation, GI cramping, change in stool character, hematochezia or melena : Denies: flank pain, difficulty voiding, dysuria, urinary frequency, urinary urgency, urinary hesitancy or hematuria Musc: Denies: neck pain, back pain, extremity pain, joint swelling, joint warmth or deformity Neuro: Denies: headache(s), numbness in extremities, weakness in extremities, sensory changes, difficulty walking, frequent falls, dizziness, vertigo, behavioral changes, Slurred speech present or seizure-like activity Psych: Denies: anxiety, depression, suicidal ideation or homicidal ideation Endo: Denies: polyuria, polydipsia, tired all the time, cold intolerance or hot flashes Kj/Lymph: Denies: easy bruising or easy bleeding Medications/Allergies Home Medications Medication Instructions Recorded Confirmed Last Taken Type prednisone 5 mg tablet 5 mg PO BID #180 tabs 03/10/23 05/12/23 Unknown Rx lorazepam 1 mg tablet 2 mg PO BID PRN nausea and 03/11/23 05/12/23 Unknown Rx vomiting #120 tabs montelukast 10 mg tablet 10 mg PO DAILY #90 tabs 03/12/23 05/12/23 Unknown Rx fluticasone fur. 100 mcg-umeclid 1 inh inhalation DAILY #60 ea 03/19/23 05/12/23 Unknown Rx 62.5 mcg-vilant 25 mcg inhalat.powder (Trelegy Ellipta) citalopram 20 mg tablet 20 mg PO DAILY #90 tabs 03/24/23 05/12/23 Unknown Rx hydrocodone 5 mg-acetaminophen 325 1 tab PO QID PRN pain 30 days #120 03/24/23 05/12/23 Unknown Rx mg tablet tabs acetaminophen 500 mg tablet 500 - 1,000 mg PO Q6H PRN Pain 05/12/23 05/12/23 Unknown History albuterol sulfate 90 mcg/actuation 2 puff inhalation Q6H PRN Wheezing 05/12/23 05/12/23 Unknown History aerosol inhaler apixaban 5 mg tablet (Eliquis) 5 mg PO BID 05/12/23 05/12/23 Unknown History cefepime 2 gram solution for See Rx Instructions .Route .COMPLEX 05/12/23 05/12/23 Unknown History injection cetirizine 10 mg tablet (Zyrtec) 10 mg PO QAM 05/12/23 05/12/23 Unknown History daptomycin 500 mg intravenous See Rx Instructions .Route .COMPLEX 05/12/23 05/12/23 Unknown History solution furosemide 20 mg tablet 20 mg PO DAILY 05/12/23 05/12/23 Unknown History metronidazole 500 mg tablet 500 mg PO TID 05/12/23 05/12/23 Unknown History micafungin 100 mg intravenous See Rx Instructions .Route .COMPLEX 05/12/23 05/12/23 Unknown History solution Allergies Allergy/AdvReac Type Severity Reaction Status Date / Time dronabinol [From Marinol] Allergy ALGY-Difficulty Verified 03/10/23 14:29 Breathing paroxetine [From Paxil] Allergy ADR-Vomitin Verified 05/12/23 10:45 g Penicillins Allergy ALGY-Anaphy Verified 03/10/23 14:29 laxis Current Medications Generic Name Dose Route Start Last Admin Trade Name Freq PRN Reason Stop Dose Admin Acetaminophen 650 mg 05/12/23 20:07 05/16/23 05:07 Acetaminophen 325 Mg Tablet PO 650 mg Q6H PRN Administration Mild/Mod Pain Or Temp >/= 101 Hydrocodone Bitart/Acetaminophen 1 tab 05/16/23 08:45 05/19/23 14:51 Hydrocodone-Acetaminophen 5-325 Mg Tablet PO 1 tab QID PRN Administration severe pain Albuterol/Ipratropium 3 ml 05/15/23 14:00 05/21/23 02:06 Ipratropium-Albuterol 3 Ml Neb INHALATION Not Given Q6H.RESP RAI Apixaban 5 mg 05/13/23 18:00 05/20/23 17:42 Apixaban 5 Mg Tablet PO 5 mg BID RAI Administration Cefepime HCl 1,000 mg/ Sodium 50 mls @ 100 mls/hr 05/12/23 19:30 05/20/23 21:41 Chloride IV Infused Q12H RAI Infusion Protocol Metronidazole 500 mg in 100 mls @ 100 mls/hr 05/12/23 19:30 05/21/23 01:18 Flagyl Iv IV Infused Q8H RAI Infusion Protocol Micafungin Sodium 100 mg/ 100 mls @ 100 mls/hr 05/12/23 20:30 05/20/23 22:29 Sodium Chloride IV Infused Q24H RAI Infusion Daptomycin 315.2 mg/ Sodium 100 mls @ 100 mls/hr 05/12/23 21:30 05/20/23 23:40 Chloride IV Infused Q24H RAI Infusion Protocol Montelukast Sodium 10 mg 05/13/23 09:00 05/20/23 08:19 Montelukast Sodium 10 Mg Tablet PO 10 mg DAILY RAI Administration Ondansetron HCl 4 mg 05/12/23 20:07 05/18/23 08:38 Ondansetron 2 Mg/Ml Sdv 2 Ml IVP 4 mg Q6H PRN Administration NAUSEA AND VOMITING Pantoprazole Sodium 40 mg 05/12/23 20:07 05/20/23 20:19 Pantoprazole 40 Mg Sdv IVP 40 mg Q24H RAI Administration Prednisone 5 mg 05/16/23 18:00 05/20/23 17:42 Prednisone 5 Mg Tablet PO 5 mg BID RAI Administration Trolamine Salicylate 1 applic 05/13/23 18:30 05/17/23 07:11 Trolamine Salicylate 10% 141 Gm Cream TOPICAL 1 applic QID PRN Administration topical PAIN PFSH Acute PFSH: Medical History Anxiety and depression Chronic osteomyelitis of skull COPD (chronic obstructive pulmonary disease) Hyperlipidemia Malignant neoplasm of upper lobe, right bronchus or lung Non-small cell lung cancer Secondary malignant neoplasm of bone Surgical History History of hysterectomy with bilateral oophorectomy History of left knee surgery x 2 History of right knee surgery History of surgery of head (12/15/21) right scalp excision with removal of the mass and with reconstruction with left anterolateral thigh free flap, split thickness skin graft, neck dissection, and posterior scalp advancement flaps Family History Denies family history of CAD (coronary artery disease) Social History Smoking and tobacco status: current every day smoker (0.5 ppd. Smoked x 30 years) Vitals/I&O/Wt Last Vital Signs Temp 97.6 F 05/21/23 04:00 Pulse 73 05/21/23 04:00 Resp 14 05/21/23 04:00 BP 107/68 05/21/23 04:00 Pulse Ox 98 05/21/23 04:00 O2 Del Method Room Air 05/21/23 04:00 O2 Flow Rate 3 05/20/23 20:28 05/20/23 05/21/23 05/21/23 22:59 06:59 14:59 Intake Total 370 / 980 200 / 1180 Balance 370 / 980 200 / 1180 Physical Exam Narrative: General: No acute distress, AO x3, ccahexic HEENT: PERRLA, pupils bilaterally equal and reactive, pallors not present Chest: Normal vesicular breath sounds, no added sounds, equal good air entry bilaterally CVS: S1-S2 regular, no murmurs, no tachycardia, no gallops, no rubs Abdomen: Soft, nontender, no organomegaly, bowel sounds present Neuro: No focal deficits, no facial deformity, AO x3, power 5/5 in all limbs Ext: Collapsed right calvarium dried blood along flap closure site Data 05/22/23 04:37 05/22/23 04:37 A&P Assessment and plan (1) Chronic osteomyelitis of skull: (2) S/P craniotomy: Plan 70-year-old lady with a past medical history of metastatic large cell cancer of the lung with a dural mass diagnosed in 2018, status postresection of the segment mass with placement of titanium mesh which eventually was complicated by hardware infection in August 2021. Status post I&D removal of mesh and creation of free flap in November 2021 complicated by flap necrosis at that time. Patient presumably received antibiotics at that time, however I do not have the records to make that assessment currently. Patient was back to [place] in April 2023 for a planned craniotomy which was eventually deferred once evidence of osteomyelitis was seen in the OR. No cultures are available from this time. She was evaluated by infectious disease at [facility] and is on an empiric course of cefepime, daptomycin, metronidazole and micafungin per their recommendations. Per partial review of culture results from November 2021, it appears there were fungal elements and Pseudomonas aeruginosa identified at that time. Currently there are no active signs of meningitis. Dual enhancement seen on current CT most likely to represent postoperative changes. Recommend to continue current antibiotics with cefepime, daptomycin, metronidazole and micafungin as recommended per infectious disease at [facility]. Complete a planned 8 weeks course Patient is alert awake and oriented x3 though does appear to have some memory gaps in her timeline. Upon asking specific questions she is able to provide accurate details even in this regard. Patient is planned for craniotomy in June this year. No new changes to the current treatment plan. Disposition home vs SNF per attending Patient will be best served by continuing her care at a tertiary level center after discharge. Her care requires a multidisciplinary approach and at a minimum would involve neurosurgery, plastic/reconstructive surgery, and infectious disease specialist, of which we do not have neurosurgery or reconstructive surgery services available at our center. Please call with any further questions or concerns. Overall plan of care discussed extensively with the patient. Coding Level of Care Code Acute Code for Chg Fwd High MDM includes number and complexity of problems actively addressed during encounter, amount and/or complexity of data reviewed/ordered and described risk of complication, morbidity or mortality of management as documented and High Time for a total of 70 minutes, includes reviewing past or interval history, examining/interviewing patient, placing orders, updating patient/family/other support, communicating with other healthcare providers and documenting encounter Diagnoses Chronic osteomyelitis of skull M86.68 S/P craniotomy Z98.890
[2023-05-21] MEDS: cefepime 1,000 MG in sodium chloride 0.9% (plus) 50 ML 100 MG IV ×2 (07:26→19:53)
[2023-05-21] MEDS: apixaban 5 mg Tablet PO ×2 (08:24→17:30)
[2023-05-21] MEDS: predniSONE 5 mg Tablet PO ×2 (08:24→17:30)
[2023-05-21] MEDS: montelukast sodium 10 mg Tablet PO (08:24)
[2023-05-21] MEDS: AA-Dex 5%-20% w/Lytes 1,000 ML with multivitamin inj 10 ML 12 ML IV (13:26)
--- NOTE | 2023-05-21 14:37 | PC.SOCIAL ---
IMM Update pg 2 of IMM updated and reviewed w/ patient. Copy provided and Copy in chart dated, and initialed.
--- NOTE | 2023-05-21 15:50 | PM.PN ---
Subjective Subjective: No acute events overnight. Patient has remained hemodynamically stable and afebrile. Continues to remain on 2 L of oxygen supplementation saturating more than 90%. Patient denies any new complaints. Patient sat in the chair for around 2 to 3 hours yesterday but was maximum assist with physical therapy. As per dietitian patient completed around 80 to 90% of her breakfast tray today morning and dinner last night. PICC line placed in the other arm yesterday as the PICC line from before was only single-lumen. Blood work appreciated for stable CBC, CMP showing mild hyponatremia down to 130, persistent hypokalemia of 3.3, albumin of 2.1 Vitals/I&O/Wt Last Vital Signs Temp 98.1 F 05/21/23 11:31 Pulse 88 05/21/23 14:00 Resp 18 05/21/23 14:00 BP 89/60 05/21/23 11:31 Pulse Ox 95 05/21/23 14:00 O2 Del Method Nasal Cannula 05/21/23 14:00 O2 Flow Rate 2 05/21/23 14:00 05/21/23 05/21/23 05/21/23 06:59 14:59 22:59 Intake Total 200 / 1180 210 / 210 Balance 200 / 1180 210 / 210 Physical Exam Narrative: Chronically sick appearing, cachectic, anorexic Const: COMMON NORMALS: patient oriented x3 and alert; negative for well nourished GENERAL APPEARANCE: cooperative, lethargic and frail appearing NUTRITIONAL APPEARANCE: cachectic, thin and underweight ORIENTATION/CONSCIOUSNESS: Yes awake and Yes lethargic OTHER: Today she is alert, in better spirits. HENMT: COMMON NORMALS: oropharynx normal OTHER: Prior craniotomy, craniectomy, absent superior-inferior portion of the cranium. Neck/C-Spine: COMMON NORMALS: no JVD Resp: COMMON NORMALS: normal respiratory effort and clear to auscultation bilaterally AUSCULTATION: clear to auscultation bilaterally Cardio: COMMON NORMALS: no JVD, regular rhythm, S1 normal heart sound present, S2 normal heart sound present and No murmurs present (Cardio) RHYTHM: regular rhythm HEART SOUNDS: S1 normal heart sound present and S2 normal heart sound present GI: COMMON NORMALS: Normal to inspection, nondistended, normoactive bowel sounds present, Soft to palpation and non-tender PALPATION: Yes Soft to palpation Extremity: COMMON NORMALS: no joint enlargement GENERAL: Yes edema (3+ BL foot edema) Neuro: COMMON NORMALS: patient oriented x3 and moves all extremities SENSORIUM/ORIENTATION: Yes alert and Yes lethargic Skin: GENERAL SKIN EXAM: ecchymosis OTHER: Thin, fragile skin, bruises, mild erythema right forearm. Some erythematous patches on the upper chest/over clavicles. Ulceration of left lower neck with eschar at base. Data 05/21/23 05:08 05/21/23 05:08 A&P Assessment and plan (1) Chronic osteomyelitis of skull: Chronic. Being followed up at [facility]. Last admitted at the hospital in April 2023. Discharged on daptomycin, cefepime, Flagyl IV along with micafungin. Still awaiting documents from outside hospital. Will review and request documents from [facility] along with cultural history. Possible history of MDRO lactobacillus. Daptomycin initially on hold earlier this admission with concerns for rhabdomyolysis. Restarted on 05/12. CT gastropleural stable. Appreciate ID recommendations. Blood cultures so far negative. For now continue with above regimen. PICC line in place. Plan for now to continue medications. Follow-up 6 weeks. (2) Severe protein-energy malnutrition: Chronic most likely in setting of cancer cachexia along with chronic osteomyelitis. Severely deconditioned. Appreciate dietary recommendations. We will go ahead and start on TPN. Confirmed with pharmacy and nursing in charge that TPN can be given through same PICC line but with a dedicated lumen. Once TPN started patient will be at a risk of refeeding syndrome. We will continue to monitor electrolytes including phosphorus and magnesium daily. We will continue to encourage patient to increase oral intake along with protein shakes with each meal Encourage patient to be out of bed to chair with PT Continue with dysphagia level 7 diet. Advance as per speech evaluation. (3) Physical deconditioning: (4) Rhabdomyolysis: Hold diuretics. Most likely in setting of daptomycin. Continue to monitor CPK daily for now. (5) Goals of care, counseling/discussion: (6) AMS (altered mental status): So far has resolved. Most likely in setting of dehydration along with rhabdomyolysis on admission. Continue with home dose of [place]. Seizure precaution. (7) Shock: Resolved. Insetting of sepsis and possible adrenal insufficiency as patient is chronically on prednisone. Goal blood pressure less than 140/90 mmHg with mean over 65. Continue with home dose of prednisone 5 mg twice daily for now. (8) Hypokalemia: Replaced. Monitor daily with magnesium Plan Anemia: Target hemoglobin over 7. Renal disease. Appreciate iron panel, vitamin B12 and folate levels. Start on oral iron supplementation every other day. Chronic anticoagulation: Not sure of the reason. Regular rhythm. Continue with Eliquis 5 mg twice daily for now. No active signs of bleeding. History of NSCLC. Continue follow-up with oncology. COPD: Not in exacerbation HLD Anxiety and depression Goals of care: Discussed in detail with the patient. She states her son is the ARNALDO. Name is [place]. He lives out of town in [place]. She would be okay with attempt of CPR and mechanical ventilation if needed. Full code. Discharge plan: Plan to discharge to SNF versus swing bed given need of IV antibiotics going forward for at least 6 weeks given concerns for osteomyelitis of cranium. Patient is not a candidate for [facility] anymore as he did not qualify for more than 3 midnights at ICU. Level 7 dysphagia diet Protonix for PUD prophylaxis Eliquis will suffice as DVT prophylaxis. Plan for the day: Appreciate ID recommendations. Monitor CPK. Continue with current antimicrobial therapy with daptomycin, cefepime, micafungin and Flagyl. Appreciate documents from [facility]. Unfortunate did not get enough ID notes. We will try to request further. Continue with prednisone 5 mg twice daily. Replete 80 mg of oral potassium in 2 divided doses. Continue with physical therapy. Start TPN. Goal as per dietitian recommendations Attestations Medical Necessity Statement*: Requires further hospitalization for management of osteomyelitis of skull while outpatient antibiotics and safe discharge planning is sought Diagnoses Chronic osteomyelitis of skull M86.68 Severe protein-energy malnutrition E43 Physical deconditioning R53.81 Rhabdomyolysis M62.82 Goals of care, counseling/discussion Z71.89 AMS (altered mental status) R41.82 Shock R57.9 Hypokalemia E87.6
[2023-05-21] MEDS: potassium chloride ER 20 mEq Tablet 40 MEQ PO ×2 (16:18→17:30)
[2023-05-21] MEDS: pantoprazole 40 mg SDV IVP (19:47)
[2023-05-21] MEDS: micafungin 100 MG in sodium chloride 0.9% (plus) 100 ML IV (20:25)
[2023-05-22] VITALS (9 sets, daily range): BP systolic 81–136; BP diastolic 60–85; PULSE 84–100; RESP 14–18; TEMP 36.4–37.1; O2SAT 93–99
[2023-05-22 05:14] LABS: Basophils % 0.2 %; Eosinophils % 0.5 %; Lymphocytes # 0.9 10^3/uL (0.8-4.8); Lymphocytes % 13.4 %; Mean Corpuscular HGB Conc 31.7 g/dL (30-55); Mean Corpuscular Volume 104.2 fl (85-98); Mean Platelet Volume 9.2 fL (7.4-10.4); Monocytes # 0.9 10^3/uL (0.2-0.9); Monocytes % 13.4 %; Neutrophils # 4.63 10^3/uL (1.8-7.7); Neutrophils % 70.2 %; Nucleated Red Blood Cells % 0 %; Platelet Count 390 10^3/cmm (157-399); Red Blood Count 2.88 10^6/uL (3.85-5.65); White Blood Count 6.58 10^3/uL (3.29-11.43)
[2023-05-22 05:21] LABS: Alanine Aminotransferase 11 U/L (0-33); Albumin Level 2.1 g/dL (3.5-5.2); Alkaline Phosphatase 96 U/L (35-105); Anion Gap 8.1 (5-19); Aspartate Amino Transferase 14 U/L (0-32); Blood Urea Nitrogen 10 mg/dL (8-23); Calcium 7.9 mg/dL (8.5-10.5); Carbon Dioxide 30 mmol/L (22-29); Chloride 97 mmol/L (98-107); Creatine Phosphokinase 50 U/L (26-192); Globulin 2.4 g/dL (1.3-4.6); Glomerular Filtration Rate 162.3 mL/min (90-130); Glucose 160 mg/dL (65-115); Magnesium 1.7 mg/dL (1.7-2.3); Osmolality Calculated 272 mOsm/kg (285-295); Phosphorus 2.1 mg/dL (2.5-4.5); Potassium 5.1 mmol/L (3.5-5.1); Sodium 130 mmol/L (136-145); Total Bilirubin 0.2 mg/dL (0.15-1.2); Total Protein 4.5 g/dL (6.6-8.7)
[2023-05-22] MEDS: apixaban 5 mg Tablet PO ×2 (08:52→16:54)
[2023-05-22] MEDS: predniSONE 5 mg Tablet PO ×2 (08:52→16:54)
[2023-05-22] MEDS: montelukast sodium 10 mg Tablet PO (08:52)
[2023-05-22] MEDS: metroNIDAZOLE IV 500 MG/100 ML PREMIX 100 MG IV ×2 (08:55→16:54)
--- NOTE | 2023-05-22 09:54 | PM.PN ---
Subjective Subjective: No acute events overnight. Today morning seen sitting up in chair. As per nursing staff patient's appetite continues to improve. She apparently ate [employer] last night. Patient denies any nausea, vomiting, headache. Patient is happy that she could eat more but is a little emotional today as this is her 25th wedding anniversary and her earlier this year. Hemodynamically otherwise stable. Appreciate blood work with potassium to 5.1 today, persistent hyponatremia Vitals/I&O/Wt Last Vital Signs Temp 97.6 F 05/22/23 08:07 Pulse 94 05/22/23 09:00 Resp 17 05/22/23 09:00 BP 89/63 05/22/23 09:00 Pulse Ox 99 05/22/23 09:00 O2 Del Method Nasal Cannula 05/22/23 08:07 O2 Flow Rate 3 05/22/23 07:54 05/21/23 05/22/23 05/22/23 22:59 06:59 14:59 Intake Total 310 / 520 450 / 970 120 / 120 Balance 310 / 520 450 / 970 120 / 120 Physical Exam Narrative: Chronically sick appearing, cachectic, anorexic Const: COMMON NORMALS: patient oriented x3 and alert; negative for well nourished GENERAL APPEARANCE: cooperative, lethargic and frail appearing NUTRITIONAL APPEARANCE: cachectic, thin and underweight ORIENTATION/CONSCIOUSNESS: Yes awake and Yes lethargic OTHER: Today she is alert, in better spirits. HENMT: COMMON NORMALS: oropharynx normal OTHER: Prior craniotomy, craniectomy, absent superior-inferior portion of the cranium. Neck/C-Spine: COMMON NORMALS: no JVD Resp: COMMON NORMALS: normal respiratory effort and clear to auscultation bilaterally AUSCULTATION: clear to auscultation bilaterally Cardio: COMMON NORMALS: no JVD, regular rhythm, S1 normal heart sound present, S2 normal heart sound present and No murmurs present (Cardio) RHYTHM: regular rhythm HEART SOUNDS: S1 normal heart sound present and S2 normal heart sound present GI: COMMON NORMALS: Normal to inspection, nondistended, normoactive bowel sounds present, Soft to palpation and non-tender PALPATION: Yes Soft to palpation Extremity: COMMON NORMALS: no joint enlargement GENERAL: Yes edema (3+ BL foot edema) Neuro: COMMON NORMALS: patient oriented x3 and moves all extremities SENSORIUM/ORIENTATION: Yes alert and Yes lethargic Skin: GENERAL SKIN EXAM: ecchymosis OTHER: Data 05/22/23 04:37 05/22/23 04:37 A&P Assessment and plan (1) Chronic osteomyelitis of skull: Chronic. Being followed up at [facility]. Last admitted at the hospital in April 2023. Discharged on daptomycin, cefepime, Flagyl IV along with micafungin. Still awaiting documents from outside hospital. Will review and request documents from [facility] along with cultural history. Possible history of MDRO lactobacillus. Daptomycin initially on hold earlier this admission with concerns for rhabdomyolysis. Restarted on 05/12. CT gastropleural stable. Appreciate ID recommendations. Blood cultures so far negative. For now continue with above regimen. PICC line in place. Plan for now to continue medications. Follow-up 6 weeks. (2) S/P craniotomy: (3) Severe protein-energy malnutrition: Chronic most likely in setting of cancer cachexia along with chronic osteomyelitis. Severely deconditioned. Appreciate dietary recommendations. We will go ahead and start on TPN. Confirmed with pharmacy and nursing in charge that TPN can be given through same PICC line but with a dedicated lumen. Once TPN started patient will be at a risk of refeeding syndrome. We will continue to monitor electrolytes including phosphorus and magnesium daily. We will continue to encourage patient to increase oral intake along with protein shakes with each meal Encourage patient to be out of bed to chair with PT Continue with dysphagia level 7 diet. Advance as per speech evaluation. (4) Physical deconditioning: (5) Rhabdomyolysis: Hold diuretics. Most likely in setting of daptomycin. Continue to monitor CPK daily for now. (6) Goals of care, counseling/discussion: (7) AMS (altered mental status): So far has resolved. Most likely in setting of dehydration along with rhabdomyolysis on admission. Continue with home dose of [place]. Seizure precaution. (8) Shock: Resolved. Insetting of sepsis and possible adrenal insufficiency as patient is chronically on prednisone. Goal blood pressure less than 140/90 mmHg with mean over 65. Continue with home dose of prednisone 5 mg twice daily for now. (9) Hypokalemia: Replaced. Monitor daily with magnesium Plan Anemia: Target hemoglobin over 7. Renal disease. Appreciate iron panel, vitamin B12 and folate levels. Start on oral iron supplementation every other day. Chronic anticoagulation: Not sure of the reason. Regular rhythm. Continue with Eliquis 5 mg twice daily for now. No active signs of bleeding. History of NSCLC. Continue follow-up with oncology. COPD: Not in exacerbation HLD Anxiety and depression Goals of care: Discussed in detail with the patient. She states her son is the [employer]. Name is [place]. He lives out of town in [place]. She would be okay with attempt of CPR and mechanical ventilation if needed. Full code. Discharge plan: Plan to discharge to SNF versus swing bed given need of IV antibiotics going forward for at least 6 weeks given concerns for osteomyelitis of cranium. Patient is not a candidate for [facility] anymore as he did not qualify for more than 3 midnights at ICU. Level 7 dysphagia diet Protonix for PUD prophylaxis Eliquis will suffice as DVT prophylaxis. Plan for the day: Had a detailed discussion about patient's care with her outpatient ID office nurse practitioner at the [facility]. She confirms that patient is supposed to be on daptomycin 8 mg/kg body weight, micafungin 100 mg IV daily, cefepime 1 g twice daily and oral Flagyl. Requesting ESR and CRP weekly. Will repeat ESR and CRP in morning. Did inform her that patient is tolerating daptomycin well currently. Have requested her to fax the latest ID documentation and culture history if possible. Continue with TPN. Potassium mildly elevated today. Will ask pharmacy for review. Confirmed with ID nurse practitioner and patient she is supposed to let wound open to air. Will confirm with our wound care. Repeat potassium in evening. Out of bed to chair. Continue to encourage increase oral intake. Discharge planning: Patient has been accepted at [facility] but we are awaiting authorization. Patient has been informed. Attestations Medical Necessity Statement*: Requires further hospitalization for management of osteomyelitis of cranium while outpatient antimicrobials and safe discharge planning is sought. Diagnoses Chronic osteomyelitis of skull M86.68 S/P craniotomy Z98.890 Severe protein-energy malnutrition E43 Physical deconditioning R53.81 Rhabdomyolysis M62.82 Goals of care, counseling/discussion Z71.89 AMS (altered mental status) R41.82 Shock R57.9 Hypokalemia E87.6
[2023-05-22] MEDS: alteplase 1 mg/mL SDV 2 mL 2 MG INTRACATH (11:13)
[2023-05-22 11:44] LABS: Glucose Point of Care 146 mg/dL (70-110)
[2023-05-22] MEDS: cefepime 1,000 MG in sodium chloride 0.9% (plus) 50 ML 100 MG IV (14:55)
[2023-05-22 17:39] LABS: Glucose Point of Care 142 mg/dL (70-110)
[2023-05-22 19:42] LABS: Potassium 4.4 mmol/L (3.5-5.1)
[2023-05-22] MEDS: pantoprazole 40 mg SDV IVP (20:52)
[2023-05-22] MEDS: micafungin 100 MG in sodium chloride 0.9% (plus) 100 ML IV (20:57)
[2023-05-23] VITALS (7 sets, daily range): BP systolic 90–98; BP diastolic 59–64; PULSE 80–98; RESP 16–18; TEMP 36.4–36.9; O2SAT 97–100
[2023-05-23] MEDS: metroNIDAZOLE IV 500 MG/100 ML PREMIX 100 MG IV ×2 (00:12→09:39)
[2023-05-23] MEDS: HYDROcodone-acetaminophen 5-325 mg Tablet 1 TAB PO (00:13)
[2023-05-23] MEDS: cefepime 1,000 MG in sodium chloride 0.9% (plus) 50 ML 100 MG IV (03:56)
[2023-05-23 05:05] LABS: Erythrocyte Sedimentation Rate 6 mm/hr (0-15)
[2023-05-23 05:08] LABS: Basophils % 0.1 %; Eosinophils # 0.1 10^3/uL (0.0-0.8); Eosinophils % 0.7 %; Hematocrit 27.9 % (36-47); Lymphocytes % 13.6 %; Mean Corpuscular HGB Conc 31.5 g/dL (30-55); Mean Corpuscular Hemoglobin 32.8 pg (27-33); Mean Corpuscular Volume 104.1 fl (85-98); Monocytes % 13.6 %; Neutrophils # 4.98 10^3/uL (1.8-7.7); Neutrophils % 67.4 %; Nucleated Red Blood Cells % 0 %; Platelet Count 331 10^3/cmm (157-399); Red Blood Count 2.68 10^6/uL (3.85-5.65); Red Cell Distribution Width 18.2 % (12.1-15.1); White Blood Count 7.38 10^3/uL (3.29-11.43)
[2023-05-23 05:31] LABS: Alanine Aminotransferase 9 U/L (0-33); Albumin Level 2.2 g/dL (3.5-5.2); Alkaline Phosphatase 76 U/L (35-105); Anion Gap 7.2 (5-19); Aspartate Amino Transferase 12 U/L (0-32); Blood Urea Nitrogen 8 mg/dL (8-23); C Reactive Protein 13.7 mg/L (0.0-4.9); Calcium 7.9 mg/dL (8.5-10.5); Carbon Dioxide 30 mmol/L (22-29); Chloride 103 mmol/L (98-107); Globulin 2.1 g/dL (1.3-4.6); Glomerular Filtration Rate 361.1 mL/min (90-130); Glucose 122 mg/dL (65-115); Osmolality Calculated 282 mOsm/kg (285-295); Potassium 4.2 mmol/L (3.5-5.1); Sodium 136 mmol/L (136-145); Total Bilirubin 0.2 mg/dL (0.15-1.2); Total Protein 4.3 g/dL (6.6-8.7)
[2023-05-23] MEDS: AA-Dex 5%-20% w/Lytes 1,000 ML with multivitamin inj 10 ML 42 ML IV (05:33)
--- NOTE | 2023-05-23 07:29 | PC.NURSE ---
when given report from day shift it was told that tpn was at goal of 42ml/hr on iv pump. overnight when checked in oct, tpn was still charted at 12ml/hr with no titration documented. software writer scanned next bag at goal rate and administered to patient.
[2023-05-23] MEDS: predniSONE 5 mg Tablet PO (09:17)
[2023-05-23] MEDS: apixaban 5 mg Tablet PO (09:17)
[2023-05-23] MEDS: montelukast sodium 10 mg Tablet PO (09:17)
--- NOTE | 2023-05-23 09:55 | P.TS_ITS ---
Transfer Summary Providers Date of Admission: 05/12/23 20:07 Date of Discharge/Transfer: 05/23/23 Attending Provider at Admission: Bruno Parikh Attending Provider at Transfer: Dario Hearn MD Consults: ID: Dr. Parson Transfer Plans: Anticipated date of transfer: 05/23/23 . Receiving Facility: [facility] . Receiving Provider: Dr. Moraes . Diagnoses at Discharge Discharge Diagnosis (1) Chronic osteomyelitis of skull: Status: Acute (2) S/P craniotomy: Status: Acute (3) Severe protein-energy malnutrition: Status: Acute (4) Physical deconditioning: Status: Acute (5) Rhabdomyolysis: Status: Acute (6) Goals of care, counseling/discussion: Status: Acute (7) AMS (altered mental status): Status: Acute (8) Shock: Status: Acute (9) Hypokalemia: Status: Acute Reason for Visit Reason for Visit WEAKNESS Hospital Course Hospital Course Georgette Calvillo is a 62 year old lady with a past medical history of 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? Most recent PET scans do not show any FDG avid lesions. In 2018 she had presented with an enlarging lump on the right side of the head.? 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 In June 2019 she underwent craniotomy with resection debulking of the frontal skull and dural mass.? Per patient there was a titanium mesh placed at that time.? In August 2021, she accidentally scratched her head which resulted in an open lesion at the place of her graft.? It appears she received treatment with ciprofloxacin from primary care provider and was referred to wound care.? Per review of wound care notes she was noted to have the entirety of her mesh implant exposed with copious amounts of dried exudate.? She was recommended to see neurosurgery immediately.? Eventually she got into see neurosurgery at [facility] in November 2021 she underwent Right cranial wound exploration, incision and drainage, mesh removal and complex wound closure with scalp rotational free flap which was derived from the gluteus minimus muscle on her leg.? I do not have final culture results or any infectious disease notes available for direct erick w however per limited data available to me at this time it appears a GMS stains were positive for fungal elements at that time.? She also had evidence of epidural infection and there was growth of Pseudomonas and some of these cultures.? Uncertain how she was treated at this time or if she remained on any suppression thereafter.? Notes have been requested but awaited. 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 She was now planned for cranioplasty at [facility] in April 2023 however after being taken to the OR this procedure was eventually deferred as there was evidence of active infection.? No cultures appear to have been sent at this time.? She has been on an empiric course of cefepime, daptomycin, metronidazole and micafungin per infectious disease at [facility].? She was discharged from [place] with plans to complete IV antibiotic treatment for 8 weeks and then undergo cranioplasty in June of this year.? Per patient once she returned home she does not think she had was set up with IV antibiotics.? States that she came home on a Friday. She was admitted this time to the hospital with concerns for altered mental status noted by the home health nurse. When she presented to the ER she was arousable and respond to verbal stimulus. On admission she was found to be hypotensive and in rhabdomyolysis. She was started on IV antibiotics and stress dose steroids, daptomycin was withheld given concerns for rhabdomyolysis. She responded well to the treatment and her blood pressures, PATRICIA resolved. She was restarted on daptomycin at 8 mg/kg body weight dose and CPK has been monitored and has remained stable. Patient's care was coordinated multiple times with the ID team at [place]. During hospitalization she was also found to have severe physical deconditioning along with protein energy malnutrition. Calorie count was done and patient was started on TPN. Gradually patient started improving and her oral intake has improved. Her ESR and CRP checked on 05/22 showed ESR to be normal and CRP down to 13 from more than 100 on admission. Patient requires further close monitoring and prolonged IV antibiotic course as per ID team at [place] for overall 6 weeks and will be followed up further advance for possible cranioplasty once the infection has settled down. She has been transferred to [facility] for the same. She would need weekly ESR and CRP and CPK to be checked twice weekly while being on the current medi cations. She needs to be on cefepime 1 g IV twice daily, daptomycin 8 mg/kg body weight daily, micafungin 100 mg IV daily, oral Flagyl 500 mg 3 times daily. Physical Exam Narrative: Chronically sick appearing, cachectic, anorexic Const: COMMON NORMALS: no acute distress, patient oriented x3 and alert; negative for well nourished GENERAL APPEARANCE: cooperative, comfortable, lethargic and frail appearing NUTRITIONAL APPEARANCE: cachectic, thin and underweight ORIENTATION/CONSCIOUSNESS: Yes awake and Yes lethargic OTHER: Today she is alert, in better spirits. HENMT: COMMON NORMALS: oropharynx normal OTHER: Prior craniotomy, craniectomy, absent superior-inferior portion of the cranium. Neck/C-Spine: COMMON NORMALS: no JVD Resp: COMMON NORMALS: normal respiratory effort, No retractions, No use of accessory muscles and clear to auscultation bilaterally AUSCULTATION: clear to auscultation bilaterally Cardio: COMMON NORMALS: no JVD, regular rate, regular rhythm, S1 normal heart sound present, S2 normal heart sound present and No murmurs present (Cardio) RATE: regular rate RHYTHM: regular rhythm HEART SOUNDS: S1 normal heart sound present and S2 normal heart sound present GI: COMMON NORMALS: Normal to inspection, nondistended, normoactive bowel sounds present, Soft to palpation, non-tender and No hepatosplenomegaly present AUSCULTATION: Yes normoactive bowel sounds PALPATION: Yes Soft to palpation, No Tenderness to palpation present (GI), No Guarding due to palpation present (GI) and Yes No hepatosplenomegaly present Extremity: COMMON NORMALS: normal to inspection, capillary refill normal, no joint enlargement, no clubbing, cyanosis or edema, no calf tenderness and no pedal edema GENERAL: Yes edema (3+ BL foot edema) Neuro: COMMON NORMALS: patient oriented x3 and moves all extremities SENSORIUM/ORIENTATION: Yes alert and Yes lethargic Skin: COMMON NORMALS: no rashes or lesions noted GENERAL SKIN EXAM: no rashes or lesions noted and ecchymosis OTHER: TS Data Studies Completed and Pending Pending at discharge Category Date Time Status Occult Blood Stool [Immunochemical Fecal OCB] Routine Lab 05/12/23 20:10 Uncollected Labs from last 24 hours 05/23/23 05/23/23 05/22/23 04:55 04:55 18:48 WBC 7.38 RBC 2.68 L Hgb 8.80 L Hct 27.9 L MCV 104.1 H MCH 32.8 MCHC 31.5 RDW 18.2 H Plt Count 331 MPV 9.0 Neut % (Auto) 67.4 Lymph % (Auto) 13.6 Gulf % (Auto) 13.6 Eos % (Auto) 0.7 Baso % (Auto) 0.1 Neut # (Auto) 4.98 Lymph # (Auto) 1.0 Gulf # (Auto) 1.0 H Eos # (Auto) 0.1 Baso # (Auto) 0.0 Nucleated RBC % (auto) 0 Nucleated RBCs # 0.0 ESR 6 Sodium 136 Potassium 4.2 4.4 Chloride 103 Carbon Dioxide 30 H Anion Gap 7.2 BUN 8 Creatinine 0.2 L GFR Calculation 361.1 H Glucose 122 H POC Glucose Calculated Osmolality 282 L Calcium 7.9 L Total Bilirubin 0.2 AST 12 ALT 9 Alkaline Phosphatase 76 C-Reactive Protein 13.7 H Total Protein 4.3 L Albumin 2.2 L Globulin 2.1 05/22/23 05/22/23 17:34 11:38 WBC RBC Hgb Hct MCV MCH MCHC RDW Plt Count MPV Neut % (Auto) Lymph % (Auto) Gulf % (Auto) Eos % (Auto) Baso % (Auto) Neut # (Auto) Lymph # (Auto) Gulf # (Auto) Eos # (Auto) Baso # (Auto) Nucleated RBC % (auto) Nucleated RBCs # ESR Sodium Potassium Chloride Carbon Dioxide Anion Gap BUN Creatinine GFR Calculation Glucose POC Glucose 142 H 146 H Calculated Osmolality Calcium Total Bilirubin AST ALT Alkaline Phosphatase C-Reactive Protein Total Protein Albumin Globulin Completed Studies During Hospitalization Category Date Time Status CT head wo/w con 01986 Stat Cat Scan 05/12/23 13:45 Completed CXRP [XR chest 1V portable [id number]] Routine Exams 05/15/23 11:36 Completed CXRP [XR chest 1V portable [id number]] Routine Exams 05/20/23 14:40 Completed XR chest 1V portable [id number] Stat Exams 05/12/23 10:40 [place] [id number] Routine Ultrasound 05/14/23 12:50 Completed Laboratory Last Values WBC 7.38 10^3/uL (3.29-11.43) 05/23/23 04:55 RBC 2.68 10^6/uL (3.85-5.65) L 05/23/23 04:55 Hgb 8.80 g/dL (11.27-16.99) L 05/23/23 04:55 Hct 27.9 % (36-47) L 05/23/23 04:55 MCV 104.1 fl (85-98) H 05/23/23 04:55 MCH 32.8 pg (27-33) 05/23/23 04:55 MCHC 31.5 g/dL (30-55) 05/23/23 04:55 RDW 18.2 % (12.1-15.1) H 05/23/23 04:55 Plt Count 331 10^3/cmm (157-399) 05/23/23 04:55 MPV 9.0 fL (7.4-10.4) 05/23/23 04:55 Neut % (Auto) 67.4 % 05/23/23 04:55 Lymph % (Auto) 13.6 % 05/23/23 04:55 Gulf % (Auto) 13.6 % 05/23/23 04:55 Eos % (Auto) 0.7 % 05/23/23 04:55 Baso % (Auto) 0.1 % 05/23/23 04:55 Reticulocyte % (Auto) 6.4 % (0.5-2.0) H 05/20/23 04:35 Neut # (Auto) 4.98 10^3/uL (1.8-7.7) 05/23/23 04:55 Lymph # (Auto) 1.0 10^3/uL (0.8-4.8) 05/23/23 04:55 Gulf # (Auto) 1.0 10^3/uL (0.2-0.9) H 05/23/23 04:55 Eos # (Auto) 0.1 10^3/uL (0.0-0.8) 05/23/23 04:55 Baso # (Auto) 0.0 10^3/uL (0.0-0.1) 05/23/23 04:55 Nucleated RBC % (auto) 0 % 05/23/23 04:55 Nucleated RBCs # 0.0 /100WBC 05/23/23 04:55 ESR 6 mm/hr (0-15) 05/23/23 04:55 Specimen Type Arterial 05/16/23 06:00 Sample Site Brachial, right 05/16/23 06:00 ABG pH 7.46 (7.35-7.45) H 05/16/23 06:00 ABG pCO2 38.4 mmHg (35-45) 05/16/23 06:00 ABG pO2 75.0 mmHg (80.0-100.0) L 05/16/23 06:00 ABG HCO3 27.2 mmol/L (22-26) H 05/16/23 06:00 ABG O2 Saturation 96.8 05/16/23 06:00 ABG Base Excess 3.2 mmol/L (-2.0-2.0) H 05/16/23 06:00 Delroy Test N/a 05/16/23 06:00 A-a O2 Gradient 13.7 mmHg (5-10) H 05/16/23 06:00 Hematocrit 31.8 % (37-47) L 05/16/23 06:00 Hgb O2 Saturation 94.6 % (95-100) L 05/16/23 06:00 Carboxyhemoglobin 1.7 %THgb (0.4-20.1) 05/16/23 06:00 Methemoglobin 0.6 % (0.4-1.5) 05/16/23 06:00 Total Hemoglobin 10.4 g/dL (12-16) L 05/16/23 06:00 Sodium 143.0 mmol/L (131-143) 05/16/23 06:00 Potassium 3.1 mmol/L (3.5-5.0) L 05/16/23 06:00 Glucose 105.0 mg/dL (70-115) 05/16/23 06:00 Ionized Calcium 1.2 mmol/L (1.1-1.4) 05/16/23 06:00 O2 Delivery Device Nc 05/16/23 06:00 O2 Liters/Min 3.0 % 05/16/23 06:00 FiO2 32.0 % 05/16/23 06:00 Supervisor Wet Pour ID [email or web address] 05/16/23 06:00 Sodium 136 mmol/L (136-145) 05/23/23 04:55 Potassium 4.2 mmol/L (3.5-5.1) 05/23/23 04:55 Chloride 103 mmol/L (98-107) 05/23/23 04:55 Carbon Dioxide 30 mmol/L (22-29) H 05/23/23 04:55 Anion Gap 7.2 (5-19) 05/23/23 04:55 BUN 8 mg/dL (8-23) 05/23/23 04:55 Creatinine 0.2 mg/dL (0.5-0.9) L 05/23/23 04:55 GFR Calculation 361.1 mL/min (90-130) H 05/23/23 04:55 Glucose 122 mg/dL (65-115) H 05/23/23 04:55 POC Glucose 142 mg/dL (70-110) H 05/22/23 17:34 Estimat Average Glucose 85 05/20/23 04:35 Hemoglobin A1c 4.6 % (4.0-6.0) 05/20/23 04:35 Calculated Osmolality 282 mOsm/kg (285-295) L 05/23/23 04:55 Lactic Acid 1.2 mmol/L (0.5-2.2) 05/12/23 10:45 Calcium 7.9 mg/dL (8.5-10.5) L 05/23/23 04:55 Phosphorus 2.1 mg/dL (2.5-4.5) L 05/22/23 04:37 Magnesium 1.7 mg/dL (1.7-2.3) 05/22/23 04:37 Iron 38 ug/dL (37-145) 05/20/23 04:35 TIBC 85 mcg/dl 05/20/23 04:35 % Saturation 44.7 % (20-50) 05/20/23 04:35 Unsat Iron Binding 47 ug/dL (112-347) L 05/20/23 04:35 Total Bilirubin 0.2 mg/dL (0.15-1.2) 05/23/23 04:55 AST 12 U/L (0-32) 05/23/23 04:55 ALT 9 U/L (0-33) 05/23/23 04:55 Alkaline Phosphatase 76 U/L (35-105) 05/23/23 04:55 Creatine Kinase 50 U/L (26-192) 05/22/23 04:37 C-Reactive Protein 13.7 mg/L (0.0-4.9) H 05/23/23 04:55 Total Protein 4.3 g/dL (6.6-8.7) L 05/23/23 04:55 Albumin 2.2 g/dL (3.5-5.2) L 05/23/23 04:55 Globulin 2.1 g/dL (1.3-4.6) 05/23/23 04:55 Triglycerides 157 mg/dL (0-150) H 05/20/23 04:35 Cholesterol 159 mg/dL (0-200) 05/20/23 04:35 LDL Cholesterol, Calc 97 mg/dL (50-129) 05/20/23 04:35 Total VLDL Cholesterol 31 mg/dL (0-30) H 05/20/23 04:35 HDL Cholesterol 31 mg/dL (60-100) L 05/20/23 04:35 Cholesterol/HDL Ratio 5.13 mg/dL (0.0-4.40) H 05/20/23 04:35 Vitamin B12 719 pg/mL (232-1245) 05/12/23 10:45 Folate < 20.0 ng/mL (4.8-37.3) 05/20/23 04:35 Procalcitonin 0.25 ng/mL (0-0.5) 05/19/23 04:46 TSH 3.15 uIU/mL (0.27-4.20) 05/16/23 04:59 Random Cortisol 5.48 ug/dL (2.47-19.5) 05/12/23 10:45 Urine Color Dark yellow (Yellow) 05/12/23 11:40 Urine Appearance Clear (CLEAR) 05/12/23 11:40 Urine pH 5 (5-7) 05/12/23 11:40 Ur Specific Eunice 1.015 (1.005-1.030) 05/12/23 11:40 Urine Protein 1+ (Negative) H 05/12/23 11:40 Urine Glucose (UA) Norm (Normal) 05/12/23 11:40 Urine Ketones 1+ (Negative) H 05/12/23 11:40 Urine Blood 3+ (Negative) H 05/12/23 11:40 Urine Nitrate Positive (Negative) H 05/12/23 11:40 Urine Bilirubin 1+ (Negative) H 05/12/23 11:40 Urine Urobilinogen Norm mg/dL (Negative) 05/12/23 11:40 Ur Leukocyte Esterase Trace (Negative) H 05/12/23 11:40 Urine RBC 0-4 /hpf (0-2) H 05/12/23 11:40 Urine WBC Rare /hpf (0-5) 05/12/23 11:40 Ur Squamous Epith Cells None /hpf (0-5) 05/12/23 11:40 Ur Transition Epith Cell Rare /hpf 05/12/23 11:40 Amorphous Sediment Not Reportable 05/12/23 11:40 Urine Bacteria 1+ /hpf (NONE) H 05/12/23 11:40 Serum Ketones Negative (Negative) 05/12/23 10:45 Radiology Impressions Chest X-Ray 05/20/23 14:40 IMPRESSION: 1. Appropriately positioned right upper extremity PICC. Stable left upper extremity PICC. 2. Increased left pleural effusion. Stable right pleural effusion. 3. Increased medial left lower lobe consolidation suspected to represent atelectasis, possibly lobar collapse. Pneumonia thought less likely given associated volume loss. Recent Clincial Data Last Vital Signs Temp 97.7 F 05/23/23 07:16 Pulse 89 05/23/23 07:37 Resp 17 05/23/23 07:37 BP 97/64 05/23/23 07:16 Pulse Ox 100 05/23/23 07:37 O2 Del Method Nasal Cannula 05/23/23 07:37 O2 Flow Rate 2.5 05/23/23 08:00 Vital Signs Temp Pulse Resp BP Pulse Ox O2 Del Method O2 Flow Rate 05/23/23 08:00 2.5 05/23/23 07:37 89 17 100 Nasal Cannula 2.5 05/23/23 07:16 97.7 F 96 16 97/64 99 Nasal Cannula 05/23/23 04:00 97.6 F 80 18 92/60 100 Nasal Cannula 05/23/23 00:00 98.5 F 98 16 98/63 99 Nasal Cannula Intake & Output/Weight 05/21/23 05/22/23 05/23/23 05/24/23 06:59 06:59 06:59 06:59 Intake Total 1180 / 1180 970 / 970 2100 / 2099 Balance 1180 / 1180 970 / 970 2099 Vitals Last Vital Signs Temp 97.7 F 05/23/23 07:16 Pulse 89 05/23/23 07:37 Resp 17 05/23/23 07:37 BP 97/64 05/23/23 07:16 Pulse Ox 100 05/23/23 07:37 O2 Del Method Nasal Cannula 05/23/23 07:37 O2 Flow Rate 2.5 05/23/23 08:00 TS Medications Medications Acetaminophen (Acetaminophen 325 Mg Tablet) 650 mg PO Q6H PRN PRN Reason: Mild/Mod Pain Or Temp >/= 101 Last Admin: 05/16/23 05:07 Dose: 650 mg Hydrocodone Bitart/Acetaminophen (Hydrocodone-Acetaminophen 5-325 Mg Tablet) 1 tab PO QID PRN PRN Reason: severe pain Last Admin: 05/23/23 00:13 Dose: 1 tab Albuterol/Ipratropium (Ipratropium-Albuterol 3 Ml Neb) 3 ml INHALATION Q6H.RESP PRN PRN Reason: SHORTNESS OF BREATH Albuterol/Ipratropium (Ipratropium-Albuterol 3 Ml Neb) 3 ml INHALATION Q6H.RESP RAI Last Admin: 05/23/23 07:38 Dose: Not Given Apixaban (Apixaban 5 Mg Tablet) 5 mg PO BID RAI Last Admin: 05/23/23 09:17 Dose: 5 mg Cefepime HCl 1,000 mg/ Sodium (Chloride) 50 mls @ 100 mls/hr IV Q12H [facility]; Protocol Last Infusion: 05/23/23 04:33 Dose: Infused Metronidazole (Flagyl Iv) 500 mg in 100 mls @ 100 mls/hr IV Q8H [facility]; Protocol Last Admin: 05/23/23 09:39 Dose: 100 mls/hr Micafungin Sodium 100 mg/ (Sodium Chloride) 100 mls @ 100 mls/hr IV Q24H [facility] Last Infusion: 05/22/23 22:21 Dose: Infused Daptomycin 315.2 mg/ Sodium (Chloride) 100 mls @ 100 mls/hr IV Q24H [facility]; Protocol Last Infusion: 05/22/23 22:21 Dose: Infused Multivitamins 10 ml/ Amino (Acids/Electrolytes) 1,010 mls @ 0 mls/hr IV .Q0M [facility]; Protocol Last Admin: 05/23/23 05:33 Dose: 42 mls/hr Fat Emulsion Intravenous (Intralipid 20%) 250 mls @ 20.833 mls/hr IV Q24H [facility] Last Infusion: 05/23/23 01:53 Dose: Infused Montelukast Sodium (Montelukast Sodium 10 Mg Tablet) 10 mg PO DAILY [facility] Last Admin: 05/23/23 09:17 Dose: 10 mg Ondansetron HCl (Ondansetron 2 Mg/Ml Sdv 2 Ml) 4 mg IVP Q6H PRN PRN Reason: NAUSEA AND VOMITING Last Admin: 05/18/23 08:38 Dose: 4 mg Pantoprazole Sodium (Pantoprazole 40 Mg Sdv) 40 mg IVP Q24H [facility] Last Admin: 05/22/23 20:52 Dose: 40 mg Prednisone (Prednisone 5 Mg Tablet) 5 mg PO BID [facility] Last Admin: 05/23/23 09:17 Dose: 5 mg Trolamine Salicylate (Trolamine Salicylate 10% 141 Gm Cream) 1 applic TOPICAL QID PRN PRN Reason: topical PAIN Last Admin: 05/17/23 07:11 Dose: 1 applic Discontinued Medications Alteplase, Recombinant (Alteplase 1 Mg/Ml Sdv 2 Ml) 2 mg INTRACATH ONCE ONE; Protocol Stop: 05/14/23 15:01 Last Admin: 05/14/23 15:00 Dose: 2 mg Alteplase, Recombinant (Alteplase 1 Mg/Ml Sdv 2 Ml) 2 mg INTRACATH ONCE ONE; Protocol Stop: 05/22/23 09:37 Last Admin: 05/22/23 11:13 Dose: 2 mg Furosemide (Furosemide 10 Mg/Ml Sdv 4ml) 40 mg IVP ONCE ONE Stop: 05/16/23 05:21 Last Admin: 05/16/23 05:28 Dose: 40 mg Heparin Sodium (Porcine) (Heparin 5,000 Unit/Ml Inj 1 Ml) 5,000 unit SUBCUT Q12H [facility] Last Admin: 05/13/23 08:20 Dose: 5,000 unit Hydrocortisone Sodium Succinate (Hydrocortisone 100 Mg/2 Ml Sdv) 100 mg IVP Q6H [facility] Last Admin: 05/13/23 16:24 Dose: 100 mg Hydrocortisone Sodium Succinate (Hydrocortisone 100 Mg/2 Ml Sdv) 50 mg IVP Q6H [facility] Last Admin: 05/14/23 05:04 Dose: 50 mg Hydrocortisone Sodium Succinate (Hydrocortisone 100 Mg/2 Ml Sdv) 25 mg IVP Q8H [facility] Last Admin: 05/15/23 07:44 Dose: 25 mg Hydrocortisone Sodium Succinate (Hydrocortisone 100 Mg/2 Ml Sdv) 25 mg IVP BID [facility] Last Admin: 05/16/23 09:35 Dose: 25 mg Hydromorphone HCl (Hydromorphone 1 Mg/Ml Inj 1 Ml) 1 mg IVP ONCE ONE Stop: 05/17/23 04:58 Last Admin: 05/17/23 05:06 Dose: 1 mg Sodium Chloride (Sodium Chloride 0.9%) 1,000 mls @ 999 mls/hr IV .Q1H1M ONE Stop: 05/12/23 15:50 Last Infusion: 05/12/23 18:48 Dose: Infused Sodium Chloride (Sodium Chloride 0.9%) 1,000 mls @ 100 mls/hr IV .Q10H [facility] Last Infusion: 05/15/23 12:28 Dose: Infused Sodium Chloride (Sodium Chloride 0.9%) 250 mls @ 250 mls/hr IV ONCE ONE Stop: 05/12/23 23:39 Last Infusion: 05/13/23 03:04 Dose: Infused Magnesium Sulfate (Magnesium Sulfate Premix) 2 gm in 50 mls @ 50 mls/hr IV ONCE ONE Stop: 05/16/23 09:44 Last Infusion: 05/16/23 12:10 Dose: Infused Magnesium Sulfate 1 gm/ Sodium (Chloride) 52 mls @ 104 mls/hr IV ONCE ONE Stop: 05/17/23 09:29 Last Infusion: 05/17/23 09:44 Dose: Infused Magnesium Sulfate/Dextrose (Magnesium Sulfate Premix) 1 gm in 100 mls @ 200 mls/hr IV ONCE ONE Stop: 05/20/23 10:29 Last Infusion: 05/20/23 12:31 Dose: Infused Iohexol (Iohexol 350 Mg/Ml 500 Ml Btl (Per Ml)) 0 ml IV ONCE ONE Stop: 05/12/23 14:34 Last Admin: 05/12/23 14:33 Dose: 80 ml Potassium Chloride (Potassium Chloride Er 20 Meq Tablet) 40 meq PO ONCE ONE Stop: 05/15/23 08:59 Last Admin: 05/15/23 10:01 Dose: Not Given Potassium Chloride (Potassium Chloride Oral Liq 20 Meq/15 Ml Udc) 40 meq PO ON CE ONE Stop: 05/17/23 05:57 Last Admin: 05/17/23 06:03 Dose: 40 meq Potassium Chloride (Potassium Chloride Er 20 Meq Tablet) 40 meq PO ONCE ONE Stop: 05/18/23 08:36 Last Admin: 05/18/23 09:11 Dose: 40 meq Potassium Chloride (Potassium Chloride Er 20 Meq Tablet) 40 meq PO Q1H [facility]I Stop: 05/21/23 17:01 Last Admin: 05/21/23 17:30 Dose: 40 meq Allergies dronabinol [From Marinol] Allergy (Verified 03/10/23 14:29) ALGY-Difficulty Breathing paroxetine [From Paxil] Allergy (Verified 05/12/23 10:45) ADR-Vomiting Penicillins Allergy (Verified 03/10/23 14:29) ALGY-Anaphylaxis Home Medications prednisone 5 mg tablet 5 mg PO BID #180 tabs 03/10/23 [Rx Confirmed 05/12/23] lorazepam 1 mg tablet 2 mg PO BID PRN nausea and vomiting #120 tabs 03/11/23 [Rx Confirmed 05/12/23] montelukast 10 mg tablet 10 mg PO DAILY #90 tabs 03/12/23 [Rx Confirmed 05/12/23] fluticasone fur. 100 mcg-umeclid 62.5 mcg-vilant 25 mcg inhalat.powder (Trelegy Ellipta) 1 inh inhalation DAILY #60 ea 03/19/23 [Rx Confirmed 05/12/23] citalopram 20 mg tablet 20 mg PO DAILY #90 tabs 03/24/23 [Rx Confirmed 05/12/23] hydrocodone 5 mg-acetaminophen 325 mg tablet 1 tab PO QID PRN pain 30 days #120 tabs 03/24/23 [Rx Confirmed 05/12/23] acetaminophen 500 mg tablet 500 - 1,000 mg PO Q6H PRN Pain 05/12/23 [History Confirmed 05/12/23] albuterol sulfate 90 mcg/actuation aerosol inhaler 2 puff inhalation Q6H PRN Wheezing 05/12/23 [History Confirmed 05/12/23] apixaban 5 mg tablet (Eliquis) 5 mg PO BID 05/12/23 [History Confirmed 05/12/23] cefepime 2 gram solution for injection See Rx Instructions .Route .COMPLEX 05/12/23 [History Confirmed 05/12/23] cetirizine 10 mg tablet (Zyrtec) 10 mg PO QAM 05/12/23 [History Confirmed 05/12/23] daptomycin 500 mg intravenous solution See Rx Instructions .Route .COMPLEX 05/12/23 [History Confirmed 05/12/23] furosemide 20 mg tablet 20 mg PO DAILY 05/12/23 [History Confirmed 05/12/23] metronidazole 500 mg tablet 500 mg PO TID 05/12/23 [History Confirmed 05/12/23] micafungin 100 mg intravenous solution See Rx Instructions .Route .COMPLEX 05/12/23 [History Confirmed 05/12/23] Discharge Plan Discharge Patient Disposition: Xfer Inpatient Rehab Fac Condition: Stable Prescriptions: New Ensure Original 0.04-1.05 gram-kcal/mL liquid 1 ea PO TIDWMEAL Qty: 5688 0RF multivitamin Tablet 1 tab PO DAILY Qty: 30 0RF Continued prednisone 5 mg tablet 5 mg PO BID Qty: 180 4RF montelukast 10 mg tablet 10 mg PO DAILY Qty: 90 6RF lorazepam 1 mg tablet 2 mg PO BID PRN (Reason: nausea and vomiting) Qty: 120 2RF Trelegy Ellipta 100-62.5-25 mcg blister with device 1 inh inhalation DAILY Qty: 60 6RF citalopram 20 mg tablet 20 mg PO DAILY Qty: 90 1RF hydrocodone-acetaminophen 5-325 mg tablet 1 tab PO QID PRN (Reason: pain) 30 Days Qty: 120 0RF cefepime 2 gram recon soln See Rx Instructions .ROUTE .COMPLEX Rx Instructions: 1 g every 12 hours (stop date 06/11/23) metronidazole 500 mg tablet 500 mg PO TID Rx Instructions: for 30 days (rx filled 05/06/23) micafungin 100 mg recon soln See Rx Instructions .ROUTE .COMPLEX Rx Instructions: 100 mg intravenously every 24 hours (stop date 06/11/23) Zyrtec 10 mg Tablet 10 mg PO QAM Tylenol Ex Str Rapid Release 500 mg Tablet 500 - 1,000 mg PO Q6H PRN (Reason: Pain) albuterol sulfate 90 mcg/actuation HFA aerosol inhaler 2 puff INHALATION Q6H PRN (Reason: Wheezing) Eliquis 5 mg Tablet 5 mg PO BID Changed daptomycin 500 mg recon soln 316 mg IV Q24H 42 Days Qty: 10 0RF Rx Instructions: 316 mg intravenously every 24 hours; Discontinued furosemide 20 mg tablet 20 mg PO DAILY Rx Instructions: for 10 days (rx filled 05/09/23) Discharge Orders: Discharge Order (Routine); Ordered 05/23/23 Ordered By: Dario Hearn Referrals: [facility] [Outside] Discharge Diet: As Directed Discharge Activity: Resume usual activity and Increase activity as tolerated Patient Instructions: Opioid Safety Activity Restrictions/Additional Instructions: Dysphagia level 7 diet. Ensure with each meal. Should have ESR and CRP weekly. CPK should be checked twice weekly. Antibiotics to be followed up with ID team at [facility]. Phone number for the ID nurse practitioner Kimmy at [facility] is [phone], her cell phone is [phone]. Transfer Attestations Time Spent in Transfer Care: greater than 30 min Specific Discharge Activities: educating patient, discussing with pcp/other providers, discussing with corrections caseworker/social workers/dc planners, documenting/other paperwork and evaluating patient/reviewing data Quality Metrics Clinical Quality Measures [ No reported AMI, CVA or VTE this stay] Coding Level of Care Code 41531 Total time (in minutes) for Discharge: 50 Diagnoses Chronic osteomyelitis of skull M86.68 S/P craniotomy Z98.890 Severe protein-energy malnutrition E43 Physical deconditioning R53.81 Rhabdomyolysis M62.82 Goals of care, counseling/discussion Z71.89 AMS (altered mental status) R41.82 Shock R57.9 Hypokalemia E87.6
--- NOTE | 2023-05-23 12:17 | PC.SOCIAL ---
IMM Update pg 2 of IMM updated and reviewed w/ patient. Copy provided and Copy in chart dated and initialed.
== END 2023-05-23 15:15 | disposition swing bed (61) | DRG 539 ==
LOC: ER 16:33 → ICU 18:01 → MEDSURG 05-14 00:49
PROVIDERS: Internal Medicine; Admitting Provider Internal Medicine; Emergency Provider Family Medicine; Visit Provider Student in an Organized Health Care Education/Training Program
DX: M86.68 Other chronic osteomyelitis, other site (principal); E43 Unspecified severe protein-calorie malnutrition; G93.41 Metabolic encephalopathy; Z68.1 Body mass index [BMI] 19.9 or less, adult; M62.82 Rhabdomyolysis; N17.9 Acute kidney failure, unspecified; E27.40 Unspecified adrenocortical insufficiency; N39.0 Urinary tract infection, site not specified; R57.9 Shock, unspecified; Z85.118 Personal history of other malignant neoplasm of bronchus and lung; Z92.21 Personal history of antineoplastic chemotherapy; I95.9 Hypotension, unspecified; Z79.52 Long term (current) use of systemic steroids; Z79.891 Long term (current) use of opiate analgesic; Z79.51 Long term (current) use of inhaled steroids; Z79.01 Long term (current) use of anticoagulants; Z98.890 Other specified postprocedural states; F41.9 Anxiety disorder, unspecified; F32.A Depression, unspecified; J44.9 Chronic obstructive pulmonary disease, unspecified; E87.6 Hypokalemia; Z75.1 Person awaiting admission to adequate facility elsewhere; E83.42 Hypomagnesemia; R13.10 Dysphagia, unspecified; Z66 Do not resuscitate; D64.9 Anemia, unspecified; F17.200 Nicotine dependence, unspecified, uncomplicated; E78.5 Hyperlipidemia, unspecified
CPT/HCPCS: 36415; 36416; 36573; 36592; 36600; 70470; 71045; 80048; 80051; 80053; 80061; 81001; 82009; 82330; 82533; 82550; 82607; 82746; 82805; 82962; 83036; 83540; 83550; 83605; 83735; 84100; 84132; 84145; 84443; 85025; 85045; 85651; 86140; 87040; 87086; 92507; 92523; 92526; 92610; 93005; 93971; 94640; 96360; 96361; 96372; 96376; 97161; 97530; 99285; C1751; C9113; J0692; J0878; J1170; J1644; J1720; J1940; J2248; J2405; J2997; J3475; J3490; J7030; J7050; J7512; Q9967

== ENCOUNTER 2023-08-27 19:47 | Observation (INO) | payer OTHER, MEDICAID, SELFPAY ==
[2023-08-27] VITALS (8 sets, daily range): BP systolic 71–117; BP diastolic 45–65; PULSE 98–112; RESP 18–21; TEMP 36.4; O2SAT 95–100
--- NOTE | 2023-08-27 20:01 | XRR_ITS ---
PROCEDURE INFORMATION: Exam: XR Chest Exam date and time: 08/27/2023 8:07 PM Age: 62 years old Clinical indication: Other: Weakness TECHNIQUE: Imaging protocol: Radiologic exam of the chest. Views: 1 view. COMPARISON: CR (CHEST, ) 05/20/2023 4:38 PM FINDINGS: Lungs: Pulmonary hyperinflation without consolidation. Mild streaky subsegmental atelectasis versus scarring at the medial left lower lung. Stable left lung calcified granulomata. Pleural spaces: No pleural effusion or pneumothorax. Heart/Mediastinum: No cardiomegaly. Calcified mediastinal lymph nodes in keeping with sequela of old granulomatous disease. Vasculature: Aortic atherosclerotic calcification. Bones/joints: Unremarkable. XR/XR chest 1V portable [id number] IMPRESSION: No acute findings.
[2023-08-27] MEDS: sodium chloride 0.9% 1,000 ML 999 ML IV ×2 (20:47→21:53)
[2023-08-27 21:11] LABS: Alanine Aminotransferase 14 U/L (0-33); Albumin Level 3.2 g/dL (3.5-5.2); Alkaline Phosphatase 115 U/L (35-105); Anion Gap 21.8 (5-19); Aspartate Amino Transferase 35 U/L (0-32); Blood Urea Nitrogen 28 mg/dL (8-23); Calcium 9.6 mg/dL (8.5-10.5); Carbon Dioxide 19 mmol/L (22-29); Chloride 105 mmol/L (98-107); Globulin 2.7 g/dL (1.3-4.6); Glomerular Filtration Rate 72.9 mL/min (90-130); Glucose 73 mg/dL (65-115); Lactic Sepsis W/Reflex 3.2 mmol/L (0.5-2.2); Osmolality Calculated 298 mOsm/kg (285-295); Potassium 3.8 mmol/L (3.5-5.1); Sodium 142 mmol/L (136-145); Total Bilirubin 0.2 mg/dL (0.15-1.2); Total Protein 5.9 g/dL (6.6-8.7)
[2023-08-27 21:43] LABS: Add Urine Microscopic? YES; Bilirubin Urine 1+ (Negative); Blood Urine Neg (Negative); Glucose Urine UA Norm (Normal); Ketones Urine Negative (Negative); Leukocyte Esterase Urine Negative (Negative); Nitrate Urine Negative (Negative); Protein Urine 1+ (Negative); Specific Gravity, Urine 1.025 (1.005-1.030); Urine Appearance Clear (CLEAR); Urine Color Dark Yellow (Yellow); Urobilinogen Urine Neg (Negative); pH Urine 5 (5-7)
[2023-08-27 21:44] LABS: Add Urine Culture? No; Bacteria Urine TRACE /hpf; Mucus Urine 2+ /hpf; Squamous Epithelial Cell Urine 0-4 /hpf (0-5)
--- NOTE | 2023-08-27 22:04 | PC.NURSE ---
UPON ARRIVAL INTO ROOM, PT REPORTS HAVING WEAKNESS AND LACK OF ENERGY FOR THE PAST FEW WEEKS. PT IS VERY SKINNY WITH OBVIOUS BONE OUTLINES AND FLAKING DRY SKIN ALL OVER BODY. PT APPEARS VERY WEAK AND IS LAYING DOWN AND LEANING TOWARDS THE R SIDE. PT STATES SHE HAS A CAREGIVER WHO LIVES WITH HER. PT HAS SOILED SHIRT, PANTS, AND A SOILED FULL DEPENDS ON. LAST TIME PT HAD ANYTHING TO EAT OR DRINK WAS AROUND NOON TODAY PER PT. PT HAS MULTIPLE ABRASIONS AND SKIN TEARS ON BOTH ARMS WITH TWO TEARS APPROXIMATELY A QUARTER SIZE ON THE RIGHT ARM ON OUTER LOWER FOREARM. PT ALSO HAS BANDAGED ABRASIONS ON L UPPER ARM THAT SHE STATES WERE TREATED YESTERDAY AT [facility] IN [facility]. PT HAS LARGE ABRASION ON L OUTER SHOULDER TOO. PT STATES SHE IS BED BOUND AND THE CAREGIVER TAKES CARE OF HER WHILE LIVING WITH HER. PT HAS FLAKING DRY SCALP WITH R SIDE OF HER HEAD MISSING SKULL BONE RELATIVE TO A POSSIBLE CRANIECOTOMY THAT PT HAS HAD FOR THE PAST 3 YEARS SHE STATES. PT REPORTS HAVING FOOD AND WATER AT HOME BUT DOES NOT CONFIRM IF SHE IS GIVEN IT REGULARLY. PT LEGS CURLED UP TO HER ABD AND PT STATES SHE CANNOT STRAIGHTEN HER LEGS OUT AT ALL. PT DEBBIE AREA IS RAW WITH WHITE AND DRIED DISCHARGE AROUND LABIAS. PT HAD SOLID BROWN STOOL IN WET DEPENDS. PT HAS SUPERFICIAL PRESSURE SORE APPROXIMATELY A QUARTER SIZE ON SACRUM. PT IS A&O AT THIS TIME WITH PATENT AIRWAY AND EVEN RESPIRATIONS. PT WIPED WITH WET BATH WIPES, WOUNDS COVERED WITH NON-ADHERENT DRESSING AND COBAN, AND PLACED IN CLEAN HOSPITAL GOWN ALONG WITH ROACH PLACED. PT ASKED FOR FOOD AND SOMETHING TO DRINK AND STATES I AM STARVING. PT PREFERS TO REMAIN R SIDE LYING AND WINCES AT ANY MOVEMENT OF EXTREMETIES AND BODY.
[2023-08-27 22:09] LABS: Eosinophils % 0.2 %; Lymphocytes # 1.1 10^3/uL (0.8-4.8); Lymphocytes % 14.2 %; Mean Corpuscular HGB Conc 30.3 g/dL (30-55); Mean Corpuscular Hemoglobin 27.4 pg (27-33); Mean Corpuscular Volume 90.5 fl (85-98); Mean Platelet Volume 9.5 fL (7.4-10.4); Monocytes # 0.7 10^3/uL (0.2-0.9); Monocytes % 8.2 %; Neutrophils # 6.16 10^3/uL (1.8-7.7); Nucleated Red Blood Cells % 0 %; Platelet Count 259 10^3/cmm (157-399); Red Blood Count 3.98 10^6/uL (3.85-5.65); Red Cell Distribution Width 14.9 % (12.1-15.1); White Blood Count 8.01 10^3/uL (3.29-11.43)
[2023-08-27] MEDS: vancomycin 1,000 MG in sodium chloride 0.9% 250 ML 250 MG IV (22:14)
--- NOTE | 2023-08-27 22:17 | W.ED.GENADLT ---
HPI - General Adult General: Chief complaint: General Medical Stated complaint: failure to thrive Time Seen by Provider: 08/27/23 19:58 History of Present Illness: 62-year-old female presents emergency room via EMS for failure to thrive. Patient with complex medical history including lung cancer currently remission after chemotherapy. With history of chronic osteomyelitis of his scalp and multiple surgery. Patient was scheduled to be reevaluated at [facility] in [place] next month. Patient reveals that her last meal today was around noon denies any nausea or vomiting. Denies any chest pain, shortness of breath abdominal pain, diarrhea or bloody stool. Upon present emergency room patient appeared to be very skinny and cachectic. Patient reveals that she lives with a organizational development director. Was recently seen and evaluated at different hospital yesterday for similar complaint. Upon present emergency room patient was found to have abrasion to left upper arm without any acute bleeding no signs of acute infection either. Associated symptoms: Reports malaise; Deny chest pain, diaphoresis, headache(s), nausea, palpitations or vomiting Review of Systems General: Reports: 10 or more systems reviewed and unremarkable except in HPI and below Const: Reports: fatigue and malaise; Denies: fever(s), chills, diaphoresis, change in sleep pattern or daytime sleepiness Card: Denies: chest pain, palpitations or irregular heart rhythm GI: Denies: abdominal pain, nausea, vomiting, hematemesis, coffee ground emesis, dysphagia, heartburn, early satiety, diarrhea, constipation, bloating, GI cramping or belching Skin/Breast: Reports: other (Abrasion to left upper arm) Neuro: Denies: headache(s), frequent falls, dizziness, behavioral changes or Slurred speech present Psych: Reports: change in appetite; Denies: anxiety, sleeping less, sleeping more or irritability PFSH ED PFSH: Medical History Anxiety and depression Chronic osteomyelitis of skull COPD (chronic obstructive pulmonary disease) Hyperlipidemia Malignant neoplasm of upper lobe, right bronchus or lung Non-small cell lung cancer Secondary malignant neoplasm of bone Surgical History History of hysterectomy with bilateral oophorectomy History of left knee surgery x 2 History of right knee surgery History of surgery of head (12/15/21) right scalp excision with removal of the mass and with reconstruction with left anterolateral thigh free flap, split thickness skin graft, neck dissection, and posterior scalp advancement flaps Family History Denies family history of CAD (coronary artery disease) Social History Smoking and tobacco/nicotine status: current every day tobacco/nicotine user (0.5 ppd. Smoked x 30 years) Physical Exam Narrative: EXAM NARRATIVE: Cavity very skinny and look malnourished. Patient appears very unkept Const: EXAM LIMITATIONS: physical limitations GENERAL APPEARANCE: frail appearing; not lethargic, no odor of alcohol detected and patient not mechanically ventilated NUTRITIONAL APPEARANCE: cachectic ORIENTATION/CONSCIOUSNESS: Yes awake, Yes oriented to place and Yes oriented to time; not confused, not patient obtunded and not lethargic HENMT: HEAD & SCALP: other (Scalp with surgical wound no signs of acute infection.) MOUTH: tongue normal and other (Mouth is dry) Eye: COMMON NORMALS: Equal, round and reactive pupils present, EOMs intact bilaterally, conjunctivae normal, no scleral icterus, no papilledema, normal visual way by confrontation and fundi normal bilaterally CONJUNCTIVA: Yes conjunctivae normal PUPIL: Yes Equal, round and reactive pupils present DIRECT OPHTHALMOSCOPY: Yes no papilledema and Yes fundi normal bilaterally Neck/C-Spine: COMMON NORMALS: full ROM, no lymphadenopathy, supple, no meningeal signs, no JVD, Thyroid normal and No carotid bruits THYROID: Thyroid normal Chest: COMMONS NORMALS: normal inspection of the chest, normal palpation of entire chest wall, normal inspection of the breasts and normal palpation of the breasts Breast/axilla inspection: Yes normal inspection of the breasts BREAST/AXILLA PALPATION: Yes normal palpation of the breasts Resp: COMMON NORMALS: No retractions Cardio: COMMON NORMALS: no JVD, regular rhythm, S1 normal heart sound present and S2 normal heart sound present JUGULAR VENOUS DISTENTION: no JVD PALPATION: normal PMI RATE: tachycardic RHYTHM: regular rhythm HEART SOUNDS: S1 normal heart sound present and S2 normal heart sound present Neuro: SENSORIUM/ORIENTATION: Yes oriented to place, Yes oriented to time and No lethargic MENINGEAL SIGNS: Yes no meningeal signs Course Reevaluation(s): Reevaluation #1: Given the presenting symptoms and abnormal labs my plan was to admit patient but patient declined admission. I discussed patient with the hospitalist. She is very familiar with the patient. Reevaluation #2: While waiting for disposition we spoke with the patient caregiver. She reveals that she is always there for 16 hours a day and patient stay by self mostly at night. She informs that patient does not have any electricity and heat at home. Recommend admission again and patient is still declining. Patient later agreed to admission for long-term placement patient. I discussed patient with the hospitalist again and she agrees to accept patient for observation. Consult social service in the morning. Consultations: Consultation #1: Discussed patient with the hospitalist order 3 times Vital Signs: Vital signs: Vital Signs Temperature 97.6 F 08/27/23 19:49 Pulse Rate 99 08/27/23 23:08 Respiratory Rate 18 08/27/23 23:08 Blood Pressure 96/63 08/27/23 23:08 Pulse Oximetry 98 08/27/23 23:08 Oxygen Delivery Me thod Room Air 08/27/23 23:08 Oxygen Flow Rate 2 08/27/23 21:30 MDM - General Adult Medical Decision Making Patient was made come to emergency room. Patient was given IV fluid after having extensive workup including CBC, CMP, UA and blood cultures. Plan was to admit patient for further evaluation and treatment I discussed patient with the hospitalist. Patient declined admission at this time. Patient was awake alert x 3. Differential Diagnosis Dehydration, UTI, pneumonia, sepsis, electrolyte abnormalities Lab Data 08/27/23 22:00 08/27/23 20:45 Radiology Impressions Chest X-Ray 08/27/23 20:01 IMPRESSION: No acute findings. Laboratory Results WBC 8.01 10^3/uL (3.29-11.43) 08/27/23 22:00 RBC 3.98 10^6/uL (3.85-5.65) 08/27/23 22:00 Hgb 10.90 g/dL (11.27-16.99) L 08/27/23 22:00 Hct 36.0 % (36-47) 08/27/23 22:00 MCV 90.5 fl (85-98) 08/27/23 22:00 MCH 27.4 pg (27-33) 08/27/23 22:00 MCHC 30.3 g/dL (30-55) 08/27/23 22:00 RDW 14.9 % (12.1-15.1) 08/27/23 22:00 Plt Count 259 10^3/cmm (157-399) 08/27/23 22:00 MPV 9.5 fL (7.4-10.4) 08/27/23 22:00 Neut % (Auto) 77.0 % 08/27/23 22:00 Lymph % (Auto) 14.2 % 08/27/23 22:00 [place] % (Auto) 8.2 % 08/27/23 22:00 Eos % (Auto) 0.2 % 08/27/23 22:00 Baso % (Auto) 0.0 % 08/27/23 22:00 Neut # (Auto) 6.16 10^3/uL (1.8-7.7) 08/27/23 22:00 Lymph # (Auto) 1.1 10^3/uL (0.8-4.8) 08/27/23 22:00 [place] # (Auto) 0.7 10^3/uL (0.2-0.9) 08/27/23 22:00 Eos # (Auto) 0.0 10^3/uL (0.0-0.8) 08/27/23 22:00 Baso # (Auto) 0.0 10^3/uL (0.0-0.1) 08/27/23 22:00 Nucleated RBC % (auto) 0 % 08/27/23 22:00 Nucleated RBCs # 0.0 /100WBC 08/27/23 22:00 Sodium 142 mmol/L (136-145) 08/27/23 20:45 Potassium 3.8 mmol/L (3.5-5.1) 08/27/23 20:45 Chloride 105 mmol/L (98-107) 08/27/23 20:45 Carbon Dioxide 19 mmol/L (22-29) L 08/27/23 20:45 Anion Gap 21.8 (5-19) H 08/27/23 20:45 BUN 28 mg/dL (8-23) H 08/27/23 20:45 Creatinine 0.8 mg/dL (0.5-0.9) 08/27/23 20:45 GFR Calculation 72.9 mL/min (90-130) L 08/27/23 20:45 Glucose 73 mg/dL (65-115) 08/27/23 20:45 Calculated Osmolality 298 mOsm/kg (285-295) H 08/27/23 20:45 Lactic Acid 3.2 mmol/L (0.5-2.2) H 08/27/23 20:45 Lactic Acid (Sepsis) 3.4 mmol/L (0.5-2.2) H 08/27/23 22:47 Calcium 9.6 mg/dL (8.5-10.5) 08/27/23 20:45 Total Bilirubin 0.2 mg/dL (0.15-1.2) 08/27/23 20:45 AST 35 U/L (0-32) H 08/27/23 20:45 ALT 14 U/L (0-33) 08/27/23 20:45 Alkaline Phosphatase 115 U/L (35-105) H 08/27/23 20:45 Total Protein 5.9 g/dL (6.6-8.7) L 08/27/23 20:45 Albumin 3.2 g/dL (3.5-5.2) L 08/27/23 20:45 Globulin 2.7 g/dL (1.3-4.6) 08/27/23 20:45 Urine Color Dark yellow (Yellow) 08/27/23 21:10 Urine Appearance Clear (CLEAR) 08/27/23 21:10 Urine pH 5 (5-7) 08/27/23 21:10 Ur Specific [place] 1.025 (1.005-1.030) 08/27/23 21:10 Urine Protein 1+ (Negative) H 08/27/23 21:10 Urine Glucose (UA) Norm (Normal) 08/27/23 21:10 Urine Ketones Negative (Negative) 08/27/23 21:10 Urine Blood Neg (Negative) 08/27/23 21:10 Urine Nitrate Negative (Negative) 08/27/23 21:10 Urine Bilirubin 1+ (Negative) H 08/27/23 21:10 Urine Urobilinogen Neg mg/dL (Negative) 08/27/23 21:10 Ur Leukocyte Esterase Negative (Negative) 08/27/23 21:10 Urine RBC None /hpf (0-2) 08/27/23 21:10 Urine WBC None /hpf (0-5) 08/27/23 21:10 Ur Squamous Epith Cells 0-4 /hpf (0-5) H 08/27/23 21:10 Amorphous Sediment Not Reportable 08/27/23 21:10 Urine Bacteria Trace /hpf (NONE) 08/27/23 21:10 Urine Mucus 2+ /hpf 08/27/23 21:10 XR interpretation done by ED provider, pending radiology final review Discharge Plan Discharge Patient Disposition: Home Clinical Impression: Chronic osteomyelitis of skull, Acute dehydration Condition: Stable Prescriptions: No Action montelukast 10 mg tablet 10 mg PO DAILY Qty: 90 6RF Trelegy Ellipta 100-62.5-25 mcg blister with device 1 inh inhalation DAILY Qty: 60 6RF hydrocodone-acetaminophen 5-325 mg tablet 1 tab PO QID PRN (Reason: pain) 30 Days Qty: 120 0RF prednisone 5 mg tablet 5 mg PO BID Qty: 180 4RF citalopram 20 mg tablet 20 mg PO DAILY Qty: 90 1RF lorazepam 1 mg tablet 2 mg PO BID PRN (Reason: nausea and vomiting) Qty: 120 2RF cefepime 2 gram recon soln See Rx Instructions .ROUTE .COMPLEX Rx Instructions: 1 g every 12 hours (stop date 06/11/23) metronidazole 500 mg tablet 500 mg PO TID Rx Instructions: for 30 days (rx filled 05/06/23) micafungin 100 mg recon soln See Rx Instructions .ROUTE .COMPLEX Rx Instructions: 100 mg intravenously every 24 hours (stop date 06/11/23) Zyrtec 10 mg Tablet 10 mg PO QAM acetaminophen 500 mg Tablet 500 - 1,000 mg PO Q6H PRN (Reason: Pain) albuterol sulfate 90 mcg/actuation HFA aerosol inhaler 2 puff INHALATION Q6H PRN (Reason: Wheezing) Eliquis 5 mg Tablet 5 mg PO BID Ensure Original 0.04-1.05 gram-kcal/mL liquid 1 ea PO TIDWMEAL Qty: 5688 0RF multivitamin Tablet 1 tab PO DAILY Qty: 30 0RF daptomycin 500 mg recon soln 316 mg IV Q24H 42 Days Qty: 10 0RF Rx Instructions: 316 mg intravenously every 24 hours; Discharge Orders: Discharge ED (Routine); Ordered 08/27/23 Ordered By: Karla Portillo Discharge Diet: Advance as tolerated Discharge Activity: Resume usual activity Patient Instructions: Opioid Safety, Pain Management Coding Level of Care Code ED Principal Systems Engineer for Nithya Lewis
[2023-08-27 22:38] LABS: Reflex Lactate Order REFLEX LACTIC ORDERD
--- NOTE | 2023-08-27 22:38 | PC.NURSE ---
Assumed care of patient from Annika Alexis RN @ 1225. Pt resting in bed with iv fluids going. Skin tears covered with telfa and coban by Annika alexis
[2023-08-27 23:11] LABS: Lactic Acid level (Lactate) 3.4 mmol/L (0.5-2.2)
[2023-08-28] VITALS (9 sets, daily range): BP systolic 92–137; BP diastolic 55–77; PULSE 94–119; RESP 15–22; TEMP 36.3–36.7; O2SAT 97–100; BMI 11.7
--- NOTE | 2023-08-28 00:19 | PC.NURSE ---
Spoke with the caregiver Brenda. She stated that she is only allotted 16 hrs per week to be in the patients home. Pt does not have 24/7 care at home. She is unable to ambulate at all. Pt currently has no heat on in the home and this is why the mental health social worker was contacted earlier. Dr Dove notified of unsafe living situation.
--- NOTE | 2023-08-28 00:51 | PC.NURSE ---
this nurse spoke with the pt and explained that we could not discharge her home when she has no heat, she is not able to walk, not able to care for herself. Educated pt by telling her that she could be admitted and discuss with social science professor about her options which include hospice, more home health, or possible rat exterminator care. pt is agreeable to being admitted at this time
[2023-08-28] MEDS: acetaminophen 325 mg Tablet 650 MG PO (04:21)
--- NOTE | 2023-08-28 06:20 | P.HP_ITS ---
Providers/Chief Complaint 2 Admitting Physician: Pilar Parson MD Chief Complaint: failure to thrive History of Present Illness Georgette Calvillo is a 62 year old female with a past medical history of 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 She also carries a diagnosis of chronic osteomyelitis of the skull. She is s/p craniotomy in 2018, which was complicated by titanium mesh infection in 2020 which necessitates removal of the mesh and prolonged iv abx course. She was then scheduled to undergo reconstructive flap surgery at [facility] in April 2023 however procedure was aborted intraop due to discovery of infected bone in OR. Cx N/A from this time. She was followed by ID at [facility] and received 8 weeks course of empiric iv cefepime, iv daptomycin, iv micafungin and metronidazole which she completed in 06/2023. she had an inpatient admission here in 05/2023 to facilitate placement at [facility] and arrange these iv abx for her at the facility. She remained at [facility] after completing her iv abx course and reports that she she was discharged just yesterday. She has memory gaps which were noted even on the prior admission in May 2023. She tells me during the same conversation that she was just discharged yesterday but then at other times tells me that she was discharged last week and now has a caregiver who has visited her as recently as . She followed up with [facility] in June 2023 and tells me that her reconstructive surgery has been postponed to after the holidays. Per review of her outpatient medications she is currently on oral ciprofloxacin, cefdinir, clindamycin and fluconazole. We will continue the same for now. She tells me that she presents to the hospital today as she felt very weak and her caregiver did not come in today and she was unable to manage at home independently. Initially she reported to the ER physician that she would like to return home however later reported that she does not have any heat or electricity at home and her caregiver is not available at nighttime or on the weekends. She indicated to the ER physician which she agrees with the assessment that she is probably safer at a [facility] facility as she is she is unlikely to be able to function independently at home with a BMI of 12, severe protein calorie malnutrition and an overall very poor functional status. She required TPN on her last admission. Patient tells me now that she does not fact have services including electricity and hot water at home however did not have a ride to go home at night and therefore indicated she wanted to stay in the hospital. Review of Systems 2 General: Reports: 10 or more systems reviewed and unremarkable except in HPI and below Const: Denies: fever(s), chills or body aches Eyes: Denies: change in vision, blurry vision or photophobia ENMT: Reports: hoarseness; Denies: throat pain, enlarged tonsils, odynophagia or nasal congestion Card: Denies: chest pain, palpitations, irregular heart rhythm, edema, swelling of feet/ankles, lightheadedness, pre-syncope, dyspnea on exertion or orthopnea Resp: Denies: dyspnea, productive cough, non-productive cough, wheezing, stridor, pain on inspiration, change in phlegm color, hemoptysis or chest congestion GI: Denies: abdominal pain, nausea, vomiting, hematemesis, coffee ground emesis, dysphagia, heartburn, diarrhea, constipation, GI cramping, change in stool character, hematochezia or melena : Denies: flank pain, difficulty voiding, dysuria, urinary frequency, urinary urgency, urinary hesitancy or hematuria Musc: Denies: neck pain, back pain, extremity pain, joint swelling, joint warmth or deformity Neuro: Denies: headache(s), numbness in extremities, weakness in extremities, sensory changes, difficulty walking, frequent falls, dizziness, vertigo, behavioral changes, Slurred speech present or seizure-like activity Psych: Denies: anxiety, depression, suicidal ideation or homicidal ideation Endo: Denies: polyuria, polydipsia, tired all the time, cold intolerance or hot flashes Kj/Lymph: Denies: easy bruising or easy bleeding Medications/Allergies Home Medications Medication Instructions Recorded Confirmed Last Taken Type montelukast 10 mg tablet 10 mg PO DAILY #90 tabs 03/12/23 05/12/23 Unknown Rx fluticasone fur. 100 mcg-umeclid 1 inh inhalation DAILY #60 ea 03/19/23 05/12/23 Unknown Rx 62.5 mcg-vilant 25 mcg inhalat.powder (Trelegy Ellipta) hydrocodone 5 mg-acetaminophen 325 1 tab PO QID PRN pain 30 days #120 03/24/23 05/12/23 Unknown Rx mg tablet tabs acetaminophen 500 mg tablet 500 - 1,000 mg PO Q6H PRN Pain 05/12/23 05/12/23 Unknown History albuterol sulfate 90 mcg/actuation 2 puff inhalation Q6H PRN Wheezing 05/12/23 05/12/23 Unknown History aerosol inhaler apixaban 5 mg tablet (Eliquis) 5 mg PO BID 05/12/23 05/12/23 Unknown History cefepime 2 gram solution for See Rx Instructions .Route .COMPLEX 05/12/23 05/12/23 Unknown History injection cetirizine 10 mg tablet (Zyrtec) 10 mg PO QAM 05/12/23 05/12/23 Unknown History metronidazole 500 mg tablet 500 mg PO TID 05/12/23 05/12/23 Unknown History micafungin 100 mg intravenous See Rx Instructions .Route .COMPLEX 05/12/23 05/12/23 Unknown History solution daptomycin 500 mg intravenous 316 mg IV Q24H 6 weeks #10 ea 05/23/23 05/12/23 Unknown Rx solution food supplemt, lactose-reduced 1 ea PO TIDWMEAL #5,688 mL 05/23/23 Unknown Rx 0.04 gram-1.05 kcal/mL oral liquid (Ensure Original) multivitamin 1 tab PO DAILY #30 tabs 05/23/23 Unknown Rx citalopram 20 mg tablet 20 mg PO DAILY #90 tabs 07/11/23 Unknown Rx lorazepam 1 mg tablet 2 mg (2 x 1 mg) PO BID PRN nausea 07/11/23 Unknown Rx and vomiting #120 tabs prednisone 5 mg tablet 5 mg PO BID #180 tabs 07/11/23 Unknown Rx Allergies Allergy/AdvReac Type Severity Reaction Status Date / Time dronabinol [From Marinol] Allergy ALGY-Difficulty Verified 08/27/23 20:09 Breathing paroxetine [From Paxil] Allergy ADR-Vomitin Verified 08/27/23 20:09 g Penicillins Allergy ALGY-Anaphy Verified 08/27/23 20:09 laxis PFSH Acute 2 PFSH: Medical History Anxiety and depression Chronic osteomyelitis of skull COPD (chronic obstructive pulmonary disease) Hyperlipidemia Malignant neoplasm of upper lobe, right bronchus or lung Non-small cell lung cancer Secondary malignant neoplasm of bone Surgical History History of hysterectomy with bilateral oophorectomy History of left knee surgery x 2 History of right knee surgery History of surgery of head (12/15/21) right scalp excision with removal of the mass and with reconstruction with left anterolateral thigh free flap, split thickness skin graft, neck dissection, and posterior scalp advancement flaps Family History Denies family history of CAD (coronary artery disease) Social History Smoking and tobacco/nicotine status: current every day tobacco/nicotine user (0.5 ppd. Smoked x 30 years) Vitals/I&O/Wt Last Vital Signs Temp 98.0 F 08/28/23 03:39 Pulse 97 08/28/23 03:39 Resp 16 08/28/23 03:39 BP 92/61 08/28/23 03:39 Pulse Ox 97 08/28/23 03:39 O2 Del Method Nasal Cannula 08/28/23 03:39 O2 Flow Rate 2 08/28/23 03:39 08/27/23 08/27/23 08/28/23 14:59 22:59 06:59 Intake Total 1000 / 1000 1250 / 2250 Output Total 350 / 350 Balance 1000 / 1000 900 / 1900 Weight last 48 hrs Weight 30.05 kg Weight 29.03 kg Weight 23.587 kg Physical Exam 2 Narrative: General: Chronically ill, cachexic, BMI 12, dishevelled HEENT: PERRLA, pupils bilaterally equal and reactive, pallors not present Chest: Normal vesicular breath sounds, no added sounds, equal good air entry bilaterally CVS: S1-S2 regular, no murmurs, no tachycardia, no gallops, no rubs Abdomen: Soft, nontender, no organomegaly, bowel sounds present Neuro: No focal deficits, no facial deformity, AO x3, power 5/5 in all limbs Extremities: cachexic Urinary Catheter Management: Tejeda: Cath Placed During This Visit: yes Urinary Catheter Date of Insertion: 08/27/23 Data 08/27/23 22:00 08/27/23 20:45 A&P Assessment and plan (1) Chronic osteomyelitis of skull: (2) Goals of care, counseling/discussion: (3) Severe protein-energy malnutrition: Plan 62-year-old lady with past medical history as outlined above. Current active issues are chronic's severe protein calorie malnutrition, cachexia, inability to care for self without presence of caregivers, chronic osteomyelitis of scalp. Patient has been chronically ill for several months to years at this point in time. She was recently discharged from [facility] facility and has been unable to manage her ADLs at home independently. She reports that she now has a caregiver at home and would like to return home. I am unable to verify this information at night. She reports that she came in tonight for generalized fatigue but has been unable to elaborate on other symptoms. Denies any focal abdominal or chest pain, nausea or vomiting, cough or URI symptoms. Denies any recent discharge from her scalp or new flap breakdown. Suspect that at this time her fatigue is related to malnutrition. In Her present cachexia, disheveled and dependent state, we will need to verify that patient has safe arrangements at home prior to discharging her home. We will attempt to have case management verify her living situation, presence of home health services, and attempt to contact her caregiver to make sure patient has appropriate home arrangements. She has a Sister Janine who was involved in her care and may be able to provide some collateral information as the patient appears to have some memory gaps. For her chronic osteomyelitis, no current indication to change current line of management. Continue with p.o. antibiotics as she takes at home and continue follow-up with infectious disease and neurosurgery at [facility]. Her osteomyelitis will be best managed at a facility with multidisciplinary specialty teams. I do not see her as being a good candidate for surgical intervention but defer ultimate decision for eventual surgery to her team at [facility] that has been following her for 2 years Dvt ppx: continue home dose of Eliquis Attestations 2 Medical Necessity Statement*: less than 2 midnight stay anticipated for disposition planning Coding Level of Care Code Acute Code for Chg Fwd Diagnoses Chronic osteomyelitis of skull M86.68 Goals of care, counseling/discussion Z71.89 Severe protein-energy malnutrition E43
--- NOTE | 2023-08-28 08:47 | PC.PHAR ---
Addendum entered by Jennie Domingo 08/28/23 12:29: SECOND ATTEMPT AT VOCATIONAL REHABILITATION CONSULTANT CONTACT MADE AT 11 AM Original Note: PT UNABLE TO VERIFY MEDS- FIRST ATTEMPT TO CONTACT FARRAH ( PT VOCATIONAL REHABILITATION CONSULTANT) AT 8:30 AM
[2023-08-28 09:47] LABS: Glucose Point of Care 75 mg/dL (70-110)
[2023-08-28] MEDS: sodium chloride 0.9% 1,000 ML 999 ML IV (09:48)
--- NOTE | 2023-08-28 09:53 | XRR_ITS ---
PROCEDURE INFORMATION: Exam: XR Chest Exam date and time: 08/28/2023 11:19 AM Age: 62 years old Clinical indication: Shortness of breath; Patient HX: Failure to thrive; Placed on comfort care, HX of lung and brain cancer; Additional info: SOB TECHNIQUE: Imaging protocol: Radiologic exam of the chest. Views: 1 view. COMPARISON: CR (CHEST, ) 08/27/2023 8:07 PM FINDINGS: Lungs: Significant hyperinflation of the lungs with flattening of the hemidiaphragms concerning for obstructive pulmonary disease/emphysema. Probable calcified granuloma in the left upper lung. No dense confluent lobar opacities identified. Pleural spaces: Small right-sided pleural effusion. Heart/Mediastinum: The cardiomediastinal silhouette is within normal limits. Bones/joints: Unremarkable. Other findings: Limited evaluation due to radiographic technique. XR/XR chest 1V portable [id number] IMPRESSION: Significant hyperinflation of the lungs with flattening of the hemidiaphragms concerning for obstructive pulmonary disease/emphysema.
--- NOTE | 2023-08-28 09:53 | ECG_ITS ---
[facility] Test Date: 2023-08-28 Pat Name: Georgette Calvillo Department: Room: 269 Gender: Female Employee Relations Consultant: : [id number] Requested By: Nasim Larry Order Number: [id number] Chivo MD: Roldan Wadsworth M.D. Measurements Intervals [place]ott Rate: 101 P: 78 DE: 111 QRS: 93 QRSD: 80 T: 30 QT: 304 QTc: 395 Interpretive Statements SINUS TACHYCARDIA WITH SHORT DE INTERVAL INDETERMINATE AXIS LOW QRS VOLTAGE IN EXTREMITY LEADS [QRS DEFLECTION < 0.5 mV IN LIMB LEADS] MINIMAL ST DEPRESSION [0.025+ mV ST DEPRESSION] Compared to ECG 05/12/2023 10:48:48 Indeterminate axis now present ST (T wave) deviation now present Sinus rhythm no longer present Right-axis deviation no longer present Electronically Signed On 08-28-2023 17:40:50 BUSINESS ANALYST PROJECT MANAGER by Roldan Wadsworth M.D. [email or web address]
[2023-08-28] MEDS: morphine 4 mg/mL SDV 1 mL 1 MG IVP (10:17)
[2023-08-28] MEDS: LORazepam 2 mg/mL INJ 10 mL MDV 0.5 MG IVP (10:17)
--- NOTE | 2023-08-28 10:28 | P.PN_ITS ---
Subjective 2 Subjective: - Patient was seen this morning, she sharyn eared to be in respiratory distress, intercostal retractions nasal flaring, guppy breathing, respiratory rate 40 ? She had no responses, did not withdraw from pain, minimal pupillary reflex, did not withdraw from pain, did not respond to sternal rub did not respond to her name ? No blood pressure detectable, pulse in the 40s, ? Patient appears disheveled, severely cachectic, severe muscle loss, she has rolled up in the position, does not extend her neck, she be a very difficult intubation, bones are prominent, spinous processes prominent, I observed her chronic osteomyelitis of the skull, status post craniotomy, it looks relatively stable compared to prior pictures I saw in the chart, ? She has severe protein calorie malnutrition, she had been on TPN in the past ? Blood sugar within normal limits, ? Patient appears to be in acute hypoxic respiratory failure with evidence of shock, ? I instructed respiratory therapy to place her on high flow, her O2 sats on high flow 15 L were in the low 80s, still nonresponsive no blood pressure detectable, given a fluid bolus then placed on BiPAP, ? I reviewed her chart in detail patient has a BMI of 12, 60 pounds, severe anorexia, protein calorie malnutrition, deconditioning, muscle loss, ? She has complex medical problems at baseline with metastatic large cell carcinoma in the form of right frontoparietal extra-axial, dural based mass with transcalvarial extension, and PET/CT showed likely primary malignancy involving the upper lobe of the right lung with associated mediastinal lymph node involve, stage ALONSO (T1b, N3, M1b), current lung disease in remission, underwent craniotomy and resecting debulking of mass in 2018, with titanium mesh, with chemotherapy, subsequently found to have right frontal craniotomy site osteomyelitis and infection, underwent right cranial wound excoriation incision and drainage, mesh removal, complex wound closure, postoperative course was complicated by flap necrosis, ECA thrombosis, there were plans on a cranioplasty, in 2022, however after being taken to the OR, she was found to have active evidence of infection, no cultures were taken, was treated with empiric antibiotics, discharged from [facility], with complete antibiotic therapy, with plans on possible undergoing cranioplasty in June of this year, she then returned back to [facility], for altered mental status, she received IV antibiotics, steroids, treatment for rhabdomyolysis, treated with TPN, she had initially poor oral intake which improved, she was eventually transferred to [facility] for prolonged IV antibiotics, and plans on possible follow-up with [facility] as outpatient, -I looked at conversation with patient's physician overnight, ? [facility], but there was noted to be memory gaps, apparently according to patient, her caregiver was supposed to see her yesterday but was not there, she was unable to manage at home, she does not have a heat or electricity at home -I had a detailed discussion with the hannah hedrick's son over the phone, patient's DPOA, currently living in [place], ? -I discussed that currently she is in [facility] [place] respiratory failure with quiring 100% BiPAP, no detectable blood pressure so in severe shock, she is getting fluids she is on 100% BiPAP she is nonresponsive, her GCS is 3, she in my opinion is not maintaining her airway, in acute respiratory failure, which shock likely septic shock, ? I think that patient's likely developed acute hypoxic respiratory failure likely secondary to pneumonia, or aspiration event or possible pulmonary embolism, resulting in significant hypoxic respiratory failure, with significant shock, likely septic shock, with undetectable blood pressures, ? We discussed her overall goals of care in my opinion, given her significant deconditioning, BMI of 12, severe cachexia, history of lung cancer, history of complex skull osteomyelitis, significant deconditioning at baseline, putting her through CPR and intubation in my opinion would result in significant suffering, I think she would likely remain on life support for the remainder of her life, she in my opinion would not tolerate CPR with her significant low body mass, I am worried about breaking ribs causing hemothorax is pneumothorax, with her intubation I think it would be a traumatic process given her significant deconditioning muscle wasting she is a high risk of morbidity and mortality during intubation, now she is in septic shock she is in need pressors ICU management, and aggressive interventions, ? At baseline she has poor functional status, severe protein calorie malnutrition, BMI 12, chronic complex underlying medical problems, ? However it is my goal to let her next of kin know the positives and negatives of all options, and them to come to an informed decision ? The option would be to place her on a ventilator, if she were to decompensate, go to cardiac arrest to do CPR, placed on pressors, place her on life support and move her down to the ICU, ? I understand this is a difficult decision, I spoke to the son in detail, however given her current condition it is up to him what he wants us to do, but I would recommend against any aggressive intervention, currently she is in severe respiratory failure, in my opinion it looks like she is suffering, and I do not want to do undue suffering on her by doing aggressive interventions, ? Patient's son tells me that they have talked before and they do not want her to remain on life support, they do want to have aggressive interventions, ? I discussed the risks and benefits of all options, including continued medical care, intubating, placing her to on a ventilator moving about the ICU placing on pressors, all aggressive interventions, versus comfort care, ? After discussing the risk and benefits of all options, he voiced understanding, shared decision making, gave him time to answer all his questions, wanted to proceed with comfort care, DNR/DNI, ? I advised his son that I will try interventions to see if I can try to see if I can try to save her life, however she is in severe respiratory failure and there is no detectable blood pressure at this point, I will do my best, however if her condition worsens, despite my interventions which be nonaggressive, I we discussed easing her pain easing her suffering and allowing her to pass away comfortably, ? After discussing the risk and benefits of all options he voiced understanding, all consents are, agreed to proceed with DNR/DNI, trying medical interventions if they are unsuccessful to make her comfort care either pain ease or press suffering allow her to pass away comfortably, ? Patient was reexamined multiple times throughout the morning, again were not able to get any blood pressure on her no manual blood pressure, ? She is on 100% BiPAP she is saturating 100% but she really is not following the BiPAP machine she is tachypneic, she is in respiratory distress,, really does not have the cognition to follow BiPAP, GCS is 3, next?I have nursing staff stop BiPAP switch her to 2 L, she was given a fluid bolus still no detectable blood pressure ? Still no detectable manual blood pressure, nonresponsive, in respiratory distress, in shock, ? Advised nursing staff that given her poor functional status at baseline, she is not responding to medical interventions, as we want to abide by family wishes not to pursue aggressive inventions a DNR/DNI, will go ahead and proceed with comfort care, ? Patient was made comfort care, goals to ease her pain and ease her suffering allow her to pass with comfortably, with dignity Vitals/I&O/Wt Last Vital Signs Temp 97.9 F 08/28/23 08:00 Pulse 119 H 08/28/23 08:00 Resp 20 H 08/28/23 10:17 BP 137/77 08/28/23 08:00 Pulse Ox 99 08/28/23 08:00 O2 Del Method Nasal Cannula 08/28/23 03:39 O2 Flow Rate 2 08/28/23 03:39 08/27/23 08/28/23 08/28/23 22:59 06:59 14:59 Intake Total 1000 / 1000 1250 / 2250 Output Total 350 / 350 Balance 1000 / 1000 900 / 1900 Weight last 48 hrs Weight 30.05 kg Weight 29.03 kg Weight 23.587 kg Physical Exam 2 Narrative: Severe cachexia, protein calorie malnutrition, you can see old her ribs, all her spinous processes, she has no significant subcutaneous fat, her BMI is 12, cranial exam, cranial flap looks intact Const: EXAM LIMITATIONS: altered mental status GENERAL APPEARANCE: l ethargic NUTRITIONAL APPEARANCE: cachectic ORIENTATION/CONSCIOUSNESS: Yes patient obtunded and Yes lethargic; not awake, not oriented to person, not oriented to place and not oriented to time Eye: OTHER: Pupils are moderate size, does not track, minimally reactive to light Neck/C-Spine: OTHER: Crawled up in the position, Resp: EFFORT & INSPECTION: Yes abnormal respiratory pattern, Yes tachypneic, Yes respiratory distress and Yes retractions Cardio: COMMON NORMALS: regular rhythm, S1 normal heart sound present and S2 normal heart sound present RATE: bradycardic RHYTHM: regular rhythm H EART SOUNDS: S1 normal heart sound present and S2 normal heart sound present GI: COMMON NORMALS: Normal to inspection, nondistended, normoactive bowel sounds present Extremity: NARRATIVE EXTREMITY EXAM: No significant pedal edema, significant calf and thigh muscle wasting Neuro: SENSORIUM/ORIENTATION: No oriented to person, No oriented to place, No oriented to time and Yes lethargic Skin: NARRATIVE SKIN EXAM: Stage I 2 sacral decubitus ulcer Urinary Catheter Management: Tejeda: Cath Placed During This Visit: yes Reason for Continuing Indwelling Catheter: Hospice/Comfort/Palliative Care Urinary Catheter Date of Insertion: 08/27/23 Data 08/27/23 22:00 08/27/23 20:45 A&P Assessment and plan (1) Acute hypoxic respiratory failure: (2) Shock: (3) Unresponsive: (4) Acute encephalopathy: (5) Severe protein-energy malnutrition: (6) Chronic osteomyelitis of skull: (7) S/P craniotomy: (8) Physical deconditioning: (9) Anorexia: (10) Malignant neoplasm of upper lobe, right bronchus or lung: (11) Secondary malignant neoplasm of bone: (12) Need for comfort care: (13) Goals of care, counseling/discussion: Plan Acute hypoxic respiratory failure, with shock, with nonresponsiveness, ? Etiology likely pneumonia, aspiration pneumonia, possible PE, ? No detectable blood pressures, GCS 3, - severe anorexia, protein, nutrition, poor functional state, ? With underlying history of lung cancer, history of cranial osteomyelitis, ? Proceeding with comfort care, comfort care order set started Attestations 2 Medical Necessity Statement*: Patient requires hospitalization for comfort care Coding Level of Care Code Acute Code for Chg Fwd Diagnoses Acute hypoxic respiratory failure J96.01 Shock R57.9 Unresponsive R41.89 Acute encephalopathy G93.40 Severe protein-energy malnutrition E43 Chronic osteomyelitis of skull M86.68 S/P craniotomy Z98.890 Physical deconditioning R53.81 Anorexia R63.0 Malignant neoplasm of upper lobe, right bronchus or lung C34.11 Secondary malignant neoplasm of bone C79.51 Need for comfort care Goals of care, counseling/discussion Z71.89
[2023-08-28] MEDS: morphine 10 mg/0.5 mL oral liq UD SUBLINGUAL ×2 (12:56→23:56)
--- NOTE | 2023-08-28 15:23 | PC.SLP ---
The patient has been moved to comfort care. No ROBOTICS APPLICATION ENGINEER assessment at this time.
[2023-08-29] MEDS: morphine 4 mg/mL SDV 1 mL 1 MG IVP (03:36)
[2023-08-29 03:43] VITALS: PULSE 115; RESP 16; TEMP 36.3; O2SAT 92
[2023-08-29] MEDS: morphine 10 mg/0.5 mL oral liq UD SUBLINGUAL ×3 (05:24→20:38)
--- NOTE | 2023-08-29 08:56 | PC.PHAR ---
FINALLY ABLE TO CONTACT FARRAH (SOLE STAINER) WHO STATES PT TAKES CARE OF HER OWN MEDICATIONS. SOLE STAINER WAS ABLE TO VERIFY MEDS WITH THE RX BOTTLES IN HER BAG. 08/29/23
--- NOTE | 2023-08-29 09:11 | PC.CHAP ---
Pastoral Care Encounter/Spiritual Assessment Type of Contact [] Declined manager real estate visit [] Patient/Family/Request visit [] Outpatient visit [] Follow-up visit [] Physician referral [] Code/Alert [] Routine visit [] Staff referral [] Actively dying [] Patient sleeping [] Family support [] [] Out of room [] Palliative care [] [x] Receiving care in room [] Pre-surgical visit [] Trauma [] Long length of stay [] ICU visit [] Other: Relational/Emotional Strength [] Patient feels connected with others/family/visitors/staff [] Distress [] Loneliness/isolation [] Abandonment Spirituality of Patient [] Person of Stephanie [] Attends Restoration of their Stephanie [] Believes in Prayer [] Reads Bible or Quaker materials [] There are Spiritual issues to be addressed Snowboarder Interventions [] Prayer [] Active listening [] Non-anxious presence [] Spiritual/emotional support [] Crisis/trauma care [] Spiritual counseling [] Bereavement support [] Provided bereavement packet [] Provided Bible/devotional materials [] Provided toy/stuffed animal, coloring book to patient or family member [] Provided Communion [] Anointing/Stacy [] Salvation [] Completed spiritual assessment [] Other: Impact on Illness or Injury [] Angry [] Fearful [] Anxious [] Often cries [] Exhaustion [] Unable to work [] Unable to attend uatsdin [] Unable to walk/stand [] Unable to read [] Unable to drive [] Unable to eat/drink [] Unable to sleep [] Unable to be with family [] Patient intubated [] Other: Summary Time spent with patient
[2023-08-29 11:01] VITALS: PULSE 108; RESP 14; O2SAT 96
--- NOTE | 2023-08-29 12:20 | P.PN_ITS ---
Subjective 2 Subjective: Patient was seen this morning, she does awaken, to her name, but falls back asleep, is curled in position, on 2 L, tachycardic, in mild respiratory distress with intercostal retractions, nasal flaring, does not respond beside her name, does not follow me, Vitals/I&O/Wt Last Vital Signs Temp 97.4 F L 08/29/23 03:43 Pulse 108 H 08/29/23 11:01 Resp 14 08/29/23 11:01 BP 100/66 08/28/23 23:55 Pulse Ox 96 08/29/23 11:01 O2 Del Method Nasal Cannula 08/29/23 11:01 O2 Flow Rate 2 08/28/23 03:39 FiO2 100 08/28/23 09:30 08/28/23 08/29/23 08/29/23 22:59 06:59 14:59 Output Total 150 / 150 100 / 250 Balance -150 / 850 -100 / 750 Weight last 48 hrs Weight 30.844 kg Weight 30.05 kg Weight 29.03 kg Weight 23.587 kg Physical Exam 2 Const: COMMON NORMALS: no acute distress GENERAL APPEARANCE: lethargic O RIENTATION/CONSCIOUSNESS: Yes awake, Yes confused, Yes patient obtunded and Yes lethargic; not oriented to person, not oriented to place and not oriented to time Resp: COMMON NORMALS: normal respiratory effort, No retractions and No use of accessory muscles AUSCULTATION: crackles Cardio: COMMON NORMALS: regular rate, regular rhythm, S1 normal heart sound present and S2 normal heart sound present RATE: regular rate RHYTHM: r egular rhythm HEART SOUNDS: S1 normal heart sound present and S2 normal heart sound present GI: COMMON NORMALS: Normal to inspection, nondistended, normoactive bowel sounds present and non-tender Extremity: COMMON NORMALS: no pedal edema Neuro: SENSORIUM/ORIENTATION: No oriented to person, No oriented to place, No oriented to time and Yes lethargic Urinary Catheter Management: Tejeda: Cath Placed During This Visit: yes Reason for Continuing Indwelling Catheter: Hospice/Comfort/Palliative Care Urinary Catheter Date of Insertion: 08/27/23 Data 08/27/23 22:00 08/27/23 20:45 A&P Assessment and plan (1) Acute hypoxic respiratory failure: (2) Shock: (3) Unresponsive: (4) Acute encephalopathy: (5) Severe protein-energy malnutrition: (6) Chronic osteomyelitis of skull: (7) S/P craniotomy: (8) Physical deconditioning: (9) Anorexia: (10) Malignant neoplasm of upper lobe, right bronchus or lung: (11) Secondary malignant neoplasm of bone: (12) Need for comfort care: (13) Goals of care, counseling/discussion: Plan Acute hypoxic respiratory failure, with shock, with nonresponsiveness, ? Etiology likely pneumonia, aspiration pneumonia, possible PE, ? No detectable blood pressures, GCS 3, - severe anorexia, protein, nutrition, poor functional state, ? With underlying history of lung cancer, history of cranial osteomyelitis, ? Proceeding with comfort care, comfort care order set started Attestations 2 Medical Necessity Statement*: Patient requires hospitalization for comfort care Diagnoses Acute hypoxic respiratory failure J96.01 Shock R57.9 Unresponsive R41.89 Acute encephalopathy G93.40 Severe protein-energy malnutrition E43 Chronic osteomyelitis of skull M86.68 S/P craniotomy Z98.890 Physical deconditioning R53.81 Anorexia R63.0 Malignant neoplasm of upper lobe, right bronchus or lung C34.11 Secondary malignant neoplasm of bone C79.51 Need for comfort care Goals of care, counseling/discussion Z71.89
[2023-08-29 20:00] VITALS: BP 91/61; PULSE 118; RESP 16; TEMP 38.9; O2SAT 95
[2023-08-29] MEDS: LORazepam 2 mg/mL INJ 10 mL MDV 0.5 MG IVP (21:33)
[2023-08-30 00:07] VITALS: TEMP 37.2
[2023-08-30] MEDS: morphine 10 mg/0.5 mL oral liq UD SUBLINGUAL (00:23)
--- NOTE | 2023-08-30 01:17 | PC.NURSE ---
Addendum entered by Vivian De La Rosa RN 08/30/23 02:34: Patient and belongings transported to [facility]. Addendum entered by Vivian De La Rosa RN 08/30/23 01:44: Voicemail also left to caregiver, as caregiver did not answer phone. [facility] and saving site have released patient. Unknown what the home of choice is and unable to get ahold of family. Patient to be transferred to [facility]. Addendum entered by Vivian De La Rosa RN 08/30/23 01:22: IV and barnett removed. Original Note: TOD 00:38. call centre supervisor and Dr. Parson notified. Son did not answer phone. Voicemail left with call back number. Post-mortem care completed. Belongings with patient: 4 rings, 2 necklaces, full set of upper dentures, dickens blanket.
--- NOTE | 2023-08-30 08:02 | P.DES_ITS ---
Discharge Providers DDS Date of Admission: 08/28/23 01:40 Date Summary Completed: 09/01/23 Attending Provider at Admission: Pilar Parson MD Time of : 00:38 Attending Provider at Discharge: Nasim Larry MD DS Diagnoses Hospital Diagnoses (1) Acute hypoxic respiratory failure: (2) Shock: (3) Unresponsive: (4) Acute encephalopathy: (5) Severe protein-energy malnutrition: (6) Chronic osteomyelitis of skull: (7) S/P craniotomy: (8) Physical deconditioning: (9) Anorexia: (10) Malignant neoplasm of upper lobe, right bronchus or lung: (11) Secondary malignant neoplasm of bone: (12) Need for comfort care: (13) Goals of care, counseling/discussion: Reason for Visit Reason for Visit failure to thrive Summary Date and Time of Date of : 08/30/23 Time of : 00:38 Summary Summary: Georgette Calvillo is a 62 year old female with a past medical history of 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 She also carries a diagnosis of chronic osteomyelitis of the skull. She is s/p craniotomy in 2018, which was complicated by titanium mesh infection in 2020 which necessitates removal of the mesh and prolonged iv abx course. She was then scheduled to undergo reconstructive flap surgery at [facility] in April 2023 however procedure was aborted intraop due to discovery of infected bone in OR. Cx N/A from this time. She was followed by ID at [facility] and received 8 weeks course of empiric iv cefepime, iv daptomycin, iv micafungin and metronidazole which she completed in 06/2023. she had an inpatient admission here in 05/2023 to facilitate placement at [facility] rehab in [facility] and arrange these iv abx for her at the facility. She remained at [facility] after completing her iv abx course and reports that she she was discharged just yesterday. She has memory gaps which were noted even on the prior admission in May 2023. She tells me during the same conversation that she was just discharged yesterday but then at other times tells me that she was discharged last week and now has a caregiver who has visited her as recently as Mo aleman. She followed up with [facility] in June 2023 and tells me that her reconstructive surgery has been postponed to after the holidays. Per review of her outpatient medications she is currently on oral ciprofloxacin, cefdinir, clindamycin and fluconazole. We will continue the same for now. She tells me that she presents to the hospital today as she felt very weak and her caregiver did not come in today and she was unable to manage at home roly pichardo. Initially she reported to the ER physician that she would like to return home however later reported that she does not have any heat or electricity at home and her caregiver is not available at nighttime or on the weekends. She indicated to the ER physician which she agrees with the assessment that she is probably safer at a long-term facility as she is she is unlikely to be able to function independently at home with a BMI of 12, severe protein calorie malnutrition and an overall very poor functional status. She required TPN on her last admission. Patient tells me now that she does not fact have services including electricity and hot water at home however did not have a ride to go home at night and therefore indicated she wanted to stay in the hospital. - Patient was seen this morning, 08/28/2023 she appeared to be in respiratory distress, intercostal retractions nasal flaring, guppy breathing, respiratory rate 40? She had no responses, did not withdraw from pain, minimal pupillary reflex, did not withdraw from pain, did not respond to sternal rub did not respond to her name ? No blood pressure detectable, pulse in the 40s, ? Patient appears disheveled, severely cachectic, severe muscle loss, she has rolled up in the position, does not extend her neck, she be a very difficult intubation, bones are prominent, spinous processes prominent, I observed her chronic osteomyelitis of the skull, status post craniotomy, it looks relatively stable compared to prior pictures I saw in the chart, ? She has severe protein calorie malnutrition, she had been on TPN in the past ? Blood sugar within normal limits, ? Patient appears to be in acute hypoxic respiratory failure with evidence of shock, ? I instructed respiratory therapy to place her on high flow, her O2 sats on high flow 15 L were in the low 80s, still nonresponsive no blood pressure detectable, given a fluid bolus then placed on BiPAP, ? I reviewed her chart in detail patient has a BMI of 12, 60 pounds, severe anorexia, protein calorie malnutrition, deconditioning, muscle loss, ? She has complex medical problems at baseline with metastatic large cell carcinoma in the form of right frontoparietal extra-axial, dural based mass with transcalvarial extension, and PET/CT showed likely primary malignancy involving the upper lobe of the right lung with associated mediastinal lymph node involve, stage ALONSO (T1b, N3, M1b), current lung disease in remission, underwent craniotomy and resecting debulking of mass in 2018, with titanium mesh, with chemotherapy, subsequently found to have right frontal craniotomy site osteomyelitis and infection, underwent right cranial wound excoriation incision and drainage, mesh removal, complex wound closure, postoperative course was complicated by flap necrosis, ECA thrombosis, there were plans on a cranioplasty, in 2022, however after being taken to the OR, she was found to have active evidence of infection, no cultures were taken, was treated with emp iric antibiotics, discharged from [place], with complete antibiotic therapy, with plans on possible undergoing cranioplasty in June of this year, she then returned back to [facility], for altered mental status, she received IV antibiotics, steroids, treatment for rhabdomyolysis, treated with TPN, she had initially poor oral intake which improved, she was eventually transferred to [facility] for prolonged IV antibiotics, and plans on possible follow-up with [place] as outpatient, -I looked at conversation with patient's physician overnight,? [facility], but there was noted to be memory gaps, apparently according to patient, her caregiver was supposed to see her yesterday but was not there, she was unable to manage at home, she does not have a heat or electricity at home -I had a detailed discussion with the patient's son over the phone, patient's DPOA, currently living in [place],? -I discussed that currently she is in acute respiratory failure with quiring 100% BiPAP, no detectable blood pressure so in severe shock, she is getting fluids she is on 100% BiPAP she is nonresponsive, her GCS is 3, she in my opini on is not maintaining her airway, in acute respiratory failure, which shock likely septic shock,? I think that patient's likely developed acute hypoxic respiratory failure likely secondary to pneumonia, or aspiration event or possible pulmonary embolism, resulting in significant hypoxic respiratory failure, with significant shock, likely septic shock, with undetectable blood pressures, ? We discussed her overall goals of care in my opinion, given her significant deconditioning, BMI of 12, severe cachexia, history of lung cancer, history of complex skull osteomyelitis, significant deconditioning at baseline, putting her through CPR and intubation in my opinion would result in significant suffering, I think she would likely remain on life support for the remainder of her life, she in my opinion would not tolerate CPR with her significant low body mass, I am worried about breaking ribs causing hemothorax is pneumothorax, with her intubation I think it would be a traumatic process given her significant deconditioning muscle wasting she is a high risk of morbidity and mortality during intubation, now she is in septic shock she is in need pressors ICU management, and aggressive interventions, ? At baseline she has poor functional status, severe protein calorie malnutrition, BMI 12, chronic complex underlying medical problems, ? However it is my goal to let her next of kin know the positives and negatives of all options, and them to come to an informed decision ? The option would be to place her on a ventilator, if she were to decompensate, go to cardiac arrest to do CPR, placed on pressors, place her on life support and move her down to the ICU, ? I understand this is a difficult decision, I spoke to the son in detail, however given her current condition it is up to him what he wants us to do, but I would recommend against any aggressive intervention, currently she is in severe respiratory failure, in my opinion it looks like she is suffering, and I do not want to do undue suffering on her by doing aggressive interventions, ? Patient's son tells me that they have talked before and they do not want her to remain on life support, they do want to have aggressive interventions, ? I discussed the risks and benefits of all options, including continued medical care, intubating, placing her to on a ventilator moving about the ICU placing on pressors, all aggressive interventions, versus comfort care, ? After discussing the risk and benefits of all options, he voiced understanding, shared decision making, gave him time to answer all his questions, wanted to proceed with comfort care, DNR/DNI, ? I advised his son that I will try interventions to see if I can try to see if I can try to save her life, however she is in severe respiratory failure and there is no detectable blood pressure at this point, I will do my best, however if her condition worsens, despite my interventions which be nonaggressive, I we discussed easing her pain easing her suffering and allowing her to pass away comfortably, ? After discussing the risk and benefits of all options he voiced understanding, all consents are, agreed to proceed with DNR/DNI, trying medical interventions if they are unsuccessful to make her comfort care either pain ease or press suffering allow her to pass away comfortably, ? Patient was reexamined multiple times throughout the morning, again were not able to get any blood pressure on her no manual blood pressure, ? She is on 100% BiPAP she is saturating 100% but she really is not following the BiPAP machine she is tachypneic, she is in respiratory distress,, really does not have the cognition to follow BiPAP, GCS is 3, next?I have nursing staff stop BiPAP switch her to 2 L, she was given a fluid bolus still no detectable blood pressure ? Still no detectable manual blood pressure, nonresponsive, in respiratory distress, in shock, ? Advised nursing staff that given her poor functional status at baseline, she is not responding to medical interventions, as we want to abide by family wishes not to pursue aggressive inventions a DNR/DNI, will go ahead and proceed with comfort care, -Patient likely has acute hypoxic respiratory failure with shock, n onresponsiveness likely secondary to pneumonia, aspiration pneumonia, possible PE, nondetectable blood pressures, GCS 3, severe anorexia, protein calorie malnutrition, poor functional status, ? Patient was made comfort care, goals to ease her pain and ease her suffering allow her to pass with comfortably, with dignity -Patient was made comfort care, time of 08/30/2023 at 12:38 AM Additional Data Confirmation of as documented by pronouncing clinician: no pulse, no respirations and no heart sounds Family: contacted Additional persons at bedside: nursing staff Attending/PCP notified?: I am attending Was code activated?: No Autopsy requested?: No Advance directives?: No Hospice patient?: No Discharge Plan Discharge Patient Disposition: Condition: Stable Discharge Diet: Advance as tolerated Discharge Activity: Resume usual activity Probable Cause of Probable cause of : Respiratory arrest DS Attestations Time Spent in /Discharge Care*: greater than 30 min Quality - AMI: AMI present?: No Quality - Stroke: CVA present?: No Quality - VTE: VTE present?: No Coding Level of Care Code 59987 Total time (in minutes) for Discharge: 45 Diagnoses Acute hypoxic respiratory failure J96.01 Shock R57.9 Unresponsive R41.89 Acute encephalopathy G93.40 Severe protein-energy malnutrition E43 Chronic osteomyelitis of skull M86.68 S/P craniotomy Z98.890 Physical deconditioning R53.81 Anorexia R63.0 Malignant neoplasm of upper lobe, right bronchus or lung C34.11 Secondary malignant neoplasm of bone C79.51 Need for comfort care Goals of care, counseling/discussion Z71.89
== END 2023-08-30 02:36 | disposition expired ==
LOC: ER 22:34 → MEDSURG 08-28 02:14
PROVIDERS: Admitting Provider Student in an Organized Health Care Education/Training Program; Emergency Provider Family Medicine; Visit Provider Family Medicine
DX: J96.01 Acute respiratory failure with hypoxia (principal); R57.9 Shock, unspecified; R41.89 Other symptoms and signs involving cognitive functions and awareness; G93.40 Encephalopathy, unspecified; E43 Unspecified severe protein-calorie malnutrition; Z68.1 Body mass index [BMI] 19.9 or less, adult; M86.68 Other chronic osteomyelitis, other site; Z98.890 Other specified postprocedural states; R53.81 Other malaise; R63.0 Anorexia; C34.11 Malignant neoplasm of upper lobe, right bronchus or lung; C79.51 Secondary malignant neoplasm of bone; Z71.89 Other specified counseling; C34.90 Malignant neoplasm of unspecified part of unspecified bronchus or lung; M86.9 Osteomyelitis, unspecified; Z66 Do not resuscitate
CPT/HCPCS: 36415; 36416; 51702; 71045; 80053; 81001; 82962; 83605; 85025; 87040; 93005; 94660; 96365; 96375; 99285; G0378; J2060; J2270; J3370; J7030; J7050